=== PATIENT | male | born 1950 | race Caucasian/White ===

== ENCOUNTER 2020-07-25 06:35 | Day surgery (SDC) | payer OTHER ==
[2020-07-23 11:12] VITALS: BMI 28.7
--- NOTE | 2020-07-23 11:46 | RAD REPORT ---
EXAM DESCRIPTION: RAD - Chest Single View - 07/23/2020 11:40 am CLINICAL HISTORY: Preop chest, pending cardiac catheterization, hypertension, prior bypass COMPARISON: Two-view chest February 2012 TECHNIQUE: AP portable chest image was obtained 07/23/2020 11:40 am . FINDINGS: Left hemidiaphragm elevation again noted. CABG surgical changes are new from 2013. Scatter ed fibrotic lung changes are seen with no failure, infiltrate, mass or other acute finding identifiab le. Heart and vasculature are normal. No measurable pleural effusion and no pneumothorax. No acute bony abnormality seen. No acute aortic findings suspected. IMPRESSION: No acute cardiopulmonary process. No significant change from comparison study.
[2020-07-23 11:56] LABS: Absolute Lymphocytes (CBC) 2.1 K/uL (0.7-4.9); Basophils % 0.6 % (0-1.3); Lymphocytes % 20.4 % (15.3-44.8); MPV 7.1 fL (7.6-11.3); RBC Red Blood Cell Count 4.54 M/uL (4.33-5.43)
[2020-07-23 12:10] LABS: BUN Blood Urea Nitrogen 23 mg/dL (7-18); Bicarbonate 31 mmol/L (21-32); Glucose Level 107 mg/dL (74-106); Potassium 3.1 mmol/L (3.5-5.1); Sodium Level 136 mmol/L (136-145)
[2020-07-23 12:15] LABS: Protime INR 0.91
[2020-07-25] MEDS ORDERED: HEPA 1000U/500MLS 0 UNIT/0 ML BAG IV ONE (07:02)
[2020-07-25] MEDS ORDERED: LIDOCAINE 1% 20 ML MDV ONE (07:02)
[2020-07-25] MEDS ORDERED: HEPA 1000U/500MLS 1,000 UNIT/500 ML BAG IV ONE (07:04)
[2020-07-25] MEDS ORDERED: NA CHLORIDE 0.9% 500 ML ONE (07:05)
[2020-07-25] MEDS ORDERED: MIDAZOLAM HCL 2 MG/2 ML INJ ONE ×2 (07:25→07:39)
[2020-07-25] MEDS ORDERED: FENTANYL CITR 100 MCG/2 ML ONE (07:25)
[2020-07-25] MEDS ORDERED: NA CHLORIDE 0.9% 0 ML ONE (07:26)
[2020-07-25] MEDS ORDERED: ATROPINE SULF 1 MG/10 ML SYR IV ONE (07:26)
[2020-07-25 09:34] VITALS: O2SAT 96
[2020-07-25 09:52] VITALS: BP 124/56; TEMP 97.3
--- NOTE | 2020-07-25 10:41 | OP ---
Surgeon: Don Salas MD Freight Receiver: Mr. Vincent Scanlon. The patient will remain in the hospital for 2 hours after his Angio-Seal at bedrest. He will go home after that. Continue same medicine. He will see me in the office in the next 2 weeks. Indication: Mr. Morales is a 69-year-old, patient of Dr. López and myself, with history of CAD, presen bob to the office with unstable angina. Procedure: He was brought to the [facility] supervisor today as an outpatient. In the [facility], he underwent a l eft heart catheterization, selective coronary arteriogram, vein graft injection to the OM, injection of the DC, and left ventriculogram. Procedure In Detail: He was prepped and draped in the routine sterile fashion. Given Versed and fen tanyl for sedation. A 6-Armenian sheath introduced in the right common femoral artery successfully. A ngio-Seal was used to close the case. Angiography there was normal. There was some tortuosity in th e iliac arteries. So, we used and exchanged wire to do the catheterization. A JL4 catheter showed a completely occluded left main. We then exchanged to a JR4 catheter and we cannulated the RCA, which was normal, dominant. We then cannulated the graft to the OM, which was patent to the OM1. We proc eeded to select the DC artery and after that and that was patent to the LAD. Left ventriculogram w as normal with ejection fraction of 65% to 69% with left ventricular end-diastolic pressure of 10. T here were no complications. Blood Loss: 5 mL. Postoperative Diagnosis: Severe coronary artery disease, status post previous bypass, patent stents. Continue medical therapy. Anesthesia: Total conscious sedation was 45 minutes. NB/MODL Voice ID: [id number] Report ID: [id number]
== END 2020-07-25 10:00 | disposition home or self-care (01) ==
LOC: CCL 06:35
DX: I25.110 Atherosclerotic heart disease of native coronary artery with unstable angina pectoris (principal); I25.82 Chronic total occlusion of coronary artery; I65.23 Occlusion and stenosis of bilateral carotid arteries; I10 Essential (primary) hypertension; R00.2 Palpitations; E78.2 Mixed hyperlipidemia; J44.1 Chronic obstructive pulmonary disease with (acute) exacerbation; G62.9 Polyneuropathy, unspecified; Z95.1 Presence of aortocoronary bypass graft; Z95.5 Presence of coronary angioplasty implant and graft; Z87.891 Personal history of nicotine dependence
CPT/HCPCS: 85025; 80048; 36415; 85610; 85730; 71045; C1893; C1760; J2250 ×2; J3010; J7040; J1644; 93458; 93459; J0583

== ENCOUNTER 2021-11-04 14:28 | Inpatient (IN) | payer OTHER ==
--- OUTSIDE RECORDS SUMMARY | 2021-11-04 14:33 | XMS REPORT | Continuity of Care Document ---
:1950 Author Organization [facility] t Address [address] [place] [address] Care Team Providers Name Role Phone MANJIT COSTA Primary Care Physician Unavailable Dell Pascual MD Attending Clinician RADIOLOGY Attending Clinician Unavailable Radiology Attending Clinician Unavailable Shereen Ferguson MD Attending Clinician OMARI DUMONT Attending Clinician Unavailable Omari Dumont Attending Clinician Doctor Unassigned, Adena Attending Clinician Unavailable Aroldo Sanchez DO Attending Clinician АНДРЕЙ DOHERTY Attending Clinician Unavailable Lab, Adc Fam Pob I Attending Clinician Unavailable Patricia Tiwari Attending Clinician MD SHEREEN FERGUSON Attending Clinician Unavailable Stephanie Kapoor Attending Clinician STEPHANIE HENRIQUEZ Attending Clinician Unavailable Mello Hall MD Attending Clinician JAVIER HAYDEN Admitting Clinician Unavailable OMARI DUMONT Admitting Clinician Unavailable SHEREEN FERGUSON Admitting Clinician Unavailable MD SHEREEN FERGUSON Admitting Clinician Unavailable Payers Payer Name Policy Type Policy Number Effective Date Expiration Date Alan JASON MANAGED [id number] 2021 MEDICARE PPO-SAMRA 00:00:00 Problems Condition Condition Condition Status Onset Resolution Last Treating Co mments Source Name Details Category Date Date Treatment Clinician Date S/P total S/P total Disease Active [facility] 10-[facility] arthroplas arthroplas 00:00: [facility] ty, left ty, left 00 l 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 Added automatic ally from request for surgery [id number] Post-op Post-op Disease Active [facility] atrial [facility] 03-16kes fibrillati fibrillati 00:00: [facility] on Center S/P ACB S/P ACB Disease Active [facility] (DC-LAD, (DC-LAD, 03-11 Lisseth kes SVG-OM) SVG-OM) [facility]:00: [facility] Coronary Coronary Disease Active [facility] artery artery 03-10 disease disease 00:00: [facility] Hypertensi Hypertensi Disease Active [facility] on 03-10 [facility] COPD COPD Disease Active [facility] (chronic (chronic 03-10 obstructiv obstructiv 00:00: Me dical e e Center pulmonary pulmonary disease) disease) Pain in Pain in Diagnosis Active Commo n joint of joint of [facility] right right - [facility] shoulder shoulder [facility] Impingemen Impingemen Diagnosis Active Common t syndrome t syndrome Sp [facility] of right of right - [facility] shoulder shoulder [facility] Allergies, Adverse Reactions, Alerts Allergy Allergy Status Severity Reaction(s) Onset Inactive Treating Comm ents Source Name Type Date Date Clinician ADHESIVE Drug Active Low Rash Univers Class 03-10 ity of 00:00: [place] 00 [facility] Adhesive Propensi Active Rash Univer s ty to 03-10 ity of adverse 00:00: [place] reaction 00 Medical s Branch Adhesive Propensi Active Rash Univer s ty to 1-31 ity of adverse 00:00: [place] reaction 00 Medical s Branch Adhesive Drug Active Rash 2016-0 SANCHEZ Molina [facility]olera [facility]31 [facility] Family History Family Member Diagnosis Comments Start Date Stop Date Source Natural father Heart disease [facility] Natural mother Cancer [facility] Social History Social Habit Start Date Stop Date Quantity Comments Source History of tobacco Cigarette Smoker [facility] use [facility] Center Exposure to 2021-08-31 2021-09-10 Not sure University SARS-CoV-2 (event) 00:00:00 14:41:00 [facility] Alcohol intake 2021-08-05 2021-08-05 Current drinker [facility]o dist 00:00:00 00:00:00 of alcohol Hospital (finding) Cigarettes smoked 2020-04-09 2020-04-[address] current (pack per 00:00:00 00:00:00 Hospita l day) - Reported Cigarette 2020-04-09 2020-04-09 [facility] pack-years 00:00:00 00:00:00 Hospital Tobacco use and 2020-04-09 2020-04-09 Smokeless [facility] exposure 00:00:00 00:00:00 tobacco non-user Hospital Alcohol Comment 2019-10-18 2019-10-18 social [facility] 00:00:00 00:00:00 Hospital Sex [birth year] At [birth year] SANCHEZ Oliver kes 00:00:00 00:00:00 [facility] Center Smoking Status Start Date Stop Date Source Former smoker [facility] Never smoked tobacco [facility] Medications Ordered Filled Start Stop Current Ordering Indication Dosage Frequency Signature Comments Components Source Medication Medication Date Date Medication? Clinician (SIG) Name Name triazolam 2020-0 Yes .25mg QD Take 0.25 [facility] (HALCION) 3-[address] 0.25 MG 00:00: mouth Hospita tablet 00 daily. l furosemide 2020-0 Yes 40mg Take 40 mg U nivers 40 mg 2-29 by mouth. ity of tablet 00:00: [address] furosemide 2020-0 Yes 40mg Take 40 mg U nivers 40 mg 2-29 by mouth. ity of tablet 00:00: [place] [facility] furosemide 2020-0 Yes 40mg Take 40 mg U nivers 40 mg 2-29 by mouth. ity of tablet 00:00: [place] [facility] furosemide 2020-0 Yes 40mg Take 40 mg U nivers 40 mg 2-29 by mouth. ity of tablet 00:00: [place] [facility] furosemide 2020-0 Yes 40mg Take 40 mg U nivers 40 mg 2-29 by mouth. ity of tablet 00:00: [place] [facility] furosemide 2020-0 Yes 40mg Take 40 mg U nivers 40 mg 2-29 by mouth. ity of tablet 00:00: [place] [facility] furosemide 2020-0 Yes 40mg Take 40 mg U nivers 40 mg 2-29 by mouth. ity of tablet 00:00: [place] [facility] furosemide 2020-0 Yes 40mg Take 40 mg U nivers 40 mg 2-29 by mouth. ity of tablet 00:00: [place] [facility] furosemide 2020-0 Yes 40mg Take 40 mg U nivers 40 mg 2-29 by mouth. ity of tablet 00:00: [place] [facility] furosemide 2020-0 Yes 40mg Take 40 mg U nivers 40 mg 2-29 by mouth. ity of tablet 00:00: [place] [facility] furosemide 2020-0 Yes 40mg QD Take 40 mg M ethodi (LASIX) 40 2-[address] mg tablet 00:00: daily. Hospit a 00 l escitalopra 2019- Yes Univer s m oxalate 2-14 ity of 10 mg 00:00: [place] tablet 00 [facility] escitalopra 2019- Yes Univer s m oxalate 2-14 ity of 10 mg 00:00: [place] tablet 00 [facility] escitalopra 2019- Yes Univer s m oxalate 2-14 ity of 10 mg 00:00: [place] tablet 00 [facility] escitalopra 2019- Yes Univer s m oxalate 2-14 ity of 10 mg 00:00: [place] tablet 00 [facility] [place] escitalopra 2019- Yes Univer s m oxalate 2-14 ity of 10 mg 00:00: [place] tablet 00 [facility] escitalopra 2019- Yes Univer s m oxalate 2-14 ity of 10 mg 00:00: [place] tablet 00 [facility] escitalopra 2019- Yes Univer s m oxalate 2-14 ity of 10 mg 00:00: [place] tablet 00 [facility] escitalopra 2019- Yes Univer s m oxalate 2-14 ity of 10 mg 00:00: [place] tablet 00 [facility] Branch escitalopra 2018-02 Yes Univer s m oxalate 2-14 ity of 10 mg 00:00: [place] tablet 00 [facility] escitalopra 2018-02 Yes Univer s m oxalate 2-14 ity of 10 mg 00:00: [place] tablet Medical Branch escitalopra 2018-02 Yes Univer s m oxalate 2-14 ity of 10 mg 00:00: [place] tablet Medical Branch escitalopra 2018-02 Yes Univer s m oxalate 2-14 ity of 10 mg 00:00: [place] tablet Medical Branch escitalopra 2018-02 Yes Univer s m oxalate 2-14 ity of 10 mg 00:00: [place] tablet Medical Branch escitalopra 2018-02 Yes Univer s m oxalate 2-14 ity of 10 mg 00:00: [place] tablet Medical [facility] escitalopra 2018-02 Yes 5mg QD Take 5 mg M ethodi m (LEXAPRO) 2-[address] 10 MG 00:00: daily. Hospita tablet 00 triazolam 2018-02 Yes Univers 0.25 mg 0-31 ity of tablet 00:00: [place] [facility] triazolam 2018-02 Yes Univers 0.25 mg 0-31 ity of tablet 00:00: [facility] triazolam 2018-02 Yes Univers 0.25 mg 0-31 ity of tablet 00:00: [place] [facility] triazolam 2018-02 Yes Univers 0.25 mg 0-31 ity of tablet 00:00: [facility] triazolam 2018-02 Yes Univers 0.25 mg 0-31 ity of tablet 00:00: [facility] Branch triazolam 2018-02 Yes Univers 0.25 mg 0-31 ity of tablet 00:00: [facility] triazolam 2018-02 Yes Univers 0.25 mg 0-31 ity of tablet 00:00: [facility] triazolam 2018-02 Yes Univers 0.25 mg 0-31 ity of tablet 00:00: [facility] triazolam 2018-02 Yes Univers 0.25 mg 0-31 ity of tablet 00:00: [facility] triazolam 2018-02 Yes Univers 0.25 mg 0-31 ity of tablet 00:00: [place] [facility] triazolam 2018- Yes Univers 0.25 mg 0-31 ity of tablet 00:00: [address] Branch triazolam 2018- Yes Univers 0.25 mg 0-31 ity of tablet 00:00: [address] Branch triazolam 2018- Yes Univers 0.25 mg 0-31 ity of tablet 00:00: [address] Branch triazolam 2018-02 Yes Univers 0.25 mg 0-31 ity of tablet 00:00: [address] Branch amLODIPine 2018- Yes Univers 5 mg tablet 0-11 ity of 00:00: [address] Branch amLODIPine 2018- Yes Univers 5 mg tablet 0-11 ity of 00:00: [address] Branch amLODIPine 2018- Yes Univers 5 mg tablet 0-11 ity of 00:00: [address] Branch amLODIPine 2018-02 Yes Univers 5 mg tablet 0-11 ity of 00:00: [address] Branch amLODIPine 2019 Yes Univers 5 mg tablet 0-11 ity of 00:00: [address] Branch amLODIPine 2018- Yes Univers 5 mg tablet 0-11 ity of 00:00: [address] amLODIPine 2018-02 Yes Univers 5 mg tablet 0-11 ity of 00:00: [address] Branch amLODIPine 2019- Yes Univers 5 mg tablet 0-11 ity of 00:00: [address] Branch amLODIPine 2019- Yes Univers 5 mg tablet 0-11 ity of 00:00: [address] Branch amLODIPine 2019- Yes Univers 5 mg tablet 0-11 ity of 00:00: [address] Branch amLODIPine 2019- Yes Univers 5 mg tablet 0-11 ity of 00:00: [address] Branch amLODIPine 2018- Yes Univers 5 mg tablet 0-11 ity of 00:00: [address] Branch amLODIPine 2019- Yes Univers 5 mg tablet 0-11 ity of 00:00: [address] Branch amLODIPine 2019- Yes Univers 5 mg tablet 0-11 ity of 00:00: [address] Branch amLODIPine 2019- Yes 5mg QD Take 5 mg Me [facility] (NORVASC) 5 0-[address] mg tablet 00:00: daily. Hospit a 00 l atorvastati Yes Univer s n 40 mg 9-17 ity of tablet 00:00: [place] 00 [facility] atorvastati 2019-0 Yes Univer s n 40 mg 9-17 ity of tablet 00:00: [place] 00 [facility] atorvastati 2019-0 Yes Univer s n 40 mg 9-17 ity of tablet 00:00: [place] 00 [facility] atorvastati 2019-0 Yes Univer s n 40 mg 9-17 ity of tablet 00:00: [place] 00 [facility] atorvastati 2019-0 Yes Univer s n 40 mg 9-17 ity of tablet 00:00: [place] 00 [facility] atorvastati 2019-0 Yes Univer s n 40 mg 9-17 ity of tablet 00:00: [place] 00 [facility] atorvastati 2019-0 Yes Univer s n 40 mg 9-17 ity of tablet 00:00: [place] 00 [facility] atorvastati 2019-0 Yes Univer s n 40 mg 9-17 ity of tablet 00:00: [place] 00 [facility] atorvastati 2019-0 Yes Univer s n 40 mg 9-17 ity of tablet 00:00: [place] 00 [facility] atorvastati 2019-0 Yes Univer s n 40 mg 9-17 ity of tablet 00:00: [place] [address] Medical Branch atorvastati 2019-0 Yes Univer s n 40 mg 9-17 ity of tablet 00:00: [place] 00 [facility] atorvastati 2019-0 Yes Univer s n 40 mg 9-17 ity of tablet 00:00: [place] 00 [facility] atorvastati 2019-0 Yes Univer s n 40 mg 9-17 ity of tablet 00:00: [place] 00 [facility] atorvastati 2019-0 Yes Univer s n 40 mg 9-17 ity of tablet 00:00: [place] [address] Medical Branch tadalafil 2019-0 Yes TAKE 1 Univer s 20 mg 9-04 TABLET BY ity of tablet 00:00: MOUTH [place] EVERY DAY Medical NEEDED Branch tadalafil 2019-0 Yes TAKE 1 Univer s 20 mg 9-04 TABLET BY ity of tablet 00:00: MOUTH [place] [address] EVERY DAY Medical NEEDED Branch tadalafil 2019-0 Yes TAKE 1 Univer s 20 mg 9-04 TABLET BY ity of tablet 00:00: MOUTH [place] EVERY DAY Medical NEEDED Branch tadalafil 2019-0 Yes TAKE 1 Univer s 20 mg 9-04 TABLET BY ity of tablet 00:00: MOUTH 00 EVERY DAY Medical NEEDED Branch tadalafil Yes TAKE 1 Univer s 20 mg 9-04 TABLET BY ity of tablet 00:00: MOUTH [place] 00 EVERY DAY Medical NEEDED Branch tadalafil Yes TAKE 1 Univer s 20 mg 9-04 TABLET BY ity of tablet 00:00: MOUTH 00 EVERY DAY Medical NEEDED Branch tadalafil Yes TAKE 1 Univer s 20 mg 9-04 TABLET BY ity of tablet 00:00: MOUTH 00 EVERY DAY Medical NEEDED Branch tadalafil Yes TAKE 1 Univer s 20 mg 9-04 TABLET BY ity of tablet 00:00: MOUTH 00 EVERY DAY Medical NEEDED Branch tadalafil Yes TAKE 1 Univer s 20 mg 9-04 TABLET BY ity of tablet 00:00: MOUTH 00 EVERY DAY Medical NEEDED Branch tadalafil Yes TAKE 1 Univer s 20 mg 9-04 TABLET BY ity of tablet 00:00: MOUTH 00 EVERY DAY Medical NEEDED Branch tadalafil Yes TAKE 1 Univer s 20 mg 9-04 TABLET BY ity of tablet 00:00: MOUTH 00 EVERY DAY Medical NEEDED Branch tadalafil Yes TAKE 1 Univer s 20 mg 9-04 TABLET BY ity of tablet 00:00: MOUTH 00 EVERY DAY Medical NEEDED Branch tadalafil Yes TAKE 1 Univer s 20 mg 9-04 TABLET BY ity of tablet 00:00: MOUTH 00 EVERY DAY Medical NEEDED Branch tadalafil Yes TAKE 1 Univer s 20 mg 9-04 TABLET BY ity of tablet 00:00: MOUTH 00 EVERY DAY Medical NEEDED Branch predniSONE 2018-0 Yes Univers 10 mg 8-13 ity of tablet 00:00: [place] 00 [facility] metoprolol 2018-0 Yes Univers succinate 8-13 ity of XL 50 mg 24 00:00: [place] hr tablet 00 Medical Branch metoprolol 0 Yes Univers succinate 8-13 ity of XL 50 mg 24 00:00: [place] hr tablet 00 Medical Branch predniSONE 2019-0 Yes Univers 10 mg 8-13 ity of tablet 00:00: [place] 00 [facility] metoprolol 2019-0 Yes Univers succinate 8-13 ity of XL 50 mg 24 00:00: [place] hr tablet 00 Medical Branch predniSONE 2019-0 Yes Univers 10 mg 8-13 ity of tablet 00:00: [place] 00 [facility] predniSONE 2019-0 Yes Univers 10 mg 8-13 ity of tablet 00:00: [place] [facility] metoprolol 2019-0 Yes Univers succinate 8-13 ity of XL 50 mg 24 00:00: [place] hr tablet 00 Medical Branch predniSONE 2019-0 Yes Univers 10 mg 8-13 ity of tablet 00:00: [place] [facility] metoprolol 2019-0 Yes Univers succinate 8-13 ity of XL 50 mg 24 00:00: [place] hr tablet 00 Medical Branch predniSONE 2019-0 Yes Univers 10 mg 8-13 ity of tablet 00:00: [place] [facility] metoprolol 2019-0 Yes Univers succinate 8-13 ity of XL 50 mg 24 00:00: [place] hr tablet 00 Medical Branch predniSONE 2019-0 Yes Univers 10 mg 8-13 ity of tablet 00:00: [place] [facility] metoprolol 2019-0 Yes Univers succinate 8-13 ity of XL 50 mg 24 00:00: [place] hr tablet 00 Medical Branch predniSONE 2019-0 Yes Univers 10 mg 8-13 ity of tablet 00:00: [place] [facility] metoprolol 2019-0 Yes Univers succinate 8-13 ity of XL 50 mg 24 00:00: [place] hr tablet 00 Medical Branch predniSONE 2019-0 Yes Univers 10 mg 8-13 ity of tablet 00:00: [place] [facility] metoprolol 2019-0 Yes Univers succinate 8-13 ity of XL 50 mg 24 00:00: [place] hr tablet 00 Medical Branch predniSONE 2019-0 Yes Univers 10 mg 8-13 ity of tablet 00:00: [place] [facility] metoprolol 2019-0 Yes Univers succinate 8-13 ity of XL 50 mg 24 00:00: [place] hr tablet 00 Medical Branch predniSONE 2019-0 Yes Univers 10 mg 8-13 ity of tablet 00:00: [place] [facility] metoprolol 2019-0 Yes Univers succinate 8-13 ity of XL 50 mg 24 00:00: [place] hr tablet 00 Medical Branch predniSONE 2019-0 Yes Univers 10 mg 8-13 ity of tablet 00:00: [place] [facility] metoprolol 2019-0 Yes Univers succinate 8-13 ity of XL 50 mg 24 00:00: [place] hr tablet 00 Medical Branch predniSONE 2018-0 Yes Univers 10 mg 8-13 ity of tablet 00:00: [place] [facility] metoprolol 2018-0 Yes Univers succinate 8-13 ity of XL 50 mg 24 00:00: [place] hr tablet 00 Medical Branch predniSONE 2018-0 Yes Univers 10 mg 8-13 ity of tablet 00:00: [place] [facility] metoprolol 2018-0 Yes Univers succinate 8-13 ity of XL 50 mg 24 00:00: [place] hr tablet Medical Branch triazolam 2017-0 Yes .25mg Take 0.[address] (HALCION) 2-09 [facility] MG 13:49: mouth Medical tablet 27 every Center night as needed. apixaban 5 0 Yes 5mg Take 5 mg Un sally mg tablet 2-09 by mouth. ity o f 00:00: [place] [facility] umeclidiniu Yes 1{puff} Inhale 1 Univers m 62.5 2-09 Puff. ity of mcg/actuati 00:00: [place] on DsDv [facility] Branch apixaban 5 0 Yes 5mg Take 5 mg Un sally mg tablet 2-09 by mouth. ity o f 00:00: [facility] umeclidiniu Yes 1{puff} Inhale 1 Univers m 62.5 2-09 Puff. ity of mcg/actuati 00:00: [place] on DsDv Medical Branch apixaban 5 [id number] Yes 5mg Take 5 mg Un sally mg tablet 2-09 by mouth. ity o f 00:00: [facility] umeclidiniu Yes 1{puff} Inhale 1 Univers m 62.5 2-09 Puff. ity of mcg/actuati 00:00: [place] on DsDv [facility] apixaban 5 2017-0 Yes 5mg Take 5 mg Un sally mg tablet 2-09 by mouth. ity o f 00:00: [facility] umeclidiniu 0 Yes 1{puff} Inhale 1 Univers m 62.5 2-09 Puff. ity of mcg/actuati 00:00: [place] on DsDv Medical Branch apixaban 5 2017-0 Yes 5mg Take 5 mg Un sally mg tablet 2-09 by mouth. ity o f 00:00: [place] [facility] apixaban 5 2017-0 Yes 5mg Take 5 mg Un sally mg tablet 2-09 by mouth. ity o f 00:00: [place] [facility] umeclidiniu 2017-0 Yes 1{puff} Inhale 1 Univers m 62.5 2-09 Puff. ity of mcg/actuati 00:00: [place] on DsDv Medical Branch umeclidiniu 2017-0 Yes 1{puff} Inhale 1 Univers m 62.5 2-09 Puff. ity of mcg/actuati 00:00: [place] on DsDv Medical Branch apixaban 5 2017-0 Yes 5mg Take 5 mg Un sally mg tablet 2-09 by mouth. ity o f 00:00: [place] [facility] umeclidiniu 2017-0 Yes 1{puff} Inhale 1 Univers m 62.5 2-09 Puff. ity of mcg/actuati 00:00: [place] on DsDv Medical Branch apixaban 5 2017-0 Yes 5mg Take 5 mg Un sally mg tablet 2-09 by mouth. ity o f 00:00: [place] [facility] umeclidiniu 2017-0 Yes 1{puff} Inhale 1 Univers m 62.5 2-09 Puff. ity of mcg/actuati 00:00: [place] on DsDv Medical Branch apixaban 5 2017-0 Yes 5mg Take 5 mg Un sally mg tablet 2-09 by mouth. ity o f 00:00: [place] [facility] umeclidiniu 2017-0 Yes 1{puff} Inhale 1 Univers m 62.5 2-09 Puff. ity of mcg/actuati 00:00: [place] on DsDv Medical Branch apixaban 5 2017-0 Yes 5mg Take 5 mg Un sally mg tablet 2-09 by mouth. ity o f 00:00: [place] [facility] umeclidiniu 2017-0 Yes 1{puff} Inhale 1 Univers m 62.5 2-09 Puff. ity of mcg/actuati 00:00: [place] on DsDv Medical Branch apixaban 5 2017-0 Yes 5mg Take 5 mg Un sally mg tablet 2-09 by mouth. ity o f 00:00: [place] [facility] umeclidiniu 2017-0 Yes 1{puff} Inhale 1 Univers m 62.5 2-09 Puff. ity of mcg/actuati 00:00: [place] on DsDv Medical Branch apixaban 5 [id number] Yes 5mg Take 5 mg Un salyl mg tablet 2-09 by mouth. ity o f 00:00: [place] [facility] umeclidiniu 2017-0 Yes 1{puff} Inhale 1 Univers m 62.5 2-09 Puff. ity of mcg/actuati 00:00: [place] on DsDv Medical Branch apixaban 5 Yes 5mg Take 5 mg Un sally mg tablet 2-09 by mouth. ity o f 00:00: [place] [facility] umeclidiniu 2017-0 Yes 1{puff} Inhale 1 [facility] 62.5 2-09 Puff. ity of mcg/actuati 00:00: [place] on DsDv Medical Branch apixaban 5 Yes 5mg Take 5 mg Un sally mg tablet 209 by mouth. ity o f 00:00: [place] [facility] umeclidiniu Yes 1{puff} Inhale 1 [facility] m 62.5 2-09 Puff. ity of mcg/actuati 00:00: [place] on DsDv Medical Branch apixaban [id number] Yes 5mg Q.5D Take [address] [facility] (ELIQUIS) 5 2-09 tablet (5 Bk es mg Tab 00:00: mg total) Medica l tablet 00 by mouth 2 Center (two) times daily. umeclidiniu Yes 1{puff} QD Inhale [address] [facility] m (INCRUSE 2-09 puff by [facility] ELLIPTA) 00:00: mouth via [facility] 62.5 00 inhaler Center mcg/actuati daily. on DsDv powder for inhalation atorvastati Yes 40mg QD Take 40 mg Methodi n (LIPITOR) 2-[address] 40 MG 00:00: daily. Hospita tablet 00 l metoprolol 2017-0 Yes Method[facility] succinate 2-01 st 50 mg 00:00: Hospita capsule,spr 00 l inkle,ER 24hr nisoldipine [id number] Yes Univer s (SULAR) 7-18 ity of 25.5 mg 24 00:00: [place] hr tablet 00 Medical Branch BENICAR HCT 2015-0 Yes Univer s 40-12.5 mg 7-18 ity of per tablet 00:00: [place] [facility] nisoldipine [id number] Yes Univer s (SULAR) 7-18 ity of 25.5 mg 24 00:00: [place] hr tablet 00 Medical Branch BENICAR HCT 2016-0 Yes Univer s 40-12.5 mg 7-18 ity of per tablet 00:00: [place] 00 [facility] Branch nisoldipine 2016-0 Yes Univer s (SULAR) 7-18 ity of 25.5 mg 24 00:00: [place] hr tablet 00 Medical Branch BENICAR HCT 2015-0 Yes Univer s 40-12.5 mg 7-18 ity of per tablet 00:00: [place] 00 [facility] Branch nisoldipine 2016-0 Yes Univer s (SULAR) 7-18 ity of 25.5 mg 24 00:00: [place] hr tablet 00 Medical Branch BENICAR HCT 2015-0 Yes Univer s 40-12.5 mg 7-18 ity of per tablet 00:00: [place] 00 [facility] nisoldipine 2016-0 Yes Univer s (SULAR) 7-18 ity of 25.5 mg 24 00:00: [place] hr tablet 00 Medical Branch BENICAR HCT 2016-0 Yes Univer s 40-12.5 mg 7-18 ity of per tablet 00:00: [place] 00 [facility] nisoldipine 2016-0 Yes Univer s (SULAR) 7-18 ity of 25.5 mg 24 00:00: [place] hr tablet 00 Medical Branch BENICAR HCT 2016-0 Yes Univer s 40-12.5 mg 7-18 ity of per tablet 00:00: [place] 00 [facility] nisoldipine 2016-0 Yes Univer s (SULAR) 7-18 ity of 25.5 mg 24 00:00: [place] hr tablet 00 Medical Branch BENICAR HCT 2016-0 Yes Univer s 40-12.5 mg 7-18 ity of per tablet 00:00: [place] 00 [facility] nisoldipine 2016-0 Yes Univer s (SULAR) 7-18 ity of 25.5 mg 24 00:00: [place] hr tablet 00 Medical Branch BENICAR HCT 2015-0 Yes Univer s 40-12.5 mg 7-18 ity of per tablet 00:00: [place] 00 [facility] Branch nisoldipine 2016-0 Yes Univer s (SULAR) 7-18 ity of 25.5 mg 24 00:00: [place] hr tablet 00 Medical Branch BENICAR HCT 0 Yes Univer s 40-12.5 mg 7-18 ity of per tablet 00:00: [place] 00 [facility] Branch nisoldipine 0 Yes Univer s (SULAR) 7-18 ity of 25.5 mg 24 00:00: [place] hr tablet 00 Medical Branch BENICAR HCT 0 Yes Univer s 40-12.5 mg 7-18 ity of per tablet 00:00: [place] 00 [facility] Branch nisoldipine [id number] Yes Univer s (SULAR) 7-18 ity of 25.5 mg 24 00:00: [place] hr tablet 00 Medical Branch BENICAR HCT 0 Yes Univer s 40-12.5 mg 7-18 ity of per tablet 00:00: [place] 00 [facility] Branch nisoldipine [id number] Yes Univer s (SULAR) 7-18 ity of 25.5 mg 24 00:00: [place] hr tablet 00 Medical Branch nisoldipine 0 Yes Univer s (SULAR) 7-18 ity of 25.5 mg 24 00:00: [place] hr tablet 00 Medical Branch BENICAR HCT 2016-0 Yes Univer s 40-12.5 mg 7-18 ity of per tablet 00:00: [place] 00 Medical Branch BENICAR HCT 2015-0 Yes Univer s 40-12.5 mg 7-18 ity of per tablet 00:00: [place] 00 Medical Branch nisoldipine 2015-0 Yes Univer s (SULAR) 7-18 ity of 25.5 mg 24 00:00: [place] hr tablet 00 Medical Branch BENICAR HCT 0 Yes Univer s 40-12.5 mg 7-18 ity of per tablet 00:00: [place] 00 Medical Branch ANORO 2015-0 Yes Univers ELLIPTA 7-17 ity of 62.5-25 00:00: [place] mcg/actuati 00 Medical on Branch inhalation disk ANORO 2016-0 Yes Univers ELLIPTA 7-17 ity of 62.5-25 00:00: [place] mcg/actuati 00 Medical on Branch inhalation disk ANORO 2016-0 Yes Univers ELLIPTA 7-17 ity of 62.5-25 00:00: [place] mcg/actuati 00 Medical on Branch inhalation disk ANORO 2016-0 Yes Univers ELLIPTA 7-17 ity of 62.5-25 00:00: [place] mcg/actuati 00 Medical on Branch inhalation disk ANORO 2016-0 Yes Univers ELLIPTA 7-17 ity of 62.5-25 00:00: [place] mcg/actuati 00 Medical on Branch inhalation disk ANORO 2016-0 Yes Univers ELLIPTA 7-17 ity of 62.5-25 00:00: [place] mcg/actuati 00 Medical on Branch inhalation disk ANORO 2016-0 Yes Univers ELLIPTA 7-17 ity of 62.5-25 00:00: [place] mcg/actuati 00 Medical on Branch inhalation disk ANORO 2016-0 Yes Univers ELLIPTA 7-17 ity of 62.5-25 00:00: [place] mcg/actuati 00 Medical on Branch inhalation disk ANORO 2016-0 Yes Univers ELLIPTA 7-17 ity of 62.5-25 00:00: [place] mcg/actuati 00 Medical on Branch inhalation disk ANORO 2016-0 Yes Univers ELLIPTA 7-17 ity of 62.5-25 00:00: [place] mcg/actuati 00 Medical on Branch inhalation disk ANORO 2016-0 Yes Univers ELLIPTA 7-17 ity of 62.5-25 00:00: [place] mcg/actuati 00 Medical on Branch inhalation disk ANORO 2016-0 Yes Univers ELLIPTA 7-17 ity of 62.5-25 00:00: [place] mcg/actuati 00 Medical on Branch inhalation disk ANORO 2016-0 Yes Univers ELLIPTA 7-17 ity of 62.5-25 00:00: [place] mcg/actuati 00 Medical on Branch inhalation disk ANORO 2016-0 Yes Univers ELLIPTA 7-17 ity of 62.5-25 00:00: [place] mcg/actuati 00 [facility] inhalation disk umeclirebecau 2010-0 Yes QD daily. Meth boubacar m-vilantero 1-10 st L (Anoro 00:00: [facility]) 00 l 62.5-25 mcg/actuati on blister with device Triazolam Triazolam Yes Carlo not Com mon Omid defined [facility] Atorvastati Atorvastati Yes Carlo not Common n Calcium n Calcium Omid defined [facility] PredniSONE PredniSONE Yes Carlo not C ommon Omid defined [facility] Atrovent Atrovent Yes Carlo not Commo n HFA HFA Omid defined [facility] Furosemide Furosemide Yes Carlo not C ommon Omid defined [facility] Amlodipine Amlodipine Yes Carlo not C ommon Besylate Besylate Omid defined Sp cecille [facility] Anoro Anoro Yes Carlo not Common Ellipta Ellipta Omid defined [facility] Combivent Combivent Yes Carlo not Com mon Omid defined [facility] Acetaminoph Acetaminoph Yes Carlo not Common en en Omid defined [facility] Tadalafil Tadalafil Yes Carlo not Com mon Omid defined [facility] Metoprolol Metoprolol Yes Carlo not C ommon Succinate Succinate Omid defined [facility] Yoselin Yoselin Yes Carlo not Common Aspirin Aspirin Omid defined Spir it [facility] Vital Signs Vital Name Observation Time Observation Value Comments Source Systolic blood 2019-08-29 14:55:00 160 mm[Hg[facility] 2019-08-29 14:55:00 83 mm[Hg] Unive rsity of [facility] Heart rate 2019-08-29 14:55:00 86 /min [facility] Body height 2019-08-29 14:55:00 167.6 cm [facility] Body weight 2019-08-29 14:55:00 77.111 kg [facility] BMI 2019-08-29 14:55:00 27.44 kg/m2 [facility] Systolic blood 2019-08-29 14:55:00 160 mm[Hg] Univer sity [facility] Diastolic blood 2019-08-29 14:55:00 83 mm[Hg] Unive rsity of pressure [facility] Heart rate 2019-08-29 14:55:00 86 /min [facility] Body height 2019-08-29 14:55:00 167.6 cm [facility] Body weight 2019-08-29 14:55:00 77.111 kg [facility] BMI 2019-08-29 14:55:00 27.44 kg/m2 [facility] Systolic blood 2019-08-24 15:36:00 176 mm[Hg] Univer sity of pressure [facility] Diastolic blood 2019-08-24 15:36:00 81 mm[Hg] Unive rsity of pressure [facility] Heart rate 2019-08-24 15:36:00 81 /min [facility] Respiratory rate 2019-08-24 15:30:00 18 /min Univ ers[facility] Body height 2019-08-24 15:30:00 167.6 cm [facility] Body weight 2019-08-24 15:30:00 77.111 kg [facility] BMI 2019-08-24 15:30:00 27.44 kg/m2 [facility] Systolic blood 2019-03-31 14:40:00 156 mm[Hg] Univer sity of pressure [facility] Diastolic blood 2019-03-31 14:40:00 87 mm[Hg] Unive rsity of [facility] Heart rate 2019-03-31 14:40:00 79 /min [facility]i [facility] Respiratory rate 2019-03-31 14:40:00 20 /min Univ [facility] Body height 2019-03-31 14:40:00 167.6 cm [facility] Body weight 2019-03-31 14:40:00 77.111 kg [facility] BMI 2019-03-31 14:40:00 27.44 kg/m2 [facility] Body height 2021-08-05 18:15:00 167.6 cm [facility] Body weight 2021-08-05 18:15:00 74.844 kg [facility] BMI 2021-08-05 18:15:00 26.63 kg/m2 [facility] Procedures Procedure Date / Time Performing Clinician Source Performed ALPHA-1 ANTITRYPSIN 2021-10-03 17:42:00 [place], [facility] PHENOTYPE Ramana ALPHA-1 ANTITRYPSIN LEVEL 2021-10-03 17:42:00 [facility] Ramana IGG SUBCLASSES 2021-10-03 17:42:00 [facility], [facility] ospital Ramana IMMUNOGLOBULIN G 2021-10-03 17:42:00 [facility] Ramana ALLERGEN, REGION 10 2021-10-03 17:42:00 [place], [facility] RESPIRATORY VEGA IGE Ramana IMMUNCAP SCORE 2021-10-03 17:42:00 [facility], [facility] ospital Ramana MR LUMBAR SPINE WO 2021-09-19 15:51:00 Requisition, Paper [facility] CONTRAST [facility] XR KNEE 3 VW LEFT 2021-08-05 18:27[facility] LENGTH EVALUATION 2021-08-05 18:27:25 [facility] NOTICE OF PRIVACY 2021-08-04 15:36:26 Doctor Unassigned, [facility] PRACTICES [facility] CONSENT/REFUSAL FOR 2021-08-04 15:36:06 Doctor Unassigned, [facility] DIAGNOSIS AND TREATMENT [facility] ASSIGNMENT OF BENEFITS 2021-08-04 15:35:52 Doctor Unassigned, [facility] PHYSICIAN ORDERS 2021-07-23 05:01:00 Doctor Unarichardigned, [facility] XR FOOT <3 VW RIGHT 2019-08-24 15:48:01 Stephanie Henriquez [facility] DSU PRE-OP 2019-03-31 06:01:00 Doctor Unamariama, [facility] Plan of Care Planned Activity Planned Date Details Comments Source Future Scheduled 2021-10-24 HEPATITIS B VACCINES [facility] Test 14:20:57 (1 of 3 - 3-dose series) [code = HEPATITIS B VACCINES (1 of 3 - 3-dose series)] Future Scheduled 2021-10-24 65+ P[facility]UMOCOCCAL [facility] Test 14:20:57 VACCINE (1 - PCV) [code = 65+ PNEUMOCOCCAL VACCINE (1 - PCV)] Future Scheduled 2021-10-[address] [facility] Test 14:20:57 [code = COLONOSCOPY SCREENING] Future Scheduled 2021-10-24 Scre[facility] for [facility] Test 14:20:57 malignant neoplasm of lung (procedure) [code = 022042185] Future Scheduled 2021-10-24 SHINGLES VACCINES (1 [facility] Test 14:20:57 of 2) [code = SHINGLES VACCINES (1 of 2)] Future Scheduled 2021-10-24 COVID-19 VACCINE (4 - [facility] Test 14:20:57 Booster for Moderna series) [code = COVID-19 VACCINE (4 - Booster for Moderna series)] Future Scheduled 2021-10-24 INFLUENZA VACCINE [facility] Test 14:20:57 [code = INFLUENZA VACCINE] Encounters Start End Encounter Admission Attending Care Care Encounter Source Date/Time Date/Time Type Type Clinicians Facility Department ID 2021-10-31 2021-10-31 [id number] [place] 15:38:00 15:38:00 Vidya -[id number] Med ica 3 [place] 2021-10-03 2021-10-03 Lab Colzia, 1.2.840.1 [id number] Methodi 12:30:00 12:35:[address] Ramana 3.430.2.7 Hospit a .3.397474 l .8 2021-10-03 2021-10-03 Outpatient COLOMER, [facility] [id number] [place] 00:00:00 00:00:[address] DELL [address] 2021-10-03 2021-10-03 Travel 1.2.840.1 1.2.437.490 [id number] Methodi 00:00:00 00:00:[address] 3.430.2.7 0.2.7.3.698 Ho spita .3.109341 084.8 l .8 2021-09-19 2021-09-19 Outpatient R RADIOLOGY [facility] [id number] Univers 09:09:31 23:59:00 ity [facility] 2021-09-19 2021-09-19 Hospital Radiology [facility] 1.2.840.114 [id number] Univers 09:09:31 23:59:00 Encounter ANGLERAHUL 350.1.13.10 ity [facility] 4.2.7.2.686 [facility] [id number] [facility] 804 Branch 2021-09-19 2021-09-19 Outpatient R RADIOLOGY [facility] [id number] Univers 00:00:00 00:00:00 [id number] [facility] 2021-08-05 2021-08-05 Office Phyllis, 1.2.840.1 [id number] Methodi 14:00:00 15:57:20 Visit Shereen Carolian 88654.1.1 824 s t 3.430.2.7 Hospit a .3.499562 l .8 2021-08-05 2021-08-05 Outpatient PHYLLIS, [facility] [id number] [place] 00:00:00 00:00:00 SHEREEN 446 Method i 2021-08-05 2021-08-05 Outpatient PHYLLIS, [facility] [id number] [place] 00:00:00 00:00:00 SHEREEN 470 Method i 2021-08-05 2021-08-05 Outpatient PHYLLIS, [facility] [id number] [place] 00:00:00 00:00:00 SHEREEN 824 Method i 2021-08-05 2021-08-05 Travel 1.2.840.1 1.2.070.426 [id number] [facility] 00:00:00 00:00:[address] 3.430.2.7 0.2.7.3.698 Ho spita .3.897947 084.8 l .8 2021-08-04 2021-08-04 Outpatient R TIM, [facility] [id number] [facility] 10:39:04 23:59:00 OMARI [facility] 2021-08-04 2021-08-04 [facility] 1.2.840.114 [id number] Univers 10:39:04 23:59:00 Encounter Omari CAMPOS 350.1.13.10 ity [facility] 4.2.7.2.686 [place] [id number] [facility] 801 Branch 2021-08-04 2021-08-04 [facility] [id number] Univers 00:00:00 00:00:00 OMARI [id number] ity [facility] 2021-07-23 2021-07-23 Orders Doctor BRAD 1.2.840.114 [id number] Univers 00:00:00 00:00:00 Only Unassigned, JARON 350.1.13.10 ity of [place] [facility] 4.2.7.2.686 Zander [id number] [facility] 009 Branch 2020-04-15 2020-04-15 [facility] 1.2.840.114 [id number] Univers 00:00:00 00:00:00 Outreach Aroldo PRIMARY 350.1.13.10 i [facility] 4.2.7.2.686 [facility] [id number] Ia dical [address] [place] 2020-04-09 2020-04-09 Outpatient CHAS, [facility] [id number] [place] 00:00:00 00:00:00 АНДРЕЙ 981 Method i 2020-04-09 2020-04-09 Outpatient CHAS, [facility] [id number] [place] 00:00:00 00:00:00 АНДРЕЙ 096 Method i 2020-02-20 2020-02-20 Outpatient PHYLLIS, [facility] [id number] [place] 00:00:00 00:00:00 SHEREEN 222 Method i 2020-02-20 2020-02-20 Outpatient PHYLLIS, [facility] [id number] [place] 00:00:00 00:00:00 SHEREEN 422 Method i 2020-02-20 2020-02-20 Outpatient PHYLLIS, [facility] [id number] [place] 00:00:00 00:00:00 SHEREEN [address] 2020-01-29 2020-01-29 Laboratory Lab, Adc Fam Pob I [facility] 1.2. 840.114 [id number] [facility] 10:40:21 11:00:21 Only Patricia [facility] 350.1.13.10 ity of [place] 4.2.7.2.686 Zander as Professio [phone] Me dical nal [address] [place] Office [facility] 2020-01-29 2020-01-29 Outpatient R [facility] [id number] Univers 11:00:00 11:00:00 [id number] ity [facility] 2020-01-29 2020-01-29 Outpatient R [facility] [id number] [facility] 11:00:00 11:00:00 ity [facility] 2019-11-15 2019-11-15 Outpatient [facility] [id number] [place] 00:00:00 00:00:00 333 Method i 2019-11-15 2019-11-15 Outpatient [facility] [id number] [place] 00:00:00 00:00:00 543 Method i 2019-10-30 2019-10-31 Outpatient PHYLLIS, [facility] [id number] [place] 00:00:00 00:00:00 SHEREEN [address] 2019-10-25 2019-10-25 Outpatient PHYLLIS, [facility] [id number] [place] 00:00:00 00:00:00 SHEREEN [address] 2019-10-18 2019-10-18 Outpatient PHYLLIS, [facility] [id number] [place] 00:00:00 00:00:00 SHEREEN [address] 2019-08-29 2019-08-29 [facility] 1.2.840.114 [id number] Univers 09:52:24 10:07:24 Visit [facility] 350.1.13.10 it y of Surgical 4.2.7.2.686 Zander as Specialti [id number] Me dical es 198 [facility] 2019-08-29 2019-08-29 Office [facility] 1.2.840.114 [id number] 09:52:24 10:07:24 Visit [facility] 350.1.13.10 Surgical 4.2.7.2.686 Specialti [id number] es 198 [place] 2019-08-29 2019-08-29 Outpatient FLORENCE [facility] [id number] Univers 09:45:00 09:45:00 [facility] [id number] [facility]-08-29 2019-08-29 Outpatient Dominique HENRIQUEZ [facility] [id number] Univers 09:45:00 09:45:00 STEPHANIE [facility] 2019-08-24 2019-08-24 [facility] 1.2.840.114 [id number] Univers 10:48:00 23:59:00 Encounter [facility] 350.1.13.10 ity of Surgical 4.2.7.2.686 Zander as Specialti [id number] Me dical es 809 [facility] 2019-08-24 2019-08-24 Office [facility] 1.2.840.114 [id number] Univers 10:29:34 10:58:01 Visit [facility] 350.1.13.10 it y of Surgical 4.2.7.2.686 Zander as Specialti [id number] Me dical es 198 [facility] 2019-08-24 2019-08-24 Outpatient Dominique HENRIQUEZ [facility] [id number] Univers 10:30:00 10:30:00 STEPHANIE [id number] [facility] 2019-08-24 2019-08-24 Outpatient [facility] [id number] Univers 10:30:00 10:30:00 STEPHANIE [facility] 2019-07-18 2019-07-18 Outpatient PHYLLIS, [facility] [id number] [place] 00:00:00 00:00:00 SHEREEN 315 Method i 2019-06-15 2019-06-15 Outpatient PHYLLIS, [facility] [id number] [place] 00:00:00 00:00:00 SHEREEN 159 Method i 2019-06-15 2019-06-15 Outpatient PHYLLIS, [facility] [id number] [place] 00:00:00 00:00:00 SHEREEN 022 Method i 2019-06-15 2019-06-15 Outpatient PHYLLIS, [facility] [id number] [place] 00:00:00 00:00:00 SHEREEN Hankins Method i 2019-05-29 2019-05-29 Telephone [facility]AGUAR [facility] 1.2.840.114 [id number] [facility] 00:00:00 00:00:00 Mello Gomes 350.1.13.10 it y of Surgical 4.2.7.2.686 Zander as Specialti [id number] Ia dical es 198 [facility] 2019-03-31 2019-03-31 Office JAGUAR Hall 1.2.162.373 [id number] [facility] 08:35:06 09:11:29 Visit Mello Gomes 350.1.13.10 it y of Surgical 4.2.7.2.686 Zander as Specialti [phone] Ia dical es 198 [facility] 2019-03-31 2019-03-31 Orders Doctor BRAD 1.2.840.114 [id number] [facility] 00:00:00 00:00:00 Only Unassigned, JARON 350.1.13.10 ity of [place] [facility] 4.2.7.2.686 Zander as [id number] [address] 2018-09-05 2018-09-05 Outpatient [facility] [id number] Common 14:30:00 14:30:00 t [facility] 2018-08-03 2018-08-03 Outpatient [facility] [id number] Common 08:00:00 08:00:00 t [facility] Bone [facility] Sp[facility] t and [facility] - [facility] Results Test Description Test Time Test Comments Results Result Comments Source SARS-CoV-2 (COVID-19) RNA [Presence] in Respiratory sp ecimen by 2019-10-25 19:09:03 EDUARDO with probe detection Test Item Value Reference Range Interpretation Comme nts SARS-CoV-2 (COVID-19) RNA [Presence] in Respiratory Not detected No t-Detected specimen by EDUARDO with probe detection (test code = 91583-0) XR FOOT <3 VW [id number] 15:54:17No acute fracture or dislocation he does have a degenerative first [facility]
[2021-11-04] MEDS ORDERED: METHYLPREDNISOLONE 125 MG INJ ONE (15:05)
[2021-11-04] MEDS ORDERED: FUROSEMIDE 40 MG/4 ML VIAL ONE (15:06)
[2021-11-04] MEDS ORDERED: LEVALBUTEROL 1.25 MG/3 ML NEB ONE (15:06)
[2021-11-04] MEDS ORDERED: IPRATROPIUM BROM 0.5MG/2.5ML ONE (15:06)
[2021-11-04] MEDS ORDERED: FAMOTIDINE 20 MG/2 ML VIAL IV ONE (15:07)
--- NOTE | 2021-11-04 15:14 | RAD REPORT ---
EXAM DESCRIPTION: Lorie Single View11/04/2021 2:57 pm CLINICAL HISTORY: Cough COMPARISON: 2020 FINDINGS: Mild left basilar opacities may represent areas of atelectasis or infiltrate Right lung appears clear Chronic elevation left hemidiaphragm. Postsurgical changes involve chest. Heart remains enlarged
[2021-11-04 15:21] LABS: Absolute Lymphocytes (CBC) 0.7 K/uL (0.7-4.9); Hematocrit 42.3 % (39.6-49.0); Lymphocytes % 2.9 % (15.3-44.8); MCV 88.8 fL (80-100); RBC Red Blood Cell Count 4.77 M/uL (4.33-5.43)
[2021-11-04 15:37] LABS: Albumin 3.2 g/dL (3.4-5.0); Bilirubin Direct 0.3 mg/dL (0-0.2); Bilirubin Total 0.7 mg/dL (0.2-1.0); Magnesium 2.1 mg/dL (1.8-2.4); Potassium 3.3 mmol/L (3.5-5.1); Protein, Total 6.2 g/dL (6.4-8.2); Troponin High Sensitivity 9.9 pg/mL (<58.9)
[2021-11-04] MEDS ORDERED: DIGOXIN 0.25 MG/ML AMP ONE (15:38)
[2021-11-04] MEDS ORDERED: AZITHROMYCIN 500 MG INJ IVPB ONE (16:05)
[2021-11-04] MEDS ORDERED: NA CHLORIDE 0.9% 250 ML ONE (16:05)
[2021-11-04] MEDS ORDERED: CEFTRIAXONE 1000 MG/VIAL ONE (16:20)
[2021-11-04] MEDS ORDERED: ENOXAPARIN 80 MG/0.8 ML SQ ONE (16:20)
[2021-11-04] MEDS ORDERED: METOPROLOL TAR 50 MG TAB ONE (16:20)
[2021-11-04] MEDS ORDERED: POTASSIUM 25 MEQ EFFERV TAB ONE (16:20)
--- NOTE | 2021-11-04 16:21 | ER ---
Nurse's Notes [facility] Name: Jesus Morales Age: 70 yrs Sex: Male : 1950 Arrival Date: 11/04/2021 Time: 14:30 Bed 4 Private MD: Diagnosis: Unspecified combined systolic (congestive) and diastolic (congestive) heart failure;Chronic atrial fibrillation;COPD/ Chronic obstructive pulmonary disease with (acute) exacerbation;Dyspnea;Hypokalemia;Elevated white blood cell count Presentation: 11/04 14:32 Chief complaint: Patient states: SOB diff breathing since yesterday , leg swelling iw since yesterday , hx of afib. Coronavirus screen: At this time, the client does not indicate any symptoms associated with coronavirus-19. Ebola Screen: Patient negative for fever greater than or equal to 101.5 degrees Fahrenheit, and additional compatible Ebola Virus Disease symptoms Patient denies exposure to infectious person. Patient denies travel to an Ebola-affected area in the 21 days before illness onset. No symptoms or risks identified at this time. Initial Sepsis Screen: Does the patient meet any 2 criteria? No. Patient's initial sepsis screen is negative. Does the patient have a suspected source of infection? No. Patient's initial sepsis screen is negative. Risk Assessment: Do you want to hurt yourself or someone else? Patient reports no desire to harm self or others. Onset of symptoms was November 04, 2021. 14:32 Method Of Arrival: Ambulatory iw 14:32 Acuity: LEAH 2 iw Triage Assessment: 14:45 General: Appears distressed, Behavior is calm, cooperative, appropriate for age. Pain: bp Denies pain. EENT: No deficits noted. Neuro: No deficits noted. Cardiovascular: Rhythm is sinus tachycardia. Respiratory: Reports shortness of breath Onset: The symptoms/episode began/occurred today, the patient has moderate shortness of breath. GI: No signs and/or symptoms were reported involving the gastrointestinal system. : No signs and/or symptoms were reported regarding the genitourinary system. Derm: No deficits noted. Musculoskeletal: No deficits noted. Historical: - Allergies: 15:32 Latex, Natural Rubber; vg1 15:32 Adhesives; vg1 - Home Meds: 14:34 atorvastatin 40 mg oral tab 1 tab once daily [Active]; amlodipine 5 mg tab twice a day iw [Active]; furosemide 20 mg Oral tab 1 tab once daily [Active]; Trelegy Ellipta 200-62.5-25 mcg inhalation dsdv 1 puff once daily [Active]; Atrovent Inhl as needed [Active]; metoprolol succinate 50 mg oral Tb24 [Active]; triazolam 0.25 mg Oral tab 1 tab once daily [Active]; prednisone 10 mg Oral tab once daily [Active]; duloxetine 60 mg oral CDRS 1 cap once daily [Active]; - PMHx: 14:34 Atrial fibrillation; iw - Immunization history:: Adult Immunizations up to date. - Social history:: Smoking status: Patient denies any tobacco usage or history of. Screenin:00 Abuse screen: Denies threats or abuse. Denies injuries from another. Nutritional bp screening: No deficits noted. Tuberculosis screening: No symptoms or risk factors identified. Fall Risk None identified. Assessment: 14:45 General: SEE TRIAGE NOTE. bp 16:00 Cardiovascular: Rhythm is sinus tachycardia. Respiratory: Airway is patent Respiratory bp effort is even, unlabored, Breath sounds are coarse. 17:00 Reassessment: ADMIT INITIATED. bp 18:00 Reassessment: No changes from previously documented assessment. Patient and/or family bp updated on plan of care and expected duration. Pain level reassessed. 19:00 Reassessment: No changes from previously documented assessment. Patient and/or family vc1 updated on plan of care and expected duration. Pain level reassessed. Patient states symptoms have improved. 20:00 Reassessment: No changes from previously documented assessment. Patient and/or family vc1 updated on plan of care and expected duration. Pain level reassessed. Patient is alert, oriented x 3, equal unlabored respirations, skin warm/dry/pink. Patient states feeling better. Patient states symptoms have improved. Vital Signs: 14:32 BP 160 / 106; Pulse 118; Resp 26 S; Temp 97.0; Pulse Ox 95% on R/A; iw 15:25 BP 115 / 82; Pulse 102; Resp 19; Temp 98.3(O); Pulse Ox 95% on R/A; vg1 15:32 Weight 85.28 kg (R); Height 5 ft. 6 in. (167.64 cm); vg1 16:30 BP 140 / 72; Pulse 98; Resp 21; Pulse Ox 99% ; bp 18:00 BP 132 / 73; Pulse 87; Resp 24; Pulse Ox 98% ; bp 19:00 BP 148 / 84; Pulse 89; Resp 22; Pulse Ox 97% on R/A; vc1 20:00 BP 144 / 74; Pulse 91; Resp 20; Pulse Ox 96% on R/A; vc1 15:32 Body Mass Index 30.34 (85.28 kg, 167.64 cm) vg1 ED Course: 14:30 Patient arrived in ED. hb 14:31 Nando Henley MD is Attending Physician. hafsa 14:34 Triage completed. iw 14:35 Joseph Chamberlain, KENNEDY is Primary Nurse. bp 14:45 Inserted saline lock: 20 gauge in right antecubital area, using aseptic technique. bp 14:59 XRAY Chest (1 view) In Process Unspecified. EDMS 15:00 Patient has correct armband on for positive identification. Bed in low position. Call bp light in reach. Side rails up X2. 15:00 Arm band placed on. bp 16:00 IV discontinued. bp 16:17 Torri López MD is Hospitalizing Provider. hafsa 16:30 Inserted saline lock: 22 gauge in right wrist, using aseptic technique. bp 17:02 SARS-COV-2 Antigen Rapid Sent. iw 18:45 No provider procedures requiring assistance completed. bp Administered Medications: 15:12 Drug: Pepcid (famotidine) 20 mg Route: IVP; Site: right antecubital; vg1 18:41 Follow up: Response: No adverse reaction bp 15:14 Drug: SOLU-Medrol (methylPrednisoLONE) 125 mg Route: IVP; Site: right antecubital; vg1 18:40 Follow up: Response: No adverse reaction bp 15:16 Drug: Lasix (furosemide) 40 mg Route: IVP; Site: right antecubital; vg1 18:40 Follow up: Response: No adverse reaction bp 15:22 Drug: Xopenex (levalbuterol) 3.75 mg Route: Inhalation; vg1 15:22 Drug: AtroVENT (ipratropium) Aerosol 0.5 mg Route: Inhalation; vg1 15:43 Drug: Digoxin 0.5 mg Route: IVP; Site: right antecubital; bp 18:40 Follow up: Response: No adverse reaction bp 16:30 Drug: Rocephin (cefTRIAXone) 1 grams Route: IV; Rate: per protocol; Site: right bp antecubital; 18:40 Follow up: IV Status: Completed infusion bp 16:30 Drug: Potassium Effervescent Tablet 50 mEq Route: PO; bp 18:40 Follow up: Response: No adverse reaction bp 16:30 Drug: Lopressor (metoprolol TARTRATE) 50 mg Route: PO; bp 18:40 Follow up: Response: No adverse reaction bp 16:30 Drug: Lovenox (enoxaparin) 1 mg/kg Route: Sub-Q; Site: right lower abdomen; bp 18:39 Follow up: Response: No adverse reaction bp 16:30 Drug: Zithromax (azithromycin) 500 mg Route: IVPB; Infused Over: 1 hrs; Site: right bp antecubital; 18:39 Follow up: IV Status: Completed infusion; IV Intake: 250ml bp 17:15 Drug: NS 0.9% 500 ml Route: IV; Rate: bolus; Site: right antecubital; bp 18:39 Follow up: IV Status: Completed infusion; IV Intake: 500ml bp Medication: 18:46 VIS not applicable for this client. bp Intake: 18:39 IV: 500ml; Total: 500ml. bp 18:39 IV: 250ml; Total: 750ml. bp Outcome: 16:21 Decision to Hospitalize by Provider. hafsa 20:14 Admitted to Tele accompanied by tech, via wheelchair, room 413, Report called to honorio Gates RN 20:14 Condition: good 20:14 Condition: good 20:14 Instructed on the need for admit. 20:35 Patient left the ED. oe Signatures: Dispatcher [employer] Nando Cunha MD MD cha Williams, Irene, RN RN iw Baxter, Heather, RN RN Rick Baxter oe Joseph Chamberlain RN RN bp Garcia, Victoria, RN RN vg1 Neetu Davis RN RN vc1
--- NOTE | 2021-11-04 16:22 | EDPHYS ---
Physician Documentation [facility] Name: Jesus Morales Age: 70 yrs Sex: Male : 1950 Arrival Date: 11/04/2021 Time: 14:30 Bed 4 Private MD: ED Physician Nando Henley HPI: 11/04 15:55 This 70 yrs old Male presents to ER via Ambulatory with complaints of hafsa Breathing Difficulty. 15:55 The patient has shortness of breath at rest, with light activity. Onset: The hafsa symptoms/episode began/occurred 1 day(s) ago. Duration: The symptoms are continuous, and are steadily getting worse. The patient's shortness of breath is aggravated by exertion, supine position, is alleviated by rest, sitting up, application of supplemental oxygen. Associated signs and symptoms: The patient has no apparent associated signs or symptoms. Severity of symptoms: At their worst the symptoms were moderate in the emergency department the symptoms have improved moderately. The patient has experienced similar episodes in the past, multiple times. Historical: - Allergies: 15:32 Latex, Natural Rubber; vg1 15:32 Adhesives; vg1 - Home Meds: 14:34 atorvastatin 40 mg oral tab 1 tab once daily [Active]; amlodipine 5 mg tab twice a day iw [Active]; furosemide 20 mg Oral tab 1 tab once daily [Active]; Trelegy Ellipta 200-62.5-25 mcg inhalation dsdv 1 puff once daily [Active]; Atrovent Inhl as needed [Active]; metoprolol succinate 50 mg oral Tb24 [Active]; triazolam 0.25 mg Oral tab 1 tab once daily [Active]; prednisone 10 mg Oral tab once daily [Active]; duloxetine 60 mg oral CDRS 1 cap once daily [Active]; - PMHx: 14:34 Atrial fibrillation; iw - Immunization history:: Adult Immunizations up to date. - Social history:: Smoking status: Patient denies any tobacco usage or history of. ROS: 15:56 Constitutional: Negative for fever, chills, and weight loss, Eyes: Negative for injury, hafsa pain, redness, and discharge, ENT: Negative for injury, pain, and discharge, Neck: Negative for injury, pain, and swelling, Abdomen/GI: Negative for abdominal pain, nausea, vomiting, diarrhea, and constipation, Back: Negative for injury and pain, : Negative for injury, bleeding, discharge, and swelling, Skin: Negative for injury, rash, and discoloration, Neuro: Negative for headache, weakness, numbness, tingling, and seizure, Psych: Negative for depression, anxiety, suicide ideation, homicidal ideation, and hallucinations, Allergy/Immunology: Negative for hives, rash, and allergies, Endocrine: Negative for neck swelling, polydipsia, polyuria, polyphagia, and marked weight changes, Hematologic/Lymphatic: Negative for swollen nodes, abnormal bleeding, and unusual bruising. 15:56 Cardiovascular: Positive for orthopnea, palpitations. 15:56 MS/extremity: Positive for swelling, of the right leg and left leg. Exam: 15:56 Constitutional: This is a well developed, well nourished patient who is awake, alert, hafsa and in no acute distress. Head/Face: Normocephalic, atraumatic. Eyes: Pupils equal round and reactive to light, extra-ocular motions intact. Lids and lashes normal. Conjunctiva and sclera are non-icteric and not injected. Cornea within normal limits. Periorbital areas with no swelling, redness, or edema. ENT: Nares patent. No nasal discharge, no septal abnormalities noted. Tympanic membranes are normal and external auditory canals are clear. Oropharynx with no redness, swelling, or masses, exudates, or evidence of obstruction, uvula midline. Mucous membranes moist. Neck: Trachea midline, no thyromegaly or masses palpated, and no cervical lymphadenopathy. Supple, full range of motion without nuchal rigidity, or vertebral point tenderness. No Meningismus. Chest/axilla: Normal chest wall appearance and motion. Nontender with no deformity. No lesions are appreciated. Abdomen/GI: Soft, non-tender, with normal bowel sounds. No distension or tympany. No guarding or rebound. No evidence of tenderness throughout. Back: No spinal tenderness. No costovertebral tenderness. Full range of motion. Male : Normal genitalia with no discharge or lesions. Skin: Warm, dry with normal turgor. Normal color with no rashes, no lesions, and no evidence of cellulitis. Neuro: Awake and alert, GCS 15, oriented to person, place, time, and situation. Cranial nerves II-XII grossly intact. Motor strength 5/5 in all extremities. Sensory grossly intact. Cerebellar exam normal. Normal gait. Psych: Awake, alert, with orientation to person, place and time. Behavior, mood, and affect are within normal limits. 15:56 Cardiovascular: Rate: tachycardic, actual rate is 115 bpm, Rhythm: irregularly irregular, Pulses: Pulses are 4+ in bilateral radial, brachial, femoral, popliteal, posterior tibial and and dorsalis pedis arteries.. Heart sounds: normal, Edema: 2+ edema to level of left midcalf and right midcalf, JVD: is not appreciated. 15:56 ECG was reviewed by the Attending Physician. Vital Signs: 14:32 BP 160 / 106; Pulse 118; Resp 26 S; Temp 97.0; Pulse Ox 95% on R/A; iw 15:25 BP 115 / 82; Pulse 102; Resp 19; Temp 98.3(O); Pulse Ox 95% on R/A; vg1 15:32 Weight 85.28 kg (R); Height 5 ft. 6 in. (167.64 cm); vg1 16:30 BP 140 / 72; Pulse 98; Resp 21; Pulse Ox 99% ; bp 18:00 BP 132 / 73; Pulse 87; Resp 24; Pulse Ox 98% ; bp 19:00 BP 148 / 84; Pulse 89; Resp 22; Pulse Ox 97% on R/A; vc1 20:00 BP 144 / 74; Pulse 91; Resp 20; Pulse Ox 96% on R/A; vc1 15:32 Body Mass Index 30.34 (85.28 kg, 167.64 cm) vg1 MDM: 14:31 Patient medically screened. hafsa 15:58 Differential diagnosis: contusion, asthma, Bronchitis CHF exacerbation, Chronic hafsa Obstructive Pulmonary Disease Myocardial Infarction pneumonia, pulmonary edema, reactive airway disease, Unstable Angina. Antibiotic administration: Rocephin and Zithromax given. The patient's Wells Deep Vein Thrombosis Score was calculated as follows: Heart Rate >100 BPM (1.5 Pts) Total Score: 0-2 Pts- Low Risk. The patient's pulmonary embolism risk score was calculated as follows: the patients heart rate is greater than 100 beats per minute (1.5 Pts) Total Score: 0-2 points. This patient was found to be at low risk for a pulmonary embolism by using the Well's assessment criteria. Immunization status: Pneumococcal vaccine: Influenza vaccine: Data reviewed: vital signs, nurses notes, EMS record, lab test result(s), EKG, radiologic studies, CT scan, plain films. Data interpreted: youth nutritional monitor: rate is 115 beats/min, rhythm is atrial fibrillation, Pulse oximetry: on room air is 95 %. Test interpretation: by ED physician or midlevel provider: ECG, plain radiologic studies. Counseling: I had a detailed discussion with the patient and/or guardian regarding: the historical points, exam findings, and any diagnostic results supporting the discharge/admit diagnosis, lab results, radiology results, the need for further work-up and treatment in the hospital. 11/04 14:36 Order name: Basic Metabolic Panel; Complete Time: 15:48 [place] 11/04 14:36 Order name: CBC with Diff [place] 11/04 14:36 Order name: LFT's; Complete Time: 15:48 [place] 11/04 14:36 Order name: Magnesium; Complete Time: 15:48 [place] 11/04 14:36 Order name: NT PRO-BNP; Complete Time: 15:48 [place] 11/04 14:36 Order name: PT-INR [place] 11/04 14:36 Order name: Troponin HS; Complete Time: 15:48 [place] 11/04 14:36 Order name: Lipase; Complete Time: 15:48 [place] 11/04 14:36 Order name: Blood Culture Adult (2) [place] 11/04 14:39 Order name: TSH; Complete Time: 15:48 [place] 11/04 15:28 Order name: Lactate; Complete Time: 16:54 [place] 11/04 16:16 Order name: SARS-COV-2 Antigen Rapid 11/04 17:32 Order name: Urine Dipstick-Ancillary [facility] 11/04 17:51 Order name: SARS-COV-2 Antigen Rapid [facility] 11/04 14:36 Order name: XRAY Chest (1 view); Complete Time: 15:23 [place] 11/04 15:30 Order name: Head C Spine Cap Wo Con; Complete Time: 16:54 [facility] 11/04 16:55 Order name: US Abdomen Limited [place] 11/04 17:54 Order name: US [facility] 11/04 19:21 Order name: Lactate Sepsis 2 HR Follow-up [facility] 11/04 19:44 Order name: Manual Differential [facility] 11/04 14:36 Order name: EKG; Complete Time: 14:37 11/04 14:36 Order name: Cardiac monitoring; Complete Time: 14:40 [place] 11/04 14:36 Order name: EKG - Nurse/Tech; Complete Time: 14:40 [place] 11/04 14:36 Order name: IV Saline Lock; Complete Time: 18:39 11/04 14:36 Order name: Labs collected and sent; Complete Time: 18:39 [place] 11/04 14:36 Order name: O2 Per Protocol; Complete Time: 14:40 [place] 11/04 14:36 Order name: O2 Sat Monitoring; Complete Time: 14:40 [place] 11/04 14:36 Order name: Urine Dipstick-Ancillary (obtain specimen); Complete Time: 18:21 [place] 11/04 15:32 Order name: Labs - recollect needed: recollect light green top; Complete Time: 15:44 bd EC:56 Rate is 115 beats/min. Rhythm is irregularly irregular. QRS [place] is Normal. IN interval hafsa is normal. QRS interval is normal. QT interval is normal. No Q waves. T waves are Normal. No ST changes noted. Clinical impression: Atrial Fibrillation and No evidence of ischemia. Interpreted by me. Reviewed by me. Administered Medications: 15:12 Drug: Pepcid (famotidine) 20 mg Route: IVP; Site: right antecubital; vg1 18:41 Follow up: Response: No adverse reaction bp 15:14 Drug: SOLU-Medrol (methylPrednisoLONE) 125 mg Route: IVP; Site: right antecubital; vg1 18:40 Follow up: Response: No adverse reaction bp 15:16 Drug: Lasix (furosemide) 40 mg Route: IVP; Site: right antecubital; vg1 18:40 Follow up: Response: No adverse reaction bp 15:22 Drug: Xopenex (levalbuterol) 3.75 mg Route: Inhalation; vg1 15:22 Drug: AtroVENT (ipratropium) Aerosol 0.5 mg Route: Inhalation; vg1 15:43 Drug: Digoxin 0.5 mg Route: IVP; Site: right antecubital; bp 18:40 Follow up: Response: No adverse reaction bp 16:30 Drug: Rocephin (cefTRIAXone) 1 grams Route: IV; Rate: per protocol; Site: right bp antecubital; 18:40 Follow up: IV Status: Completed infusion bp 16:30 Drug: Potassium Effervescent Tablet 50 mEq Route: PO; bp 18:40 Follow up: Response: No adverse reaction bp 16:30 Drug: Lopressor (metoprolol TARTRATE) 50 mg Route: PO; bp 18:40 Follow up: Response: No adverse reaction bp 16:30 Drug: Lovenox (enoxaparin) 1 mg/kg Route: Sub-Q; Site: right lower abdomen; bp 18:39 Follow up: Response: No adverse reaction bp 16:30 Drug: Zithromax (azithromycin) 500 mg Route: IVPB; Infused Over: 1 hrs; Site: right bp antecubital; 18:39 Follow up: IV Status: Completed infusion; IV Intake: 250ml bp 17:15 Drug: NS 0.9% 500 ml Route: IV; Rate: bolus; Site: right antecubital; bp 18:39 Follow up: IV Status: Completed infusion; IV Intake: 500ml bp Disposition Summary: 11/04/21 16:21 Hospitalization Ordered Hospitalization Status: Inpatient Admission hafsa Provider: Torri López cha Location: Telemetry/MedSurg (Inpatient) hafsa Condition: Fair hafsa Problem: new hafsa Symptoms: have improved hafsa Bed/Room Type: Standard hafsa Room Assignment: [id number](11/04/21 18:26) dw Diagnosis - Unspecified combined systolic (congestive) and diastolic (congestive) heart failure hafsa - Chronic atrial fibrillation hafsa - COPD/ Chronic obstructive pulmonary disease with (acute) exacerbation hafsa - Dyspnea hafsa - Hypokalemia hafsa - Elevated white blood cell count hafsa Forms: - Medication Reconciliation Form hafsa - SBAR form hafsa Signatures: Dispatcher [employer] Berta Rodgesr Diana, RN RN dw Anderson, Corey, MD MD cha Williams, Irene, RN RN iw Peltier, Brian, RN RN bp Garcia, Victoria, RN RN vg1 Corrections: (The following items were deleted from the chart) 18:26 16:21 hafsa dw
--- NOTE | 2021-11-04 16:30 | RAD REPORT ---
EXAM DESCRIPTION: CT - Head C Spine Cap Wo Con - 11/04/2021 4:10 pm CLINICAL HISTORY: Head and neck injury with chest and abdominal pain status post fall TECHNIQUE: Computed axial tomography of head, neck, chest, abdomen and pelvis obtained. IV and oral contrast not requested. Coronal and sagittal reconstruction performed. All CT scans are performed using dose optimization technique as appropriate and may include automated exposure control or mA/KV adjustment according to patient size. COMPARISON: CT chest 2017 FINDINGS: An intracranial bleed is not seen. The ventricles are normal in caliber. An extra-axial fluid collection is not noted. . Fluid within the sinuses/mastoids is not seen. A cervical fracture is not seen. No dislocation is noted. The evaluation of mediastinum, kassidy, vessels, solid organs and bowel are limited secondary to the lac k of contrast administration. A mediastinal hematoma is not noted. A pleural effusion is not seen. A lung contusion is not present. Old left rib fractures The liver,spleen, pancreas, adrenals,kidneys and bladder do not demonstrate a traumatic injury Mild chronic deformity L4 vertebral body IMPRESSION: No acute intracranial abnormality is seen. A cervical fracture is not visualized. If the patient continues have symptoms to suggest intracrania l/spinal cord pathology MRI be recommended No acute traumatic abnormality involving the chest/abdomen/pelvis.
[2021-11-04] MEDS ORDERED: NA CHLORIDE 0.9% 500 ML ONE (17:25)
[2021-11-04 17:32] LABS: Urine Blood Negative (Negative); Urine Glucose Negative (Negative); Urine Protein Negative (Negative); Urine Specific Gravity 1.015 (1.005-1.030)
[2021-11-04 17:51] LABS: SARS-CoV-2 Antigen Rapid Res Negative (Negative)
--- NOTE | 2021-11-04 17:52 | RAD REPORT ---
EXAM DESCRIPTION: US - Abdomen Exam Limited - 11/04/2021 5:42 pm CLINICAL HISTORY: Abdominal pain. COMPARISON: None. FINDINGS: Cholecystectomy. The biliary tree is normal caliber. IMPRESSION: Unremarkable exam
[2021-11-04 19:43] LABS: Blood Morphology Comment NOT SEEN (NOT SEEN); Platelet Estimate INCR
[2021-11-04 20:44] LABS: Protime INR 0.99
[2021-11-04] MEDS ORDERED: ACETAMINOPHEN 500 MG TAB PO PRN (21:35)
[2021-11-04] MEDS ORDERED: ALBUTEROL 2.5 MG/3 ML NEB SOL NEB PRN (21:35)
[2021-11-04] MEDS: METOPROLOL TAR 50 MG TAB PO SCH (21:35)
[2021-11-04] MEDS ORDERED: NA CHLORIDE 0.9% 1,000 ML IV SCH (21:35)
[2021-11-04] MEDS ORDERED: MORPHINE 4 MG/ML SYR IV PRN (21:35)
[2021-11-04] MEDS ORDERED: ONDANSETRON 4 MG/2 ML VIAL IV PRN (21:35)
[2021-11-04] MEDS ORDERED: IPRATROPIUM BROM 0.5MG/2.5ML NEB PRN (21:35)
[2021-11-04] MEDS: METHYLPREDNISOLONE 125 MG INJ IV SCH (22:24)
[2021-11-04] MEDS: DIGOXIN 0.25 MG/ML AMP IV SCH (22:26)
[2021-11-04 22:38] LABS: Digoxin Level 0.8 ng/mL (0.80-2.00); Potassium 3.6 mmol/L (3.5-5.1)
--- NOTE | 2021-11-04 23:25 | CON ---
Date of Consultation: 11/04/2021 Reason For Consultation: Shortness of breath. History Of Present Illness: A 70-year-old male with past medical history of atrial fibrillation, dys lipidemia, diastolic congestive heart failure, and COPD, presented with shortness of breath, lower ex tremity edema, and he has significant orthopnea. Denies having any chest pain. There is no nausea, vomiting, or diarrhea. Symptoms have begun about 1 day ago, getting progressively worse and shortnes s of breath gets better with sitting up and resting. Denies having any chest pain. Past Medical History: Dyslipidemia, atrial fibrillation, diastolic heart failure, and COPD. Medications: Refer reconciliation sheet for detailed list. Allergies: NO KNOWN DRUG ALLERGIES. Family History: No premature coronary artery disease or cancer. Social History: He does not drink or use any drugs. Review of Systems: All systems reviewed and they were negative except as mentioned in the HPI. Physical Examination: Vital Signs: Reviewed. Head and Neck: Pupils are equal, reactive to light. Intact eye movements. No JVD. No cervical lym phadenopathy. Neck is supple. Thyroid is not enlarged. Lungs: Crackles in both bases. No accessory muscle use or muscle retraction. Heart: Irregular with S3. Abdomen: Soft, nontender. Bowel sounds positive. No organomegaly. No masses or hernia. No rigidi ty or rebound. Extremities: 2 to 3+ pitting edema bilaterally. No clubbing or cyanosis. Intact pulses. Skin: No rash. Neurologic: Alert, awake, oriented x3. No acute focal deficits appreciated. Investigations: Sodium 136, BUN 23, creatinine 0.99. His NT-proBNP is 1261 with troponin of 9.9, he moglobin is 13.6, white blood cell count is 22,600. Urinalysis is negative. Chest x-ray showed enla rged heart and bibasilar infiltrates. It could be CHF versus pneumonia. Assessment And Recommendation: 1.Shortness of breath. Definitely he is fluid overloaded, likely congestive heart failure. Continu e diuretics with Lasix 40 mg IV q.12 hours and replace potassium. Monitor electrolytes, BUN, creatin ine, daily body weight, low-sodium diet, and trend 2 sets of cardiac enzymes. 2.Leukocytosis, unsure etiology. The patient does not have fever; however, pneumonia is a possibili ty. After diuresis, recommend repeat chest x-ray and reassess the presence of pneumonia. 3.Status post fall and Trauma workup was negative. 4.Atrial fibrillation. He appears to be in sinus with premature atrial contractions. Continue home medications and we will follow the patient with you. /CHARLENE Voice ID: [id number] Report ID: [id number]
[2021-11-05] MEDS: FUROSEMIDE 20 MG/ 2ML VIAL IV SCH ×3 (00:25→17:07)
[2021-11-05] MEDS: POTASSIUM 25 MEQ EFFERV TAB PO SCH ×3 (00:26→21:14)
[2021-11-05] MEDS: CEFTRIAXONE 1,000 MG in NA CHLORIDE 0.9% 50 ML IVPB SCH ×2 (03:43→14:14)
[2021-11-05] MEDS: METHYLPREDNISOLONE 125 MG INJ IV SCH (03:44)
[2021-11-05] MEDS: DIGOXIN 0.25 MG/ML AMP IV SCH (04:11)
--- NOTE | 2021-11-05 04:13 | HP ---
Date of Admission: 11/04/2021 Chief Complaint: Leg swelling, shortness of breath. History Of Present Illness: This is a 70-year-old male patient who came into the emergency room with a few days history of increasing bilateral leg swelling and shortness of breath with minimal activit y as well as at nighttime. The patient says that he has to stay upright in order for him to breathe better. He denies any chest pain. After he was evaluated in the emergency room, he was admitted to the hospital with pneumonia and congestive heart failure. When he came to the ER, he had atrial fibr illation with a rapid ventricular rate and he already has received IV digoxin and IV antibiotics. I saw him in the Emergency Room, and when I saw him, his abdomen appeared to be distended and some tend erness noted in his lower abdomen. The patient also reports that for the last few days he has been h aving some lower abdominal pain. He denies any nausea, vomiting, diarrhea or constipation. Allergies: NO KNOWN ALLERGIES. Medications: According to office list, he is on amlodipine 5 mg 2 times a day, aspirin 81 mg daily, atorvastatin 40 mg daily at bedtime, duloxetine 60 mg daily with breakfast, Trelegy inhaler 1 puff da maykel, furosemide 40 mg daily, metoprolol succinate 50 mg 2 times a day, tadalafil, and Halcion 0.25 mg . Review of Systems: Respiratory: As mentioned above. Cardiovascular: As mentioned above. GI: As mentioned above. All other systems reviewed and negative. Past Medical History: Significant for impaired fasting glucose, COPD, hypertension, hyperlipidemia, coronary artery disease, carotid artery stenosis; bilateral, anemia, depression. Past Surgical History: Significant for coronary artery bypass surgery on March 11, 2016, cholecyst ectomy, appendectomy, right knee arthroscopy surgery, left knee arthroplasty. Family History: Father had COPD. Mother had breast cancer. Brother had stroke. Sister had diabete s. Social History: Prior history of smoking; not at present time. The patient has a history of alcohol use and from time to time he drinks heavily, and lately he has been drinking excess amount of alcoho l. Physical Examination: Vital Signs: When he came into emergency room, blood pressure 160/106, pulse 118, respiratory rate 2 6, oxygen saturation 95%. General: Awake, alert, oriented, not in distress. HEENT: Head atraumatic, normocephalic. Conjunctivae nonerythematous. Sclerae white. Mouth, no thr ush or edema noted. Ears/Nose, no mass, lesion, discharge noted. Neck: Supple. No JVD, lymph nodes, bruit, thyromegaly noted. Lungs: Bilateral good equal air entry. Not in any distress. Presence of rales noted in bilateral b toshia lung region. Heart: Normal heart sounds, no murmur or gallop. Abdomen: Appears distended with some tenderness in the lower abdomen. No rebound tenderness. Bowel sounds normoactive. No hepatosplenomegaly. No bruit. Extremities: Bilateral grade 2 pedal edema in lower 2/3 of both legs. Skin: No rash, ulcer, cellulitis. Lymphatics: No lymph node enlargement in neck, supraclavicular, infraclavicular region. Neuro: No focal neurological deficit. Chest: Unremarkable. External Genitalia: Deferred. Rectal: Deferred. Laboratory Data: White count 22.6, hemoglobin 13.6, platelets 441. Sodium 136, potassium 3.3, chlor richie 99, bicarb 30, BUN 23, creatinine 0.99, glucose 123. Liver function tests unremarkable. ProBNP 1261. Troponin 9.9. TSH 1.650. Magnesium 2.1. Lactic acid 2.2. COVID-19 test pending. Urinalysi s pending. Chest x-ray: Elevation of left hemidiaphragm with increased lung markings in the left lung base, eit her atelectasis or pneumonia. CAT scan of the head, C-spine, chest, abdomen, pelvis per Trauma kelli col was negative for any acute findings. Presence of old compression fracture of L4 spine. Impression: 1.Congestive heart failure. 2.Pneumonia. 3.Atrial fibrillation with rapid ventricular rate. 4.Hypokalemia. 5.Hypertension. 6.Hyperlipidemia. 7.Coronary artery disease. 8.Carotid artery stenosis, bilateral. 9.Depression. 10.Impaired fasting glucose. 11.Chronic obstructive pulmonary disease. 12.Alcohol abuse. 13.Abdominal pain. Plan: We will go ahead and admit the patient to hospital for further evaluation and management of hi s problem. The patient is appropriate for inpatient and is expected to spend two midnights in hospit al. We will go ahead and continue empiric antibiotic that was started in the emergency room for edgar vazquez. Consult Cardiology. We will go ahead and continue metoprolol, anticoagulation therapy will b e given per order. We will monitor him for any alcohol withdrawal symptoms and continue statin thera py. We will continue his inhaler for COPD per order. Trelegy inhaler will not be available in the ospital, so we will use a different type of inhaler. We will get an echocardiogram with Doppler and I will see him tomorrow for followup. Plan of treatment discussed with him. BELLE/MODL Voice ID: [id number]
[2021-11-05] MEDS: FAMOTIDINE 20 MG/2 ML VIAL IV SCH ×2 (04:20→17:07)
[2021-11-05] MEDS ORDERED: ENOXAPARIN 80 MG/0.8 ML SQ SCH (05:00)
[2021-11-05] MEDS ORDERED: HOME MED 1 EA UNK (Ipratropium Bromide [Atrovent Hfa] 12.9 GM Hfa.Aer.Ad) IN SCH (05:15)
[2021-11-05 05:41] LABS: Absolute Lymphocytes (CBC) 0.2 K/uL (0.7-4.9); Hematocrit 37.7 % (39.6-49.0); Lymphocytes % 1.2 % (15.3-44.8); MCV 88.5 fL (80-100); MPV 6.5 fL (7.6-11.3); RBC Red Blood Cell Count 4.26 M/uL (4.33-5.43)
[2021-11-05] MEDS ORDERED: IPRATROPIUM BROMIDE AD IH SCH (05:45)
[2021-11-05 05:58] LABS: Magnesium 2.2 mg/dL (1.8-2.4); Potassium 3.2 mmol/L (3.5-5.1)
--- NOTE | 2021-11-05 08:18 | RAD REPORT ---
EXAM DESCRIPTION: RAD - Chest Single View - 11/05/2021 5:34 am CLINICAL HISTORY: Chest Pain Chest pain. COMPARISON: Chest Single View dated 11/04/2021; Chest Single View dated 07/23/2020; CHEST PA AND LAT 2 VIEW dated 02/25/2012; CHEST PA AND LAT 2 VIEW dated 12/04/2005 FINDINGS: Portable technique limits examination quality. Mild pulmonary edema is seen. Elevated left hemidiaphragm with a small left pleural effusion. The hea rt is mildly enlarged in size with changes of a prior CABG. IMPRESSION: Mild CHF versus volume overload pattern.
[2021-11-05] MEDS: AZITHROMYCIN 250 MG TAB PO SCH (08:34)
[2021-11-05] MEDS: METOPROLOL TAR 50 MG TAB PO SCH ×2 (08:35→20:59)
[2021-11-05] MEDS: APIXABAN 5 MG TABLET PO SCH ×2 (08:35→20:58)
[2021-11-05] MEDS: predniSONE 10 MG TAB PO SCH ×2 (08:35→20:58)
[2021-11-05] MEDS: DULOXETINE 30 MG CAP PO SCH (08:35)
[2021-11-05] MEDS: AMLODIPINE 5 MG TAB PO SCH ×2 (08:36→20:58)
[2021-11-05] MEDS ORDERED: POTASSIUM CL SA 10 MEQ TAB PO ONE (09:00)
[2021-11-05] MEDS ORDERED: Fluticasone/Umeclidin/Vilanter [Trelegy Ellipta 200-62.5-25] Blst.W.Dev PO SCH (09:00)
--- NOTE | 2021-11-05 13:08 | EKG ---
Test Date: 2021-11-04 Test Time: 14:25:11 Sack Lifter: BRUNA MEASUREMENT RESULTS: Intervals: Rate: 115 ME: QRSD: 84 QT: 324 QTc: 448 [place]: P: ME: QRS: 50 T: -52 INTERPRETIVE STATEMENTS: Atrial fibrillation with rapid ventricular response with premature ventricular or aberrantly conducted complexes Nonspecific ST and T wave abnormality Abnormal ECG Compared to ECG 09/09/2016 09:53:17 Ventricular premature complex(es) now present ST (T wave) deviation now present Sinus rhythm no longer present T-wave abnormality no longer present Prolonged QT interval no longer present Electronically Signed On 11-05-21 13:05:19 CDT by Stef Meza
[2021-11-05] MEDS ORDERED: ALBUTEROL 2.5 MG/3 ML NEB SOL NEB PRN (14:00)
[2021-11-05] MEDS ORDERED: IPRATROPIUM BROM 0.5MG/2.5ML NEB PRN (14:00)
--- NOTE | 2021-11-05 14:25 | ECHO ---
HEIGHT: 5 ft 6 in WEIGHT: 188 lb 0.163 oz DATE OF STUDY: 11/05/[address]: Nando Henley MD 2-DIMENSIONAL: YES M.MODE: YES DOPPLER: YES COLOR FLOW: YES TDS: NO PORTABLE: YES DEFINITY: NO BUBBLE STUDY: NO DIAGNOSIS: CONGESTIVE HEART FAILURE/ ATRIAL FIBRILLATION CARDIAC HISTORY: CATHERIZATION: YES SURGERY: CABGx2 PROSTHETIC VALVE: NO PACEMAKER: NO MEASUREMENTS (cm) DIASTOLIC (NORMALS) SYSTOLIC (NORMALS) IVSd 1.3 (0.6-1.2) LA Diam 4.2 (1.9-4.0) LVEF 56% LVIDd 3.6 (3.5-5.7) LVIDs 2.6 (2.0-3.5) %FS 29% LVPWd 1.3 (0.6-1.2) Ao Diam 2.9 (2.0-3.7) 2 DIMENSIONAL ASSESSMENT: RIGHT ATRIUM: NORMAL LEFT ATRIUM: ENLARGED RIGHT VENTRICLE: NORMAL LEFT VENTRICLE: NORMAL TRICUSPID VALVE: MILD TRICUSPID REGURGITATION MITRAL VALVE: MILD MITRAL REGURGITATION PULMONIC VALVE: NORMAL AORTIC VALVE: NORMAL PERICARDIAL EFFUSION: NONE AORTIC ROOT: NORMAL LEFT VENTRICULAR WALL MOTION: NORMAL. DOPPLER/COLOR FLOW: MILD TRICUSPID REGURGITATION/ MITRAL REGURGITATION. COMMENTS: NORMAL LEFT VENTRICULAR EJECTION FRACTION 55-60%. NORMAL WALL MOTION. LEFT ATRIAL ENLARGEMENT. MILD MITRAL AND TRICUSPID REGURGITATION. TECHNOLOGIST: JOCELYNE RIVERS
--- NOTE | 2021-11-05 18:16 | PN ---
Date of Progress Note: 11/05/2021 Subjective: Seen at bedside, doing clinically well, does not have any chest pain. Shortness of real th has improved. Review of Systems: No nausea, vomiting, diarrhea. No abdominal pain. Has shortness of breath on exertion with improvem ent. No dysuria, polyuria, or urinary urgency. Other systems reviewed are negative. Physical Examination: Vital Signs: Reviewed. Head and Neck: Pupils are equal, reactive to light. Intact eye movements. No JVD. No cervical lym phadenopathy. Neck: Supple. Thyroid is not enlarged. Lungs: Clear to auscultation with decreased breathing sounds on the bases. No accessory muscle use or muscle retraction. Heart: Regular. No extra sounds. Abdomen: Soft, nontender. Bowel sounds positive. No organomegaly. No masses or hernia. No rigidi ty or rebound. Extremities: No clubbing, cyanosis. Intact pulses. Trace 1+ pitting edema bilaterally. Neurologic: Alert, awake, oriented x3. No acute focal deficits appreciated. Investigations: BUN is 23, creatinine 0.94 and his hemoglobin is 12.2. Assessment And Recommendation: 1.Acute on chronic diastolic heart failure exacerbation. The ejection fraction is normal on echo. I increased the Lasix to 40 mg daily and he can be released on that for an outpatient management of his atrial fibrillation. 2.Atrial fibrillation, rate is controlled. Continue current regimen. SR/MODL Voice ID: [id number] Report ID: [id number]
[2021-11-05] MEDS ORDERED: ATORVASTATIN 40 MG TAB PO SCH (21:00)
[2021-11-05] MEDS ORDERED: TRIAZOLAM 0.25 MG PO SCH (21:00)
[2021-11-06] MEDS: CEFTRIAXONE 1,000 MG in NA CHLORIDE 0.9% 50 ML IVPB SCH (03:33)
[2021-11-06] MEDS: FAMOTIDINE 20 MG/2 ML VIAL IV SCH (04:08)
[2021-11-06 04:56] VITALS: BMI 31.5
[2021-11-06 05:52] LABS: Absolute Lymphocytes (CBC) 0.9 K/uL (0.7-4.9); Hematocrit 37.8 % (39.6-49.0); Lymphocytes % 6.9 % (15.3-44.8); MCV 87.7 fL (80-100); MPV 6.6 fL (7.6-11.3)
[2021-11-06 06:04] LABS: Magnesium 2.5 mg/dL (1.8-2.4); Potassium 3.6 mmol/L (3.5-5.1)
[2021-11-06 08:15] VITALS: BP 153/85; TEMP 97
[2021-11-06] MEDS: POTASSIUM 25 MEQ EFFERV TAB PO SCH (08:41)
[2021-11-06] MEDS: DULOXETINE 30 MG CAP PO SCH (08:42)
[2021-11-06] MEDS: AMLODIPINE 5 MG TAB PO SCH (08:42)
[2021-11-06] MEDS: METOPROLOL TAR 50 MG TAB PO SCH (08:42)
[2021-11-06] MEDS: AZITHROMYCIN 250 MG TAB PO SCH (08:42)
[2021-11-06] MEDS: predniSONE 10 MG TAB PO SCH (08:42)
[2021-11-06] MEDS: APIXABAN 5 MG TABLET PO SCH (08:43)
[2021-11-06 08:49] VITALS: O2SAT 95
[2021-11-06] MEDS ORDERED: POTASSIUM CL SA 10 MEQ TAB PO ONE (09:00)
--- NOTE | 2021-11-06 12:01 | PN ---
Date of Progress Note: 11/05/2021 Subjective: The patient was seen this morning for followup. No new complaints or problems reported by the patient. Overall, he feels better. Denies any shortness of breath last night. No chest pain . Leg swelling is reported to be better compared to yesterday. Denies any abdominal pain, nausea, v omiting. Objective: Vital Signs: Reviewed. HEENT: Unremarkable. Lungs: Bilateral good equal air entry. Clear to auscultation. No wheezing or rales. Not in respir atory distress. Heart: Sounds normal. Abdomen: Soft. Bowel sounds normal. No guarding, rigidity. No tenderness. Abdomen appears to be distended, but actually soft and there is no acute abdominal finding on clinical exam today. Tendern ess that he had in lower abdomen yesterday on exam has completely resolved today. Extremity: Very trace leg edema, significant improvement compared to yesterday. Laboratory Data: White count 16.5, hemoglobin 12.2, platelets 310. Sodium 137, potassium 3.2, chlor richie 100, bicarb 31, BUN 23, creatinine 0.94, glucose 160, magnesium 2.2. Impression: 1.Congestive heart failure. 2.Acute exacerbation of chronic obstructive pulmonary disease. 3.Hypokalemia. 4.Atrial fibrillation, new onset. 5.Pneumonia. Plan: We will go ahead and discontinue Lovenox, start him on Eliquis 5 mg 2 times a day. Echo with Doppler will be done today. Continue metoprolol. We will continue to follow with student activities director. Dis continue IV steroids, start him on prednisone 10 mg 2 times a day. On outpatient basis, Dr. Dumont has given him prednisone that the patient uses making his own decisions and right now we will at [facility] give him 10 mg 2 times a day. Continue current empiric antibiotics. Consult Physical Therapy. S tarting tomorrow, I will be out of town and the patient will be managed by hospitalist service and I have called and discussed details with the hospitalist and provided details. BELLE/MODL Voice ID: [id number] Report ID: [id number]
--- NOTE | 2021-11-06 21:29 | P.DS ---
Admission Date: 11/04/21 Discharge Date: 11/06/21 Disposition: ROUTINE DISCHARGE Discharge Condition: GOOD Reason for Admission: afib with RVR, lower extremity edema Consultations: Cardiology - Dr. Meza Brief History of Present Illness: 70-year-old male patient who came into the emergency room with a few days history of increasing bilateral leg swelling and shortness of breath with minimal activity as well as at nighttime. The patient says that he has to stay upright in order for him to breathe better. He denies any chest pain. After he was evaluated in the emergency room, he was admitted to the hospital with pneumonia and congestive heart failure. When he came to the ER, he had atrial fibrillation with a rapid ventricular rate and he already has received IV digoxin and IV antibiotics. Patient also reports that for the last few days he has been having some lower abdominal pain. He denies any nausea, vomiting, diarrhea or constipation. Hospital Course: Problem List Atrial fibrillation, chronic; with RVR Acute on chronic diastolic CHF Acute on chronic COPD exacerbation with possible pneumonia impairing fasting glucose HTN HLD CAD Depression Patient presented to ED with shortness of breath, lower extremity edema, and found to be in atrial fibrillation with RVR. Chest x-ray noted slight opacity which may represent a mild pneumonia. He had some wheezing on exam and was treated with steroids He was treated with metoprolol, empiric antibiotics, steroids and started on anticoagulation. Cardiology was consulted. Echocardiogram performed and no acute / new findings. Noted mild diastolic dysfunction. Patient's symptoms and edema significantly improved. He remained in rate controlled afib and his leukocytosis significantly improved. He was deemed stable for discharge home. Continue metoprolol 50mg twice daily Continue prednisone 10mg twice daily for 4 more days New prescriptions: Lasix 40mg daily Eliquis 5mg twice daily Augmentin 875mg twice daily- 5 days Recommend over the counter probiotic while taking antibiotics. Follow up: Dr. López in ~[address] Salas in ~2 weeks Vital Signs/Physical Exam: Temp Pulse Resp BP Pulse Ox 97.0 F 77 16 153/85 H 94 11/06/21 08:00 11/06/21 08:42 11/06/21 08:00 11/06/21 08:42 11/06/21 08:00 General: Alert, In no apparent distress, Oriented x3 HEENT: Mucous membr. moist/pink, EOMI, Sclerae nonicteric Neck: Supple, No LAD Respiratory: Clear to auscultation bilaterally, Normal air movement Cardiovascular: Regular rate/rhythm, Edema (trace bilateral pedal edema) Gastrointestinal: Soft and benign, Non-distended, No tenderness Musculoskeletal: No tenderness Integumentary: No rashes, No significant lesion Laboratory Data at Discharge: WBC 12.50 K/uL (4.3-10.9) H 11/06/21 05:30 Hgb 12.4 g/dL (13.6-17.9) L 11/06/21 05:30 Hct 37.8 % (39.6-49.0) L 11/06/21 05:30 Plt Count 291 K/uL (152-406) 11/06/21 05:30 PT 11.8 SECONDS (9.2-12.8) 11/04/21 18:56 INR 0.99 11/04/21 18:56 Sodium 137 mmol/L (136-145) 11/06/21 05:30 Potassium 3.6 mmol/L (3.5-5.1) 11/06/21 05:30 BUN 22 mg/dL (7-18) H 11/06/21 05:30 Creatinine 0.85 mg/dL (0.55-1.3) 11/06/21 05:30 Glucose 127 mg/dL (74-106) H 11/06/21 05:30 Magnesium 2.5 mg/dL (1.8-2.4) H 11/06/21 05:30 Total Bilirubin 0.7 mg/dL (0.2-1.0) 11/04/21 15:00 AST 30 U/L (15-37) 11/04/21 15:00 ALT 54 U/L (12-78) 11/04/21 15:00 Alkaline Phosphatase 63 U/L (45-117) 11/04/21 15:00 Lipase 127 U/L (73-393) 11/04/21 15:00 Home Medications: Amlodipine Besylate 5 mg PO BID 11/04/21 Atorvastatin Calcium [Lipitor] 40 mg PO BEDTIME 11/04/21 Duloxetine HCl 60 mg PO DAILY 11/04/21 Fluticasone/Umeclidin/Vilanter [Trelegy Ellipta 200-62.5-25] 1 tab PO DAILY 11/04/21 Ipratropium Fleming [Atrovent Hfa] 2 puff IN PRN 11/04/21 Metoprolol Succinate 50 mg PO BID 11/04/21 Triazolam 0.25 mg PO BEDTIME 11/04/21 predniSONE [Prednisone*] 10 mg PO BID 11/04/21 Amox/Clavulanate [Augmentin 875-125 Tab] 1 tab PO BID 5 Days #10 tab 11/06/21 Apixaban [Eliquis] 5 mg PO BID 30 Days #60 tab 11/06/21 Furosemide 40 mg PO DAILY 30 Days #30 tab 11/06/21 New Medications: Amox/Clavulanate [Augmentin 875-125 Tab] 1 tab PO BID 5 Days #10 tab Apixaban [Eliquis] 5 mg PO BID 30 Days #60 tab Furosemide 40 mg PO DAILY 30 Days #30 tab Physician Discharge Instructions: Patient presented to ED with shortness of breath, lower extremity edema, and found to be in atrial fibrillation with RVR. Chest x-ray noted slight opacity which may represent a mild pneumonia. He had some wheezing on exam and was treated with steroids He was treated with metoprolol, empiric antibiotics, steroids and started on anticoagulation. Cardiology was consulted. Echocardiogram performed and no acute / new findings. Noted mild diastolic dysfunction. Patient's symptoms and edema significantly improved. He remained in rate controlled afib and his leukocytosis significantly improved. He was deemed stable for discharge home. Continue metoprolol 50mg twice daily Continue prednisone 10mg twice daily for 4 more days New prescriptions: Lasix 40mg daily Eliquis 5mg twice daily Augmentin 875mg twice daily- 5 days Recommend over the counter probiotic while taking antibiotics. Follow up: Dr. López in ~[address] Salas in ~2 weeks Diet: AHA Activity: Ad alyssa Followup: Memo López MD [Primary Care Provider] - Time spent managing pt's care (in minutes): 45
== END 2021-11-06 09:07 | disposition home or self-care (01) | DRG 193 ==
LOC: ER 14:28 → ERHOLD 16:01 → 4TH 19:29
PROVIDERS: ADMIT Internal Medicine; ATTEND Hospitalist
DX: J18.9 Pneumonia, unspecified organism (principal); I50.33 Acute on chronic diastolic (congestive) heart failure; I48.20 Chronic atrial fibrillation, unspecified; J44.0 Chronic obstructive pulmonary disease with (acute) lower respiratory infection; J44.1 Chronic obstructive pulmonary disease with (acute) exacerbation; I11.0 Hypertensive heart disease with heart failure; E87.6 Hypokalemia; F32.A Depression, unspecified; F10.10 Alcohol abuse, uncomplicated; E78.5 Hyperlipidemia, unspecified; I65.23 Occlusion and stenosis of bilateral carotid arteries; I25.10 Atherosclerotic heart disease of native coronary artery without angina pectoris; D72.829 Elevated white blood cell count, unspecified; R10.9 Unspecified abdominal pain; R73.01 Impaired fasting glucose; Z95.1 Presence of aortocoronary bypass graft; Z79.52 Long term (current) use of systemic steroids; Z90.49 Acquired absence of other specified parts of digestive tract; Z91.040 Latex allergy status; Z91.048 Other nonmedicinal substance allergy status; Z79.899 Other long term (current) drug therapy; Z20.822 Contact with and (suspected) exposure to COVID-19
CPT/HCPCS: 36415; 70450; 71045; 71250; 72125; 76705; 80048; 80076; 80162; 81003; 82565; 83605; 83690; 83735; 83880; 84132; 84443; 84484; 85025; 85610; 87040; 87811; 93005; 93306; 94640; 96365; 96366; 96368; 96372; 96375; 97116; 97161; 99285; J0456; J1160; J1940; J2930; J7030; J7040; J7050; J7512; J7614

== ENCOUNTER 2021-11-29 08:51 | Inpatient (IN) | payer OTHER ==
--- OUTSIDE RECORDS SUMMARY | 2021-11-29 08:56 | XMS REPORT | Continuity of Care Document ---
:1950 Author Organization [facility] t Address [address] [place] [address] Care Team Providers Name Role Phone [place] Primary Care Physician Fady Pascual MD Attending Clinician RADIOLOGY Attending Clinician Unavailable Radiology Attending Clinician Unavailable Shereen Ferguson MD Attending Clinician OMARI DUMONT Attending Clinician Unavailable Omari Dumont Attending Clinician Doctor Unassigned, [place] Attending Clinician Unavailable rAoldo Sanchez DO Attending Clinician АНДРЕЙ DOHERTY Attending [...] Effective Date Expiration Date Alan JASON MANAGED [id number] 2021 MEDICARE PPO-SAMRA 00:00:00 Problems Condition Condition [...] Added automatic ally from request for surgery [id number] Post-op Post-op Disease Active [facility] [...] Spirit right right - [facility] shoulder shoulder [facility] Impingemen Impingemen Diagnosis Active 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 Natural mother Cancer [facility] Social History Social Habit Start Date Stop Date Quantity Comments Source History of tobacco Cigarette Smoker [facility] use Medical Center Exposure to 2021-08-31 2021-09-10 Not sure University SARS-CoV-2 (event) 00:00:00 14:41:00 [facility] Alcohol intake 2021-08-05 2021-08-05 Current drinker [facility] 00:00:00 00:00:00 of alcohol Hospital (finding) Tobacco use and 2020-04-09 2020-04-09 [facility] exposure 00:00:00 00:00:00 tobacco non-user Hospital Cigarettes smoked 2020-04-09 2020-04-[address] [facility] current (pack per 00:00:00 00:00:00 Hospita l day) - Reported Cigarette 2020-04-09 2020-04-09 [facility] pack-years 00:00:00 00:00:00 Hospital Alcohol Comment 2019-10-18 2019-10-18 social [facility] 00:[facility]:00 Hospital Sex Ass[birth year] At [birth year] SANCHEZ Oliver kes 00:00:00 00:00:00 [facility] Smoking Status Start Date Stop Date Source Former smoker [facility] Never smoked tobacco [facility] Medications Ordered Filled Start Stop Current Ordering Indication Dosage Frequency Signature Comments Components Source Medication Medication Date Date Medication? Clinician (SIG) Name Name triazolam 2020-0 Yes .25mg QD Take 0.25 [facility] (HALCION) 3-[address] 0.25 MG 00:00: mouth Hospita tablet 00 daily. l triazolam 2020-0 Yes .25mg QD Take 0.25 Me [facility] (HALCION) 3-[address] 0.25 MG 00:00: mouth [facility]ospita tablet 00 daily. l furosemide 2020-0 Yes 40mg QD Take 40 mg M ethodi (LASIX) 40 2-[address] mg tablet 00:00: daily. Hospit a 00 l furosemide 2020-0 Yes 40mg Take 40 mg U nivers 40 mg 2-29 by mouth. ity of tablet 00:00: [place] [facility] furosemide 2020-0 Yes 40mg Take 40 mg U nivers 40 mg 2-29 by mouth. ity of tablet 00:00: [place] [facility] furosemide 2020-0 Yes 40mg Take 40 mg U nivers 40 mg 2-29 by mouth. ity of tablet 00:00: [place] [facility] furosemide 2020-0 Yes 40mg Take 40 mg U nivers 40 mg 2-29 by mouth. ity of tablet 00:00: [place] [facility] furosemide 2020-0 Yes 40mg Take 40 mg U nivers 40 mg 2-29 by mouth. ity of tablet 00:00: [place] [facility] furosemide 2020-0 Yes 40mg Take 40 mg U nivers 40 mg 2-29 by mouth. ity of tablet 00:00: [place] [facility] furosemide 2020-0 Yes 40mg Take 40 mg U nivers 40 mg 2-29 by mouth. ity of tablet 00:00: [place] [facility] furosemide 2020-0 Yes 40mg Take 40 mg U nivers 40 mg 2-29 by mouth. ity of tablet 00:00: [place] [facility] furosemide 2020-0 Yes 40mg Take 40 mg U nivers 40 mg 2-29 by mouth. ity of tablet 00:00: [place] [facility] furosemide 2020-0 Yes 40mg Take 40 mg U nivers 40 mg 2-29 by mouth. ity of tablet 00:00: [place] [facility] furosemide 2020-0 Yes 40mg QD Take 40 mg M ethodi (LASIX) 40 2-[address] mg tablet 00:00: daily. Hospit a l escitalopra 2018-02 Yes 5mg QD Take 5 mg M ethodi m (LEXAPRO) 2-[address] 10 MG 00:00: daily. Hospita tablet 00 l escitalopra 2018-02 Yes Univer s m oxalate 2-14 ity of 10 mg 00:00: [place] tablet 00 [facility] escitalopra 2018-02 Yes Univer s m oxalate 2-14 ity of 10 mg 00:00: [place] tablet [facility] escitalopra 2018-02 Yes Univer s m oxalate 2-14 ity of 10 mg 00:00: [place] tablet 00 [facility] escitalopra 2018-02 Yes Univer s m oxalate 2-14 ity of 10 mg 00:00: [place] tablet 00 [facility] escitalopra 2018- Yes Univer s m oxalate 2-14 ity [...] mg 00:00: [place] tablet [facility] escitalopra 2018- Yes 5mg QD Take 5 mg M ethodi m (LEXAPRO) 2-[address] 10 MG 00:00: daily. Hospita tablet 00 l triazolam 2018-02 Yes Univers 0.25 mg 0-31 ity of tablet 00:00: [facility] triazolam 2018-02 Yes Univers 0.25 mg 0-31 ity of tablet 00:00: [facility] triazolam 2018-02 Yes Univers 0.25 mg 0-31 ity of tablet 00:00: [facility] triazolam 2018-02 Yes Univers 0.25 mg 0-31 ity of tablet 00:00: [facility] triazolam 2018-02 Yes Univers 0.25 mg 0-31 ity of tablet 00:00: Medical Branch triazolam 2018- Yes Univers 0.25 mg 0-31 ity of tablet 00:00: [place] [facility] triazolam 2018-02 Yes Univers 0.25 mg 0-31 ity of tablet 00:00: [address] triazolam 2018-02 Yes Univers 0.25 mg 0-31 ity of tablet 00:00: [address] triazolam 2018- Yes Univers 0.25 mg 0-31 ity of tablet 00:00: [address] triazolam 2018-02 Yes Univers 0.25 mg 0-31 ity of tablet 00:00: [address] triazolam 2018-02 Yes Univers 0.25 mg 0-31 ity of tablet 00:00: [address] triazolam 2018-02 Yes Univers 0.25 mg 0-31 ity of tablet 00:00: [address] triazolam 2018-02 Yes Univers 0.25 mg 0-31 ity of tablet 00:00: [address] triazolam 2018-02 Yes Univers 0.25 mg 0-31 ity of tablet 00:00: [address] amLODIPine 2018-02 Yes 5mg QD Take 5 mg Me thodi (NORVASC) 5 0-[address] mg tablet 00:00: daily. Hospit a 00 l amLODIPine 2018-02 Yes Univers 5 mg tablet 0-11 ity of 00:00: [address] amLODIPine 2018- Yes Univers 5 mg tablet 0-11 ity of 00:00: [address] amLODIPine 2019- Yes Univers 5 mg tablet 0-11 ity of 00:00: [address] amLODIPine 2019- Yes Univers 5 mg tablet 0-11 ity of 00:00: [address] amLODIPine 2018-02 Yes Univers 5 mg tablet 0-11 ity of 00:00: [address] amLODIPine 2019- Yes Univers 5 mg tablet 0-11 ity of 00:00: [address] amLODIPine 2019- Yes Univers 5 mg tablet 0-11 ity of 00:00: [address] amLODIPine 2018-02 Yes Univers 5 mg tablet 0-11 ity of 00:00: [address] amLODIPine 2019- Yes Univers 5 mg tablet 0-11 ity of 00:00: [address] amLODIPine 2018-1 Yes Univers 5 mg tablet 0-11 ity of 00:00: [place] [facility] amLODIPine 2019-1 Yes Univers 5 mg tablet 0-11 ity of 00:00: [place] [facility] amLODIPine 2019-1 Yes Univers 5 mg tablet 0-11 ity of 00:00: [place] [facility] amLODIPine 2018- Yes Univers 5 mg tablet 0-11 ity of 00:00: [place] [facility] amLODIPine 2019- Yes Univers 5 mg tablet 0-11 ity of 00:00: [place] [facility] amLODIPine 2018- Yes 5mg QD Take 5 mg Me thodi (NORVASC) 5 0-[address] mg tablet 00:00: daily. Hospit a 00 l atorvastati 2019-0 Yes Univer s n 40 mg 9-17 ity of tablet 00:00: [place] [facility] atorvastati 2019-0 Yes Univer s n 40 mg 9-17 ity of tablet 00:00: [place] [facility] atorvastati 2019-0 Yes Univer s n 40 mg 9-17 ity of tablet 00:00: [place] [facility] atorvastati 2019-0 Yes Univer s n 40 mg 9-17 ity of tablet 00:00: [address] Branch atorvastati 2019-0 Yes Univer s n 40 mg 9-17 ity of tablet 00:00: [place] [facility] atorvastati 2019-0 Yes Univer s n 40 mg 9-17 ity of tablet 00:00: [address] atorvastati 2019-0 Yes Univer s n 40 mg 9-17 ity of tablet 00:00: [place] [facility] Branch atorvastati 2019-0 Yes Univer s n 40 mg 9-17 ity of tablet 00:00: [place] [facility] Branch atorvastati 2019-0 Yes Univer s n 40 mg 9-17 ity of tablet 00:00: [place] [facility] Branch atorvastati 2019-0 Yes Univer s n 40 mg 9-17 ity of tablet 00:00: [place] [facility] atorvastati 2019-0 Yes Univer s n 40 mg 9-17 ity of tablet 00:00: [address] Branch atorvastati 2019-0 Yes Univer s n 40 mg 9-17 ity of tablet 00:00: [place] 00 [facility] atorvastati 2019-0 Yes Univer s n 40 mg 9-17 ity of tablet 00:00: 00 Medical Branch atorvastati 2019-0 Yes Univer s n 40 mg 9-17 ity of tablet 00:00: 00 Medical Branch tadalafil 2019-0 Yes TAKE 1 Univer s 20 mg 9-04 TABLET BY ity of tablet 00:00: MOUTH EVERY DAY Medical NEEDED Branch tadalafil 2019-0 Yes TAKE 1 Univer s 20 mg 9-04 TABLET BY ity of tablet 00:00: MOUTH EVERY DAY Medical NEEDED Branch tadalafil 2019-0 Yes TAKE 1 Univer s 20 mg 9-04 TABLET BY ity of tablet 00:00: MOUTH EVERY DAY Medical NEEDED Branch tadalafil 2019-0 Yes TAKE 1 Univer s 20 mg 9-04 TABLET BY ity of tablet 00:00: MOUTH EVERY DAY Medical NEEDED Branch tadalafil 2019-0 Yes TAKE 1 Univer s 20 mg 9-04 TABLET BY ity of tablet 00:00: MOUTH EVERY DAY Medical NEEDED Branch tadalafil 2019-0 Yes TAKE 1 Univer s 20 mg 9-04 TABLET BY ity of tablet 00:00: MOUTH EVERY DAY Medical NEEDED Branch tadalafil 2019-0 Yes TAKE 1 Univer s 20 mg 9-04 TABLET BY ity of tablet 00:00: MOUTH 00 EVERY DAY Medical NEEDED Branch tadalafil 2019-0 Yes TAKE 1 Univer s 20 mg 9-04 TABLET BY ity of tablet 00:00: MOUTH EVERY DAY Medical NEEDED Branch tadalafil 2019-0 Yes TAKE 1 Univer s 20 mg 9-04 TABLET BY ity of tablet 00:00: MOUTH 00 EVERY DAY Medical NEEDED Branch tadalafil 2019-0 Yes TAKE 1 Univer s 20 mg 9-04 TABLET BY ity of tablet 00:00: MOUTH 00 EVERY DAY Medical NEEDED Branch tadalafil 2019-0 Yes TAKE 1 Univer s 20 mg 9-04 TABLET BY ity of tablet 00:00: MOUTH 00 EVERY DAY Medical NEEDED Branch tadalafil 2019-0 Yes TAKE 1 Univer s 20 mg 9-04 TABLET BY ity of tablet 00:00: MOUTH 00 EVERY DAY Medical NEEDED Branch tadalafil 2019-0 Yes TAKE 1 Univer s 20 mg 9-04 TABLET BY ity of tablet 00:00: MOUTH EVERY DAY Medical NEEDED Branch tadalafil 2019-0 Yes TAKE 1 Univer s 20 mg 9-04 TABLET BY ity of tablet 00:00: MOUTH EVERY DAY Medical NEEDED Branch predniSONE 2019-0 Yes Univers 10 mg 8-13 ity of tablet 00:00: [place] 00 [facility] metoprolol 2019-0 Yes Univers succinate 8-13 ity of XL 50 mg 24 00:00: [place] hr tablet 00 Medical Branch metoprolol 2019-0 Yes Univers [...] 10 mg 8-13 ity of tablet 00:00: [place] 00 Medical [facility] predniSONE 2019-0 Yes Univers [...] 10 mg 8-13 ity of tablet 00:00: [place] [facility] metoprolol 2019-0 Yes Univers succinate 8-13 ity of XL 50 mg 24 00:00: [place] hr tablet 00 Medical Branch predniSONE 2019-0 Yes Univers 10 mg 8-13 ity of tablet 00:00: [facility] metoprolol 2019-0 Yes Univers succinate 8-13 ity of XL 50 mg 24 00:00: [place] hr tablet 00 Medical Branch predniSONE 2019-0 Yes Univers 10 mg 8-13 ity of tablet 00:00: [place] [facility] metoprolol 2019-0 Yes Univers succinate 8-13 ity of XL 50 mg 24 00:00: [place] hr tablet 00 Medical Branch predniSONE 2019-0 Yes Univers 10 mg 8-13 ity of tablet 00:00: [place] [facility] metoprolol 2019-0 Yes Univers succinate 8-13 ity of XL 50 mg 24 00:00: [place] hr tablet 00 Medical Branch predniSONE 2019-0 Yes Univers 10 mg 8-13 ity of tablet 00:00: [place] [facility] metoprolol 2019-0 Yes Univers succinate 8-13 ity of XL 50 mg 24 00:00: [place] hr tablet 00 [facility] Branch triazolam 2017-0 Yes .25mg Take 0.[address] (HALCION) 2-09 [facility] 0.[facility] MG 13:49: mouth Medical tablet 27 every Center night as needed. triazolam 2017-0 Yes .25mg Take 0.[address] (HALCION) 2-09 mg by [facility] 0.25 MG 13:49: mouth Medical tablet 27 every Center night as needed. apixaban 5 2016-0 Yes 5mg Take 5 mg Un sally mg tablet 2-09 by mouth. ity o f 00:00: [facility] sadeiu 2016-0 Yes 1{puff} Inhale 1 Univers m 62.5 2-09 Puff. ity of mcg/actuati 00:00: [place] on DsDv [facility] apixaban 5 2016-0 Yes 5mg Take 5 mg Un sally mg tablet 2-09 by mouth. ity o f 00:00: Medical Branch umeclievaiu 2017-0 Yes 1{puff} Inhale 1 Univers m 62.5 2-09 Puff. ity of mcg/actuati 00:00: [place] on DsDv [facility] Branch apixaban 5 2017-0 Yes 5mg Take 5 mg Un sally mg tablet 2-09 by mouth. ity o f 00:00: Medical Branch umeclidiniu 2017-0 Yes 1{puff} Inhale 1 Univers m 62.5 2-09 Puff. ity of mcg/actuati 00:00: [place] on DsDv [facility] apixaban 5 2017-0 Yes 5mg Take 5 mg Un sally mg tablet 2-09 by mouth. ity o f 00:00: [place] [facility] umeclidiniu 2017-0 Yes 1{puff} Inhale 1 Univers m 62.5 2-09 Puff. ity of mcg/actuati 00:00: [place] on DsDv Medical [facility] apixaban 5 2017-0 Yes 5mg Take 5 mg Un sally mg tablet 2-09 by mouth. ity o f 00:00: [place] [facility] apixaban 5 2017-0 Yes 5mg Take 5 mg Un sally mg tablet 2-09 by mouth. ity o f 00:00: [place] [facility] monicaeclievaiu 2017-0 Yes 1{puff} Inhale 1 Univers m 62.5 2-09 Puff. ity of mcg/actuati 00:00: [place] on DsDv Medical [facility] umeclidiniu 2017-0 Yes 1{puff} Inhale 1 Univers m 62.5 2-09 Puff. ity of mcg/actuati 00:00: [place] on DsDv [facility] apixaban 5 2017-0 Yes 5mg Take 5 mg Un sally mg tablet 2-09 by mouth. ity o f 00:00: Medical Branch umeclidiniu 2017-0 Yes 1{puff} Inhale 1 Univers m 62.5 2-09 Puff. ity of mcg/actuati 00:00: [place] on DsDv Medical [facility] apixaban 5 2017-0 Yes 5mg Take 5 mg Un sally mg tablet 2-09 by mouth. ity o f 00:00: Medical [facility] Yes 1{puff} Inhale 1 Univers m 62.5 2-09 Puff. ity of mcg/actuati 00:00: [place] on DsDv Medical Branch apixaban 5 2017 Yes 5mg Take 5 mg Un sally mg tablet 2-09 by mouth. ity o f 00:00: [place] [facility] umeclievaiu Yes 1{puff} Inhale 1 Univers m 62.5 2-09 Puff. ity of mcg/actuati 00:00: [place] on DsDv [facility] Branch apixaban 5 Yes 5mg Take 5 mg Un sally mg tablet 2-09 by mouth. ity o f 00:00: [place] [facility] [place] umeclidiniu Yes 1{puff} Inhale 1 Univers m 62.5 2-09 Puff. ity of mcg/actuati 00:00: [place] on DsDv Medical Branch apixaban 5 Yes 5mg Take 5 mg Un sally mg tablet 2-09 by mouth. ity o f 00:00: [place] [facility] [place] monicaeclievaiu Yes 1{puff} Inhale 1 Univers m 62.5 2-09 Puff. ity of mcg/actuati 00:00: [place] on DsDv Medical Branch apixaban 5 Yes 5mg Take 5 mg Un sally mg tablet 2-09 by mouth. ity o f 00:00: [place] [facility] [place] sadeiu Yes 1{puff} Inhale 1 Univers m 62.5 2-09 Puff. ity of mcg/actuati 00:00: [place] on DsDv Medical Branch apixaban 2017-0 Yes 5mg Q.5D Take [address] (ELIQUIS) 5 2-09 tablet (5 Bk es mg Tab 00:00: mg total) Medica l tablet 00 by mouth 2 Center (two) times daily. apixaban 5 Yes 5mg Take 5 mg Un sally mg tablet 2-09 by mouth. ity o f 00:00: [place] [facility] [place] umeclidiniu Yes 1{puff} Inhale 1 Univers m 62.5 2-09 Puff. ity of mcg/actuati 00:00: [place] on DsDv Medical [facility] apixaban 5 2016- Yes 5mg Take 5 mg Un aslly mg tablet 2-09 by mouth. ity o f 00:00: [place] [facility] umeclidiniu 20170 Yes 1{puff} Inhale 1 Univers m 62.5 2-09 Puff. ity of mcg/actuati 00:00: [place] on DsDv Medical Branch apixaban 20170 Yes 5mg Q.5D Take [address] (ELIQUIS) 5 2-09 tablet (5 Bk es mg Tab 00:00: mg total) Medica l tablet 00 by mouth 2 Center (two) times daily. umeclidiniu Yes 1{puff} QD Inhale [address] m (INCRUSE 2-09 puff by [facility] ELLIPTA) 00:00: mouth via Medi meredith 62.5 00 inhaler Center mcg/actuati daily. on DsDv powder for inhalation umeclidiniu 0 Yes 1{puff} QD Inhale [address] m (INCRUSE 2-09 puff by [facility] ELLIPTA) 00:00: mouth via Medi meredith 62.5 00 inhaler Center mcg/actuati daily. on DsDv powder for inhalation atorvastati Yes 40mg QD Take 40 mg Methodi n (LIPITOR) 2-[address] 40 MG 00:00: daily. Hospita tablet 00 l metoprolol Yes Methodi succinate 2-01 st 50 mg 00:00: Hospita capsule,spr 00 l inkle,ER 24hr atorvastati Yes 40mg QD Take 40 mg Methodi n (LIPITOR) 2-[address] 40 MG 00:00: daily. Hospita tablet 00 l metoprolol Yes Methodi succinate 2-01 st 50 mg 00:00: Hospita capsule,spr 00 l inkle,ER 24hr nisoldipine Yes Univer s (SULAR) 7-18 ity of 25.5 mg 24 00:00: [place] hr tablet 00 Medical Branch BENICAR HCT Yes Univer s 40-12.5 mg 7-18 ity of per tablet 00:00: [place] [facility] nisoldipine 2016-0 Yes Univer s [...] [place] hr tablet 00 [facility] nisoldipine 2016-0 Yes Univer [...] tablet 00:00: [place] 00 [facility] ANORO 2016-0 Yes Univers ELLIPTA 7-17 ity of 62.5-25 00:00: [place] mcg/actuati 00 Medical on Branch inhalation disk ANORO 2015-0 Yes Univers ELLIPTA 7-17 ity of 62.5-25 00:00: [place] mcg/actuati 00 Medical on Branch inhalation disk ANORO 2015-0 Yes Univers ELLIPTA 7-17 ity of 62.5-25 00:00: [place] mcg/actuati 00 Medical on Branch inhalation disk ANORO 2015-0 Yes Univers ELLIPTA 7-17 ity [...] mcg/actuati 00 Medical on Branch inhalation disk umeclidiniu 2010-0 Yes QD daily. Meth boubacar m-vilantero 1-10 st L (Anoro 00:00: Hospita Ellipta) 00 l 62.5-25 mcg/actuati on blister with device umeclidiniu 2010-0 Yes QD daily. Meth boubacar m-vilantero 1-10 st L (Anoro 00:00: Hospita Ellipta) 00 l 62.5-25 mcg/actuati on blister with device Triazolam Triazolam Yes Carlo Anne defined [facility] Atorvastati Atorvastati Yes Carlo not Common n Calcium n Calcium Omid defined [facility] PredniSONE PredniSONE Yes Carlo not C ommon Omid defined [facility] Atrovent Atrovent Yes Carlo not Commo n HFA HFA Omid defined [facility] Furosemide Furosemide Yes Carlo not C ommon Omid defined [facility] Amlodipine Amlodipine Yes Carlo not C ommon Besylate Besylate Omid defined [facility] [facility] Anoro Anoro Yes Carlo not Common Ellipta Ellipta Omid defined Spir it [facility] Combivent Combivent Yes Carlo not Com mon Omid defined [facility] Acetaminoph Acetaminoph Yes Carlo not Common en en Omid defined [facility] Tadalafil Tadalafil Yes Carlo not Com mon Omid defined [facility] Metoprolol Metoprolol Yes Carlo not C ommon Succinate Succinate Omid defined [facility] Yoselin Yoselin Yes Carlo not Common Aspirin Aspirin Omid defined Spir it [facility] Vital Signs Vital Name Observation Time Observation Value Comments Source Systolic blood 2019-08-29 14:55:00 160 mm[facility]Hg[facility] 2019-08-29 14:55:00 83 [facility] 2019-08-29 14:55:00 86 /min [facility] Body height 2019-08-29 14:55:00 167.6 cm [facility] Body weight 2019-08-29 14:55:00 77.111 kg [facility] BMI 2019-08-29 14:55:00 27.44 kg/m2 [facility] Systolic blood 2019-08-29 14:55:00 160 mm[Hg] Univer sity [facility] Diastolic blood 2019-08-29 14:55:00 83 mm[Hg] [facility] 2019-08-29 14:55:00 86 /min [facility] Body height 2019-08-29 14:55:00 167.6 cm Universi ty of [facility] Body weight 2019-08-29 14:55:00 77.111 kg Universi ty of [facility] BMI 2019-08-29 14:55:00 27.44 kg/m2 [facility]i ty [facility] Systolic blood 2019-08-24 15:36:00 176 mm[Hg] Univer sity of pressure [facility] Diastolic blood 2019-08-24 15:36:00 81 mm[Hg] Unive rsity of pressure [facility] Heart rate 2019-08-24 15:36:00 81 /min Universi ty of [facility] Respiratory rate 2019-08-24 15:30:00 18 /min Univ ersity of [facility] Body height 2019-08-24 15:30:00 167.6 cm Universi ty of [facility] Body weight 2019-08-24 15:30:00 77.111 kg Universi ty of [facility] BMI 2019-08-24 15:30:00 27.44 kg/m2 Universi ty of [facility] Systolic blood 2019-03-31 14:40:00 156 mm[Hg] Univer sity of pressure [facility] Diastolic blood 2019-03-31 14:40:00 87 mm[Hg] Unive rsity of pressure [facility] Heart rate 2019-03-31 14:40:00 79 /min Universi ty of [facility] Respiratory rate 2019-03-31 14:40:00 20 /min Univ ersity of [facility] Body height 2019-03-31 14:40:00 167.6 cm Universi ty of [facility] Body weight 2019-03-31 14:40:00 77.111 kg [facility]i ty of [facility] BMI 2019-03-31 14:40:00 27.44 kg/m2 [facility]i ty of [facility] Body height 2021-08-05 18:15:00 167.6 cm [facility] Body weight 2021-08-05 18:15:00 74.844 kg [facility] BMI 2021-08-05 18:15:00 26.63 kg/m2 [facility] Procedures Procedure Date / Time Performing Clinician Source Performed ALPHA-1 ANTITRYPSIN 2021-10-03 17:42:[address] [facility] PHENOTYPE Ramana ALPHA-1 ANTITRYPSIN LEVEL 2021-10-03 17:42:00 [facility], [facility] Ramana IGG SUBCLASSES 2021-10-03 17:42:00 [place], [facility] Ramana IMMUNOGLOBULIN G 2021-10-03 17:42:00 [facility], [facility] Ramana ALLERGEN, REGION 10 2021-10-03 17:42:00 [place], [facility] RESPIRATORY VEGA IGE Ramana IMMUNCAP SCORE 2021-10-03 17:42:00 [facility], [facility] Ramana MR LUMBAR SPINE WO 2021-09-19 15:51:00 Requisition, Paper [facility] CONTRAST Medical Branch XR KNEE 3 VW LEFT 2021-08-05 18:27:[facility] LEG LENGTH [facility]AL[facility] 2021-08-05 [facility]:27[facility] OF [facility]IV[facility]Y 2021-08-04 15:36:26 Doctor Unassigned, [facility] PRACTICES [place] [facility] CONSENT/REFUSAL FOR 2021-08-04 15:36:06 Doctor Unassigned, [facility] DIAGNOSIS AND TREATMENT [place] [facility] ASSIGNMENT OF BENEFITS 2021-08-04 15:35:52 Doctor Unassigned, [facility] [place] [facility] PHYSICIAN ORDERS 2021-07-23 05:01:00 Doctor Unassigned, [facility] [place] [facility] XR FOOT <3 VW RIGHT 2019-08-24 15:48:01 Stephanie Henriquez [facility] DSU PRE-OP 2019-03-31 06:01:00 Doctor Unassigned, [facility] [place] [facility] Plan of Care Planned Activity Planned Date Details Comments Source Future Scheduled 2021-10-24 HEPATITIS B VACCINES Met [facility] Test 14:20:57 (1 of 3 - 3-dose series) [code = HEPATITIS B VACCINES (1 of 3 - 3-dose series)] Future Scheduled 2021-10-24 65+ PNEUMOCOCCAL [facility] Test 14:20:57 VACCINE (1 - PCV) [code = 65+ PNEUMOCOCCAL VACCINE (1 - PCV)] Future Scheduled 2021-10-24 COLONOSCOPY SCREENING [facility] Test 14:20:57 [code = COLONOSCOPY SCREENING] Future Scheduled 2021-10-24 Screening for [facility] Test 14:20:57 malignant neoplasm of lung (procedure) [code = 189465361] Future Scheduled 2021-10-24 SHINGLES VACCINES (1 Met [facility] Test 14:20:57 of 2) [code = SHINGLES VACCINES (1 of 2)] Future Scheduled 2021-10-24 COVID-19 VACCINE (4 - Me [facility] Test 14:20:57 Booster for Moderna series) [code = COVID-19 VACCINE (4 - Booster for Moderna series)] Future Scheduled 2021-10-24 INFLUENZA VACCINE [facility] Test 14:20:57 [code = INFLUENZA VACCINE] Future Scheduled 2021-10-24 HEPATITIS B VACCINES Met [facility] Test 14:20:57 (1 of 3 - 3-dose series) [code = HEPATITIS B VACCINES (1 of 3 - 3-dose series)] Future Scheduled 2021-10-24 65+ [facility]AL [facility] 14:20:57 VACCINE (1 - PCV) [code = 65+ PNEUMOCOCCAL VACCINE (1 - PCV)] Future Scheduled 2021-10-24 COLONOSCOPY SCREENING [facility] Test 14:20:57 [code = COLONOSCOPY SCREENING] Future Scheduled 2021-10-24 Screening for [facility] Test 14:20:57 malignant neoplasm of lung (procedure) [code = [id number]] Future Scheduled 2021-10-24 SHINGLES VACCINES (1 Met [facility] Test 14:20:57 of 2) [code = SHINGLES VACCINES (1 of 2)] Future Scheduled 2021-10-24 COVID-19 VACCINE (4 - [facility] Test 14:20:57 Booster for Moderna series) [code = COVID-19 VACCINE (4 - Booster for Moderna series)] Future Scheduled 2021-10-24 INFLUENZA VACCINE [facility] Test 14:20:57 [code = INFLUENZA VACCINE] Encounters Start End Encounter Admission Attending Care Care Encounter Source Date/Time Date/Time Type Type Clinicians Facility Department ID 2021-10-31 2021-10-31 Outpatient Mariola Jessica [facility] [id number] [place] 15:38:00 15:38:[address] 2021-10-03 2021-10-03 Lab Colomer, 1.2.840.1 [id number] Methodi 12:30:00 12:35:[address] Ramana 3.430.2.7 Hospit a .3.080035 l .8 2021-10-03 2021-10-03 Lab Colomer, 1.2.840.1 [id number] Methodi 12:30:00 12:35:[address] Ramana 3.430.2.7 Hospit a .3.213496 l .8 2021-10-03 2021-10-03 Travel 1.2.840.1 1.2.870.069 [id number] Methodi 00:00:00 00:00:[address] 3.430.2.7 0.2.7.3.698 Ho spita .3.175074 084.8 l .8 2021-10-03 2021-10-03 Travel 1.2.840.1 1.2.860.501 [id number] Methodi 00:00:00 00:00:[address] 3.430.2.7 0.2.7.3.698 Ho spita .3.462429 084.8 l .8 2021-09-19 2021-09-19 Outpatient R RADIOLOGY [facility] [id number] Univers 09:09:31 23:59:00 ity of [facility] 2021-09-19 2021-09-19 Hospital Radiology [facility] 1.2.840.114 [id number] Univers 09:09:31 23:59:00 Encounter ANDRES 350.1.13.10 [facility] 4.2.7.2.686 [facility] [id number] [facility] 804 Branch 2021-08-05 2021-08-05 Office Phyllis, 1.2.840.1 [id number] Methodi 14:00:00 15:57:20 Visit Shereen [place] 49542.1.1 824 s t 3.430.2.7 Hospit a .3.995268 l .8 2021-08-05 2021-08-05 Office Phyllis, 1.2.840.1 [id number] Methodi 14:00:00 15:57:20 Visit Shereen [place] 70996.1.1 824 s t 3.430.2.7 Hospit a .3.830121 l .8 2021-08-05 2021-08-05 Outpatient PHYLLIS, [facility] [id number] 3644 [place] 00:00:00 00:00:00 SHEREEN 446 Method i 2021-08-05 2021-08-05 Outpatient PHYLLIS, [facility] [id number] 9390 [place] 00:00:00 00:00:00 SHEREEN 470 Method i 2021-08-05 2021-08-05 Travel 1.2.840.1 1.2.995.136 [id number] Methodi 00:00:00 00:00:[address] 3.430.2.7 0.2.7.3.698 Ho spita .3.506056 084.8 l .8 2021-08-05 2021-08-05 Travel 1.2.840.1 1.2.311.216 [id number] [id number] Methodi 00:00:00 00:00:[address] 3.430.2.7 0.2.7.3.698 Ho spita .3.118990 084.8 l .8 2021-08-04 2021-08-04 [facility] [id number] Univers 10:39:04 23:59:00 OMARI og [facility] 2021-08-04 2021-08-04 [facility] 1.2.840.114 [id number] Univers 10:39:04 23:59:00 Encounter Omari CAMPOS 350.1.13.10 earle barr [place] [id number] [facility] 801 Branch 2021-07-23 2021-07-23 Orders Doctor BRAD 1.2.840.114 [id number] Univers 00:00:00 00:00:00 Only Unassigned, JARON 350.1.13.10 ity of [place] [facility] 4.2.7.2.686 Zander as [id number] [facility] 009 Branch 2020-04-15 2020-04-15 [facility] 1.2.840.[id number] [place] [address] 00:00:00 00:00:00 Outreach Aroldo PRIMARY 350.1.13.10 i ty of [facility] [place] [id number] Me dical [address] [place] 2020-04-09 2020-04-09 Outpatient CHAS, [facility] [id number] 5154 [place] 00:00:00 00:00:00 АНДРЕЙ 981 Method i 2020-04-09 2020-04-09 Outpatient JOTWANI, [facility] [id number] 2633 [place] 00:00:00 00:00:00 АНДРЕЙ 096 Method i 2020-02-20 2020-02-20 Outpatient PHYLLIS, [facility] [id number] 7805 [place] 00:00:00 00:00:00 SHEREEN 222 Method i 2020-02-20 2020-02-20 Outpatient PHYLLIS, [facility] [id number] 9872 [place] 00:00:00 00:00:00 SHEREEN 422 Method i 2020-02-20 2020-02-20 Outpatient PHYLLIS, [facility] [id number] 5697 [place] 00:00:00 00:00:00 SHEREEN 430 Method i 2020-01-29 2020-01-29 Laboratory Lab, Adc Fam Pob I [facility] 1.2. 840.114 [id number] Univers 10:40:21 11:00:21 Only Nikita, Patricia [employer] 350.1.13.10 ity of [place] 4.2.7.2.686 Zander as Professio [id number] Ct dical nal 044 Branch Office Building One 2020-01-29 2020-01-29 Outpatient R [facility] [id number] Univers 11:00:00 11:00:00 ity of [facility] 2019-11-15 2019-11-15 Outpatient [facility] [id number] 410 [place] 00:00:00 00:00:00 333 Method i 2019-11-15 2019-11-15 Outpatient [facility] [id number] 252 [place] 00:00:00 00:00:00 543 Method i 2019-10-30 2019-10-31 Outpatient PHYLLIS, [facility] [id number] 1872 [place] 00:00:00 00:00:00 SHEREEN 272 Method i 2019-10-25 2019-10-25 Outpatient PHYLLIS, [facility] [id number] 2291 [place] 00:00:00 00:00:00 SHEREEN 403 Method i 2019-10-18 2019-10-18 Outpatient PHYLLIS, [facility] [id number] 5305 [place] 00:00:00 00:00:00 SHEREEN 841 Method i 2019-08-29 2019-08-29 [facility] 1.2.840.114 [id number] 15 09:52:24 10:07:24 Visit [facility] 350.1.13.10 Surgical 4.2.7.2.686 Specialti [id number] es [address] [place] [address] 2019-08-29 2019-08-29 [facility] 1.2.840.114 [id number] Univers 09:52:24 10:07:24 Visit [facility] Health 350.1.13.10 it y of Surgical 4.2.7.2.686 Zander as Specialti [id number] Me dical es 198 [facility] 2019-08-29 2019-08-29 [facility] [id number] Univers 09:45:00 09:45:00 STEPHANIE ity of [facility] 2019-08-24 2019-08-24 [facility] 1.2.840.114 [id number] Univers 10:48:00 23:59:00 Encounter Stephanie S Health 350.1.13.10 ity of Surgical 4.2.7.2.686 Zander as Specialti [phone] Me dical es 809 [facility] 2019-08-24 2019-08-24 [place], [facility] 1.2.840.114 [id number] Univers 10:29:34 10:58:01 Visit Stephanie [facility] 350.1.13.10 it y of Surgical 4.2.7.2.686 Zander as Specialti [id number] Ct dical es 198 [facility] 2019-08-24 2019-08-24 [facility] [id number] Univers 10:30:00 10:30:00 STEPHANIE ity [facility] 2019-07-18 2019-07-18 Outpatient PHYLLIS, [facility] [id number] 0194 [place] 00:00:00 00:00:00 SHEREEN 315 Method i 2019-06-15 2019-06-15 Outpatient PHYLLIS, [facility] [id number] 9863 [place] 00:00:00 00:00:00 SHEREEN 159 Method i 2019-06-15 2019-06-15 Outpatient PHYLLIS, [facility] [id number] 3128 [place] 00:00:00 00:00:00 SHEREEN 022 Method i 2019-06-15 2019-06-15 Outpatient PHYLLIS, [facility] [id number] 4321 [place] 00:00:00 00:00:00 SHEREEN 028 Method i 2019-05-29 2019-05-29 Telephone [facility] 1.2.840.114 [id number] Univers 00:00:00 00:00:00 [facility] [employer] 350.1.13.10 it y of Surgical 4.2.7.2.686 Zander as Specialti [phone] Ct dical es 198 [facility] 2019-03-31 2019-03-31 Office [facility] 1.2.774.296 [id number] [facility] 08:35:06 09:11:29 Visit Mello [place] 350.1.13.10 it y of Surgical 4.2.7.2.686 Zander as Specialti [id number] Ct dical es 198 [facility] 2019-03-31 2019-03-31 Orders Doctor SALINAS 1.2.840.114 [id number] Univers 00:00:00 00:00:00 Only Unassigned, JARON 350.1.13.10 ity [facility] [place] [facility] 4.2.7.2.686 Zander as [id number] [facility] 009 Branch 2018-09-05 2018-09-05 Outpatient [facility] [place] [id number] [place] 14:30:00 14:30:00 [facility] 2018-08-03 2018-08-03 [facility] [id number] Common 08:00:00 08:00:00 t [facility] Results Test Description Test Time Test Comments Results Result Comments Source SARS-CoV-2 (COVID-19) RNA [Presence] in Respiratory sp ecimen by 2019-10-25 19:09:03 EDUARDO with probe detection Test Item Value Reference Range Interpretation Comme nts SARS-CoV-2 (COVID-19) RNA [Presence] in Respiratory Not detected No t-Detected specimen by EDUARDO with probe detection (test code = 66221-2) NITHIN TENRIISM WESTXR FOOT <3 VW [id number] 15:54:17No acute fracture or dislocation he does have a degenerative first metatarsal phalangeal joint [facility]
[2021-11-29 09:32] LABS: SARS-CoV-2 Antigen Rapid Res Negative (Negative)
--- NOTE | 2021-11-29 09:48 | RAD REPORT ---
EXAM DESCRIPTION: CT - Head Brain Wo Cont - 11/29/2021 9:34 am CLINICAL HISTORY: Alteration of awareness/confusion COMPARISON: October 2021 TECHNIQUE: Computed axial tomography of the head was obtained. IV contrast was not requested. All CT scans are performed using dose optimization technique as appropriate and may include automated exposure control or mA/KV adjustment according to patient size. FINDINGS: An intracranial bleed is not seen . The ventricles are normal in caliber. No extra-axial fluid collection is noted. No significant hypodensity within the brain noted. Fluid within the sinuses/ mastoids is not seen. IMPRESSION: No acute intracranial abnormality is seen. If patient's symptoms persist MRI of the bra in would be recommended.
--- NOTE | 2021-11-29 09:49 | RAD REPORT ---
EXAM DESCRIPTION: Lorie Single View11/29/2021 9:41 am CLINICAL HISTORY: Chest pain COMPARISON: 2018 FINDINGS: The lungs appear clear of acute infiltrate. The heart is mildly enlarged. Pacemaker leads are in place. Chronic elevation left hemidiaphragm the IMPRESSION: No acute abnormalities displayed
[2021-11-29 10:09] LABS: Absolute Lymphocytes (CBC) 1.4 K/uL (0.7-4.9); Hematocrit 36.7 % (39.6-49.0); Lymphocytes % 5.8 % (15.3-44.8); MCV 83.6 fL (80-100); MPV 6.3 fL (7.6-11.3); RBC Red Blood Cell Count 4.39 M/uL (4.33-5.43)
[2021-11-29 10:10] LABS: Protime INR 1.15
[2021-11-29 10:26] LABS: ALT/SGPT 160 U/L (12-78); Albumin 3.1 g/dL (3.4-5.0); Alkaline Phosphatase 81 U/L (45-117); BUN Blood Urea Nitrogen 14 mg/dL (7-18); Bicarbonate 27 mmol/L (21-32); Bilirubin Direct 0.6 mg/dL (0-0.2); Bilirubin Total 1.9 mg/dL (0.2-1.0); Glomerular Filtration Rate 45 ml/min (=/>90); Glucose Level 98 mg/dL (74-106); Magnesium 2.5 mg/dL (1.8-2.4); NT PRO-BNP 8769 pg/mL (<125); Potassium 3.1 mmol/L (3.5-5.1); Protein, Total 5.9 g/dL (6.4-8.2)
[2021-11-29 10:28] LABS: AST/SGOT 404 U/L (15-37); Sodium Level 104 mmol/L (136-145); Troponin High Sensitivity 545.2 pg/mL (<58.9)
[2021-11-29 10:51] LABS: Urine Blood 3+ (Negative); Urine Glucose Negative (Negative); Urine Protein 3+ (Negative); Urine pH 5.5 (5.0-7.0)
[2021-11-29 11:02] LABS: Blood Morphology Comment NOT SEEN (NOT SEEN); Platelet Estimate ADEQ; Platelets, Giant FEW
[2021-11-29 11:04] LABS: Creatine Phosphokinase > 14000 U/L (39-308)
[2021-11-29] MEDS ORDERED: LEVALBUTEROL 1.25 MG/3 ML NEB ONE (11:05)
[2021-11-29] MEDS ORDERED: Levofloxacin500mg IV 500 MG/100 ML BAG IV ONE ×2 (11:06→14:00)
[2021-11-29] MEDS ORDERED: NA CHLORIDE 3% 500 ML ONE (11:23)
[2021-11-29] MEDS ORDERED: KCL 20 MEQ/100 mL IVPB 200 ML IV ONE (11:26)
[2021-11-29 11:28] LABS: Barbiturates NEGATIVE (NEGATIVE); Benzodiazepines NEGATIVE (NEGATIVE); Cocaine NEGATIVE (NEGATIVE); METHAMPHETAM NEGATIVE (NEGATIVE); Methadone NEGATIVE (NEGATIVE); Opiates NEGATIVE (NEGATIVE); Phencyclidine NEGATIVE (NEGATIVE); THC Cannibis NEGATIVE (NEGATIVE)
--- NOTE | 2021-11-29 11:44 | HP ---
Date of Admission: 11/29/2021 BELLE/MODL Voice ID: [id number] MTDD
--- NOTE | 2021-11-29 11:55 | RAD REPORT ---
EXAM DESCRIPTION: CT - Chest Abd Pelvis Wo Con - 11/29/2021 11:21 am CLINICAL HISTORY: Fall with chest and abdominal pain COMPARISON: 2020 TECHNIQUE: Computed axial tomography of the chest, abdomen and pelvis was obtained. Oral contrast wa s given. IV contrast was not requested. All CT scans are performed using dose optimization technique as appropriate and may include automated exposure control or mA/KV adjustment according to patient size. FINDINGS: The evaluation of mediastinum, kassidy, vessels and solid organs is limited secondary to the lack of IV contrast administration A lung contusion is not present. A pleural effusion is not present. A pericardial effusion is not seen. A mediastinal hematoma is not seen. Old left rib fractures The liver, spleen, pancreas, adrenals, kidneys and bladder do not demonstrate a traumatic injury. There is no evidence of diverticulitis. Atherosclerosis. Mild old compression deformity L4 vertebral body IMPRESSION: No acute traumatic injury involving the chest, abdomen or pelvis is seen
--- NOTE | 2021-11-29 12:50 | HP ---
Date of Admission: 11/29/2021 Chief Complaint: Altered mental status. History Of Present Illness: This is a 71-year-old male patient, who lives with his son, was found on the floor with altered mental status, and EMS was called and the patient was brought into hospital emergency room. After he was evaluated, I was contacted and the patient was admitted to the hospital. The patient had some difficulty with his speech when he first came in, but his speech has improved, but altered mental status still continues. When I saw him in emergency room, he was still altered. He follows simple commands, but not able to answer lot of questions. He was noted to have audible wheezing while he was lying down in the bed. He denies any chest pain. Denies any abdominal pain. No nausea, no vomiting. Allergies: NO KNOWN ALLERGIES. Medications: Eliquis 5 mg 2 times a day, furosemide 40 mg daily, amlodipine 5 mg 2 times a day, atorvastatin 40 mg daily at bedtime, duloxetine 60 mg daily with breakfast, Trelegy inhaler 1 puff daily, metoprolol succinate 50 mg 2 times a day, tadalafil, and also takes Halcion 0.25 mg at bedtime. Review of Systems: JANITOR HELPER: As mentioned above. Respiratory: As mentioned above. All other systems reviewed and negative. Past Medical History: Significant for impaired fasting glucose; COPD; hypertension; atrial fibrillation; hyperlipidemia; coronary artery disease; carotid artery stenosis, bilateral; anemia; depression; and history of heavy alcohol use. Past Surgical History: Significant for coronary artery bypass surgery on March 11, 2016; cholecystectomy; appendectomy; right knee arthroscopic surgery; and left knee replacement surgery. Family History: Father had COPD. Mother had breast cancer. Brother had stroke. Sister had diabetes. Social History: Prior history of smoking, not at present time. Patient has history of heavy alcohol use for fairly long time. Physical Examination: VITAL SIGNS: Height 5 feet 9 inches, weight 193 pounds. Temperature 97, pulse 100, respiratory rate 24, blood pressure 100/69, oxygen saturation 98% on 3 LPM nasal canula oxygen. General: Patient is awake and alert, but not oriented, appears confused. He does follow simple commands like when I asked him by pointing fingers at his particular extremity to move that extremity, he does follow those commands, but not able to answer lot of other questions. For example, what happened or why did he come to the hospital or who brought into the hospital, he was not able to answer any of those questions HEENT: Head atraumatic, normocephalic. Conjunctivae nonerythematous. Sclerae white. Mouth, no thrush or edema noted. Ears/Nose, no mass, lesion, discharge noted. Neck: Supple. No JVD, lymph nodes, bruit, thyromegaly noted. Lungs: Presence of wheezing in both lung shaffer scattered all over and appears to be in mild respiratory distress. Heart: Normal heart sounds, no murmur or gallop. Abdomen: Shows about 4 cm round bruising in the left lower quadrant and this appears to be fresh bruise. Otherwise abdomen is soft. No guarding, rigidity. No tenderness. No hepatosplenomegaly. No bruit. Extremities: No leg edema. No calf tenderness. Skin: Patient has multiple old bruises on both lower extremities. Lymphatics: No lymph node enlargement in neck, supraclavicular, infraclavicular region. Neuro: No focal neurological deficit. Chest: Unremarkable. External Genitalia: Deferred. Rectal: Deferred. Laboratory Data: CAT scan of the head: No acute intracranial changes. Chest x-ray, no acute intrathoracic changes. Alcohol level less than 10. Pro time 12.7, INR 1.15. Sodium 104, potassium 3.1, chloride 59, bicarb 27, glucose 98, BUN 14, creatinine 1.62. AST 404, ALT 160, alkaline phosphatase 81, total bilirubin 1.9, albumin 3.1, lactic acid 4.9, ammonia 23, CPK more than 12913, troponin 545.2. WBC 23.80, hemoglobin 12.8, platelets 342. EKG shows atrial fibrillation. Renal ultrasound unremarkable except 1 cm right renal cyst, CAT scan of chest, abdomen and pelvis without contrast was negative for any acute changes. Impression: 1. Hyponatremia. 2. Acute exacerbation of chronic obstructive pulmonary disease. 3. Acute kidney injury. 4. Chronic diastolic heart failure. 5. Chronic atrial fibrillation. 6. Hypertension. 7. Hyperlipidemia. 8. Coronary artery disease. 9. Alcohol abuse. 10. Carotid artery stenosis, bilateral. 11. Depression. 12. Impaired fasting glucose. 13. Rhabdomyolysis. 14. Elevated troponin. 15. Acute respiratory failure with hypoxia. Plan: Admit patient to hospital for further evaluation and management of this problem. Patient is appropriate for inpatient and is expected to spend 2 midnights in hospital. His hyponatremia could be very well due to his excessive alcohol use. At this point, we will go ahead and consult campaign coordinator for management of hyponatremia and the patient will be admitted to intensive care unit. Further management for hyponatremia will be as per campaign coordinator. For COPD exacerbation, we will start empiric antibiotics, which will be Levaquin 500 mg IV x1 dose today and 250 mg IV daily starting tomorrow. We will also give steroid, oxygen replacement therapy, and nebulizer treatment per order. We will give anticoagulation therapy per order. Hypertension will be managed with antihypertensive medication per order. We will hold his statin therapy at this point. We will monitor the patient's renal function and if necessary, give IV fluid hydration. Consult waiter and sales and service advisor. Overall prognosis is guarded considering patient's significant alcohol abuse problem. BELLE/MODL Voice ID: [id number] MARCO A
--- NOTE | 2021-11-29 13:11 | ER ---
Nurse's Notes [facility] Name: Jesus Morales Age: 71 yrs Sex: Male : 1950 Arrival Date: 11/29/2021 Time: 08:53 Bed 15 Private MD: Diagnosis: Hypo-osmolality and hyponatremia;Hypokalemia;Acute on chronic combined systolic (congestive) and diastolic (congestive) heart failure;UTI/ Urinary tract infection, site not specified;Severe sepsis without septic shock Presentation: 11/29 09:00 Chief complaint: EMS states: pt's son found him on bathroom floor this morning, last iw seen normal was last night around 8 pm, son reported he looked like he was having diff breathing last night , pt unable to form complete sentences , appears to have left sided facial droop, pt able to say his name and answer yes to certain questions. Onset of symptoms was November 28, 2021. 09:00 Acuity: LEAH 2 iw 09:00 Method Of Arrival: EMS: [facility] iw 09:18 Coronavirus screen: At this time, the client does not indicate any symptoms associated iw with coronavirus-19. Ebola Screen: Patient negative for fever greater than or equal to 101.5 degrees Fahrenheit, and additional compatible Ebola Virus Disease symptoms Patient denies exposure to infectious person. Patient denies travel to an Ebola-affected area in the 21 days before illness onset. No symptoms or risks identified at this time. Initial Sepsis Screen: Does the patient meet any 2 criteria? No. Patient's initial sepsis screen is negative. Does the patient have a suspected source of infection? No. Patient's initial sepsis screen is negative. Risk Assessment: Do you want to hurt yourself or someone else? Unable to obtain. Triage Assessment: 09:29 General: Appears distressed, comfortable, Behavior is calm, cooperative, appropriate ko1 for age. Pain: Denies pain. Neuro: Speech with expressive aphasia noted. Cardiovascular: Rhythm is atrial fibrillation. Historical: - Allergies: : Adhesives; ko1 : Latex, Natural Rubber; ko1 - Home Meds: : amlodipine 5 mg tab twice a day [Active]; atorvastatin 40 mg Oral tab 1 tab once daily ko1 [Active]; Atrovent Inhl as needed [Active]; duloxetine 60 mg Oral CDRS 1 cap once daily [Active]; furosemide 20 mg Oral tab 1 tab once daily [Active]; metoprolol succinate 50 mg Oral Tb24 [Active]; prednisone 10 mg Oral tab once daily [Active]; Trelegy Ellipta 200-62.5-25 mcg inhalation dsdv 1 puff once daily [Active]; triazolam 0.25 mg Oral tab 1 tab once daily [Active]; - PMHx: 09:29 Atrial fibrillation; ko1 - PSHx: 09:29 Coronary artery bypass graft; ko1 - Immunization history:: Adult Immunizations unknown. - Social history:: Smoking status: unknown. Screenin:15 Abuse screen: Denies threats or abuse. Denies injuries from another. Nutritional ko1 screening: No deficits noted. Tuberculosis screening: No symptoms or risk factors identified. Fall Risk Secondary diagnosis (15 points) impaired mobility, IV access (20 points). Mental Status- Overestimates/Forgets Limitations (15 pts.). Assessment: 09:15 General: Appears distressed, comfortable, Behavior is calm, cooperative, appropriate ko1 for age. Pain: Denies pain. Neuro: Speech with expressive aphasia noted, Pupils are PERRLA. Cardiovascular: Rhythm is atrial fibrillation. Respiratory: Reports shortness of breath at rest on exertion Respiratory effort is even, Respiratory pattern is regular, tachypnea Breath sounds with crackles bilaterally. Breath sounds are diminished bilaterally. GI: No deficits noted. : No deficits noted. EENT: No deficits noted. Derm: Bruising that is dark purple, on left lower quadrant, right arm and left arm. Musculoskeletal: No deficits noted. Vital Signs: 09:00 BP 100 / 69; Pulse 100; Resp 24; Temp 97; Pulse Ox 98% on 3 lpm NC; Weight 113.4 kg; ko1 Height 5 ft. 9 in. (175.26 cm); Pain 0/10; 09:15 BP 108 / 69; Pulse 100; Resp 24; Pulse Ox 98% on 3 lpm NC; Pain 0/10; ko1 10:15 BP 116 / 82; Pulse 98; Pulse Ox 98% ; ko1 11:00 BP 128 / 87; Pulse 81; Pulse Ox 96% ; ko1 12:00 BP 135 / 91; Pulse 88; Pulse Ox 96% ; ko1 13:00 BP 118 / 76; Pulse 90; Resp 28; Pulse Ox 97% on R/A; ko1 13:30 BP 133 / 99; Pulse 67; Pulse Ox 95% on 3 lpm NC; ko1 14:00 BP 119 / 93; Pulse 83; Resp 28; Pulse Ox 94% on 3 lpm NC; ko1 15:00 BP 138 / 92; Pulse 85; Pulse Ox 94% on 3 lpm NC; ko1 09:00 Body Mass Index 36.92 (113.40 kg, 175.26 cm) ko1 ED Course: 08:53 Patient arrived in ED. iw 08:55 William Alva PA is PHCP. jmm 08:55 Molina Torrez MD is Attending Physician. jmm 09:15 Maintain EMS IV. Dressing intact. Good blood return noted. Site clean \T\ dry. Gauge \T\ ko 1 site: 20 r ac. IV is patent, is intact, with good blood return, Flushed right antecubital saline lock with 5 ml normal saline. 09:15 Oxygen administration via nasal cannula \T\ 3L/min. ko1 09:15 Patient has correct armband on for positive identification. Fall risk band placed. ko1 Placed in gown. Bed in low position. Call light in reach. Side rails up X2. 09:16 Triage completed. iw 09:17 Arminda Bermudez, RN is Primary Nurse. ko1 09:17 SARS RAPID Sent. ko1 09:17 ETOH Level Sent. ko1 09:17 Basic Metabolic Panel Sent. ko1 09:17 CBC with Diff Sent. ko1 09:17 LFT's Sent. ko1 09:17 Magnesium Sent. ko1 09:17 NT PRO-BNP Sent. ko1 09:17 PT-INR Sent. ko1 09:17 Troponin HS Sent. ko1 09:18 Arm band placed on. iw 09:22 Lactate Sent. ko1 09:34 AMMONIA Sent. bb 09:35 CT Head Brain wo Cont In Process Unspecified. EDMS 09:42 XRAY Chest (1 view) In Process Unspecified. EDMS 10:01 Basic Metabolic Panel Sent. ko1 10:01 CBC with Diff Sent. ko1 10:01 LFT's Sent. ko1 10:01 Magnesium Sent. ko1 10:01 NT PRO-BNP Sent. ko1 10:01 PT-INR Sent. ko1 10:01 Troponin HS Sent. ko1 10:02 ETOH Level Sent. ko1 10:43 Creatine Phosphokinase Sent. ko1 11:22 CT Chest Abdomen Pelvis W/O Contrast In Process Unspecified. EDMS 13:09 Torri López MD is Hospitalizing Provider. jmm 13:58 No provider procedures requiring assistance completed. iw 14:30 Inserted saline lock: 20 gauge in left antecubital area, using aseptic technique. ko1 15:16 Patient transferred, IV remains in place. ko1 Administered Medications: 11:05 Drug: Xopenex (levalbuterol) (3) 1.25 mg Route: Inhalation; ko1 11:05 Drug: LevaQUIN (levofloxacin) 500 mg Volume: 100 ml; Route: IVPB; Infused Over: 60 ko1 mins; Site: right antecubital; 11:51 Drug: Potassium Chloride 40 mEq Route: IV; Rate: calculated rate; Site: right ko1 antecubital; Medication: 15:16 VIS not applicable for this client. ko1 Outcome: 13:11 Decision to Hospitalize by Provider. hannah 15:15 Admitted to ICU accompanied by nurse, accompanied by tech, via stretcher, room 7, with ko1 oxygen, on monitor, with chart. 15:15 Condition: improved 15:15 Instructed on the need for admit. 15:30 Patient left the ED. iw Signatures: Dispatcher [employer] EDMS William Alva PA PA jmm Ballard, Brenda, RN Seema Lozoya, RN KENNEDY iw Arminda Bermudez RN RN ko1
--- NOTE | 2021-11-29 13:11 | EDPHYS ---
Physician Documentation [facility] Name: Jesus Morales Age: 71 yrs Sex: Male : 1950 Arrival Date: 11/29/2021 Time: 08:53 Bed 15 Private MD: ED Physician Molina Torrez HPI: 11/29 09:19 This 71 yrs old Male presents to ER via EMS with complaints of Altered Mental Status. [facility] 09:19 The patient presents with dysphasia. Onset: The symptoms/episode began/occurred at an [facility] unknown time. Possible causes: CVA or TIA, alcohol, has a history of chronic alcohol abuse. Associated signs and symptoms:. . 09:19 This is a 71-year-old male with history of atrial fibrillation, CHF the presents [facility] emerged department after his son found him on the ground in the restroom. EMS stated that the patient had a facial droop with difficulty speaking. Patient has no complaints of chest pain abdominal pain shortness of breath. PCP does state that the patient is a heavy drinker.. Historical: - Allergies: 09:29 Adhesives; ko1 09:29 Latex, Natural Rubber; ko1 - Home Meds: 09:29 amlodipine 5 mg tab twice a day [Active]; atorvastatin 40 mg Oral tab 1 tab once daily ko1 [Active]; Atrovent Inhl as needed [Active]; duloxetine 60 mg Oral CDRS 1 cap once daily [Active]; furosemide 20 mg Oral tab 1 tab once daily [Active]; metoprolol succinate 50 mg Oral Tb24 [Active]; prednisone 10 mg Oral tab once daily [Active]; Trelegy Ellipta 200-62.5-25 mcg inhalation dsdv 1 puff once daily [Active]; triazolam 0.25 mg Oral tab 1 tab once daily [Active]; - PMHx: 09: Atrial fibrillation; ko1 - PSHx: : Coronary artery bypass graft; ko1 - Immunization history:: Adult Immunizations unknown. - Social history:: Smoking status: unknown. ROS: 09:19 Unable to obtain ROS due to altered mental status. [facility] Exam: 09:19 Head/Face: atraumatic. Eyes: EOMI, no conjunctival erythema appreciated ENT: Moist [facility] Mucus Membranes Neck: Trachea midline, Supple Chest/axilla: Normal chest wall appearance and motion. 09:19 Skin: General appearance color normal MS/ Extremity: Moves all extremities, no obvious deformities appreciated, no edema noted to the lower extremities 09:19 Constitutional: The patient appears alert, awake. 09:19 Cardiovascular: Rate: normal, Edema: pedal edema, that is mild. 09:19 Respiratory: the patient does not display signs of respiratory distress, Respirations: labored breathing, that is mild, Breath sounds: wheezing: that is mild, is scattered. 09:19 Abdomen/GI: Ecchymosis noted to the left lower quadrant. 09:19 Neuro: Orientation: to person, Not oriented to place, time. 09:19 Psych: Behavior/mood is pleasant, cooperative. Vital Signs: 09:00 BP 100 / 69; Pulse 100; Resp 24; Temp 97; Pulse Ox 98% on 3 lpm NC; Weight 113.4 kg; ko1 Height 5 ft. 9 in. (175.26 cm); Pain 0/10; 09:15 BP 108 / 69; Pulse 100; Resp 24; Pulse Ox 98% on 3 lpm NC; Pain 0/10; ko1 10:15 BP 116 / 82; Pulse 98; Pulse Ox 98% ; ko1 11:00 BP 128 / 87; Pulse 81; Pulse Ox 96% ; ko1 12:00 BP 135 / 91; Pulse 88; Pulse Ox 96% ; ko1 13:00 BP 118 / 76; Pulse 90; Resp 28; Pulse Ox 97% on R/A; ko1 13:30 BP 133 / 99; Pulse 67; Pulse Ox 95% on 3 lpm NC; ko1 14:00 BP 119 / 93; Pulse 83; Resp 28; Pulse Ox 94% on 3 lpm NC; ko1 15:00 BP 138 / 92; Pulse 85; Pulse Ox 94% on 3 lpm NC; ko1 09:00 Body Mass Index 36.92 (113.40 kg, 175.26 cm) ko1 MDM: 08:59 Patient medically screened. [facility] 13:00 ED course: Patient does meet SIRS criteria due to elevated respiratory rate, elevated [facility] white blood cell count, acute change in mental status. Source would be urine. Patient does have a lactate that is greater than 2. I did not give 30 mils per kilogram normal saline due to concerns for worsening CHF. Patient is normotensive. Repeat lactate is trending downward as well.. 13:07 ED course: I discussed the patient with Dr. López whom accepted the patient to his [facility] service. Recommends putting the patient in ICU. I discussed the patient with Dr. Madera, who recommended 60 mils per hour for 3 hours of 2% saline. Also recommended 40 mEq of potassium IV. Levaquin 500 was administered IV.. 11/29 09:00 Order name: Basic Metabolic Panel; Complete Time: 11:05 [facility] 11/29 09:00 Order name: CBC with Diff; Complete Time: 11:04 [facility] 11/29 09:00 Order name: LFT's; Complete Time: 11:05 [facility] 11/29 09:00 Order name: Magnesium; Complete Time: 11:05 [facility] 11/29 09:00 Order name: NT PRO-BNP; Complete Time: 11:05 [facility] 11/29 09:00 Order name: PT-INR; Complete Time: 10:10 [facility] 11/29 09:00 Order name: Troponin HS; Complete Time: 11:05 [facility] 11/29 09:00 Order name: ETOH Level; Complete Time: 10:10 [facility] 11/29 09:00 Order name: SARS RAPID; Complete Time: 09:44 [facility] 11/29 09:01 Order name: Lactate; Complete Time: 10:10 [facility] 11/29 09:07 Order name: UDS; Complete Time: 11:34 [facility] 11/29 09:24 Order name: AMMONIA; Complete Time: 09:58 rn 11/29 10:13 Order name: Glucose, Ancillary Testing; Complete Time: 10:18 EDMS 11/29 09:00 Order name: XRAY Chest (1 view); Complete Time: 09:51 [facility] 11/29 09:00 Order name: CT Head Brain wo Cont; Complete Time: 09:51 [facility] 11/29 10:29 Order name: Creatine Phosphokinase; Complete Time: 11:05 EDMS 11/29 10:45 Order name: CT Chest Abdomen Pelvis W/O Contrast; Complete Time: 11:57 [facility] 11/29 10:51 Order name: Urine Dipstick-Ancillary; Complete Time: 10:53 EDMS 11/29 11:03 Order name: Manual Differential; Complete Time: 11:04 EDMS 11/29 12:41 Order name: Lactate Sepsis 2 HR Follow-up; Complete Time: 12:43 EDMS 11/29 13:22 Order name: Basic Metabolic Panel EDMS 11/29 13:22 Order name: Basic Metabolic Panel EDMS 11/29 13:22 Order name: CBC with Automated Diff EDMS 11/29 13:22 Order name: CBC with Automated Diff EDMS 11/29 13:22 Order name: NT PRO-BNP EDMS 11/29 13:22 Order name: NT PRO-BNP EDAL 11/29 09:00 Order name: EKG; Complete Time: 09:01 [facility] 11/29 09:00 Order name: Cardiac monitoring; Complete Time: :17 [facility] 11/29 09:00 Order name: EKG - Nurse/Tech; Complete Time: : [facility] 11/29 09:00 Order name: IV Saline Lock; Complete Time: : [facility] 11/29 09:00 Order name: Labs collected and sent; Complete Time: : [facility] 11/29 09:00 Order name: O2 Per Protocol; Complete Time: : [facility] 11/29 09:00 Order name: O2 Sat Monitoring; Complete Time: : [facility] 11/29 09:01 Order name: Urine Dipstick-Ancillary (obtain specimen); Complete Time: 10:50 [facility] 11/29 09:24 Order name: Glucose Level; Complete Time: 10:01 rn 11/29 09:26 Order name: Labs - recollect needed: recollect blue, lavender and green tops eb hemolyzed.; Complete Time: 09:58 11/29 11:57 Order name: Misc. Order: Discontinue 3% saline, administer 2% saline at 60 ml/hr; [facility] Complete Time: 14:13 Administered Medications: 11:05 Drug: Xopenex (levalbuterol) (3) 1.25 mg Route: Inhalation; ko1 11:05 Drug: LevaQUIN (levofloxacin) 500 mg Volume: 100 ml; Route: IVPB; Infused Over: 60 ko1 mins; Site: right antecubital; 11:51 Drug: Potassium Chloride 40 mEq Route: IV; Rate: calculated rate; Site: right ko1 antecubital; Disposition: 09:25 PA/NARCOTICS DETECTIVE's history reviewed, patient interviewed, and examined. HPI: 71 year old male with rn AMS, confusion, sob. My personal exam of patient reveals: + mild tachypnea with wheezing, Awake, alert, moves all 4 extremities, no facial droop or weakness. + scleral icterus. + diffuse subcutaneous edema. I agree with assessment and care plan and confirm the diagnosis (es) above. 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 [facility] 12:19 11:16 Misc. Order ordered. [facility] ko1 13:39 13:11 [facility]
[2021-11-29] MEDS ORDERED: ALBUTEROL 2.5 MG/3 ML NEB SOL NEB PRN (13:16)
[2021-11-29] MEDS ORDERED: ACETAMINOPHEN 500 MG TAB PO PRN (13:16)
[2021-11-29] MEDS ORDERED: IPRATROPIUM BROM 0.5MG/2.5ML NEB PRN (13:16)
[2021-11-29] MEDS ORDERED: ONDANSETRON 4 MG/2 ML VIAL IV PRN (13:16)
[2021-11-29] MEDS ORDERED: NA CHLORIDE IV SCH ×2 (13:30)
[2021-11-29] MEDS ORDERED: WATER FOR INJ STERILE IV SCH ×2 (13:30)
[2021-11-29] MEDS: DIGOXIN 0.25 MG/ML AMP IV SCH (16:04)
[2021-11-29 16:18] LABS: Blood Gas Oxyhemoglobin 97.2 % (94-97); Blood O2 Saturation 99.3 % (92-98.5)
--- NOTE | 2021-11-29 16:52 | EKG ---
Test Date: 2021-11-29 Test Time: 08:54:27 [employer]obile Accessories Installer: BRUNA MEASUREMENT RESULTS: Intervals: Rate: 92 AL: QRSD: 80 QT: 350 QTc: 432 [place]: P: AL: QRS: 51 T: 76 INTERPRETIVE STATEMENTS: Atrial fibrillation Septal infarct, age undetermined ST & T wave abnormality, consider inferior ischemia ST & T wave abnormality, consider anterolateral ischemia Abnormal ECG Compared to ECG 11/04/2021 14:25:11 Myocardial infarct finding now present Possible ischemia now present Ventricular premature complex(es) no longer present ST (T wave) deviation still present Electronically Signed On 11-29-21 16:51:48 CDT by Stef Meza
[2021-11-29] MEDS ORDERED: METHYLPREDNISOLONE 125 MG INJ IV SCH (17:00)
--- NOTE | 2021-11-29 17:11 | CON ---
Date of Consultation: 11/29/2021 Reason For Consultation: Elevated troponin and AFib. History Of Present Illness: This is a 71-year-old male, heavy alcoholic, who was brought in now afte r he was found by his son in the bathroom floor. Last seen normal around 8:00 p.m. yesterday. Karen valadez is very poor historian, unable to take any history from him. Apparently has a significant alcohol abuse problem. Evaluation initially showed a significant hyponatremia, sodium level of 104. Tropon in was 545, however, CK was more than 14,000. Patient is not able to tell me anything. I cannot get any history from him, but he appears to be very confused and he is in atrial fibrillation, but his h eart rate is controlled and he is maintaining good blood pressure. The patient is having difficulty breathing, obviously with significant wheezing. Past Medical History: Significant for COPD, hypertension, atrial fibrillation, dyslipidemia, coronar y artery disease, carotid stenosis, heavy alcohol abuse. Medications: Refer reconciliation sheet for detailed list. Allergies: NO KNOWN DRUG ALLERGIES. Family History: Breast cancer in the mother, diabetes in his sister. Social History: Ex-smoker. Heavy alcohol abuse for a long time. Does not use drugs. Review of Systems: All systems reviewed and they were negative except as mentioned in the HPI. Physical Examination: Vital Signs: Temperature is 98.4, pulse is 85, breathing 28, blood pressure is 138/92, saturating 94 % on 3 L. General: He is an elderly male, appears very confused, unable to give history. Appears uncomfortabl e with shortness of breath and mild respiratory distress. Head and Neck: Pupils reactive to light. No cervical lymphadenopathy. Neck: Supple. Thyroid is not enlarged. Lungs: Diffuse wheezing bilaterally, not moving air very well, was using accessory muscles. Heart: Irregularly irregular. No extra sounds. Abdomen: Slightly distended and bowel sounds are diminished. Extremities: No clubbing, cyanosis. No edema. Skin: No rash or nodules. Neuro: Moving all extremities. Very confused. He does not follow commands very well. Lymph Nodes: No cervical adenopathy. Investigations: Sodium 104, chloride 59, potassium is 3.1, creatinine is 1.62, BUN is 14, and his CK level is more than 14,000. Troponin is 545. Assessment And Recommendations: 1.Atrial fibrillation, however, the rate is borderline. I agree with 1 dose of digoxin at 0.125 mg and we will monitor. If need be to control the heart rate further, can use Cardizem as the patient i s known to have normal ejection fraction on echo was done recently. 2.Elevated troponin. This is due to rhabdomyolysis and it is not an acute coronary syndrome. [facility] er, trend 2 more sets of troponin along with a CK level. 3.Rhabdomyolysis. Nephrology has been consulted. Patient needs IV fluids to be given very carefull y. Monitor his breathing status. 4.Severe hyponatremia. This is due to IV alcohol abuse. Patient is severely dehydrated from alcoho lism and he will need this replaced. Flame Gouger is giving him hypertonic fluids. He probably will benefit from normal saline infusion carefully. 5.Respiratory distress with significant wheezing. This is a chronic obstructive pulmonary disease e xacerbation and I do not see any acute heart failure issue at this point. This patient is very criti lizzy ill. Prognosis is very poor on long ground due to heavy alcohol abuse. Thank you for the consult. /MODL Voice ID: [id number] Report ID: [id number]
[2021-11-29 17:50] LABS: UR PROTEIN 169.6 mg/dL (<11.9); Urine Protein/Creatinine Ratio 2.78 ratio (<0.15)
[2021-11-29] MEDS: METHYLPREDNISOLONE 125 MG INJ IV SCH (18:11)
[2021-11-29 19:29] LABS: Albumin 2.8 g/dL (3.4-5.0); Bilirubin Total 1.4 mg/dL (0.2-1.0); Magnesium 2.3 mg/dL (1.8-2.4); Phosphorus 3.3 mg/dL (2.5-4.9); Protein, Total 5.6 g/dL (6.4-8.2); Uric Acid 11.2 mg/dL (3.5-7.2)
[2021-11-29 19:35] LABS: Potassium 2.5 mmol/L (3.5-5.1)
--- NOTE | 2021-11-29 19:44 | CON ---
Date of Consultation: 11/29/2021 Chief Complaint: Severe hyponatremia. CARMELLA. History Of Present Illness: The patient presented to the hospital because of generalized weakness, disorientation, and confusion. He follows simple commands and he is awake and alert, although he appears to be somewhat lethargic and confused. The patient was brought to the hospital because of generalized weakness. According to his family, he has had some seizure activities, but seizure activities were not present in the emergency room. He has multiple medical problems including history of COPD, impaired fasting glucose, hypertension, obesity, atrial fibrillation, hyperlipidemia, coronary artery disease, carotid artery stenosis, anemia, depression, and history of heavy alcohol use. Nephrology consultation was requested for severe hyponatremia. Patient was found to have sodium level of 104 today on arrival to the emergency room. He is a 71-year-old man who lives with his son. He was found on the floor with altered mental status and EMS was called and the patient was brought to the hospital emergency room. After he was evaluated, the patient was admitted to the hospital. The patient had some difficulty with his speech and with expression and answering questions although he is alert and he tries to cooperate and follows commands. He has altered mental status, although he does not have any seizure activity when in the emergency room. He follows simple commands, but is not able to answer questions and sometime is able to answer only with few words. He was noted to have a wheezing and he was started on Solu-Medrol for COPD exacerbation. He did not have any vomiting and there is no apparent syncope as per history. Patient has history of congestive heart failure. I reviewed patient's home medication and there is no HCTZ in his medication list. He has severe hypoosmolality state related to severe hyponatremia. There is hypokalemia present. He has cmuub-ze-oaujfan combined systolic congestive heart failure. He was found to have urinary tract infection and started on Levaquin. Patient does not appear to have any shock at this point. Blood pressure is stable. Patient remains hemodynamically stable. The patient was found by his son in his house on the bathroom floor this morning and he was last seen by his son last night around 8 p.m. . The patient was found to have severe CK level elevation, which correlates with status post fall and possible rhabdomyolysis. Patient has also elevated creatinine level up to 1.8 and BUN is also elevated. Previous baseline creatinine level was ranging from 0.9-1.1. Review of Systems: Cannot be obtained because of patient's condition. He cannot provide review of systems. Past Medical History: Anxiety, heavy alcohol intake, coronary artery disease, hypertension, COPD, atrial fibrillation, dyslipidemia, and carotid stenosis. Allergies: NO KNOWN DRUG ALLERGIES. Medications: Please review reconciliation sheet for detailed list. Family History: Breast cancer in his mother. Diabetes in his sister. Social History: He is ex-smoker. He does not use drugs, but he has heavy alcohol abuse for a long time. Physical Examination: Vital Signs: Temperature 98.4, heart rate 85, respiratory rate 28, blood pressure 138/92, saturation 94 on 3 L. General: Patient is an elderly male, appears very confused, unable to give history. He appears uncomfortable with some shortness of breath and he is in mild respiratory distress. Neck: Supple. Thyroid is not enlarged. Eyes: Pupils are reactive to light. Lungs: Diffuse wheezing bilaterally. Heart: Irregularly irregular. No pericardial friction rub. Abdomen: Soft, nontender. No rebound. No guarding. Extremities: No clubbing. No cyanosis. No edema. Skin: No oozing. No bleeding. Neurological: Moving extremities, although he is very confused and he does not follow commands very well. Laboratory Data: Sodium 104, chloride 59, potassium 3.1, creatinine 1.62, BUN is 14. CK level is 14,000. Troponin 545. Impression And Plan: The patient has severe hyponatremia and hypokalemia, likely he has history of alcohol abuse and this represents chronic and some acute hyponatremia in setting of poor solute intake. Patient remains confused and apparently he had some seizure activities at home according to his son, but history is not clear. The patient will have infusion with hypertonic saline to treat severe hyponatremia and IV fluids will be adjusted according to the lab results. Plan is to follow up closely renal panel including sodium level and glucose level and adjust treatment accordingly. Currently the patient is hemodynamically stable although appears to have congestive heart failure exacerbation. Patient may benefit from Lasix at some point. Currently, chest x-ray is clear. He does not have pulmonary edema and patient will have hypertonic IV fluid infusion to treat severe hyponatremia. Plan is to re- evaluate electrolytes within next 3-4 hours. CARMELLA, Rhabdomyolysis. Patient has severe CK level elevation. Patient will require maintenance IV fluids to treat rhabdomyolysis and to prevent progression of acute kidney injury. Patient has acute kidney injury, which is multifactorial. At this point, patient will continue IV fluids to treat severe hyponatremia and possibly he may need some Lasix for congestive heart failure. MARCELO/CHARLENE Voice ID: [id number] Report ID: [id number] MARCO A
[2021-11-29] MEDS: ALBUTEROL 2.5 MG/3 ML NEB SOL NEB SCH (19:45)
[2021-11-29] MEDS: IPRATROPIUM BROM 0.5MG/2.5ML NEB SCH (19:45)
[2021-11-29] MEDS ORDERED: D5W 1,000 ML IV ONE (20:52)
[2021-11-29] MEDS ORDERED: KCL 20 MEQ/100 mL IVPB 100 ML IV ONE (20:53)
[2021-11-29] MEDS ORDERED: KCL 20 MEQ/100 mL IVPB 20 MEQ/100 ML BAG IV SCH (21:00)
[2021-11-29] MEDS ORDERED: D5W 1,000 ML with POTASSIUM CL 20 MEQ IV SCH ×2 (21:00)
[2021-11-29] MEDS: SPIRONOLACTONE 25 MG TABLET PO SCH (21:01)
--- NOTE | 2021-11-29 21:02 | RAD REPORT ---
EXAM DESCRIPTION: US - Renal Ultrasound-Complete - 11/29/2021 8:44 pm CLINICAL HISTORY: Acute renal failure COMPARISON: October 2021 FINDINGS: The right kidney measures 10 cm with a normal echotexture. 1 centimeter cyst The left kidney measures 10 cm with a normal echotexture. Hydronephrosis is not seen. Bladder is decompressed and not well evaluated IMPRESSION: No hydronephrosis
--- NOTE | 2021-11-29 21:22 | RAD REPORT ---
EXAM DESCRIPTION: RAD - Chest Single View - 11/29/2021 8:59 pm CLINICAL HISTORY: Device placement PICC line placement IMPRESSION: PICC line with its tip in the distal superior vena cava
[2021-11-29 21:23] LABS: Potassium 2.6 mmol/L (3.5-5.1)
[2021-11-29 21:37] LABS: Albumin 2.8 g/dL (3.4-5.0); Phosphorus 3.2 mg/dL (2.5-4.9); Potassium 2.6 mmol/L (3.5-5.1)
[2021-11-30] MEDS: ALBUTEROL 2.5 MG/3 ML NEB SOL NEB SCH ×4 (01:10→19:15)
[2021-11-30] MEDS: IPRATROPIUM BROM 0.5MG/2.5ML NEB SCH ×4 (01:10→19:15)
[2021-11-30 01:28] LABS: Albumin 2.7 g/dL (3.4-5.0); Phosphorus 2.8 mg/dL (2.5-4.9); Potassium 3.1 mmol/L (3.5-5.1)
[2021-11-30] MEDS ORDERED: D5LR 1,000 ML IV SCH (02:00)
[2021-11-30] MEDS ORDERED: D5W 1,000 ML IV ONE (02:02)
[2021-11-30] MEDS: THIAMINE 200 MG/2 ML INJ IVP SCH ×2 (02:04→07:34)
[2021-11-30] MEDS: METHYLPREDNISOLONE 125 MG INJ IV SCH ×3 (02:12→16:12)
[2021-11-30] MEDS: D5W 1,000 ML IV SCH ×2 (02:34→11:00)
[2021-11-30 06:22] LABS: Absolute Lymphocytes (CBC) 0.3 K/uL (0.7-4.9); Hematocrit 37.6 % (39.6-49.0); Lymphocytes % 1.2 % (15.3-44.8); MCV 83.9 fL (80-100); RBC Red Blood Cell Count 4.48 M/uL (4.33-5.43)
[2021-11-30 06:47] LABS: BUN Blood Urea Nitrogen 15 mg/dL (7-18); Bicarbonate 30 mmol/L (21-32); Glomerular Filtration Rate 65 ml/min (=/>90); Glucose Level 206 mg/dL (74-106); NT PRO-BNP 16249 pg/mL (<125); Potassium 2.9 mmol/L (3.5-5.1)
[2021-11-30 06:49] LABS: Sodium Level 115 mmol/L (136-145)
[2021-11-30] MEDS: SPIRONOLACTONE 25 MG TABLET PO SCH (07:32)
[2021-11-30] MEDS: D5W IV SCH ×6 (07:33→18:00)
[2021-11-30] MEDS ORDERED: DESMOPRESSIN 4 MCG/ML AMP IV ONE ×3 (08:00→18:30)
[2021-11-30 09:08] LABS: Creatine Phosphokinase > 14000 U/L (39-308)
[2021-11-30 10:38] LABS: Potassium 3.1 mmol/L (3.5-5.1)
[2021-11-30] MEDS ORDERED: INFLUENZA VACCINE (for 6+ mo) 0.5 ML DOSE IMVAC ONE (11:00)
[2021-11-30] MEDS ORDERED: D5W IV SCH ×2 (11:00→19:00)
[2021-11-30] MEDS ORDERED: Levofloxacin 250mg IV 250 MG/50 ML BAG IV SCH (11:00)
[2021-11-30 11:03] LABS: Troponin High Sensitivity 261.7 pg/mL (<58.9)
[2021-11-30] MEDS: DIGOXIN 0.25 MG/ML AMP IV SCH (11:13)
--- NOTE | 2021-11-30 11:50 | P.CNS ---
Date of Consult: 11/30/21 Reason for Consult: Severe hyponatremia respiratory distress Chief Complaint: Unresponsive History of Present Illness: Patient is 71 years of age with a history of alcohol abuse was found unresponsive on the floor admitted with severe hyponatremia respiratory distress altered mental status Aiyana yin seen by nephrology and cardiology currently stable night now his sodium has been corrected somewhat very alert responsive cooperative denies drinking alcohol cannot recall the events that led to his fall patient also has some rhabdomyolysis Allergies No Known Allergies Allergy (Verified 11/30/21 10:08) Home Medications: Amlodipine Besylate 5 mg PO BID 11/04/21 Atorvastatin Calcium [Lipitor] 40 mg PO BEDTIME 11/04/21 Duloxetine HCl 60 mg PO DAILY 11/04/21 Fluticasone/Umeclidin/Vilanter [Trelegy Ellipta 200-62.5-25] 1 puff IH DAILY 11/04/21 Metoprolol Succinate 50 mg PO BID 11/04/21 Triazolam 0.25 mg PO BEDTIME 11/04/21 predniSONE [Prednisone*] 10 mg PO BID 11/04/21 Apixaban [Eliquis] 5 mg PO BID 30 Days #60 tab 11/06/21 Furosemide 40 mg PO DAILY 30 Days #30 tab 11/06/21 - Past Medical/Surgical History Diabetic: No -: CHF -: Hypertension -: COPD -: Afib -: impaired fasting glucose -: htn -: hyperlipidemia -: cad -: carotid artery stenosis, bilateral -: anemia -: depression -: heavy etoh use -: open heart surgery- 2017 -: L knee replacement- 10/2019 -: kirt -: appe -: right knee replacement - Family History Father Medical History: Lung disease Mother Medical History: Cancer Brother Medical History: Stroke Sister Medical History: Diabetes - Social History Smoking Status: Unknown if ever smoked Alcohol use: Yes CD- Drugs: No Caffeine use: Yes Review of Systems 10-point ROS is otherwise unremarkable General: Weakness Physical Examination Temp Pulse Resp BP Pulse Ox 97.5 F 102 H 26 H 145/79 H 97 11/30/21 08:00 11/30/21 11:00 11/30/21 11:00 11/30/21 11:00 11/30/21 11:00 General: Alert, In no apparent distress, Oriented x3 Respiratory: Clear to auscultation bilaterally Cardiovascular: No edema, Normal pulses, Normal S1 S2, Irregular heart rate/rhythm Gastrointestinal: Normal bowel sounds, Soft and benign Integumentary: No rashes, No significant lesion - Problems (1) Hyponatremia Current Visit: Yes Status: Acute Plan: Patient is 71 years of age admitted with altered mental status severe hyponatremia of sodium of 104, very low urinary sodium of less than 15 elevated osmolality he appears to be euvolemic is very much more alert responsive cooperative vital signs are stable A. fib controlled chest x-ray shows COPD changes in addition to rhabdomyolysis meds reviewed recent stress doses of steroids respiratory newell no complaints oxygenation satisfactory
[2021-11-30 13:44] LABS: Potassium 3.1 mmol/L (3.5-5.1)
[2021-11-30] MEDS: D5W 300 ML IV SCH ×3 (14:07→18:00)
--- NOTE | 2021-11-30 15:42 | PN ---
Date of Progress Note: 11/30/2021 Subjective: The patient was seen this morning for followup. He was lying in bed in ICU. Appears lo t better today than yesterday. No wheezing. Not using any accessory muscles of respiration and more awake and alert compared to yesterday. Objective: Vital Signs: Reviewed. HEENT: Examination unremarkable. Lungs: Clear to auscultation. No wheezing. No rales. Heart: Sounds normal. Abdomen: Soft. Bowel sounds normal. No guarding, rigidity, tenderness, or distention. Extremities: No leg edema. Laboratory Data: Sodium 115, potassium 2.9, chloride 72, bicarb 30, BUN 15, creatinine 1.18, glucose 206. ProBNP 75538. CPK more than 14,000. Troponin is pending. WBC 23.7, hemoglobin 13.2, platele ts 277. Impression: 1.Acute respiratory failure with hypoxia. 2.Acute exacerbation of chronic obstructive pulmonary disease. 3.Hyponatremia. 4.Acute kidney injury, resolved. 5.Volume depletion, improved. 6.Rhabdomyolysis. 7.Alcohol abuse. 8.Atrial fibrillation. 9.Hypokalemia. Plan: 1.We will go ahead and continue to follow with passenger elevator operator who is managing the patient's electrolyt e problems. 2.We will continue steroid, continue oxygen replacement therapy, antibiotics, nebulizer treatment pe r order. The patient received Lovenox 1 dose yesterday and today. Considering improvement in renal function, we will discontinue Lovenox and start him on Eliquis 5 mg 2 times a day. Continue to follo w with passenger elevator operator, agency trainer, and pantographer. Continue current empiric antibiotics. I did c all patient's son at [phone] and details were discussed with him. Updates given and I expressed my concern that at the time of discharge, if the patient goes back to his same place of living with the same lifestyle, which is excessive amount of alcohol use and not sure whether he takes medication s regularly or not, but if he goes back with the same living arrangements, unfortunately his prognosi s remains very poor with ongoing alcohol use and not sure about compliance with the medication. I am not sure how much input family has on him and the patient's son who I was talking to. Also has the same concern and I am not sure whether he has much input or not, but it appears that unless the patie nt changes his lifestyle, his prognosis remains very poor and recurrent hospital admission will be un avoidable. BELLE/MODL Voice ID: [id number] Report ID: [id number]
[2021-11-30] MEDS ORDERED: ENOXAPARIN 100 MG/ML SYR SQ SCH (15:47)
[2021-11-30] MEDS: METOPROLOL TAR 25 MG TAB PO SCH ×2 (16:10→16:11)
[2021-11-30] MEDS: APIXABAN 5 MG TABLET PO SCH (20:45)
[2021-11-30 21:28] LABS: Potassium 3.4 mmol/L (3.5-5.1)
[2021-11-30 21:30] LABS: UR SODIUM < 15 mmol/L (27-287)
[2021-11-30] MEDS ORDERED: D5W 1,000 ML IV SCH (21:38)
--- NOTE | 2021-11-30 23:26 | PN ---
Date of Progress Note: 11/30/2021 Subjective: Seen by bedside. He is fully alert and awake; day and night different, feeling much bet ter. Heart rate is slightly fast around 100 and 110. He does not have any chest pain. Review of Systems: No chest pain or shortness of breath. No nausea, vomiting, or diarrhea. All other systems reviewed and are negative. Physical Examination: Vital Signs: Reviewed. Head And Neck: Pupils are equal and reactive to light. Intact eye movements. No JVD. No cervical lymphadenopathy. Neck: Supple. Thyroid is not enlarged. Lungs: Clear to auscultation bilaterally. No rhonchi, wheezing, or crackles. No accessory muscle u se. Heart: Irregularly irregular. No extra sounds. Abdomen: Soft, nontender. Bowel sounds positive. No organomegaly. No masses or hernia. No rigidi ty or rebound. Extremities: No clubbing or cyanosis. Intact pulses. Skin: No rash or nodules. Neurologic: Alert, awake, oriented x3. No acute focal deficits appreciated. Lymph Nodes: No cervical or axillary adenopathy. Investigations: Labs were reviewed. Assessment And Recommendation: 1.Atrial fibrillation. Rate is fast now and able to take medications by mouth. First start him on metoprolol 25 mg by mouth twice a day and again use Lopressor 5 mg IV q.1 hour as needed for rate con trol to be less than 100. 2.Elevated troponin. This is due to rhabdomyolysis. No further cardiac workup is recommended and t his is not an acute coronary syndrome. 3.Severe hyponatremia due to significant alcohol abuse history. I had a long discussion with him, a dvising him against drinking and he verbalized understanding. 4.Respiratory distress and this has resolved. SR/MODL Voice ID: [id number] Report ID: [id number]
[2021-12-01] MEDS: METHYLPREDNISOLONE 125 MG INJ IV SCH ×3 (00:44→16:08)
--- NOTE | 2021-12-01 01:17 | PN ---
Date of Progress Note: 11/30/2021 Chief Complaint: Severe hyponatremia, pneumonia, and respiratory failure. Subjective: The patient has acute kidney injury and also was found to have severely elevated CPK level, which corresponds with rhabdomyolysis. Patient is on IV fluids. Primarily, he received 2% of sodium chloride IV to stabilize sodium level and to treat severe hyponatremia. On presentation to the hospital his Sodium level was 104. Patient was found to have hypokalemia requiring treatment for severe hypokalemia. Patient was started on thiamine. Apparently he has history of alcohol use. He has multiple medical problems including atrial fibrillation. During this admission, he is treated for acute exacerbation of chronic obstructive pulmonary disease and he required IV steroids and antibiotics. Sodium has improved in response to 2% sodium chloride. Subsequently, the patient was started on hypotonic fluids to stabilize rate of sodium correction and to prevent overly rapid sodium correction. The patient received DDAVP and boluses of D5W. He tolerated IV fluids. He is feeling much better today. He is more alert and appears to be at his baseline mental status. On presentation to the hospital, patient was confused and he followed few commands. He was responding to voice but was not able to give answer to simple questions. The patient was screened for alcohol and it was negative, although he had severe hyponatremia. He has history of congestive heart failure. Chest x-ray did not show pulmonary edema and he was started on IV fluids and tolerated IV fluids. He is feeling better today and denies nausea and vomiting. Denies extremity weakness. Physical Examination: Lungs: Clear to auscultation bilaterally. Heart: S1, S2. Abdomen: Soft. Extremities: No edema. Impression And Plan: 1. Hyponatremia and hyposmolar state secondary to solute depletion secondary to poor p.o. intake and low solute intake, complicated by alcohol intake as well. Patient had work-up for possible hypothyroidism and TSH level is within normal limits. Plan is to continue monitor closely electrolytes and adjust treatment accordingly. The patient will require treatment and observation in ICU. Patient is on BiPAP for chronic obstructive pulmonary disease exacerbation. He will continue empirical antibiotics. 2. Rhabdomyolysis. Continue IV fluids, however patient due to congestive heart failure may require diuretics at some point. Today he is not fluid overloaded. 3. Severe hypokalemia. He received spironolactone for potassium sparing effect and potassium replacement also was ordered. Potassium level overall improved. Continue to advance replacement. Monitor Mg and PO4 level. EB/MODL Voice ID: [id number] Report ID: [id number] MTDD
[2021-12-01] MEDS: IPRATROPIUM BROM 0.5MG/2.5ML NEB SCH ×4 (02:15→19:00)
[2021-12-01] MEDS: ALBUTEROL 2.5 MG/3 ML NEB SOL NEB SCH ×4 (02:15→19:00)
[2021-12-01 03:17] LABS: Potassium 3.3 mmol/L (3.5-5.1)
[2021-12-01] MEDS ORDERED: KCL 20 MEQ/100 mL IVPB 20 MEQ/100 ML BAG IV SCH ×2 (04:00→07:00)
[2021-12-01 05:38] LABS: Albumin 2.5 g/dL (3.4-5.0); Magnesium 2.3 mg/dL (1.8-2.4); Phosphorus 2.1 mg/dL (2.5-4.9); Potassium 3.3 mmol/L (3.5-5.1)
[2021-12-01 05:55] LABS: UR SODIUM < 15 mmol/L (27-287)
[2021-12-01] MEDS: METOPROLOL TAR 25 MG TAB PO SCH ×2 (06:21→17:16)
[2021-12-01] MEDS ORDERED: Levofloxacin500mg IV 500 MG/100 ML BAG IV SCH (08:00)
[2021-12-01] MEDS: HOME MED 1 EA UNK (Fluticasone/Umeclidin/Vilanter [Trelegy Ellipta 200-62.5-25] Blst.W.Dev IH SCH (09:00)
[2021-12-01] MEDS: SPIRONOLACTONE 25 MG TABLET PO SCH (09:08)
[2021-12-01] MEDS: DULOXETINE 30 MG CAP PO SCH (09:08)
[2021-12-01] MEDS: APIXABAN 5 MG TABLET PO SCH ×2 (09:08→20:04)
[2021-12-01] MEDS: THIAMINE 200 MG/2 ML INJ IVP SCH (09:09)
[2021-12-01 11:29] LABS: Absolute Lymphocytes (CBC) 0.2 K/uL (0.7-4.9); Hematocrit 34.1 % (39.6-49.0); MCV 85.3 fL (80-100)
--- NOTE | 2021-12-01 11:38 | PN ---
Date of Progress Note: 12/01/2021 Subjective: The patient was seen this morning for followup. No new complaints or problems reported by the patient. He was lying in bed in ICU. Objective: Vital Signs: Reviewed. HEENT: Unremarkable. Lungs: Clear to auscultation. Heart: Sounds normal. Abdomen : Soft. Bowel sounds normal. No guarding, rigidity, tenderness, or distention. Extremities: No leg edema. Laboratory Data: Sodium 112, potassium 3.3, chloride 73, bicarb 29, BUN 15, creatinine 1.03, glucose 181. Impression: 1.Hyponatremia. 2.Hypokalemia. 3.Atrial fibrillation. 4.Acute exacerbation of chronic obstructive pulmonary disease. 5.Acute respiratory failure with hypoxia. Plan: We will go ahead and continue oxygen replacement therapy. Continue steroid, nebulizer treatme nt. We will continue to follow with hydramatic mechanic and civil engineering intern. The patient has acute rhabdomyo lysis. We will follow up on CPK and his cardiac enzymes yesterday, troponin level was lower compared to initial troponin. We will repeat another troponin level and CBC today also. Hyponatremia and hy pokalemia are being addressed by choir teacher. We will increase dose of Levaquin from 250 mg IV grzegorz y to 500 mg IV daily. Physical Therapy to be consulted. The patient will continue to remain in ICU right now for hyponatremia probl em. BELLE/MODL Voice ID: [id number] Report ID: [id number]
[2021-12-01 12:10] LABS: CKMB Creatine Kinase MB 12.4 ng/mL (1.0-3.6); Potassium 4.2 mmol/L (3.5-5.1); Troponin High Sensitivity 134.3 pg/mL (<58.9)
[2021-12-01] MEDS ORDERED: POTASS/SODIUM PHOSPHATE 1 PKT POWD.PACK PO ONE (13:00)
[2021-12-01] MEDS: PIPER TAZO 3.375 GM in NA CHLORIDE 0.9% 100 ML IV SCH (16:08)
[2021-12-01 17:01] LABS: Potassium 4.4 mmol/L (3.5-5.1)
--- NOTE | 2021-12-01 18:43 | EKG ---
Test Date: 2021-11-29 Test Time: 15:50:33 Nurse Practitioner: ST MEASUREMENT RESULTS: Intervals: Rate: 103 AR: QRSD: 80 QT: 342 QTc: 448 [place]: P: AR: QRS: 59 T: 188 INTERPRETIVE STATEMENTS: Atrial fibrillation with rapid ventricular response with premature ventricular or aberrantly conducted complexes ST & T wave abnormality, consider inferior ischemia or digitalis effect ST & T wave abnormality, consider anterolateral ischemia or digitalis effect Abnormal ECG Compared to ECG 11/29/2021 08:54:27 Ventricular premature complex(es) now present Myocardial infarct finding no longer present ST (T wave) deviation still present Possible ischemia still present Electronically Signed On 12-01-21 18:38:47 CDT by Stef Meza
--- NOTE | 2021-12-01 18:59 | PN ---
Date of Progress Note: 12/01/2021 Subjective: Seen by bedside. The patient is doing much better, is up and about walking in ICU with fairly good exercise tolerance. No chest pain. No shortness of breath. Review of Systems: No chest pain, shortness of breath, orthopnea, cough. No nausea, vomiting, diarrhea. All other syst ems reviewed and they were negative. Physical Examination: Vital Signs: Reviewed. Head and Neck: Pupils are equal, reactive to light. Intact eye movements. No JVD. No cervical lym phadenopathy. Neck is supple. Thyroid is not enlarged. Lungs: Clear to auscultation bilaterally. No rhonchi, wheezing, or crackles. No accessory muscle u se. Heart: Irregularly irregular. No extra sounds. Abdomen: Soft, nontender. Bowel sounds positive. No organomegaly. No masses or hernia. No rigidi ty or rebound. Extremities: No clubbing or cyanosis. Intact pulses. Skin: No rash. Neurologic: Alert, awake, oriented x3. No acute focal deficits appreciated. Investigations: Labs were reviewed. Assessment And Recommendations: 1.Elevated troponin due to demand and rhabdomyolysis. The patient is not having any chest pain. No need to trend the troponin further. 2.Atrial fibrillation. Rate is better. Increase metoprolol to 50 mg twice a day and continue apixa ban. 3.Severe hyponatremia due to chronic alcoholism and it is improving. Recommend gentle hydration wit h normal saline and monitor. SR/MODL Voice ID: [id number] Report ID: [id number]
[2021-12-01] MEDS: POTASS/SODIUM PHOSPHATE 1 PKT POWD.PACK PO SCH (20:04)
[2021-12-01 21:54] LABS: Potassium 4.5 mmol/L (3.5-5.1)
[2021-12-01] MEDS ORDERED: SODIUM CHLORIDE 1 GM TAB PO ONE (21:58)
[2021-12-02] MEDS: PIPER TAZO 3.375 GM in NA CHLORIDE 0.9% 100 ML IV SCH ×3 (00:29→17:45)
[2021-12-02] MEDS: METHYLPREDNISOLONE 125 MG INJ IV SCH ×3 (00:29→17:46)
[2021-12-02] MEDS: ALBUTEROL 2.5 MG/3 ML NEB SOL NEB SCH ×4 (01:00→20:20)
[2021-12-02] MEDS: IPRATROPIUM BROM 0.5MG/2.5ML NEB SCH ×4 (01:00→20:20)
--- NOTE | 2021-12-02 01:14 | PN ---
Date of Progress Note: 12/01/2021 Chief Complaint: Severe hyponatremia hypoosmolar state, pneumonia, respiratory failure, congestive heart failure, CARMELLA, rhabdomyolysis. Subjective: The patient has acute kidney injury, nonoliguric secondary to prerenal azotemia and rhabdomyolysis. He was also found to have a high CPK level, which corresponds with rhabdomyolysis. He was brought to the hospital by EMS after he sustained fall at home. His son saw him the night before and in the morning, the patient was found on the floor. Patient was evaluated in the emergency room and he was found to have severe hyponatremia. Sodium level was 104. The patient was confused and had altered mental status and apparently he had of seizure type of activity at home, but the history is not very clear about the seizure episode. The patient was started on 2% of sodium chloride in the emergency room to stabilize sodium levels. Subsequently, sodium level improved in response to 2% of sodium chloride and in order to slow down rate of the sodium correction, the patient received DDAVP and boluses of D5W. He tolerated IV fluids. He remains nonoliguric and he received potassium and phosphorus replacement. He is feeling better. He is off BiPAP today and is tolerating p.o. intake and has a better appetite. Review of Systems: Denies fever or chills. Physical Examination: Lungs: Clear to auscultation bilaterally. Heart: S1, S2. Abdomen: Soft. Extremities: No edema. Impression And Plan: 1. Hyponatremia, hypoosmolar state secondary to poor p.o. intake and low solute intake complicated by alcohol intake. When patient was evaluated for possible hypothyroidism, TSH level was within normal limits and cortisol level was not low. There is no evidence of adrenal insufficiency. Currently patient is treated with IV steroids for chronic obstructive pulmonary disease exacerbation. He requires potassium replacement and close monitoring of electrolytes to adjust IV fluids and treatment for hyponatremia. Plan is to continue to monitor closely sodium level and adjust treatment. 2. Rhabdomyolysis. Patient was treated with IV fluids and fluid rate was well tolerated. Patient has history of congestive heart failure and in the future, he may require maintenance diuretic. Currently he is on spironolactone for potassium-sparing effect. EB/MODL Voice ID: [id number] Report ID: [id number] [facility]
[2021-12-02 05:39] LABS: Specific Gravity 1.009 (1.005-1.030); Urine Bacteria <20 /HPF (<20); Urine Bilirubin NEGATIVE (Negative); Urine Blood 3+ (OVER) (Negative); Urine Clarity Turbid (Clear); Urine Color Light-Yellow (Yellow); Urine Glucose 2+ (Negative); Urine Mucus Slight /HPF (None Seen); Urine Protein TRACE (Negative); Urine RBC <5 /HPF (None Seen); Urine Urobilinogen Normal (Normal); Urine pH 5.5 (5.0-7.0)
[2021-12-02 05:56] LABS: Magnesium 2.3 mg/dL (1.8-2.4); Phosphorus 2.6 mg/dL (2.5-4.9); Potassium 3.9 mmol/L (3.5-5.1)
[2021-12-02] MEDS: METOPROLOL TAR 25 MG TAB PO SCH ×2 (06:22→17:45)
[2021-12-02] MEDS: SODIUM CHLORIDE 1 GM TAB PO SCH ×2 (08:00→17:45)
[2021-12-02] MEDS: DULOXETINE 30 MG CAP PO SCH (08:34)
[2021-12-02] MEDS: APIXABAN 5 MG TABLET PO SCH ×2 (08:34→20:34)
[2021-12-02] MEDS: SPIRONOLACTONE 25 MG TABLET PO SCH (08:34)
[2021-12-02] MEDS: THIAMINE 200 MG/2 ML INJ IVP SCH (08:35)
[2021-12-02] MEDS: HOME MED 1 EA UNK (Fluticasone/Umeclidin/Vilanter [Trelegy Ellipta 200-62.5-25] Blst.W.Dev IH SCH (09:00)
[2021-12-02 12:09] LABS: Potassium 4.7 mmol/L (3.5-5.1)
--- NOTE | 2021-12-02 18:23 | PN ---
Date of Progress Note: 12/02/2021 Subjective: The patient was admitted with symptomatic hyponatremia, questionable seizure. The patient diagnosed with hyponatremia secondary to SIADH. The patient was started on salt tablet, sodium trending up nicely. The patient was started on 2%, then received DDAVP with D5, currently appropriate rise on the sodium. In the last 24 hours, the patient sigifredo from 112 to 118 to 116, which is appropriate rise. Patient completely asymptomatic. Physical Examination: Vital Signs: When I saw the patient, blood pressure 108/56, pulse of 94, afebrile. Chest: Clear to auscultation. Heart: S1, S2 regular. Abdomen: Soft, nontender. Extremities: No edema. Neuro: Alert, no focality. Laboratory Data: WBC 24.9, H and H 11.6/34.1. Sodium 118, potassium 4.7, bicarb 26, BUN 23, creatinine 1.3. GFR of 55, calcium 7.8, phosphorous 2.6, magnesium 2.3. CK 2800. Urinalysis; wbc's of 20. Urine sodium less than 15. Potassium 23. The patient at home being on the prednisone. Current Medications: The patient on, include: Zosyn, spironolactone 50 daily, metoprolol, Ensure, Zofran, Solu-Medrol, KCl, salt tablet 1 g b.i.d. Assessment And Plan: 1. Hyponatremia, questionable, secondary to poor solute intake with possible beer potomania, appropriate rise currently. I am going to continue current salt tablet. We will follow up the patient closely. 2. Hypertension, controlled, optimal. Continue current treatment. 3. Rhabdomyolysis, on the recovery phase. We will follow up. 4. Acute kidney injury secondary to prerenal, on obstructive uropathy, nonoliguric. We will continue to monitor the patient. Time spent examining the patient [id number], reviewing data, lab and radiology, discussing the case with the patient, discussing the case with steam hammer operator including nursing and ICU, hemodialysis nurse, and hospitalist more than 35 minutes. ANNMARIE/CHARLENE Voice ID: [id number] Report ID: [id number] MARCO A
[2021-12-02 18:24] LABS: Potassium 4.1 mmol/L (3.5-5.1)
[2021-12-02] MEDS: POTASS/SODIUM PHOSPHATE 1 PKT POWD.PACK PO SCH (20:34)
[2021-12-02] MEDS: ENSURE HIGH PROTEIN 237 ML CAN PO SCH (20:35)
[2021-12-02 21:46] LABS: Potassium 4.2 mmol/L (3.5-5.1)
[2021-12-02] MEDS ORDERED: SODIUM CHLORIDE 1 GM TAB PO ONE (21:58)
[2021-12-02] MEDS ORDERED: ZIPRASIDONE MESYLA 20 MG/VIAL IM ONE (22:00)
[2021-12-02] MEDS ORDERED: WATER FOR INJ,STERILE 0 ML ONE (22:00)
[2021-12-03] MEDS: METHYLPREDNISOLONE 125 MG INJ IV SCH (01:05)
[2021-12-03] MEDS: PIPER TAZO 3.375 GM in NA CHLORIDE 0.9% 100 ML IV SCH ×3 (01:06→17:08)
[2021-12-03] MEDS: IPRATROPIUM BROM 0.5MG/2.5ML NEB SCH ×4 (02:20→19:55)
[2021-12-03] MEDS: ALBUTEROL 2.5 MG/3 ML NEB SOL NEB SCH ×4 (02:20→19:55)
[2021-12-03 05:35] LABS: UR SODIUM < 15 mmol/L (27-287)
[2021-12-03 05:37] LABS: Absolute Lymphocytes (CBC) 0.3 K/uL (0.7-4.9); Hematocrit 31.5 % (39.6-49.0); Lymphocytes % 1.6 % (15.3-44.8); MPV 7.2 fL (7.6-11.3); RBC Red Blood Cell Count 3.66 M/uL (4.33-5.43)
[2021-12-03] MEDS: METOPROLOL TAR 25 MG TAB PO SCH ×2 (05:38→17:10)
[2021-12-03 05:47] LABS: Specific Gravity 1.006 (1.005-1.030); Urine Bacteria <20 /HPF (<20); Urine Bilirubin NEGATIVE (Negative); Urine Blood 3+ (Negative); Urine Clarity Clear (Clear); Urine Color Colorless (Yellow); Urine Glucose 2+ (Negative); Urine Mucus Slight /HPF (None Seen); Urine Protein TRACE (Negative); Urine RBC <5 /HPF (None Seen); Urine Urobilinogen Normal (Normal)
[2021-12-03 05:57] LABS: Albumin 2.5 g/dL (3.4-5.0); Phosphorus 2.2 mg/dL (2.5-4.9)
[2021-12-03] MEDS: SPIRONOLACTONE 25 MG TABLET PO SCH (08:50)
[2021-12-03] MEDS: APIXABAN 5 MG TABLET PO SCH ×2 (08:50→20:30)
[2021-12-03] MEDS: DULOXETINE 30 MG CAP PO SCH (08:51)
[2021-12-03] MEDS: THIAMINE 200 MG/2 ML INJ IVP SCH (08:52)
[2021-12-03] MEDS: predniSONE 20 MG TAB PO SCH ×2 (08:52→20:30)
[2021-12-03] MEDS: ENSURE HIGH PROTEIN 237 ML CAN PO SCH ×2 (09:00→20:31)
[2021-12-03] MEDS: HOME MED 1 EA UNK (Fluticasone/Umeclidin/Vilanter [Trelegy Ellipta 200-62.5-25] Blst.W.Dev IH SCH (09:00)
--- NOTE | 2021-12-03 11:06 | PN ---
Date of Progress Note: 12/02/2021 Subjective: The patient was seen this morning for followup. No new complaints or problems reported. He was in ICU, lying in bed, not in any distress. Objective: Vital Signs: Reviewed. HEENT: Unremarkable. Lungs: Clear to auscultation. Heart: Sounds normal. Abdomen: Soft. Bowel sounds normal. No guarding, rigidity, tenderness, distention. Extremities: No leg edema. Laboratory Data: This morning; sodium 116, potassium 3.9, chloride 76, bicarb 30, BUN 20, creatinine 1.15, glucose 150. CPK 2845. This evening, sodium was 120. Impression: 1. Hyponatremia. 2. Alcohol dependence. 3. COPD. 4. Generalized weakness. 5. Debility. 6. Atrial fibrillation. Plan: We will have Physical Therapy continue to work with the patient. Continue to follow with ticket collector or usher for hyponatremia problem. We will go ahead and continue current anticoagulation therapy, Eliquis for atrial fibrillation problem and I did call the patient's son this evening and details were discussed with him. Update was given. My recommendation is for the patient to assisted care facility upon discharge and the patient's son is agreeable and he was encouraged to communicate with Social Service to make arrangements, so at the time of discharge we can transition from hospital to assisted care facility if the patient is agreeable to do so. BELLE/CHARLENE Voice ID: [id number] Report ID: [id number] MARCO A
[2021-12-03] MEDS ORDERED: AMIODARONE HCL 150 MG in D5W 100 ML IV STA (13:45)
[2021-12-03] MEDS ORDERED: AMIODARONE HCL 900 MG in Dextrose 5%-Water 482 ML IV SCH (14:00)
--- NOTE | 2021-12-03 14:40 | PN ---
Subjective: The patient was admitted with hyponatremia, questionable seizure. The patient received hypertonic saline, then received DDAVP to slow the correction. The patient had beer potomania. The patient was placed on salt tablet, sodium started trending appropriately. Physical Examination: Vital Signs: Blood pressure 129/72, pulse of 94. Chest: Clear to auscultation. Heart: S1, S2. Regular. Abdomen: Soft, nontender. Extremity: No edema. Neurologic: Alert. No focality. Laboratory Data: WBC 18.5, H and H 10.8/31.5. Sodium 122, potassium 4, bicarb 33, BUN 27, creatinine 1.2, calcium 8, phosphorus 2.2. The patient's sodium has been corrected from yesterday by 6 point. Urine sodium less than 15, potassium 15, urine osmolality 117. Current Medications: The patient on are Zosyn, Eliquis, spironolactone 50 daily, Ensure, prednisone 20 b.i.d., salt tablet 1 g b.i.d. Assessment And Plan: 1. Hyponatremia secondary to beer potomania, appropriate rise on the sodium, but is still low. I am going to go ahead and increase his salt tablet to t.i.d. and we will continue to monitor the patient. We will place the patient on fluid restriction of 1.5 L and we will follow up. 2. Urinary tract infection. The patient on antibiotic. We will follow up with primary. 3. Rhabdomyolysis, recovered, resolved. 4. Hypertension, controlled, optimal. Continue current treatment. 5. Acute kidney injury, multifactorial, secondary to prerenal, dehydration, rhabdomyolysis, recovered, resolved. GFR above 60 currently. We will continue to monitor. Time spent examining the patient [id number], reviewing data, lab and radiology, discussing the case with the patient, discussing the case with freight team associate including nursing and hospitalist more than 35 minutes. ANNMARIE/CHARLENE Voice ID: [id number] Report ID: [id number] MARCO A
[2021-12-03] MEDS: SODIUM CHLORIDE 1 GM TAB PO SCH ×2 (15:15→20:30)
--- NOTE | 2021-12-03 15:42 | PN ---
Date of Progress Note: 12/03/2021 Subjective: Seen by bedside. The patient continues to be in atrial fibrillation, heart rate is yefri g fast within 100. Does not have any chest pain or shortness of breath. Review of Systems: No chest pain, shortness of breath, orthopnea, or cough. No nausea, vomiting, diarrhea. All other s ystems reviewed and they were negative. Physical Examination: Vital Signs: Reviewed. Head and Neck: Pupils are equal, reactive to light. Intact eye movements. No JVD. No cervical lym phadenopathy. Neck is supple. Thyroid is not enlarged. Lungs: Clear to auscultation bilaterally. No rhonchi, wheezing, or crackles. No accessory muscle u se. Heart: Irregularly irregular. No extra sounds. Abdomen: Soft, nontender. Bowel sounds positive. No organomegaly. No masses or hernia. No rigidi ty or rebound. Extremities: No edema, clubbing, or cyanosis. Intact pulses. Skin: No rash. Neurologic: Alert, awake, oriented x3. No acute focal deficits appreciated. Investigations: Labs were reviewed. Assessment And Recommendations: 1.Atrial fibrillation. His heart rate is running fast this morning. We will go ahead since he is i n ICU. We will load him with IV amiodarone and continue apixaban and metoprolol. 2.Hyponatremia due to severe dehydration due to alcoholism and this is resolving gradually. SR/MODL Voice ID: [id number] Report ID: [id number]
--- NOTE | 2021-12-03 15:42 | PN ---
Date of Progress Note: 12/02/2021 Subjective: Seen by bedside. Doing clinically well. Still in AFib, rate is acceptable. Review of Systems: No chest pain, shortness of breath, orthopnea, cough. No nausea, vomiting, diarrhea. All other syst ems reviewed and they were negative. Physical Examination: Vital Signs: Reviewed. Head and Neck: Pupils are equal, reactive to light. Intact eye movements. No JVD. No cervical lym phadenopathy. Neck is supple. Thyroid is not enlarged. Lungs: Clear to auscultation bilaterally. No rhonchi, wheezing, or crackles. No accessory muscle u se. Heart: Irregularly irregular. No extra sounds. Abdomen: Soft, nontender. Bowel sounds positive. No organomegaly. No masses or hernia. No rigidi ty or rebound. Extremities: No clubbing or cyanosis. Intact pulses. Skin: No rash. Neurologic: Alert, awake, oriented x3. No acute focal deficits appreciated. Investigations: Labs were reviewed. Sodium is improving. Assessment And Recommendations: 1.Atrial fibrillation, rate is controlled. For now, continue current management with metoprolol and apixaban. 2.Elevated troponin due to rhabdomyolysis. No further cardiac workup recommended on this matter. 3.Severe hyponatremia due to alcoholism and this is improving. Continue current management. SR/MODL Voice ID: [id number] Report ID: [id number]
--- NOTE | 2021-12-03 22:40 | PN ---
Date of Progress Note: 12/03/2021 Subjective: Patient was seen this morning for followup. No new complaints or problems reported by patient. Lying in bed, not in distress. Objective: Vital Signs: Reviewed. HEENT: Unremarkable. Lungs: Clear to auscultation. Heart: Sounds normal. Abdomen: Soft. Bowel sounds normal. No guarding, rigidity, tenderness, distention. Extremities: No leg edema. Laboratory Data: White count 18.5, hemoglobin 10.8. Sodium 122, potassium 4, chloride 82, bicarb 33, BUN 27, creatinine 1.22, glucose 164, phosphorus 2.2, calcium 8, albumin 2.5. Impression: 1. Atrial fibrillation. 2. Hyponatremia. 3. Anemia. 4. Alcohol abuse/dependence. 5. Hypertension. 6. Chronic obstructive pulmonary disease, acute exacerbation, improved. Plan: We will go ahead and continue oxygen replacement therapy. We will discontinue IV steroid and start the patient on prednisone 20 mg 2 times a day per order and we will cut back on prednisone in next day or 2 days to 20 mg daily. Continue to follow up with center hole reamer for hyponatremia management. We will continue current antibiotic, which is Zosyn. Continue to follow up with inspecting engineer for atrial fibrillation and the patient is on Eliquis, which we will continue. Physical Therapy to continue to work with the patient. I will see him tomorrow for followup. BELLE/MODL Voice ID: [id number] Report ID: [id number] MTDTana
[2021-12-04] MEDS: PIPER TAZO 3.375 GM in NA CHLORIDE 0.9% 100 ML IV SCH ×3 (00:26→16:58)
[2021-12-04] MEDS: ALBUTEROL 2.5 MG/3 ML NEB SOL NEB SCH ×4 (01:30→19:40)
[2021-12-04] MEDS: IPRATROPIUM BROM 0.5MG/2.5ML NEB SCH ×4 (01:30→19:40)
[2021-12-04] MEDS: METOPROLOL TAR 25 MG TAB PO SCH ×2 (06:03→16:58)
[2021-12-04 06:16] LABS: Specific Gravity 1.007 (1.005-1.030); Urine Bacteria <20 /HPF (<20); Urine Bilirubin NEGATIVE (Negative); Urine Blood 2+ (Negative); Urine Clarity Clear (Clear); Urine Color Colorless (Yellow); Urine Glucose 2+ (Negative); Urine Protein TRACE (Negative); Urine Urobilinogen Normal (Normal)
[2021-12-04 06:17] LABS: UR SODIUM < 15 mmol/L (27-287)
[2021-12-04 06:18] LABS: Albumin 2.6 g/dL (3.4-5.0); Magnesium 2.2 mg/dL (1.8-2.4); Phosphorus 2.1 mg/dL (2.5-4.9); Potassium 3.3 mmol/L (3.5-5.1)
[2021-12-04] MEDS: DULOXETINE 30 MG CAP PO SCH (08:14)
[2021-12-04] MEDS: THIAMINE 200 MG/2 ML INJ IVP SCH (08:14)
[2021-12-04] MEDS: predniSONE 20 MG TAB PO SCH ×2 (08:14→20:26)
[2021-12-04] MEDS: APIXABAN 5 MG TABLET PO SCH ×2 (08:14→20:26)
[2021-12-04] MEDS: SPIRONOLACTONE 25 MG TABLET PO SCH (08:14)
[2021-12-04] MEDS: SODIUM CHLORIDE 1 GM TAB PO SCH ×3 (08:15→20:26)
[2021-12-04] MEDS: ENSURE HIGH PROTEIN 237 ML CAN PO SCH ×2 (08:16→20:27)
[2021-12-04] MEDS: HOME MED 1 EA UNK (Fluticasone/Umeclidin/Vilanter [Trelegy Ellipta 200-62.5-25] Blst.W.Dev IH SCH (09:00)
--- NOTE | 2021-12-04 14:16 | PN ---
Date of Progress Note: 12/04/2021 Subjective: The patient was admitted with hyponatremia and seizure. His hyponatremia was secondary to beer potomania, poor intake. The patient was started on salt tablet. Sodium started trending up and appropriate rise. The patient required to be given DDAVP and D5 to slow the rise the first 24 hours. After that, the patient has been on all the salt tablets and rising appropriately. Physical Examination: Vital Signs: Blood pressure 122/74, pulse of 88. Chest: Clear to auscultation. Heart: S1, S2. Regular. Abdomen: Soft, nontender. Extremity: No edema. Neurologic: Alert. No focality. Laboratory Data: Sodium 127, potassium 3.3, bicarb 31, BUN 33, creatinine 1.1, calcium 8.5, phosphorus 2.1, magnesium 2.2. Current Medications: The patient on include Zosyn, Eliquis 5 b.i.d., amiodarone, spironolactone 50 daily, Ensure, breathing treatment, prednisone 20 b.i.d., sodium tablet 1 g t.i.d., thiamin. Assessment And Plan: 1. Hyponatremia secondary to beer potomania, on the recovery phase, appropriate rise on the sodium in the last 48 hours. I am going to go ahead and continue salt tablet 1 g t.i.d. The patient okay from the Renal standpoint for transfer to the floor. We will continue fluid restriction at 1.5 L. 2. Urinary tract infection. Continue current treatment. 3. Rhabdomyolysis, resolved. 4. Hypertension, controlled, optimal. Continue current treatment. 5. Acute kidney injury, multifactorial, secondary to prerenal, superimposed with dehydration and rhabdomyolysis, recovered, resolved. Currently GFR above 60. 6. Alcoholic with alcoholic intoxication as by primary. Time spent examining the patient [id number], reviewing data, lab and radiology, discussing the case with the patient, discussing the case with steamboat inspector including nursing and hospitalist more than 35 minutes PENNY Voice ID: [id number] Report ID: [id number] MARCO A
[2021-12-04] MEDS ORDERED: POTASSIUM CL SA 10 MEQ TAB PO ONE (19:41)
[2021-12-04] MEDS: AMIODARONE HCL 200 MG TAB PO SCH (20:27)
--- NOTE | 2021-12-04 21:02 | PN ---
Date of Progress Note: 12/04/2021 Subjective: Seen by the bedside. His heart rate is getting better, but still in atrial fibrillation . Review of Systems: No chest pain, shortness of breath, orthopnea, cough. No nausea, vomiting, diarrhea. No abdominal p ain. No dysuria, polyuria, or urinary urgency. All other systems reviewed and they are negative. Physical Examination: Vital Signs: Reviewed. Head and Neck: Pupils are equal, reactive to light. Intact eye movements. No JVD. No cervical lym phadenopathy. Neck: Supple. Thyroid is not enlarged. Lungs: Clear to auscultation bilaterally. No rhonchi, rales, or crackles. No accessory muscle use. Heart: Irregularly irregular. No extra sounds. Abdomen: Soft, nontender. Bowel sounds positive. No organomegaly. No masses or hernia. No rigidi ty or rebound. Extremities: No clubbing, cyanosis. Intact pulses. Skin: No rash. Neurologic: Alert, awake, oriented x3. No acute focal deficits appreciated. Assessment And Recommendations: 1.Atrial fibrillation with rapid ventricular response, now it is getting better. Start him on metop rolol along with the amiodarone drip that was switched to oral today and continue Eliquis. 2.Hyponatremia, correcting slowly. Continue current management. 3.Significant alcoholism history. The patient planning to quit. SR/MODL Voice ID: [id number] Report ID: [id number]
[2021-12-04 21:30] LABS: Albumin, (SPE) 2.8 g/dL (3.8-4.8); Alpha-1-Globulins 0.5 g/dL (0.2-0.3); Alpha-2-Globulins 0.8 g/dL (0.5-0.9); Gamma Globulins 0.4 g/dL (0.8-1.7); INTERPRETATION REPORT
[2021-12-05] MEDS: PIPER TAZO 3.375 GM in NA CHLORIDE 0.9% 100 ML IV SCH ×3 (00:06→15:59)
[2021-12-05] MEDS: ALBUTEROL 2.5 MG/3 ML NEB SOL NEB SCH ×4 (01:15→20:10)
[2021-12-05] MEDS: IPRATROPIUM BROM 0.5MG/2.5ML NEB SCH ×4 (01:15→20:10)
[2021-12-05] MEDS: METOPROLOL TAR 25 MG TAB PO SCH ×2 (05:13→17:33)
[2021-12-05 06:24] LABS: Absolute Lymphocytes (CBC) 0.8 K/uL (0.7-4.9); Hematocrit 33.6 % (39.6-49.0); Lymphocytes % 3.2 % (15.3-44.8); MCV 88.4 fL (80-100); MPV 7.3 fL (7.6-11.3); RBC Red Blood Cell Count 3.79 M/uL (4.33-5.43)
[2021-12-05 06:36] LABS: Albumin 2.4 g/dL (3.4-5.0); Magnesium 1.8 mg/dL (1.8-2.4); Phosphorus 2.8 mg/dL (2.5-4.9)
[2021-12-05 07:03] LABS: Blood Morphology Comment NOT SEEN (NOT SEEN); Platelet Estimate ADEQ
[2021-12-05] MEDS: HOME MED 1 EA UNK (Fluticasone/Umeclidin/Vilanter [Trelegy Ellipta 200-62.5-25] Blst.W.Dev IH SCH (09:00)
[2021-12-05] MEDS: SODIUM CHLORIDE 1 GM TAB PO SCH ×3 (09:12→20:23)
[2021-12-05] MEDS: predniSONE 20 MG TAB PO SCH (09:12)
[2021-12-05] MEDS: SPIRONOLACTONE 25 MG TABLET PO SCH (09:12)
[2021-12-05] MEDS: DULOXETINE 30 MG CAP PO SCH (09:12)
[2021-12-05] MEDS: APIXABAN 5 MG TABLET PO SCH ×2 (09:12→20:23)
[2021-12-05] MEDS: AMIODARONE HCL 200 MG TAB PO SCH ×2 (09:13→20:23)
[2021-12-05] MEDS: THIAMINE 200 MG/2 ML INJ IVP SCH (09:13)
[2021-12-05] MEDS: ENSURE HIGH PROTEIN 237 ML CAN PO SCH ×2 (09:15→20:23)
[2021-12-05 09:24] LABS: KAPPA LC FREE UR 90.16 mg/L (<=32.90)
--- NOTE | 2021-12-05 13:10 | P.PN ---
Subjective Date of Service: 12/05/21 Chief Complaint: Unresponsive Subjective: No new changes Physical Examination - Vital Signs Temperature: 97.7 F Blood Pressure: 150/96 Pulse: 102 Respirations: 20 Pulse Ox (%): 96 - Physical Exam General: Other (Appears as his stated age) HEENT: Atraumatic, Normocephalic Neck: Supple, JVD not distended Respiratory: Other (Symmetric chest expansion) Cardiovascular: No rubs, No murmurs Gastrointestinal: Soft and benign, No guarding Musculoskeletal: No clubbing Integumentary: No warmth Neurological: Normal tone Urinary: Other (No bladder distention) External genitalia: Deferred Rectal: Deferred Assessment And Plan - Plan 1. Hyponatremia secondary to beer potomania. Serum Na improved to 131. Continue salt tablet 1 g po t.i.d. Dc fluid restriction when serum Na consistently > 130 meq/L. 2. Urinary tract infection. Abx. F/u UCx. 3. Rhabdomyolysis, resolved. 4. Hypertension, controlled, optimal. Continue current treatment. 5. Acute kidney injury, multifactorial, secondary to prerenal, superimposed with dehydration and rhabdomyolysis. SCr improved to 1.1. PO fluids as above. 6. Alcoholic with alcoholic intoxication. Per primary team. 7. HypoPO4. Improved. Monitor/replete phos prn. 8. Hypokalemia. Improved. Monitor/replete prn.
--- NOTE | 2021-12-06 00:08 | PN ---
Date of Progress Note: 12/03/2021 Subjective: The patient was admitted with hyponatremia, questionable seizure. The patient received hypertonic saline, then received DDAVP to slow the correction. The patient had beer potomania. The patient was placed on salt tablet, sodium started trending appropriately. Physical Examination: Vital Signs: Blood pressure 129/72, pulse of 94. Chest: Clear to auscultation. Heart: S1, S2. Regular. Abdomen: Soft, nontender. Extremity: No edema. Neurologic: Alert. No focality. Laboratory Data: WBC 18.5, H and H 10.8/31.5. Sodium 122, potassium 4, bicarb 33, BUN 27, creatinine 1.2, calcium 8, phosphorus 2.2. The patient's sodium has been corrected from yesterday by 6 point. Urine sodium less than 15, potassium 15, urine osmolality 117. Current Medications: The patient on are Zosyn, Eliquis, spironolactone 50 daily, Ensure, prednisone 20 b.i.d., salt tablet 1 g b.i.d. Assessment And Plan: 1. Hyponatremia secondary to beer potomania, appropriate rise on the sodium, but is still low. I am going to go ahead and increase his salt tablet to t.i.d. and we will continue to monitor the patient. We will place the patient on fluid restriction of 1.5 L and we will follow up. 2. Urinary tract infection. The patient on antibiotic. We will follow up with primary. 3. Rhabdomyolysis, recovered, resolved. 4. Hypertension, controlled, optimal. Continue current treatment. 5. Acute kidney injury, multifactorial, secondary to prerenal, dehydration, rhabdomyolysis, recovered, resolved. GFR above 60 currently. We will continue to monitor. Time spent examining the patient owoy-eb-[id number], reviewing data, lab and radiology, discussing the case with the patient, discussing the case with steam hoist operator including nursing and hospitalist more than 35 minutes PENNY Voice ID: [id number] Report ID: [id number] MTDTana
[2021-12-06] MEDS: PIPER TAZO 3.375 GM in NA CHLORIDE 0.9% 100 ML IV SCH ×3 (00:37→16:29)
[2021-12-06] MEDS: IPRATROPIUM BROM 0.5MG/2.5ML NEB SCH ×4 (01:30→20:00)
[2021-12-06] MEDS: ALBUTEROL 2.5 MG/3 ML NEB SOL NEB SCH ×4 (01:30→20:00)
--- NOTE | 2021-12-06 02:32 | PN ---
Date of Progress Note: 12/05/2021 Subjective: Seen by bedside. He continues to have atrial fibrillation. He was getting nebulizer tr eatment, his heart rate was slightly fast. Review of Systems: No chest pain. He has some shortness of breath and wheezing with minimal cough. No nausea, vomiting , or diarrhea. No abdominal pain. No dysuria, polyuria, or urinary urgency. All other systems were reviewed and they were negative. Physical Examination: Vital Signs: Reviewed. Head And Neck: Pupils are equal and reactive to light. Intact eye movements. No JVD. No cervical lymphadenopathy. Neck is supple. Thyroid is not enlarged. Lungs: Clear to auscultation bilaterally. No rhonchi, wheezing, or crackles. No accessory muscle u se. Heart: Irregularly irregular. No extra sounds. Abdomen: Soft, nontender. Bowel sounds positive. No organomegaly. No masses or hernia. No rigidi ty or rebound. Extremities: No edema, clubbing, or cyanosis. Intact pulses. Skin: No rash. Neurologic: Alert, awake, and oriented x3. No acute focal deficits appreciated. Investigations: BUN 32, creatinine 1.1, and sodium 131. Assessment And Recommendation: 1.Atrial fibrillation. Continues to be running slightly fast. Continue amiodarone 200 mg twice a d ay and apixaban 5 mg twice a day and attempt to increase metoprolol to 50 mg twice a day for better h eart rate control. 2.Hyponatremia, resolving nicely. The patient knows to avoid alcohol in the future. 3.Severe dehydration and that has resolved. SR/MODL Voice ID: [id number] Report ID: [id number]
[2021-12-06 05:01] LABS: Albumin 2.4 g/dL (3.4-5.0); Magnesium 1.7 mg/dL (1.8-2.4); Phosphorus 3.5 mg/dL (2.5-4.9); Potassium 3.5 mmol/L (3.5-5.1)
[2021-12-06] MEDS: METOPROLOL TAR 25 MG TAB PO SCH ×2 (06:00→17:37)
[2021-12-06 06:45] VITALS: BMI 29.7
[2021-12-06] MEDS: THIAMINE 200 MG/2 ML INJ IVP SCH (08:13)
[2021-12-06] MEDS: DULOXETINE 30 MG CAP PO SCH (08:14)
[2021-12-06] MEDS: AMIODARONE HCL 200 MG TAB PO SCH ×2 (08:14→20:47)
[2021-12-06] MEDS: SODIUM CHLORIDE 1 GM TAB PO SCH ×2 (08:14→20:48)
[2021-12-06] MEDS: predniSONE 20 MG TAB PO SCH (08:15)
[2021-12-06] MEDS: ENSURE HIGH PROTEIN 237 ML CAN PO SCH ×2 (08:15→20:48)
[2021-12-06] MEDS: APIXABAN 5 MG TABLET PO SCH ×2 (08:15→20:48)
[2021-12-06] MEDS: SPIRONOLACTONE 25 MG TABLET PO SCH (08:15)
[2021-12-06] MEDS: HOME MED 1 EA UNK (Fluticasone/Umeclidin/Vilanter [Trelegy Ellipta 200-62.5-25] Blst.W.Dev IH SCH (08:16)
[2021-12-06] MEDS ORDERED: Magnesium Sulfate 2gm IVPB 2 G/50 ML BAG IV ONE (10:27)
[2021-12-06] MEDS ORDERED: POTASSIUM CL SA 10 MEQ TAB PO ONE (10:27)
--- NOTE | 2021-12-06 13:44 | PN ---
Date of Progress Note: 12/06/2021 Subjective: The patient was admitted with hyponatremia severe complicated with seizure. His hyponat remia was secondary to beer potomania. The patient was started on salt tablets. The patient's sodiu m normalized. Physical Examination: Vital Signs: Blood pressure 119/69, pulse of 82, afebrile. Chest: Clear to auscultation. Heart: S1, S2, regular. Abdomen: Soft, nontender. Extremities: Trace edema with venous stasis change. Neurologic: Alert. No focality. Laboratory Data: Sodium 136, potassium 3.5, bicarb 31, BUN 34, creatinine 1, GFR of 74. Calcium 9.2 , phosphorus 3.5, magnesium 1.7, albumin 2.4, corrected calcium is 10.4. Current Medications: The patient on include Zosyn, Eliquis, spironolactone 50 daily, Ensure, Zofran, prednisone 20, sodium tablet 1 g t.i.d. Assessment And Plan: 1.Acute kidney injury multifactorial secondary to rhabdomyolysis/prerenal, recovered. Currently loo ked to me normal volume off IV fluid. We will continue to monitor. 2.Hyponatremia secondary to beer potomania, on the recovery phase. Sodium normalized. I am going t o continue fluid restriction. I will decrease sodium tablet to b.i.d. to avoid over correction. 3.Urinary tract infection. Culture still negative. Continue current antibiotic. We will follow up with the primary. 4.Rhabdomyolysis, resolved. 5.Alcoholic with alcohol intoxication as by primary. Patient back to baseline. The patient cleared from the renal standpoint for discharge planning. We will follow up with the primary. 6.Hypomagnesemia. I will supplement. 7.Hypokalemia. We will supplement. ANNMARIE/MODL Voice ID: [id number] Report ID: [id number]
--- NOTE | 2021-12-06 13:53 | PN ---
Date of Progress Note: 12/04/2021 Subjective: Patient was seen this morning for followup. He was lying in bed in ICU. No new complai nts or problems reported by him. Objective: Vital Signs: Reviewed. HEENT: Unremarkable. Lungs: Clear to auscultation. Heart: Sounds normal. Abdomen: Soft. Bowel sounds normal. No guarding, rigidity, tenderness, distention. Extremities: No leg edema. Laboratory Data: Sodium 127, potassium 3.3, chloride 89, bicarb 31, BUN 33, creatinine 1.15, glucose 169. Impression: 1.Paroxysmal atrial fibrillation. 2.Hyponatremia. 3.Hypokalemia. 4.Chronic obstructive pulmonary disease, acute exacerbation, improving. 5.Hypertension. Plan: We will go ahead and continue current medication. Continue current oxygen replacement. Arely is for anticoagulation therapy. Physical Therapy to continue to work with patient. We will also con tinue current amiodarone. Continue to follow with teacher music. Hyponatremia has shown significant improvement and we will replace potassium per order. I will see him tomorrow for followup. BELLE/MODL Voice ID: [id number] Report ID: [id number]
--- NOTE | 2021-12-06 16:00 | PN ---
Date of Progress Note: 12/05/2021 Subjective: The patient was seen this morning for followup. He was transferred out of ICU to [facility] medical floor yesterday, and this morning, he was on the medical floor, lying in bed, not in distre ss. Denies any complaints. Overall feels a lot better. Objective: Vital Signs: Reviewed. HEENT: Examination unremarkable. Lungs: Clear to auscultation. Heart: Sounds normal. Abdomen: Soft. Bowel sounds normal. No guarding, rigidity, tenderness, or distention. Extremities: No leg edema. Laboratory Data: White count 23.8, hemoglobin 11.1, platelets 262, 13% bands. Sodium 131, potassium 4, chloride 93, bicarb 31, BUN 32, creatinine 1.12, glucose 159, magnesium 1.8. Impression: 1.Acute exacerbation of chronic obstructive pulmonary disease. 2.Paroxysmal atrial fibrillation. 3.Hypertension. 4.Hyponatremia. 5.Anemia, unspecified. 6.Acute respiratory failure with hypoxia. Plan: We will go ahead and continue physical therapy to help ambulate the patient. We will continue current prednisone 20 mg daily. Continue empiric antibiotics, which is Zosyn. Hyponatremia problem has improved. We will continue to follow up on his renal function. Repeat blood work tomorrow and continue to follow with manager commercial real estate. I did talk to patient regarding discharge planning and he is l eaning towards going to [facility] and our plan is to possibly discharge him to go there on Wednesday. BELLE/MODL Voice ID: [id number] Report ID: [id number]
--- NOTE | 2021-12-06 16:19 | PN ---
Date of Progress Note: 12/06/2021 Subjective: Seen at bedside. Still having shortness of breath and wheezing. Review of Systems: Positive for shortness of breath and wheezing. No cough. No chest pain, nausea, vomiting, diarrhea. No dysuria, polyuria, or urgency. All other systems reviewed and negative. Physical Examination: Vital Signs: Reviewed. Head and Neck: Pupils are equal and reactive to light. Intact eye movements. No JVD. No cervical lymphadenopathy. Neck: Supple. Thyroid is not enlarged. Lungs: Diffuse wheezing bilaterally. No accessory muscle use or muscle retraction. Heart: Irregularly irregular. No extra sounds. Abdomen: Soft, nontender. Bowel sounds positive. No organomegaly. No masses or hernia. No rigidi ty or rebound. Extremities: No clubbing, cyanosis. Intact pulses. Skin: No rash. Neurologic: Alert, awake, oriented x3. No acute focal deficits appreciated. Investigations: Labs were reviewed. Assessment And Recommendation: 1.Atrial fibrillation. The patient continues to be in atrial fibrillation despite amiodarone and Lo pressor, and I feel that Lopressor is causing significant wheezing. I recommend a RAMBO-guided cardiov ersion and then to take him off the metoprolol completely. I believe he probably will sustain in sin us rhythm since he was loaded with amiodarone, also continue anticoagulation with apixaban. 2.Hyponatremia, resolved. 3.Acute renal failure that has resolved as well. SR/MODL Voice ID: [id number] Report ID: [id number]
--- NOTE | 2021-12-06 22:52 | PN ---
Date of Progress Note: 12/06/2021 Subjective: Patient was seen this morning for followup. He denied any complaints this morning. Lyi ng in bed, not in distress. Objective: Vital Signs: Reviewed. HEENT: Unremarkable. Lungs: Bilateral good equal air entry. Some scattered wheezing noted in lower lung shaffer. Not usi ng any accessory muscles of respiration. Heart: Sounds normal. Abdomen: Soft. Bowel sounds normal. No guarding, rigidity, tenderness, or distention. Extremities: No leg edema. Laboratory Data: Sodium 136, potassium 3.5, chloride 99, bicarb 31, BUN 34, creatinine 1.06, glucose 116, magnesium 1.7. Impression: 1.Acute exacerbation of chronic obstructive pulmonary disease. 2.Hyponatremia. 3.Anemia. 4.Hypertension. Plan: We will go ahead and continue current medications, which are amiodarone and Eliquis for his at rial fibrillation problem. Continue current antibiotic, which is Zosyn. The patient is ambulating w ell in the room without much difficulty and he has decided to go to [facility]. Plan is to discharge him to go to that facility on Wednesday. I will see him tomorrow morning for followup. BELLE/MODL Voice ID: [id number] Report ID: [id number]
[2021-12-07] MEDS: PIPER TAZO 3.375 GM in NA CHLORIDE 0.9% 100 ML IV SCH ×3 (00:21→16:19)
[2021-12-07] MEDS: IPRATROPIUM BROM 0.5MG/2.5ML NEB SCH ×4 (01:45→19:55)
[2021-12-07] MEDS: ALBUTEROL 2.5 MG/3 ML NEB SOL NEB SCH ×4 (01:45→19:55)
[2021-12-07] MEDS: METOPROLOL TAR 25 MG TAB PO SCH ×2 (06:15→17:12)
[2021-12-07 06:39] LABS: Absolute Lymphocytes (CBC) 1.9 K/uL (0.7-4.9); Hematocrit 30.7 % (39.6-49.0); Lymphocytes % 12.2 % (15.3-44.8); MCV 88.5 fL (80-100); MPV 6.6 fL (7.6-11.3); RBC Red Blood Cell Count 3.46 M/uL (4.33-5.43)
[2021-12-07] MEDS: APIXABAN 5 MG TABLET PO SCH ×2 (08:15→19:56)
[2021-12-07] MEDS: SODIUM CHLORIDE 1 GM TAB PO SCH ×2 (08:15→19:56)
[2021-12-07] MEDS: predniSONE 20 MG TAB PO SCH (08:15)
[2021-12-07] MEDS: SPIRONOLACTONE 25 MG TABLET PO SCH (08:15)
[2021-12-07] MEDS: DULOXETINE 30 MG CAP PO SCH (08:15)
[2021-12-07] MEDS: ENSURE HIGH PROTEIN 237 ML CAN PO SCH ×2 (08:16→19:57)
[2021-12-07] MEDS: AMIODARONE HCL 200 MG TAB PO SCH ×2 (08:16→19:56)
[2021-12-07] MEDS: THIAMINE 200 MG/2 ML INJ IVP SCH (08:16)
[2021-12-07] MEDS: HOME MED 1 EA UNK (Fluticasone/Umeclidin/Vilanter [Trelegy Ellipta 200-62.5-25] Blst.W.Dev IH SCH (08:16)
[2021-12-07 10:23] LABS: Blood Morphology Comment NOT SEEN (NOT SEEN); Platelet Estimate ADEQ
[2021-12-07 10:24] LABS: Potassium 3.6 mmol/L (3.5-5.1)
--- NOTE | 2021-12-07 11:49 | PN ---
Date of Progress Note: 12/07/2021 Subjective: The patient was seen this morning for followup. No new complaints or problems reported by the patient. He was lying in bed, not in distress. Overall feels better. Had a bowel movement y esterday, has good appetite. Objective: Vital Signs: Reviewed. HEENT: Unremarkable. Lungs: Clear to auscultation. Heart: Sounds normal. Abdomen: Soft. Bowel sounds normal. No guarding, rigidity, tenderness, distention. Extremity: No leg edema. Laboratory Data: White count 15.4, hemoglobin 10.3, platelets 284. Chemistry results pending. Impression: 1.Acute exacerbation of chronic obstructive pulmonary disease. 2.Acute respiratory failure with hypoxia. 3.Anemia, unspecified. 4.Paroxysmal atrial fibrillation. 5.Hyponatremia. Plan: We will go ahead and continue current antibiotic, continue current oral steroid therapy. The patient has decided to go to [facility] [place] and tomorrow, our plan is to dischar ge him to go to this particular facility. I will see him tomorrow morning for followup. EBLLE/MODL Voice ID: [id number] Report ID: [id number]
[2021-12-07] MEDS ORDERED: POTASSIUM CL SA 10 MEQ TAB PO ONE (13:00)
--- NOTE | 2021-12-07 13:44 | PN ---
Date of Progress Note: 12/07/2021 Subjective: The patient was admitted acute kidney injury secondary rhabdo, poor perfusion, ATN and hyponatremia secondary to beer potomania. The patient was started on hypertonic and then required DDAVP to slow the correction. The patient then maintained on salt tablet, has been corrected very well. Yesterday, we decreased the salt tablet to b.i.d. Blood pressure slightly today elevated. Physical Examination: Vital Signs: Blood pressure 167/84, pulse of 84, afebrile. Chest: Clear to auscultation. Heart: S1, S2. Regular. Abdomen: Soft, nontender. Extremities: No edema. Neurologic: Alert. Pleasantly confused. Laboratory Data: WBC 15.4 trending down, H and H 10.3/30.7. Sodium 138, potassium 3.6, bicarb 29, BUN 30, creatinine 1.2, GFR of 61, calcium 8.7. Current Medications: The patient on include Eliquis 5 b.i.d., metoprolol, amiodarone, spironolactone 50 daily, Zofran, prednisone, magnesium oxide, salt tablet 1 g b.i.d. Assessment And Plan: 1. Acute kidney injury, multifactorial secondary to rhabdomyolysis, prerenal, on the recovery. Off IV fluid. We will continue to monitor. 2. Hyponatremia secondary to beer potomania, on the recovery. Sodium normalized. Continue salt tablet as 1 g b.i.d. 3. Hypokalemia. We will supplement. 4. Alcohol intoxication as by primary. 5. Rhabdomyolysis has been resolved. 6. Hypomagnesemia, status post supplement, resolved. 7. Hypertension, has been controlled, today only elevated. We will follow up. Time spent examining the patient [id number], reviewing data, lab and radiology, discussing the case with the patient, discussing the case with warehouse team member including nursing and hospitalist more than 35 minutes PENNY Voice ID: [id number] Report ID: [id number] MARCO A
[2021-12-07] MEDS ORDERED: LORAZEPAM 0.5 MG TABLET PO ONE (23:00)
[2021-12-08] MEDS: PIPER TAZO 3.375 GM in NA CHLORIDE 0.9% 100 ML IV SCH ×3 (00:19→17:13)
[2021-12-08] MEDS: ALBUTEROL 2.5 MG/3 ML NEB SOL NEB SCH ×4 (01:40→19:40)
[2021-12-08] MEDS: IPRATROPIUM BROM 0.5MG/2.5ML NEB SCH ×4 (01:40→19:40)
[2021-12-08] MEDS: METOPROLOL TAR 25 MG TAB PO SCH ×2 (06:01→17:12)
[2021-12-08] MEDS: SPIRONOLACTONE 25 MG TABLET PO SCH (08:42)
[2021-12-08] MEDS: THIAMINE 200 MG/2 ML INJ IVP SCH (08:42)
[2021-12-08] MEDS: APIXABAN 5 MG TABLET PO SCH ×2 (08:42→20:43)
[2021-12-08] MEDS: predniSONE 20 MG TAB PO SCH (08:43)
[2021-12-08] MEDS: AMIODARONE HCL 200 MG TAB PO SCH ×2 (08:43→20:43)
[2021-12-08] MEDS: DULOXETINE 30 MG CAP PO SCH (08:43)
[2021-12-08] MEDS: SODIUM CHLORIDE 1 GM TAB PO SCH (08:43)
[2021-12-08] MEDS: ENSURE HIGH PROTEIN 237 ML CAN PO SCH ×2 (08:44→20:44)
[2021-12-08] MEDS: HOME MED 1 EA UNK (Fluticasone/Umeclidin/Vilanter [Trelegy Ellipta 200-62.5-25] Blst.W.Dev IH SCH (08:44)
[2021-12-08] MEDS ORDERED: LORazepam 2 MG/ML VIAL IV PRN (11:23)
--- NOTE | 2021-12-08 22:26 | PN ---
Date of Progress Note: 12/08/2021 Subjective: Acute kidney injury due to renal hypoperfusion complicated by rhabdomyolysis resulted in ATN. Patient has nonoliguric urine output. Sodium level has gradually improved. Patient is on sodium chloride tablets. Review of Systems: Denies fever, chills. Physical Examination: Lungs: Clear to auscultation bilaterally. Heart: S1, S2. Abdomen: Soft. Extremities: No edema. Laboratory Data: WBC 15.4, potassium 3.6, bicarbonate 29, BUN 30, creatinine 1.2. Impression And Plan: 1. Acute kidney injury, multifactorial, secondary to rhabdomyolysis and volume depletion. Patient is currently off IV fluids. 2. Hyponatremia secondary to low solute intake. Patient is on sodium chloride tablets. Continue to monitor and wean off sodium chloride tablet. P.o. intake is improving. 3. Hypokalemia. Supplementation as needed. 4. Rhabdomyolysis, resolved. Patient had rhabdomyolysis secondary to fall. 5. Acute kidney injury is gradually improving. Avoid nephrotoxic medication. 6. WBC is elevated, although improving. Patient was started on multiple medications. 7. Chronic obstructive pulmonary disease exacerbation. Patient was also taking steroids. Further recommendation by primary team. EB/MODL Voice ID: [id number] Report ID: [id number] MARCO A
[2021-12-09] MEDS: PIPER TAZO 3.375 GM in NA CHLORIDE 0.9% 100 ML IV SCH ×3 (01:04→17:10)
[2021-12-09] MEDS: IPRATROPIUM BROM 0.5MG/2.5ML NEB SCH ×4 (01:35→18:55)
[2021-12-09] MEDS: ALBUTEROL 2.5 MG/3 ML NEB SOL NEB SCH ×4 (01:35→18:55)
--- NOTE | 2021-12-09 02:02 | PN ---
Date of Progress Note: 12/08/2021 Subjective: Patient was seen this morning for followup. No new complaints or problems reported by julita church. Lying in bed, not in any distress. Objective: Vital Signs: Reviewed. HEENT: Unremarkable. Lungs: Clear to auscultation. Heart: Sounds normal. Abdomen: Soft. Bowel sounds normal. No guarding, rigidity, tenderness, or distention. Extremities: No leg edema. Impression: 1.Hyponatremia. 2.Acute exacerbation of chronic obstructive pulmonary disease. 3.Acute respiratory failure with hypoxia. 4.Hypertension. 5.Alcohol withdrawal. Plan: Today our plan was to discharge him to go home, but after I saw him, he started to have some t remors and the patient was found on the floor on his knees. When nurse informed me about all this ch al in his condition, we cancelled our discharge plan and started him on Ativan. He is already on I V thiamine and we will continue that. We will continue other current medical management and we will keep him in the hospital right now for alcohol withdrawal problem. Eventually patient's plan is to g o to [facility]. BELLE/MODL Voice ID: [id number] Report ID: [id number]
[2021-12-09] MEDS: METOPROLOL TAR 25 MG TAB PO SCH (05:48)
[2021-12-09 07:25] LABS: Absolute Lymphocytes (CBC) 1.8 K/uL (0.7-4.9); Hematocrit 29.9 % (39.6-49.0); Lymphocytes % 13.5 % (15.3-44.8); MCV 88.6 fL (80-100); MPV 6.4 fL (7.6-11.3); RBC Red Blood Cell Count 3.37 M/uL (4.33-5.43)
[2021-12-09 07:43] LABS: Albumin 2.4 g/dL (3.4-5.0); Bilirubin Total 0.7 mg/dL (0.2-1.0); Potassium 3.5 mmol/L (3.5-5.1); Protein, Total 5.1 g/dL (6.4-8.2)
[2021-12-09 08:41] LABS: Blood Morphology Comment NOT SEEN (NOT SEEN); Platelet Estimate ADEQ
[2021-12-09 08:42] LABS: Toxic Granulation PRESENT
[2021-12-09] MEDS: HOME MED 1 EA UNK (Fluticasone/Umeclidin/Vilanter [Trelegy Ellipta 200-62.5-25] Blst.W.Dev IH SCH (09:00)
[2021-12-09] MEDS: THIAMINE 200 MG/2 ML INJ IVP SCH (09:22)
[2021-12-09] MEDS: predniSONE 10 MG TAB PO SCH (09:23)
[2021-12-09] MEDS: APIXABAN 5 MG TABLET PO SCH ×2 (09:23→20:06)
[2021-12-09] MEDS: AMIODARONE HCL 200 MG TAB PO SCH ×2 (09:23→20:06)
[2021-12-09] MEDS: DULOXETINE 30 MG CAP PO SCH (09:23)
[2021-12-09] MEDS: ENSURE HIGH PROTEIN 237 ML CAN PO SCH ×2 (09:24→20:06)
[2021-12-09] MEDS ORDERED: POTASSIUM CL SA 10 MEQ TAB PO ONE (11:46)
[2021-12-09] MEDS ORDERED: METOPROLOL TAR 50 MG TAB PO SCH (12:00)
--- NOTE | 2021-12-09 12:51 | PN ---
Date of Progress Note: 12/09/2021 Subjective: The patient was admitted with alcoholic intoxication, beer potomania, hyponatremia. The patient had seizure, recovered. The patient yesterday has fall again. Physical Examination: Vital Signs: Blood pressure 175/98, pulse of 86, afebrile. Chest: Clear to auscultation. Heart: S1, S2. Regular. Abdomen: Soft, nontender. Extremity: No edema. Neuro: Pleasantly confused. No focality. Laboratory Data: WBC 13.2, H and H 10.2/29.9. Sodium 135, potassium 3.5, bicarb 28, BUN 27, creatin ine 1.1, GFR of 71, calcium 8.9. Current Medications: The patient on include; 1.Amiodarone. 2.Eliquis. 3.Ensure. 4.Breathing treatment. 5.Prednisone 10 daily. 6.Salt tablet 1 g b.i.d. 7.Thiamin. Assessment And Plan: 1.Acute kidney injury secondary to rhabdomyolysis, prerenal, dehydration, recovered, resolved. 2.Hyponatremia secondary to beer potomania. Resume salt tablet. 3.Hypokalemia. We will supplement. 4.Hypertension, not controlled. I am going to go ahead and start the patient on Norvasc 10 mg daily and we will follow up. We will go ahead and increase metoprolol to 50 mg. we will follow up respon se. 5.Alcohol withdrawal/intoxication. Continue thiamin. Follow up with primary. 6.Deconditioning. Continue PT/OT. MA/MODL Voice ID: [id number] Report ID: [id number]
[2021-12-09] MEDS: SODIUM CHLORIDE 1 GM TAB PO SCH ×2 (13:03→17:10)
[2021-12-09] MEDS: METOPROLOL TAR 50 MG TAB PO SCH (17:10)
--- NOTE | 2021-12-09 19:53 | PN ---
Date of Progress Note: 12/09/2021 Subjective: The patient was seen this morning for followup. He was sleeping, not in any distress. Objective: Vital Signs: Reviewed. HEENT: Unremarkable. Lungs: Clear to auscultation. Heart: Sounds normal. Abdomen: Soft. Bowel sounds normal. No guarding, rigidity, tenderness, distention. Extremities: No leg edema. Impression: 1.Hyponatremia. 2.Acute exacerbation of chronic obstructive pulmonary disease. 3.Acute respiratory failure with hypoxia. 4.Hypertension. Plan: We will go ahead and continue current medications. Continue prednisone but at a lower dose 10 mg daily. Continue empiric antibiotics and nebulizer treatment. I will see him tomorrow for follow up. BELLE/MODL Voice ID: [id number] Report ID: [id number]
[2021-12-10] MEDS: PIPER TAZO 3.375 GM in NA CHLORIDE 0.9% 100 ML IV SCH ×3 (01:52→17:35)
[2021-12-10] MEDS: IPRATROPIUM BROM 0.5MG/2.5ML NEB SCH ×4 (02:00→19:25)
[2021-12-10] MEDS: ALBUTEROL 2.5 MG/3 ML NEB SOL NEB SCH ×4 (02:00→19:25)
[2021-12-10] MEDS: METOPROLOL TAR 50 MG TAB PO SCH ×2 (06:34→17:51)
[2021-12-10] MEDS ORDERED: lisinopriL 10 MG TAB PO SCH (09:00)
[2021-12-10] MEDS ORDERED: AMLODIPINE 10 MG TAB PO SCH (09:00)
[2021-12-10] MEDS: ENSURE HIGH PROTEIN 237 ML CAN PO SCH ×2 (09:00→20:13)
[2021-12-10] MEDS: HOME MED 1 EA UNK (Fluticasone/Umeclidin/Vilanter [Trelegy Ellipta 200-62.5-25] Blst.W.Dev IH SCH (09:00)
[2021-12-10] MEDS: predniSONE 10 MG TAB PO SCH (09:35)
[2021-12-10] MEDS: APIXABAN 5 MG TABLET PO SCH ×2 (09:35→20:13)
[2021-12-10] MEDS: DULOXETINE 30 MG CAP PO SCH (09:35)
[2021-12-10] MEDS: FUROSEMIDE 20 MG/ 2ML VIAL IV SCH ×2 (09:35→17:36)
[2021-12-10] MEDS: AMIODARONE HCL 200 MG TAB PO SCH ×2 (09:35→20:13)
[2021-12-10] MEDS: THIAMINE 200 MG/2 ML INJ IVP SCH (09:36)
[2021-12-10] MEDS: SODIUM CHLORIDE 1 GM TAB PO SCH ×2 (09:39→17:36)
--- NOTE | 2021-12-10 16:05 | PN ---
Date of Progress Note: 12/10/2021 Subjective: Patient was admitted with acute kidney injury secondary to rhabdo and beer potomania wit h hyponatremia and the seizure. Patient recovered very well. Physical Examination: Vital Signs: When I saw the patient, blood pressure 165/77, pulse of 86, afebrile. Chest: Clear to auscultation. Heart: S1, S2. Regular. Abdomen: Soft, nontender, obese. Extremities: Plus edema. Neuro: Alert. No focality. Laboratory Data: WBC 13.2, H and H 10.2/29.9. Sodium 135, potassium 3.5, bicarb 28, BUN 27, creatin ine 1.1, GFR of 76, calcium 8.9. Current Medications: The patient on include: 1.Albuterol. 2.Zosyn. 3.Eliquis. 4.Amiodarone. 5.Amlodipine 10 mg daily. 6.Tylenol. 7.Lasix 20 b.i.d. 8.Prednisone. 9.Salt tablets. 10.KCl. Assessment And Plan: 1.Acute kidney injury secondary to rhabdomyolysis, poor perfusion, ATN, recovered, resolved. I will continue to monitor. Given the elevation in the blood pressure and hypokalemia, I am going to go ah ead and start the patient on lisinopril. 2.Hypertension, not controlled, with the presence of the edema. Discontinue calcium channel lee ann . Start the patient on lisinopril. 3.Hypokalemia, status post supplement. We will follow up the lab. 4.Hyponatremia secondary to beer potomania, recovered. Continue salt tablet. 5.Edema, possible secondary to calcium channel lee ann. Patient was started on Lasix. We will foll ow up. 6.Alcohol intoxication, as by primary. ANNMARIE/IFEOMAL Voice ID: [id number] Report ID: [id number]
[2021-12-10 19:54] VITALS: O2SAT 98
--- NOTE | 2021-12-10 20:08 | PN ---
Date of Progress Note: 12/10/2021 Subjective: The patient was seen this morning for followup. No new complaints or problems reported this morning, and he was asking me when he could go home from the hospital. Upon discharge, he will be going to [facility]. Objective: Vital Signs: Reviewed. HEENT: Unremarkable. Lungs: Clear to auscultation. Heart: Sounds normal. Abdomen: Soft. Bowel sounds normal. No guarding, rigidity, tenderness, distention. Extremities: Edema of all the 4 extremities noted today. Laboratory Data: There was no new labs today. Impression: 1. Leg edema. 2. Acute exacerbation of chronic obstructive pulmonary disease. 3. Hyponatremia. Plan: We will go ahead and start the patient on Lasix 20 mg IV 2 times a day per order. Monitor electrolytes, renal function. I will see him tomorrow for followup, and once we get his swelling problem better, then our plan is to discharge him to go home. BELLE/MODL Voice ID: [id number] Report ID: [id number]
[2021-12-11] MEDS: PIPER TAZO 3.375 GM in NA CHLORIDE 0.9% 100 ML IV SCH ×2
[2021-12-11] MEDS: IPRATROPIUM BROM 0.5MG/2.5ML NEB SCH (02:00)
[2021-12-11] MEDS: ALBUTEROL 2.5 MG/3 ML NEB SOL NEB SCH (02:00)
[2021-12-11 04:54] LABS: Absolute Lymphocytes (CBC) 1.8 K/uL (0.7-4.9); Hematocrit 28.9 % (39.6-49.0); Lymphocytes % 14.6 % (15.3-44.8); MCV 88.5 fL (80-100); MPV 6.8 fL (7.6-11.3); RBC Red Blood Cell Count 3.27 M/uL (4.33-5.43)
[2021-12-11 04:58] LABS: Albumin 2.3 g/dL (3.4-5.0); Magnesium 1.8 mg/dL (1.8-2.4); Phosphorus 4.7 mg/dL (2.5-4.9); Potassium 3.3 mmol/L (3.5-5.1)
[2021-12-11] MEDS: METOPROLOL TAR 50 MG TAB PO SCH (05:29)
[2021-12-11 07:23] VITALS: BP 121/66; TEMP 97.6
--- NOTE | 2021-12-11 22:36 | DS ---
Date of Discharge: 12/11/2021 Disposition: Discharged to go to [facility]. Physical Examination: HEENT: Unremarkable. Lungs: Clear to auscultation. Heart: Sounds normal. Abdomen: Soft. Bowel sounds normal. No guarding, rigidity, tenderness, or distention. Extremities: No leg edema. Discharge Medications/instructions: 1.Stop amlodipine, stop Cialis, stop Halcion. 2.Continue to take the following medications as below and these medications he was taking prior to t his hospital admission: a.Eliquis 5 mg 2 times a day. b.Atorvastatin 40 mg daily at bedtime. c.Duloxetine 60 mg 1 capsule daily with breakfast. d.Trelegy inhaler 1 puff by mouth daily. Rinse mouth with water after each use. e.Metoprolol succinate 50 mg 1 tablet by mouth 2 times a day. f.Furosemide 40 mg take 1 tablet by mouth daily. 3.Start following new medications and prescription was sent to [facility] from office : a.Amiodarone 200 mg take 1 tablet by mouth 2 times a day. b.Lisinopril 10 mg take 1 tablet by mouth daily. c.Prednisone 10 mg take 1 tablet by mouth daily with food. d.Augmentin 875 mg take 1 tablet by mouth 2 times a day with food for 1 week. e.Follow up at my office next week. f.Do not drink any alcohol. Laboratory Data: Last CBC today, white count 12.4, hemoglobin 9.8, platelets 302. Last chemistry to day; sodium 137, potassium 3.3, chloride 102, bicarb 30, BUN 26, creatinine 1.10, glucose 97, albumin 2.6. Final Diagnoses: 1.Hyponatremia. 2.Acute exacerbation of chronic obstructive pulmonary disease. 3.Acute respiratory failure with hypoxia. 4.Acute kidney injury. 5.Chronic diastolic heart failure. 6.Chronic atrial fibrillation. 7.Hypertension. 8.Hyperlipidemia. 9.Hypokalemia. 10.Anemia, unspecified. 11.Coronary artery disease. 12.Alcohol abuse. 13.Carotid artery stenosis, bilateral. 14.Depression. 15.Impaired fasting glucose. 16.Rhabdomyolysis. 17.Elevated troponin. Hospital Course: This is a 71-year-old male patient admitted to the hospital with altered mental sta tus. Please see dictated H and P for more information. After patient was evaluated in the emergency room, he was admitted to the hospital. His CAT scan of the head was negative for any acute intracra nial changes. Chest x-ray did not show any acute intrathoracic changes. His sodium level was 104. He was admitted to intensive care unit and Nephrology consultation was obtained. Saute Chef manage d his hyponatremia problem and finally, his serum sodium level over period of this hospitalization no rmalized and remained normal. The patient had other medical problems including acute exacerbation of COPD which was treated with IV steroid, nebulizer treatment, and empiric antibiotics. After several days' stay in ICU, once his medical condition was stable, he was transferred out of ICU to regular o. Physical Therapy was consulted and the patient started ambulating well with physical therapist. He did show some signs of alcohol withdrawal during this hospitalization with some tremors and that actually was addressed with some IV Ativan. Overall now, his condition is much better. This mornin g when I saw him, he was feeling much better. No evidence of any alcohol withdrawal noted and the colleen mack is ambulating well without any assistance. He is not requiring any oxygen either. I recommend ed for patient to go to [facility] [place] [facility], and he agreed, and today he was discharged to go to this facility and the patient was advised not to drink any alcohol. BELLE/MODL Voice ID: [id number] Report ID: [id number]
== END 2021-12-11 08:01 | disposition home or self-care (01) | DRG 643 ==
LOC: ER 08:51 → ERHOLD 13:14 → 3RD-ICU 14:41 → 2ND 12-05 05:12
PROVIDERS: ADMIT Internal Medicine; ATTEND Internal Medicine
PROC: 5A09457 Assistance with Respiratory Ventilation, 24-96 Consecutive Hours, Continuous Positive Airway Pressure (ICD-10-PCS; principal; 2021-11-29)
PROC: 02HV33Z Insertion of Infusion Device into Superior Vena Cava, Percutaneous Approach (ICD-10-PCS; 2021-11-29)
DX: E22.2 Syndrome of inappropriate secretion of antidiuretic hormone (principal); G93.41 Metabolic encephalopathy; J96.01 Acute respiratory failure with hypoxia; N17.0 Acute kidney failure with tubular necrosis; E44.0 Moderate protein-calorie malnutrition; M62.82 Rhabdomyolysis; J44.1 Chronic obstructive pulmonary disease with (acute) exacerbation; I24.8 Other forms of acute ischemic heart disease; F10.239 Alcohol dependence with withdrawal, unspecified; I50.32 Chronic diastolic (congestive) heart failure; I11.0 Hypertensive heart disease with heart failure; E78.5 Hyperlipidemia, unspecified; E86.0 Dehydration; E83.39 Other disorders of phosphorus metabolism; E87.6 Hypokalemia; E83.42 Hypomagnesemia; I48.0 Paroxysmal atrial fibrillation; F32.A Depression, unspecified; D64.9 Anemia, unspecified; I65.23 Occlusion and stenosis of bilateral carotid arteries; I25.10 Atherosclerotic heart disease of native coronary artery without angina pectoris; F10.229 Alcohol dependence with intoxication, unspecified; R73.01 Impaired fasting glucose; R77.8 Other specified abnormalities of plasma proteins; Z95.1 Presence of aortocoronary bypass graft; Z68.29 Body mass index [BMI] 29.0-29.9, adult; Z79.01 Long term (current) use of anticoagulants; Z90.49 Acquired absence of other specified parts of digestive tract; Z79.52 Long term (current) use of systemic steroids; Z96.653 Presence of artificial knee joint, bilateral; Z91.040 Latex allergy status; Z87.891 Personal history of nicotine dependence; Z91.048 Other nonmedicinal substance allergy status; Z79.899 Other long term (current) drug therapy; Z20.822 Contact with and (suspected) exposure to COVID-19; W18.30XA Fall on same level, unspecified, initial encounter; Y93.9 Activity, unspecified; Y92.9 Unspecified place or not applicable; Y92.091 Bathroom in other non-institutional residence as the place of occurrence of the external cause
CPT/HCPCS: 36415; 36569; 70450; 71045; 71250; 74176; 76770; 80048; 80053; 80069; 80076; 80307; 80320; 81001; 81003; 82140; 82533; 82550; 82553; 82570; 82805; 82947; 83520; 83605; 83735; 83874; 83880; 83930; 83935; 84100; 84132; 84156; 84165; 84300; 84443; 84484; 84550; 85025; 85610; 86334; 87040; 87086; 87088; 87811; 93005; 94640; 94660; 96374; 96375; 97116; 97161; 97165; 97530; 99285; J0282; J1160; J1650; J1940; J2543; J2597; J2930; J3411; J3475; J3480; J3486; J7060; J7121; J7131; J7512; J7613; J7614; J7644

== ENCOUNTER 2021-12-22 13:12 | Inpatient (IN) | payer OTHER ==
[2021-12-22] MEDS ORDERED: NA CHLORIDE 0.9% 1,000 ML ONE (13:27)
[2021-12-22 13:43] LABS: Hematocrit 16.4 % (39.6-49.0); Lymphocytes % 10.5 % (15.3-44.8); MCV 92.1 fL (80-100); MPV 7.5 fL (7.6-11.3); RBC Red Blood Cell Count 1.78 M/uL (4.33-5.43)
[2021-12-22 14:00] LABS: SARS-CoV-2 Antigen Rapid Res Negative (Negative)
[2021-12-22 14:03] LABS: Albumin 2.1 g/dL (3.4-5.0); Bilirubin Total 0.4 mg/dL (0.2-1.0); Potassium 3.1 mmol/L (3.5-5.1); Protein, Total 4.3 g/dL (6.4-8.2)
[2021-12-22] MEDS ORDERED: PANTOPRAZOLE 40 MG INJ ONE (14:05)
[2021-12-22] MEDS ORDERED: NA CHLORIDE 0.9% 500 ML ONE (14:27)
--- NOTE | 2021-12-22 14:42 | RAD REPORT ---
EXAM DESCRIPTION: CTAbdomen Pelvis W Contrast - 12/22/2021 2:36 pm CLINICAL HISTORY: Abdominal pain. abd pain, diarrhea, possible GI bleed COMPARISON: No comparisons TECHNIQUE: Biphasic CT imaging of the abdomen and pelvis was performed with 100 ml non-ionic IV cont rast. All CT scans are performed using dose optimization technique as appropriate and may include automated exposure control or mA/KV adjustment according to patient size. FINDINGS: The lung bases are clear.Cholecystectomy clips. The liver, spleen, pancreas, adrenal glands and kidneys are within normal limits. Numerous small rosalina gn renal cysts. Punctate left renal calculus. Aortoiliac atherosclerosis is present. No bowel obstruction, free air, free fluid or abscess. Nonvisualized appendix. No evidence of signi ficant lymphadenopathy. Moderate lumbar degenerative changes. IMPRESSION: No acute intra-abdominal or pelvic finding.
[2021-12-22] MEDS ORDERED: PANTOPRAZOLE INJ 80 MG in NA CHLORIDE 0.9% 250 ML IV SCH (15:00)
[2021-12-22] MEDS ORDERED: HYDROCORTISONE SUC 100 MG INJ ONE (15:11)
[2021-12-22] MEDS ORDERED: NA CHLORIDE 0.9% 50 ML IV ONE (15:11)
[2021-12-22] MEDS ORDERED: CEFTRIAXONE 1000 MG/VIAL ONE (15:11)
--- NOTE | 2021-12-22 15:18 | EDPHYS ---
Physician Documentation [facility] Name: Jesus Morales Age: 71 yrs Sex: Male : 1950 Arrival Date: 12/22/2021 Time: 13:13 Bed 3 Private MD: ED Physician Molina Torrez HPI: 12/22 13:43 This 71 yrs old Male presents to ER via EMS with complaints of Weakness, diarrhea. rn 13:43 The patient presents to the emergency department with weakness of the. rn 13:44 The patient presents with abdominal pain diarrhea, dark stool. Onset: The rn symptoms/episode began/occurred 2 week(s) ago. The symptoms do not radiate. Associated signs and symptoms: Pertinent positives: diarrhea, Pertinent negatives: fever, shortness of breath. The symptoms are described as crampy. Modifying factors: The symptoms are alleviated by nothing, the symptoms are aggravated by nothing. Severity of pain: At its worst the pain was moderate in the emergency department the pain is unchanged. The patient has not experienced similar symptoms in the past. The patient has not recently seen a physician. Pt reports 2 weeks of diarrhea, no fever or chills, on abx, over last 2 days stool became dark. Not taking any diarrhea medication. EMS reports low blood pressure. No syncope. No chest pain/sob. Given 1L of fluids by EMS.. Historical: - Allergies: 13:22 Latex, Natural Rubber; tw2 13:22 Adhesives; tw2 - Home Meds: 13:22 triazolam 0.25 mg Oral tab 1 tab once daily [Active]; prednisone 10 mg Oral tab once tw2 daily [Active]; amlodipine 5 mg tab twice a day [Active]; duloxetine 60 mg Oral CDRS 1 cap once daily [Active]; metoprolol succinate 50 mg Oral Tb24 [Active]; furosemide 20 mg Oral tab 1 tab once daily [Active]; Trelegy Ellipta 200-62.5-25 mcg inhalation dsdv 1 puff once daily [Active]; Atrovent Inhl as needed [Active]; atorvastatin 40 mg Oral tab 1 tab once daily [Active]; - PMHx: 13:22 Atrial fibrillation; tw2 - PSHx: 13:22 Coronary artery bypass graft; tw2 - Immunization history:: Adult Immunizations Adult Immunizations. - Social history:: Smoking status: . - Family history:: not pertinent. - Hospitalizations: : No recent hospitalization is reported. ROS: 13:44 Constitutional: Negative for fever, chills, and weight loss, Eyes: Negative for injury, rn pain, redness, and discharge, Neck: Negative for injury, pain, and swelling, Cardiovascular: Negative for chest pain, palpitations, and edema, Respiratory: Negative for shortness of breath, cough, wheezing, and pleuritic chest pain, Abdomen/GI: Negative for nausea, vomiting, and constipation, Back: Negative for injury and pain, MS/Extremity: Negative for injury and deformity, Skin: Negative for injury, rash, and discoloration, Neuro: Negative for headache, numbness, tingling, and seizure. Exam: 13:44 Constitutional: This is a well developed, well nourished patient who is awake, alert, rn and in no acute distress. Head/Face: Normocephalic, atraumatic. Eyes: Pale conjunctivae ENT: dry MM Cardiovascular: Regular rate and rhythm. No pulse deficits. Respiratory: No increased work of breathing, no retractions or nasal flaring. Abdomen/GI: soft, no focal tenderness, no rebound Skin: Warm, dry MS/ Extremity: Pulses equal, no cyanosis. Neuro: Awake and alert, GCS 15, oriented to person, place, time, and situation. 16:13 ECG was reviewed by the Attending Physician. rn Vital Signs: 13:14 BP 86 / 19; Pulse 81; Resp 20; Temp 98.4(TE); Weight 80.74 kg (R); tw2 13:26 BP 103 / 46; Pulse 89; Resp 18; Pulse Ox 95% on R/A; ph 15:46 BP 100 / 55; Pulse 81; Resp 20; Temp 96.3; Pulse Ox 100% on R/A; ph 16:15 BP 107 / 40; Pulse 81; Resp 18; Temp 96.5; Pulse Ox 99% on R/A; ph 19:00 BP 119 / 71; Pulse 86; Resp 20; Pulse Ox 100% on R/A; pf1 20:00 BP 119 / 71; Pulse 86; Resp 20; Temp 98.5; Pulse Ox 100% on R/A; pf1 21:45 BP 116 / 94; Pulse 101; Resp 22; Temp 98.2(O); Pulse Ox 100% on 2 lpm NC; pf1 13:14 provider aware tw2 MDM: 13:18 Patient medically screened. rn 15:15 Differential diagnosis: diverticulitis, gastritis, GI Bleed, non-specific abd pain, rn pancreatitis, Peptic Ulcer Disease, Perf. Duodenal Ulcer, Perf. Gastric Ulcer. Data reviewed: vital signs, nurses notes, lab test result(s), radiologic studies, CT scan, and as a result, I will admit patient. Counseling: I had a detailed discussion with the patient and/or guardian regarding: the historical points, exam findings, and any diagnostic results supporting the discharge/admit diagnosis, lab results, radiology results, the need for further work-up and treatment in the hospital. Response to treatment: the patient's symptoms have mildly improved after treatment, and as a result, I will admit patient. Admission orders: after a detailed discussion of the patient's condition and case, the admit orders are written by me. ED course: Called Dr. Hernandez, in a procedure, gave consult/information to his HOSPITAL TRAY SERVICE WORKER at the clinic, will pass on information and have him call me. . 16:22 ED course: Elevated lactate and hypotension secondary to GI bleeding, not infection [employer] sepsis.. 16:53 ED course: Spoke with Dr. Hernandez, will see patient and schedule for endoscopy. . rn 12/22 13:19 Order name: CBC with Diff; Complete Time: 14:05 rn 12/22 13:19 Order name: CMP; Complete Time: 14:05 rn 12/22 13:19 Order name: Lipase; Complete Time: 14:05 rn 12/22 13:19 Order name: Blood Culture Adult (2) rn 12/22 13:19 Order name: Lactate; Complete Time: 14:36 rn 12/22 13:19 Order name: Protime (+inr); Complete Time: 15:50 rn 12/22 13:19 Order name: Ptt, Activated; Complete Time: 15:50 rn 12/22 13:20 Order name: Stool Culture rn 12/22 13:23 Order name: Type And Screen tw2 12/22 13:24 Order name: SARS RAPID; Complete Time: 14:05 ph 12/22 13:40 Order name: Glucose, Ancillary Testing; Complete Time: 14:05 EDMS 12/22 13:53 Order name: Bb Add On bd 12/22 14:13 Order name: Packed RBC Leukored EDMS 12/22 14:22 Order name: ABO/RH no charge; Complete Time: 14:36 EDMS 12/22 13:19 Order name: CT Abd/Pelvis - IV Contrast Only; Complete Time: 15:01 rn 12/22 13:19 Order name: IV Saline Lock; Complete Time: 13:26 rn 12/22 13:19 Order name: Labs collected and sent; Complete Time: 13:59 rn 12/22 13:19 Order name: Accucheck; Complete Time: 13:34 rn 12/22 13:19 Order name: Cardiac monitoring; Complete Time: 13:26 rn 12/22 13:19 Order name: EKG - Nurse/Tech; Complete Time: 13:23 rn 12/22 13:19 Order name: IV Saline Lock - Large Bore; Complete Time: 13:59 rn 12/22 13:19 Order name: O2 Per Protocol; Complete Time: 13:26 rn 12/22 13:19 Order name: O2 Sat Monitoring; Complete Time: 13:26 rn 12/22 13:19 Order name: Vital Signs; Complete Time: 13:26 rn EC:13 Rate is 87 beats/min. Rhythm is irregularly irregular. QRS [place] is Normal. QRS interval rn is prolonged at 146 msec. QT interval is normal. No Q waves. T waves are Normal. No ST changes noted. Clinical impression: Atrial Fibrillation. Interpreted by me. Reviewed by me. Administered Medications: 13:35 Drug: NS 0.9% 1000 ml Route: IV; Rate: 1000 ml; Site: left antecubital; ph 15:44 Follow up: Response: No adverse reaction; IV Status: Completed infusion; IV Intake: ph 1000ml 14:15 Drug: ProTONIX (pantoprazole) 40 mg Route: IVP; Site: right antecubital; ph 15:43 Follow up: Response: No adverse reaction ph 15:10 Drug: HydroCORTISONE 100 mg Route: IVP; Site: right antecubital; ph 15:44 Follow up: Response: No adverse reaction ph 15:10 Drug: Rocephin (cefTRIAXone) 1 grams Route: IV; Rate: calculated rate; Site: left ph antecubital; 15:43 Follow up: Response: No adverse reaction; IV Status: Completed infusion ph 15:20 Drug: ProTONIX (pantoprazole) 8 mg/hr Route: IV; Rate: 25 ml/hr; Site: right ph antecubital; 15:43 Follow up: Response: No adverse reaction; IV Status: Infusion continued upon admission ph Disposition Summary: 12/22/21 15:17 Hospitalization Ordered Hospitalization Status: Inpatient Admission rn Provider: Torri López rn Location: Telemetry/[facility] (Inpatient) rn Condition: Stable rn Problem: new rn Symptoms: have improved rn Bed/Room Type: Standard rn Room Assignment: 219(12/22/21 20:45) cg Diagnosis - GI Bleed/ Gastrointestinal hemorrhage, unspecified rn - Anemia, unspecified rn - Hypotension, unspecified rn Forms: - Medication Reconciliation Form rn - SBAR form compliance attorney time excluding procedures: 15:15 Critical care time: Bedside Care: 30 minutes, Consultation: 5 minutes. Total time: 35 rn minutes Signatures: Dispatcher [employer] Molina Flores MD MD rn Hall, Patricia RN RN Chitra Bright RN RN Nida Hyatt RN RN tw2 Corrections: (The following items were deleted from the chart) 20:45 15:17 rn cg
--- NOTE | 2021-12-22 15:18 | ER ---
Nurse's Notes [facility] [place] Name: Jesus Morales Age: 71 yrs Sex: Male : 1950 Arrival Date: 12/22/2021 Time: 13:13 Bed 3 Private MD: Diagnosis: GI Bleed/ Gastrointestinal hemorrhage, unspecified;Anemia, unspecified;Hypotension, unspecified Presentation: 12/22 13:18 Chief complaint: EMS states: pt having black tarry stools for past 2 weeks. called us tw2 stating he thought his afib was acting up. initial BP was 60/30. pt was stating he was weak. denies sob. denies chest pain. after 1 L NS bp 86/40. Coronavirus screen: At this time, the client does not indicate any symptoms associated with coronavirus-19. Ebola Screen: Patient denies travel to an Ebola-affected area in the 21 days before illness onset. Initial Sepsis Screen: Does the patient meet any 2 criteria? Mean Arterial Pressure (MAP) < 65. No. Patient's initial sepsis screen is negative. Does the patient have a suspected source of infection? No. Patient's initial sepsis screen is negative. Risk Assessment: Do you want to hurt yourself or someone else? Patient reports no desire to harm self or others. Note provider at bedside. Onset of symptoms was December 22, 2021. 13:18 Method Of Arrival: EMS: [facility] tw2 13:18 Acuity: [facility] 2 tw2 Historical: - Allergies: 13:22 Latex, Natural Rubber; tw2 13:22 Adhesives; tw2 - Home Meds: 13:22 triazolam 0.25 mg Oral tab 1 tab once daily [Active]; prednisone 10 mg Oral tab once tw2 daily [Active]; amlodipine 5 mg tab twice a day [Active]; duloxetine 60 mg Oral CDRS 1 cap once daily [Active]; metoprolol succinate 50 mg Oral Tb24 [Active]; furosemide 20 mg Oral tab 1 tab once daily [Active]; Trelegy Ellipta 200-62.5-25 mcg inhalation dsdv 1 puff once daily [Active]; Atrovent Inhl as needed [Active]; atorvastatin 40 mg Oral tab 1 tab once daily [Active]; - PMHx: 13:22 Atrial fibrillation; tw2 - PSHx: 13:22 Coronary artery bypass graft; tw2 - Immunization history:: Adult Immunizations Adult Immunizations. - Social history:: Smoking status: . - Family history:: not pertinent. - Hospitalizations: : No recent hospitalization is reported. Screenin:30 Abuse screen: Denies threats or abuse. Denies injuries from another. Nutritional ph screening: No deficits noted. Tuberculosis screening: No symptoms or risk factors identified. Fall Risk None identified. Assessment: 13:27 General: Appears in no apparent distress. Behavior is calm, cooperative, appropriate ph for age. Pain: Denies pain. Neuro: Level of Consciousness is awake, alert, obeys commands, Oriented to person, place, time, situation. Cardiovascular: Capillary refill is sluggish in bilateral fingers Rhythm is irregular. Respiratory: Airway is patent Respiratory effort is even, unlabored. GI: Abdomen is non-distended, Reports bloody stool, nausea, vomiting, x 1 week Patient currently denies abdominal pain. Derm: Skin is pale, Skin temperature is cool. Musculoskeletal: Circulation, motion, and sensation intact. Range of motion: intact in all extremities. 14:30 Reassessment: Patient appears in no apparent distress at this time. Patient and/or ph family updated on plan of care and expected duration. Pain level reassessed. Patient is alert, oriented x 3, equal unlabored respirations, skin warm/dry/pink. 15:44 Reassessment: Patient appears in no apparent distress at this time. Patient and/or ph family updated on plan of care and expected duration. Pain level reassessed. Patient is alert, oriented x 3, equal unlabored respirations, skin warm/dry/pink. Pt resting comfortably, 1st unit of PRBCs infusing. 20:00 General: Blood transfusion completed. Patient denies any signs or symptoms of reaction. pf1 See paper charting for blood transfusion vitals and monitoring. . 21:30 GI: Stools are reported to be Patient stated had a bowel movement. Upon changing pf1 patient, stool color was dark red, black stool with a small stool output. . 21:45 GI: Stools are reported to be Patient stated had another bowel movement. Cleaned pf1 patient. Patient stool color was dark red, black stool. . 22:28 GI: Stools are reported to be Patient had another bowel movement with dark red/black pf1 stool.. Vital Signs: 13:14 BP 86 / 19; Pulse 81; Resp 20; Temp 98.4(TE); Weight 80.74 kg (R); tw2 13:26 BP 103 / 46; Pulse 89; Resp 18; Pulse Ox 95% on R/A; ph 15:46 BP 100 / 55; Pulse 81; Resp 20; Temp 96.3; Pulse Ox 100% on R/A; ph 16:15 BP 107 / 40; Pulse 81; Resp 18; Temp 96.5; Pulse Ox 99% on R/A; ph 19:00 BP 119 / 71; Pulse 86; Resp 20; Pulse Ox 100% on R/A; pf1 20:00 BP 119 / 71; Pulse 86; Resp 20; Temp 98.5; Pulse Ox 100% on R/A; pf1 21:45 BP 116 / 94; Pulse 101; Resp 22; Temp 98.2(O); Pulse Ox 100% on 2 lpm NC; pf1 13:14 provider aware tw2 Vitals: 15:46 Cardiac Rhythm Assessment Atrial fibrillation. ph ED Course: 13:13 Patient arrived in ED. tw2 13:14 Arm band placed on. tw2 13:18 Molina Torrez MD is Attending Physician. rn 13:22 Triage completed. tw2 13:22 Nida Hyatt, KENNEDY is Primary Nurse. tw2 13:29 Initial lab(s) drawn, by ED staff, sent to lab. EKG done, by ED staff, reviewed by toño Torrez MD COVID swab sent to lab. Maintain EMS IV. Dressing intact. Good blood return noted. Site clean \T\ dry. Gauge \T\ site: 20 LAC. IV is patent, with fluids infusing freely, with good blood return. 13:30 Patient has correct armband on for positive identification. Placed in gown. Bed in low ph position. Call light in reach. Side rails up X2. Client placed on continuous cardiac and pulse oximetry monitoring. NIBP monitoring applied. Door closed. Noise minimized. Warm blanket given. 13:52 Inserted saline lock: 22 gauge in right antecubital area, using aseptic technique. ss Blood collected. 14:37 CT Abd/Pelvis - IV Contrast Only In Process Unspecified. EDMS 15:15 Ptt, Activated Sent. tw2 15:16 Torri López MD is Hospitalizing Provider. rn 19:00 No provider procedures requiring assistance completed. pf1 21:30 Cleaned of incontinence. pf1 22:20 Report given to Patient report given to KENNEDY Velasquez. pf1 22:36 Patient admitted, IV remains in place. pf1 Administered Medications: 13:35 Drug: NS 0.9% 1000 ml Route: IV; Rate: 1000 ml; Site: left antecubital; ph 15:44 Follow up: Response: No adverse reaction; IV Status: Completed infusion; IV Intake: ph 1000ml 14:15 Drug: ProTONIX (pantoprazole) 40 mg Route: IVP; Site: right antecubital; ph 15:43 Follow up: Response: No adverse reaction ph 15:10 Drug: HydroCORTISONE 100 mg Route: IVP; Site: right antecubital; ph 15:44 Follow up: Response: No adverse reaction ph 15:10 Drug: Rocephin (cefTRIAXone) 1 grams Route: IV; Rate: calculated rate; Site: left ph antecubital; 15:43 Follow up: Response: No adverse reaction; IV Status: Completed infusion ph 15:20 Drug: ProTONIX (pantoprazole) 8 mg/hr Route: IV; Rate: 25 ml/hr; Site: right ph antecubital; 15:43 Follow up: Response: No adverse reaction; IV Status: Infusion continued upon admission ph Medication: 13:30 VIS not applicable for this client. ph Intake: 15:44 IV: 1000ml; Total: 1000ml. ph Outcome: 15:17 Decision to Hospitalize by Provider. rn 22:20 Admitted to Med/surg accompanied by tech, via stretcher, Report called to KENNEDY Velasquez pf1 22:35 Condition: stable pf1 22:40 Patient left the ED. pf1 Signatures: Dispatcher [employer] EDMS Molina Torrez MD MD rn Smirch, Shelby, RN RN Krysat Mabry RN RN ph Nida Hyatt RN RN 2 Juanita medina RN RN pf1
[2021-12-22 15:38] LABS: Protime INR 2.39
[2021-12-22] MEDS ORDERED: ONDANSETRON 4 MG/2 ML VIAL IV PRN (19:34)
[2021-12-22] MEDS: PANTOPRAZOLE INJ 80 MG in NA CHLORIDE 0.9% 250 ML IV SCH (19:34)
[2021-12-22] MEDS: D5.45NS W/KCL 20MEQ 1,000 ML IV SCH (23:24)
[2021-12-22] MEDS ORDERED: D5.45NS W/KCL 20MEQ 1,000 ML IV ONE (23:24)
[2021-12-23] MEDS ORDERED: NA CHLORIDE 0.9% 250 ML ONE (01:00)
[2021-12-23] MEDS: PANTOPRAZOLE INJ 80 MG in NA CHLORIDE 0.9% 250 ML IV SCH ×4 (02:25→22:30)
[2021-12-23 02:39] VITALS: BMI 28.0
[2021-12-23] MEDS: D5.45NS W/KCL 20MEQ 1,000 ML IV SCH ×2 (05:34→16:30)
[2021-12-23] MEDS: CEFTRIAXONE 1,000 MG in NA CHLORIDE 0.9% 50 ML IVPB SCH ×3 (07:00→21:25)
--- NOTE | 2021-12-23 07:00 | HP ---
Date of Admission: 12/22/2021 Chief Complaint: Black stool and feeling weak. History Of Present Illness: This is a 71-year-old male patient, came into emergency room with 2 to 3 days history of black colored stool, some diarrhea, and feeling weak today. When EMS arrived at his house and brought him to the hospital, his lowest blood pressure was systolic blood pressure of 70 m mHg. He was given IV fluid, was brought into the ER, and initial blood pressure in the emergency ara m was 86/19. The patient was evaluated in the ER, admitted to the hospital with an acute upper GI bl eed and acute blood loss anemia problem. After his arrival to ER, he has received IV fluid, blood tr ansfusion, IV Protonix, and by the time I saw him this evening, he was feeling much better. GI consu ltation has been requested from Dr. Hernandez and I have discussed details with him as well. Allergies: NO KNOWN ALLERGIES. Medications: Amiodarone 200 mg 2 times a day, Eliquis 5 mg 2 times a day, atorvastatin 40 mg daily a t bedtime, duloxetine 60 mg daily with breakfast, Trelegy 1 puff daily, furosemide 40 mg daily, Atrov ent inhaler as needed, lisinopril 10 mg daily, metoprolol succinate 50 mg 2 times a day, prednisone 1 0 mg daily. Review of Systems: GI: As mentioned above. Constitutional: As mentioned above. All other systems reviewed and negative. Past Medical History: Significant for impaired fasting glucose; COPD; hypertension; hyperlipidemia; atrial fibrillation; carotid artery stenosis, bilateral; coronary artery disease; anemia; depression. Past Surgical History: Coronary artery bypass surgery on March 11, 2016, cholecystectomy, appendec price, left knee replacement surgery. Family History: Father had COPD. Mother had breast cancer. Brother had stroke. Sister had diabete s. Social History: Prior history of smoking and the patient has a longstanding history of heavy alcohol use. Physical Examination: Vital Signs: Initial blood pressure when he arrived to emergency room was 86/19, pulse 81, respirato ry rate 20, temperature 98.4, weight 80.74 kg. General: Awake, alert, oriented, not in distress. HEENT: Head atraumatic, normocephalic. Conjunctivae nonerythematous. Sclerae white. Mouth, no thr ush or edema noted. Ears/Nose, no mass, lesion, discharge noted. Neck: Supple. No JVD, lymph nodes, bruit, thyromegaly noted. Lungs: Bilateral good equal air entry. Clear to auscultation. No rhonchi. No rales. Heart: Normal heart sounds, no murmur or gallop. Abdomen: Soft, bowel sounds normal. No guarding, rigidity, tenderness, mass, hepatosplenomegaly, dis tention, or bruit noted. Extremities: No leg edema. No calf tenderness. Skin: No rash, ulcer, cellulitis. Lymphatics: No lymph node enlargement in neck, supraclavicular, infraclavicular region. Neuro: No focal neurological deficit. Chest: Unremarkable. External Genitalia: Deferred. Rectal: Deferred. Laboratory Data: White count 9.8, hemoglobin 5.5, platelets 362. Sodium 140, potassium 3.1, chlorid e 104, bicarb 28, BUN 60, creatinine 1.45, glucose 134. Lactic acid 2.4. Liver function tests unrem arkable. Lipase 102. CAT scan of abdomen and pelvis was negative for any acute changes. Impression: 1.Acute blood loss anemia. 2.Upper gastrointestinal bleeding. 3.Chronic atrial fibrillation. 4.Coronary artery disease. 5.Hypertension. 6.Hyperlipidemia. 7.Chronic obstructive pulmonary disease. 8.Impaired fasting glucose. 9.Carotid artery stenosis, bilateral. 10.Depression. Plan: We will admit the patient to the hospital for further evaluation and management of this proble m. The patient is appropriate for inpatient and is expected to spend 2 midnights in hospital. Blood transfusion will be given per order. We will follow up on hemoglobin after blood transfusion is com pleted. The patient has received IV Protonix. We will continue that. We will monitor hemoglobin cl osely, and if necessary, further blood transfusion will be given depending on the hemoglobin result. SCD will be ordered for DVT prophylaxis. The patient was informed that he will not be able to take any anticoagulation therapy because of his GI bleeding problem, and on an elective outpatient basis, he should follow up with meat puller to have a discussion regarding Watchman procedure for atrial fi brillation problem. Details were discussed with silk trimmer. The patient will have EGD tomor row. For hypertension, we will monitor blood pressure, and if and when necessary, we will initiate a ntihypertensive therapy, but at this point, he does not need any such therapy. For hyperlipidemia, joya march will hold his statin therapy. When ER physician contacted me, he was requested to give 1 dose of I V steroid because the patient is on chronic maintenance oral steroid therapy at home. We will contin ue IV steroid tomorrow. We will continue nebulizer treatment per order. Details and plan of treatme nt discussed with him. I will see him tomorrow morning for followup. BELLE/MODL Voice ID: [id number]
[2021-12-23] MEDS: METOPROLOL TAR 25 MG TAB PO SCH ×2 (08:12→21:24)
[2021-12-23] MEDS: AMIODARONE HCL 200 MG TAB PO SCH ×2 (08:12→21:25)
[2021-12-23] MEDS: METHYLPREDNISOLONE 40 MG INJ IV SCH ×2 (08:13→21:24)
--- NOTE | 2021-12-23 08:23 | EKG ---
Test Date: 2021-12-22 Test Time: 13:17:22 Lens Inserter: MEASUREMENT RESULTS: Intervals: Rate: 87 [place]: QRSD: 146 QT: 310 QTc: 373 [place]: P: 59 [place]: QRS: 83 T: 256 INTERPRETIVE STATEMENTS: Undetermined rhythm Right bundle branch block Abnormal ECG Compared to ECG 11/29/2021 15:50:33 Right bundle-branch block now present Atrial fibrillation no longer present Ventricular premature complex(es) no longer present ST (T wave) deviation no longer present Possible ischemia no longer present Electronically Signed On 12-23-21 08:19:59 TOUR SALES REPRESENTATIVE by Don Salas
[2021-12-23 10:59] LABS: Absolute Lymphocytes (CBC) 0.5 K/uL (0.7-4.9); Hematocrit 24.1 % (39.6-49.0); Lymphocytes % 3.4 % (15.3-44.8); MCV 87.6 fL (80-100); MPV 7.7 fL (7.6-11.3); RBC Red Blood Cell Count 2.76 M/uL (4.33-5.43)
[2021-12-23 11:09] LABS: Potassium 3.4 mmol/L (3.5-5.1)
[2021-12-23] MEDS ORDERED: NA CHLORIDE 0.9% 1,000 ML ONE (11:30)
[2021-12-23] MEDS ORDERED: propofoL 200 MG/20 ML VIAL IV ONE ×2 (11:56→12:12)
[2021-12-23] MEDS ORDERED: LIDOCAINE 1% MPF 5 ML VIAL ONE (11:56)
[2021-12-23] MEDS ORDERED: Phenylephrine HCl 10 MG/ML 1 ML VIAL ONE (12:12)
[2021-12-23] MEDS ORDERED: NS 0.9% VIAL 10 ML ONE (12:12)
[2021-12-23] MEDS ORDERED: EPINEPHRINE 1 MG/ML VIAL SQ ONE (12:16)
[2021-12-23] MEDS ORDERED: EPINEPHRINE/PF 1 MG/ML AMP ONE (12:44)
[2021-12-23 12:59] LABS: Anisocytosis 1+; Blood Morphology Comment NOTED (NOT SEEN); Platelet Estimate ADEQ; White Blood Cell Scan OK (OK)
[2021-12-23 13:00] LABS: Polychromasia 2+
--- NOTE | 2021-12-23 19:36 | OP ---
Surgeon: Josué Hernandez MD Procedure: Esophagogastroduodenoscopy. Indication For Procedure: Upper GI bleed. Plan For Anesthesia: Monitored anesthesia care. Complexity: Average. Technique: After obtaining informed consent from the patient, explaining risks and complications whi ch include, but are not limited to bleeding, infection, perforation, and anesthesia complication. Th e patient was placed in left lateral position. Sedation was given. From then on, the scope was adva nced into the mouth and carefully guided up till the second portion of the duodenum. After completio n of examination, all therapeutic maneuvers, scope and equipment were withdrawn and the procedure ter minated in a safe manner. Findings: Esophagus: No gross lesion seen in the upper and mid esophagus. In the distal esophagus, a small hiatal hernia was seen. Stomach: Multiple cratered, but clean base ulcers were seen in the antrum. None of them were bleedi ng at this time. Duodenum: In the duodenal bulb, the mucosa was quite nodular. Ideally, we would like to take biopsi es, but because of the current situation, the biopsies were deferred till the followup. There was a large clot seen, which got dislodged by just gentle movement of the scope as I was trying to negotiat e into the second part. Below the clot, there was active bleeding that was visualized. This appeare d to be at the base of a nodule in the bulb, which showed ulceration. 3 cc of epi was first injected . Subsequently, gold probe was used for cauterization, which stopped the bleeding. Then, we proceed ed to place 2 hemostatic clips to decrease chance of recurrence. Complications: None. Tolerance To Anesthesia: Excellent. Postoperative Diagnoses: Multiple gastric ulcers, duodenal bulb ulcer with bleeding with duodenal no dule. Plan: Continue current management. Hold anticoagulation for now. Continue IV PPI. N.p.o. for toda y. Can start clear liquid diet from tomorrow. We will need repeat endoscopy in around 4 weeks' time for biopsies of the duodenal bulb and stomach. If once discharged, the patient needs to be on b.i.d . PPI. US/MODL Voice ID: [id number] Report ID: [id number]
[2021-12-23] MEDS ORDERED: ACETAMINOPHEN 500 MG TAB PO PRN (21:21)
[2021-12-23] MEDS: ATORVASTATIN 40 MG TAB PO SCH (21:25)
--- NOTE | 2021-12-24 00:39 | PN ---
Date of Progress Note: 12/23/2021 Subjective: Patient was seen this morning for followup. No new complaints or problems reported by julita church. Objective: General: Lying in bed, not in distress. Vital Signs: Reviewed. HEENT: Unremarkable. Lungs: Clear to auscultation. Heart: Sounds normal. Abdomen: Soft. Bowel sounds normal. No guarding, rigidity, tenderness, or distention. Extremities: No leg edema. Laboratory Data: Reviewed. Impression: 1.Acute upper gastrointestinal bleeding. 2.Acute blood loss anemia. 3.Chronic obstructive pulmonary disease. 4.Chronic steroid therapy. 5.Atrial fibrillation. Plan: The patient had an EGD done today by Dr. Hernandez and he did call and inform me regarding the EGD findings. Patient has gastric ulcers and duodenal ulcers and likely source of upper GI bleeding and acute blood loss anemia is duodenal ulcers. Dr. Hernandez has recommended the patient to start cl ear liquid diet today and advance diet tomorrow as tolerated. We will repeat blood work tomorrow and from GI point of view, Dr. Hernandez has released him to go home as early as tomorrow and I will see if he is medically stable for discharge tomorrow or not. Dr. Hernandez is planning to do repeat EGD i n 2 weeks on outpatient basis and he will have his office contact patient with this appointment. Use of anticoagulation therapy is contraindicated at this point, but Dr. Hernandez has given me his okay to start using aspirin as of next week with 81 mg aspirin daily. I will see him tomorrow morning for followup. BELLE/MODL Voice ID: [id number] Report ID: [id number]
[2021-12-24] MEDS: PANTOPRAZOLE INJ 80 MG in NA CHLORIDE 0.9% 250 ML IV SCH ×3 (01:02→18:30)
[2021-12-24] MEDS: D5.45NS W/KCL 20MEQ 1,000 ML IV SCH ×2 (01:34→03:20)
[2021-12-24 07:21] LABS: Potassium 3.8 mmol/L (3.5-5.1)
[2021-12-24] MEDS ORDERED: CEFTRIAXONE 1000 MG/VIAL ONE (07:58)
[2021-12-24] MEDS: CEFTRIAXONE 1,000 MG in NA CHLORIDE 0.9% 50 ML IVPB SCH ×2 (08:29→21:24)
[2021-12-24] MEDS: METOPROLOL TAR 25 MG TAB PO SCH ×2 (08:30→21:23)
[2021-12-24] MEDS: AMIODARONE HCL 200 MG TAB PO SCH ×2 (08:30→21:23)
[2021-12-24] MEDS: DULOXETINE 30 MG CAP PO SCH (08:30)
[2021-12-24] MEDS: predniSONE 10 MG TAB PO SCH (08:36)
[2021-12-24 11:39] LABS: Magnesium 2.2 mg/dL (1.8-2.4)
[2021-12-24 15:59] LABS: Hematocrit 18.5 % (39.6-49.0); Lymphocytes % 6.9 % (15.3-44.8); MCV 88.8 fL (80-100); MPV 7.6 fL (7.6-11.3); RBC Red Blood Cell Count 2.09 M/uL (4.33-5.43)
[2021-12-24] MEDS ORDERED: FUROSEMIDE 20 MG/ 2ML VIAL IV ONE (17:00)
[2021-12-24] MEDS: ATORVASTATIN 40 MG TAB PO SCH (21:23)
[2021-12-24] MEDS ORDERED: NA CHLORIDE 0.9% 250 ML ONE (22:50)
[2021-12-25] MEDS: PANTOPRAZOLE INJ 80 MG in NA CHLORIDE 0.9% 250 ML IV SCH ×5 (00:10→21:06)
--- NOTE | 2021-12-25 01:15 | PN ---
Date of Progress Note: 12/24/2021 Subjective: Patient was seen this morning for followup. No new complaints or problems reported by h im. Lying in bed, not in any distress. Denies any abdominal pain, nausea, or vomiting. Objective: Vital Signs: Reviewed. HEENT: Unremarkable. Lungs: Clear to auscultation. Heart: Sounds normal. Abdomen: Soft. Bowel sounds normal. No guarding, rigidity, tenderness, or distention. Extremities: No leg edema. Laboratory Data: The patient's hemoglobin came back today low again, it is 6.2. Impression: 1.Acute upper gastrointestinal bleeding. 2.Acute blood loss anemia. 3.Chronic obstructive pulmonary disease. Plan: We will go ahead and transfuse 3 units of PRBC. Get hemoglobin and hematocrit done [address] the last unit blood transfusion is completed and give 20 mg Lasix IV x1 dose after 2 units PRBC t ransfused. I did communicate with Dr. Hernandez this evening and he has suggested to me to keep the p atient on clear liquid diet and he will make decision tomorrow whether to repeat another EGD or not, depending on patient's condition. I will see patient tomorrow for followup. We will continue curren t IV Protonix. BELLE/MODL Voice ID: [id number] Report ID: [id number]
[2021-12-25] MEDS ORDERED: NA CHLORIDE 0.9% 250 ML ONE ×2 (04:45→11:03)
[2021-12-25 05:55] LABS: Potassium 3.6 mmol/L (3.5-5.1)
[2021-12-25] MEDS: predniSONE 10 MG TAB PO SCH (09:24)
[2021-12-25] MEDS: CEFTRIAXONE 1,000 MG in NA CHLORIDE 0.9% 50 ML IVPB SCH ×2 (09:24→21:07)
[2021-12-25] MEDS: METOPROLOL TAR 25 MG TAB PO SCH (09:25)
[2021-12-25] MEDS: DULOXETINE 30 MG CAP PO SCH (09:25)
[2021-12-25] MEDS: AMIODARONE HCL 200 MG TAB PO SCH ×2 (09:25→21:06)
[2021-12-25] MEDS ORDERED: Ringers Lactate 1,000 ML IV ONE (15:04)
[2021-12-25] MEDS ORDERED: LIDOCAINE 1% MPF 2 ML AMPULE ONE (15:23)
[2021-12-25] MEDS ORDERED: propofoL 200 MG/20 ML VIAL IV ONE (15:23)
[2021-12-25 16:28] VITALS: O2SAT 100
[2021-12-25 17:34] LABS: Hematocrit 29.6 % (39.6-49.0)
[2021-12-25] MEDS: ATORVASTATIN 40 MG TAB PO SCH (21:06)
--- NOTE | 2021-12-25 22:11 | PN ---
Date of Progress Note: 12/25/2021 Subjective: The patient was seen this morning for followup. He was lying in bed, not in any distress. Denies any bright red blood per rectum. No nausea. No vomiting. No abdominal pain. Objective: Vital Signs: Reviewed. HEENT: Unremarkable. Lungs: Clear to auscultation. Heart: Sounds normal. Abdomen: Soft. Bowel sounds normal. No guarding, rigidity, tenderness, or distention. Extremities: No leg edema. Laboratory Data: Sodium 139, potassium 3.6, chloride 106, bicarb 25, BUN 25, creatinine 1.06, glucose 94, magnesium 2. Hemoglobin after 3 units of packed red cell blood transfusion, was 9.6. Repeat EGD done today does not show any active bleeding. Impression: 1. Acute blood loss anemia. 2. Upper gastrointestinal bleeding. Plan: The patient had low blood pressure with systolic blood pressure anywhere between 90 to 110. I did not receive more than half of the second unit of PRBC as the night nurse was running that blood at a lot slow rate and time had run out on it, so only half of the blood was given, and then patient received 30 unit of blood. So total in reality, instead of 3 units PRBC transfusion, he received 2.5 unit PRBC transfusion. Post transfusion hemoglobin is better. Repeat EGD did not show any active bleeding and this repeat EGD was done because of drop in his hemoglobin yesterday and drop in blood pressure today. Dr. Hernandez did call and informed me about the results. He has allowed the patient to continue to stay on clear liquid diet. We will repeat blood work tomorrow. We will not discharge him to go home tomorrow, but there is possibility that he may go home over the weekend if his condition is stable. BELLE/MODL Voice ID: [id number] Report ID: [id number] MARCO A
--- NOTE | 2021-12-26 01:42 | OP ---
Surgeon: Josué Hernandez MD Procedure Performed: Esophagogastroduodenoscopy. Indication For Procedure: Suspicion of recurrent upper GI bleed. Plan For Anesthesia: Monitored anesthesia care. Complexity: Average. Technique: After obtaining informed consent from the patient and explaining risks and complications, which include but are not limited to bleeding, infection, perforation, and anesthesia complication, patient was placed in the left lateral position and sedation was given. The scope was advanced to th e mouth and carefully guided up to the end of the second portion of the duodenum. There was no evide nce of active bleeding seen. In fact, some bile was seen. After the completion of examination and a ll therapeutic maneuvers, scope was withdrawn and procedure terminated in a safe manner. Findings: Esophagus: No gross lesion seen in the entire esophagus except for a small hiatal hernia and irregular Z-line. Stomach: Mild patchy erythema seen in the body and antrum. Few superficial ulcers were visualized i n the antrum. Also seen were some red spots that did not look typical of AVMs, but due to this evette rn of recurrent bleeding, all of these areas were ablated with APC. Duodenum: In the duodenal bulb, the area of previous treatment with bleeding vessel and 2 clips was seen. No active bleeding or a clot or visible vessel were seen in this area. An area close to it di d have prominent vasculature and this was ablated with APC and a clip was also placed. In the second part of the duodenum, few small red spots were seen. These again were ablated with APC prophylactic ally. Complications: None. Tolerance To Anesthesia: Excellent. Postoperative Diagnosis: No evidence of active bleeding, status post treatment of presumed angiodysp lasias. Plan: Continue current management. Can start on clear liquid diet. We will monitor H and H. we do not have repeat hemoglobin as yet and GI will follow. If there is another recurrent episode of uppe r GI bleed, he may need surgical intervention versus transfer to a higher level of care. Estimated Blood Loss: Minimal. US/MODL Voice ID: [id number] Report ID: [id number]
[2021-12-26] MEDS: PANTOPRAZOLE INJ 80 MG in NA CHLORIDE 0.9% 250 ML IV SCH ×4 (03:00→23:00)
[2021-12-26] MEDS: CEFTRIAXONE 1,000 MG in NA CHLORIDE 0.9% 50 ML IVPB SCH ×2 (08:58→21:07)
[2021-12-26] MEDS: predniSONE 10 MG TAB PO SCH (08:59)
[2021-12-26] MEDS: DULOXETINE 30 MG CAP PO SCH (08:59)
[2021-12-26] MEDS: AMIODARONE HCL 200 MG TAB PO SCH ×2 (08:59→21:09)
[2021-12-26 09:40] LABS: Absolute Lymphocytes (CBC) 2.2 K/uL (0.7-4.9); Hematocrit 29.5 % (39.6-49.0); Lymphocytes % 22.1 % (15.3-44.8); MCV 89.7 fL (80-100); MPV 7.3 fL (7.6-11.3); RBC Red Blood Cell Count 3.29 M/uL (4.33-5.43)
[2021-12-26 10:59] LABS: Blood Morphology Comment NOT SEEN (NOT SEEN); Platelet Estimate ADEQ; White Blood Cell Scan OK (OK)
--- NOTE | 2021-12-26 16:39 | PN ---
Date of Progress Note: 12/26/2021 Subjective: The patient was seen this morning for followup. He was lying in bed, not in any distres s. Denies any abdominal pain, nausea, vomiting. He has not had any bowel movement overnight. Objective: Vital Signs: Reviewed. HEENT: Unremarkable. Lungs: Clear to auscultation. Heart: Sounds normal. Abdomen: Soft. Bowel sounds normal. No guarding, rigidity, tenderness, distention. Extremities: No leg edema. Laboratory Data: This morning's CBC is pending. Impression: 1.Acute blood loss anemia. 2.Acute upper gastrointestinal bleeding. 3.Chronic obstructive pulmonary disease. 4.Coronary artery disease. 5.Paroxysmal atrial fibrillation. Plan: We will go ahead and continue current medication. The patient is on IV Protonix drip. We dru l continue that. We will monitor his hemoglobin. We will follow up on today's blood work results. Depending on that, we will decide whether we will need to do another hemoglobin check later today or wait until tomorrow morning. The patient was encouraged to ambulate. We will leave him on clear liq uid diet right now for today and if hemoglobin remain stable, then we may advance his diet tomorrow. Possible discharge to go home over this weekend whether that will happen tomorrow or day after tomor row it all depends on his stability of his hemoglobin. Details were discussed with the patient. I will see him tomorrow for followup. BELLE/MODL Voice ID: [id number] Report ID: [id number]
[2021-12-26] MEDS: ATORVASTATIN 40 MG TAB PO SCH (21:10)
[2021-12-27 06:26] LABS: Absolute Lymphocytes (CBC) 1.5 K/uL (0.7-4.9); Hematocrit 25.8 % (39.6-49.0); Lymphocytes % 19.7 % (15.3-44.8); MCV 88.7 fL (80-100); MPV 7.2 fL (7.6-11.3); RBC Red Blood Cell Count 2.91 M/uL (4.33-5.43)
[2021-12-27 06:39] LABS: Albumin 2.2 g/dL (3.4-5.0); Bilirubin Total 0.7 mg/dL (0.2-1.0); Potassium 3.3 mmol/L (3.5-5.1); Protein, Total 4.1 g/dL (6.4-8.2)
[2021-12-27] MEDS ORDERED: CEFTRIAXONE 1000 MG/VIAL ONE (07:39)
[2021-12-27] MEDS ORDERED: NA CHLORIDE 0.9% 50 ML ONE (07:43)
[2021-12-27 08:15] LABS: Anisocytosis 1+; Blood Morphology Comment NOTED (NOT SEEN); Hypochromasia 1+; Macrocytosis 1+; Ovalocytes SLIGHT; Platelet Estimate ADEQ; Poikilocytosis 1+; Teardrop Cell 1+
[2021-12-27] MEDS: predniSONE 10 MG TAB PO SCH (08:28)
[2021-12-27] MEDS: AMIODARONE HCL 200 MG TAB PO SCH ×2 (08:28→21:10)
[2021-12-27] MEDS: DULOXETINE 30 MG CAP PO SCH (08:28)
[2021-12-27] MEDS: CEFTRIAXONE 1,000 MG in NA CHLORIDE 0.9% 50 ML IVPB SCH ×2 (08:29→21:09)
[2021-12-27] MEDS ORDERED: POTASSIUM CL SA 10 MEQ TAB PO ONE (09:00)
[2021-12-27] MEDS: METOPROLOL TAR 25 MG TAB PO SCH ×2 (09:33→21:10)
[2021-12-27] MEDS: PANTOPRAZOLE INJ 80 MG in NA CHLORIDE 0.9% 250 ML IV SCH (09:34)
--- NOTE | 2021-12-27 13:39 | PN ---
Date of Progress Note: 12/27/2021 Subjective: The patient was seen this morning for followup. No new complaints or problems reported by the patient. He was feeling much better and looking a lot better today than last few days. He johnson d a bowel movement this morning. It was dark, coffee colored, loose stool. There was no bright red blood in it. Denies any abdominal pain, nausea, vomiting. Objective: Vital Signs: Reviewed. HEENT: Unremarkable. Lungs: Clear to auscultation. Heart: Sounds normal. Abdomen: Soft. Bowel sounds normal. No guarding, rigidity, tenderness, distention. Extremities: No leg edema. Laboratory Data: White count 7.6, hemoglobin 8.6, platelets 277. Sodium 140, potassium 3.3, chlorid e 109, bicarb 25, BUN 8, creatinine 0.87, glucose 92. Liver function tests unremarkable. Impression: 1.Acute upper gastrointestinal bleeding. 2.Acute blood loss anemia. 3.Chronic obstructive pulmonary disease. 4.Atrial fibrillation, chronic. 5.Hypertension. Plan: The patient is on amiodarone 200 mg b.i.d., we will continue that. We will restart his metopr olol, at home he takes 50 mg 2 times a day, we will start it at 25 mg 2 times a day. Blood pressure this morning was 151/81 with pulse rate 108. We will repeat hemoglobin, potassium, and magnesium lev el this afternoon. Continue him on clear liquid diet right now. Depending on hemoglobin results, we will decide if we can advance diet today or not and depending on that result also, our decision will be made if we can possibly discharge him to go home tomorrow or not. Details were discussed with the patient. BELLE/MODL Voice ID: [id number] Report ID: [id number]
[2021-12-27 15:06] LABS: Hematocrit 28.9 % (39.6-49.0)
[2021-12-27 15:17] LABS: Magnesium 1.9 mg/dL (1.8-2.4); Potassium 4.9 mmol/L (3.5-5.1)
[2021-12-27] MEDS: ATORVASTATIN 40 MG TAB PO SCH (21:10)
[2021-12-28] MEDS: PANTOPRAZOLE INJ 80 MG in NA CHLORIDE 0.9% 250 ML IV SCH ×2 (04:33→05:00)
[2021-12-28 06:01] LABS: Hematocrit 27.1 % (39.6-49.0); Lymphocytes % 23.6 % (15.3-44.8); MCV 89.4 fL (80-100); MPV 7.2 fL (7.6-11.3); RBC Red Blood Cell Count 3.04 M/uL (4.33-5.43)
[2021-12-28 06:22] LABS: Magnesium 1.9 mg/dL (1.8-2.4); Potassium 3.5 mmol/L (3.5-5.1)
[2021-12-28] MEDS: AMIODARONE HCL 200 MG TAB PO SCH (09:07)
[2021-12-28] MEDS: DULOXETINE 30 MG CAP PO SCH (09:07)
[2021-12-28] MEDS: CEFTRIAXONE 1,000 MG in NA CHLORIDE 0.9% 50 ML IVPB SCH (09:07)
[2021-12-28] MEDS: METOPROLOL TAR 25 MG TAB PO SCH (09:07)
[2021-12-28] MEDS: predniSONE 10 MG TAB PO SCH (09:07)
[2021-12-28 10:12] LABS: Anisocytosis 1+; Blood Morphology Comment NOTED (NOT SEEN); Hypochromasia 1+; Macrocytosis 1+; Platelet Estimate ADEQ; Teardrop Cell FEW
[2021-12-28] MEDS ORDERED: PANTOPRAZOLE 40MG TABLET PO ONE (10:30)
[2021-12-28 12:28] VITALS: BP 135/80; TEMP 97.8
--- NOTE | 2021-12-29 08:30 | DS ---
Date of Discharge: 12/28/2021 Disposition: Patient will be discharged to go home. Physical Examination: HEENT: Unremarkable. Lungs: Clear to auscultation. Heart: Sounds normal. Abdomen: Soft. Bowel sounds normal. No guarding, rigidity, tenderness, distention. Extremities: No leg edema. Laboratory Data: Upon admission, white count 9.8, hemoglobin 5.5, platelets 362. Sodium 140, potass ium 3.1, chloride 104, bicarb 28, BUN 60, creatinine 1.45, glucose 134. Liver function tests unremar kable. Lipase 102. Today, sodium 141, potassium 3.5, chloride 110, bicarb 24, BUN 7, creatinine 0.8 1, glucose 83. Magnesium 1.9. Today, white count 8.6, hemoglobin 8.9, platelets 317. Yesterday mor zach, hemoglobin was 8.6. Yesterday afternoon, it was 9.5. Discharge Medication And Instructions: 1.Stop Eliquis and stop lisinopril. 2.Follow up at my office next week. 3.Follow up with Dr. Hernandez in 2 weeks. 4.Start omeprazole 40 mg take 1 capsule by mouth daily in morning with water, take it 30 minutes bef ore breakfast. 5.Start Ferrocite 1 tablet by mouth 2 times a day. 6.Continue prior home medication, which is amiodarone 200 mg 2 times a day, atorvastatin 40 mg daily at bedtime, duloxetine 60 mg daily with breakfast Trelegy inhaler 1 puff by mouth daily, furosemide 40 mg by mouth daily, Atrovent inhaler 2 puffs by mouth 4 times a day as needed, metoprolol succinate 50 mg by mouth 2 times a day, prednisone 10 mg take 1 tablet by mouth daily with food. 7.As of 01/05/2022, start aspirin 81 mg daily with food. Hospital Course: A 71-year-old very pleasant male patient admitted to the hospital with black stool and feeling weak. The patient was evaluated in the emergency room he was admitted to the hospital wi th acute blood loss anemia from upper GI bleeding. Please see dictated H and P for more information. GI consultation was requested from Dr. Hernandez. Patient required altogether 7 units of PRBC blood transfusion during this hospital stay. He had EGD done 2 different times and he did have some gastr ic erosions and duodenal ulcer and the source of bleeding was determined to be duodenal ulcer that Dr Tao Hernandez did cauterize and after appropriate intervention about 48 hours later, he required an EGD because his hemoglobin had dropped down again. This time, he did not have any active bleeding. No n ew findings noted at this time. Dr. Hernandez has released him to go home from GI point of view. [facility], he is stable now. He has clear liquid diet, tolerating well, ambulating well in the room wit hout any difficulties. He does not need any oxygen replacement therapy, maintaining 98% to 100% oxyg en saturation. He was taking Eliquis prior to this admission, but with this severe GI bleeding, risk of anticoagulation therapy is more than the benefit, so he was advised not to take Eliquis. On an e lective outpatient basis, we will have him follow up with the monotype mechanic for discussion about Watch man procedure. Final Diagnoses: 1.Acute blood loss anemia. 2.Upper gastrointestinal bleeding. 3.Chronic atrial fibrillation. 4.Coronary artery disease. 5.Hypertension. 6.Hyperlipidemia. 7.Chronic obstructive pulmonary disease. 8.Impaired fasting glucose. 9.Carotid artery stenosis, bilateral. 10.Depression. BELLE/MODL Voice ID: [id number] Report ID: [id number]
== END 2021-12-28 17:10 | disposition home health service (06) | DRG 378 ==
LOC: ER 13:12 → ERHOLD 15:52 → 2ND 20:49
PROVIDERS: ADMIT Internal Medicine; ATTEND Internal Medicine
PROC: 0DJ08ZZ Inspection of Upper Intestinal Tract, Via Natural or Artificial Opening Endoscopic (ICD-10-PCS; principal; 2021-12-23 12:00)
PROC: 30233N1 Transfusion of Nonautologous Red Blood Cells into Peripheral Vein, Percutaneous Approach (ICD-10-PCS; 2021-12-24)
DX: K26.4 Chronic or unspecified duodenal ulcer with hemorrhage (principal); D62 Acute posthemorrhagic anemia; I95.9 Hypotension, unspecified; J44.9 Chronic obstructive pulmonary disease, unspecified; I10 Essential (primary) hypertension; E78.5 Hyperlipidemia, unspecified; I25.10 Atherosclerotic heart disease of native coronary artery without angina pectoris; I65.23 Occlusion and stenosis of bilateral carotid arteries; F32.A Depression, unspecified; K25.9 Gastric ulcer, unspecified as acute or chronic, without hemorrhage or perforation; I48.0 Paroxysmal atrial fibrillation; K44.9 Diaphragmatic hernia without obstruction or gangrene; R73.01 Impaired fasting glucose; Z95.1 Presence of aortocoronary bypass graft; Z90.49 Acquired absence of other specified parts of digestive tract; Z79.52 Long term (current) use of systemic steroids; Z79.899 Other long term (current) drug therapy; Z91.040 Latex allergy status; Z96.652 Presence of left artificial knee joint; Z91.048 Other nonmedicinal substance allergy status; Z20.822 Contact with and (suspected) exposure to COVID-19
CPT/HCPCS: 36415; 74177; 80048; 80053; 82947; 83605; 83690; 83735; 84132; 85014; 85018; 85025; 85610; 85730; 86850; 86900; 86901; 87040; 87811; 93005; 97116; 97161; 97165; 97530; 99285; A4216; C9113; J0171; J1720; J2001; J2370; J2405; J2704; J2920; J7030; J7050; J7120; J7512; P9016; Q9967

== ENCOUNTER 2022-01-26 11:56 | Inpatient (IN) | payer OTHER ==
--- OUTSIDE RECORDS SUMMARY | 2022-01-26 12:01 | XMS REPORT | Continuity of Care Document ---
:1950 Author Organization [facility] t Address [address] [place] [address] Care Team Providers Name Role Phone [place] Primary Care Physician Fady Pascual MD Attending Clinician RADIOLOGY Attending Clinician Unavailable Radiology Attending Clinician Unavailable Shereen Ferguson MD Attending Clinician OMARI DUMONT Attending Clinician Unavailable Omari Dumont Attending Clinician Doctor Unassigned, [place] Attending Clinician Unavailable Aroldo Sanchez DO Attending Clinician АНДРЕЙ DOHERTY Attending Clinician Unavailable Lab, Adc Fam Pob I Attending Clinician Unavailable Patricia Tiwari Attending Clinician MD SHEREEN FERGUSON Attending Clinician Unavailable Stephanie Kapoor Attending Clinician STEPHANIE HENRIQUEZ Attending Clinician Unavailable Mello Hall MD Attending Clinician JAVIER HAYDEN Admitting Clinician Unavailable OMARI DUMONT Admitting Clinician Unavailable SHEREEN FERGUSON Admitting Clinician Unavailable PHYLLIS, MD SHEREEN JACLYN Admitting Clinician Unavailable Payers Payer Name Policy Type Policy Number Effective Date Expiration Date Alan JASON MANAGED [id number] 2021 MEDICARE PPO-SAMRA 00:00:00 Problems Condition Condition [...] Added automatic ally from request for surgery [id number] Post-op Post-op Disease Active [facility] 03-16kes fibrillati fibrillati 00:00: Me dical on Center S/P ACB S/P ACB Disease Active [facility] (DC-LAD, (DC-LAD, 03-11 Lisseth kes SVG-OM) SVG-OM) 00:00: Medical Center Coronary Coronary Disease Active [facility] artery artery 03-10 disease disease 00:00: Medical Center Hypertensi Hypertensi Disease Active [facility] on on 03-10 00:00: Medical [place] COPD COPD Disease Active [facility] (chronic (chronic 03-10 obstructiv obstructiv 00:00: Me dical e e Center pulmonary pulmonary disease) disease) Pain in Pain in Diagnosis Active Commo n joint of joint of Spirit right right - [facility] shoulder shoulder [facility] Impingemen Impingemen Diagnosis Active Common t syndrome t syndrome Sp cec[place] of right of right - [facility] shoulder shoulder [facility] Allergies, Adverse Reactions, Alerts Allergy Allergy Status [...] ity of adverse 00:00: [place] reaction 00 [facility] Branch Adhesive Drug Active Rash [facility] Medical [address] [place] [address] Adhesive Drug Active Rash [facility] Medical 00 [place] Family History Family Member Diagnosis Comments Start Date Stop Date Source Natural father Heart disease [facility] Natural mother Cancer [facility] Social History Social Habit Start Date Stop Date Quantity Comments Source History of tobacco Cigarette Smoker [facility] Exposure to 2021-08-31 2021-09-10 Not sure [facility] SARS-CoV-2 (event) 00:00:00 14:41:00 [facility] Alcohol intake 2021-08-05 2021-08-05 Current drinker [facility] dist 00:00:00 00:00:00 of alcohol [facility] (finding) Tobacco use and 2020-04-09 2020-04-09 Smokeless Scientologist exposure 00:00:00 00:00:00 tobacco non-user Hospital Cigarettes smoked 2020-04-09 2020-04-09 [facility] per 00:00:00 00:00:00 Hospita l day) - Reported Cigarette 2020-04-09 2020-04-09 Scientologist pack-years 00:00:00 00:00:00 Hospital Alcohol Comment 2019-10-18 2019-10-18 social Scientologist 00:00:00 00:00:00 [facility] Sex Assigned At [address] [facility] Lisseth kes 00:00:00 00:00:00 Medical Center Smoking Status Start Date Stop Date Source Former smoker [facility] Never smoked tobacco [facility] Medications Ordered Filled Start Stop Current Ordering [...] a 00 l furosemide 2020-0 Yes 40mg QD Take 40 mg M ethodi (LASIX) 40 2-[address] mg tablet 00:00: daily. Hospit a 00 l furosemide 2020-0 Yes 40mg Take 40 mg U nivers 40 mg 2-29 by mouth. ity of tablet 00:00: [address] furosemide 2020-0 Yes 40mg Take 40 mg U nivers 40 mg 2-29 by mouth. ity of tablet 00:00: [place] [facility] furosemide 2020-0 Yes 40mg Take 40 mg U nivers 40 mg 2-29 by mouth. ity of tablet 00:00: [address] furosemide 2020-0 Yes 40mg Take 40 mg U nivers 40 mg 2-29 by mouth. ity of tablet 00:00: [place] [facility] furosemide 2020-0 Yes 40mg Take 40 mg U nivers 40 mg 2-29 by mouth. ity of tablet 00:00: [address] furosemide 2020-0 Yes 40mg Take 40 mg U nivers 40 mg 2-29 by mouth. ity of tablet 00:00: [address] furosemide 2020-0 Yes 40mg Take 40 mg U nivers 40 mg 2-29 by mouth. ity of tablet 00:00: [address] furosemide 2020-0 Yes 40mg Take 40 mg U nivers 40 mg 2-29 by mouth. ity of tablet 00:00: [address] furosemide 2020-0 Yes 40mg Take 40 mg U nivers 40 mg 2-29 by mouth. ity of tablet 00:00: [address] furosemide 2020-0 Yes 40mg Take 40 mg U nivers 40 mg 2-29 by mouth. ity of tablet 00:00: [address] furosemide 2020-0 Yes 40mg QD Take 40 mg M ethodi (LASIX) 40 2-[address] mg tablet 00:00: daily. Hospit a 00 l escitalopra 2018-1 Yes 5mg QD Take 5 mg M ethodi m (LEXAPRO) 2-[address] 10 MG 00:00: daily. Hospita tablet 00 l escitalopra 2018-02 Yes 5mg QD Take 5 mg M ethodi m (LEXAPRO) 2-[address] 10 MG 00:00: daily. Hospita tablet l escitalopra 2018-02 Yes Univer s m oxalate 2-14 ity of 10 mg 00:00: [place] tablet Medical Branch escitalopra 2018-02 Yes Univer s m oxalate 2-14 ity of 10 mg 00:00: [place] tablet Medical Branch escitalopra 2018-02 Yes Univer s m oxalate 2-14 ity of 10 mg 00:00: [place] tablet Medical Branch escitalopra 2018- Yes Univer s m oxalate 2-14 ity of 10 mg 00:00: [place] tablet Medical Branch escitalopra 2018- Yes Univer s m oxalate 2-14 ity of 10 mg 00:00: [place] tablet Medical Branch escitalopra 2018- Yes Univer s m oxalate 2-14 ity of 10 mg 00:00: [place] tablet Medical Branch escitalopra 2018- Yes Univer s m oxalate 2-14 ity of 10 mg 00:00: [place] tablet 00 Medical Branch escitalopra 2018- Yes Univer s m oxalate 2-14 ity of 10 mg 00:00: [place] tablet Medical Branch escitalopra 2018- Yes Univer s m oxalate 2-14 ity of 10 mg 00:00: [place] tablet 00 Medical Branch escitalopra 2018- Yes Univer s m oxalate 2-14 ity of 10 mg 00:00: [place] tablet Medical Branch escitalopra 2018- Yes Univer s [...] 0.25 mg 0-31 ity of tablet 00:00: [place] [facility] triazolam 2018-02 Yes Univers 0.25 mg 0-31 ity of tablet 00:00: [address] triazolam 2018-02 Yes Univers 0.25 mg 0-31 ity of tablet 00:00: [place] [facility] triazolam 2018-02 Yes Univers 0.25 mg 0-31 ity of tablet 00:00: [address] triazolam 2018-02 Yes Univers 0.25 mg 0-31 ity of tablet 00:00: [address] triazolam 2018-02 Yes Univers 0.25 mg 0-31 ity of tablet 00:00: [address] triazolam 2018-02 Yes Univers 0.25 mg 0-31 ity of tablet 00:00: [address] triazolam 2018-02 Yes Univers 0.25 mg 0-31 ity of tablet 00:00: [address] triazolam 2018-02 Yes Univers 0.25 mg 0-31 ity of tablet 00:00: [address] triazolam 2018-02 Yes Univers 0.25 mg 0-31 ity of tablet 00:00: [address] triazolam 2018-02 Yes Univers 0.25 mg 0-31 ity of tablet 00:00: [address] triazolam 2018-02 Yes Univers 0.25 mg 0-31 ity of tablet 00:00: [address] triazolam 2018-02 Yes Univers 0.25 mg 0-31 ity of tablet 00:00: [address] triazolam 2018-02 Yes Univers 0.25 mg 0-31 ity of tablet 00:00: [address] amLODIPine 2018-02 Yes 5mg QD Take 5 mg Me thodi (NORVASC) 5 0-[address] mg tablet 00:00: daily. Hospit a 00 l amLODIPine 2018-02 Yes 5mg QD Take 5 mg Me thodi (NORVASC) 5 0-[address] mg tablet 00:00: daily. Hospit a 00 l amLODIPine 2018-02 Yes Univers 5 mg tablet 0-11 ity of 00:00: [address] amLODIPine 2018-02 Yes Univers 5 mg tablet 0-11 ity of 00:00: [place] [facility] amLODIPine 2019- Yes Univers 5 mg tablet 0-11 ity of 00:00: [place] [facility] amLODIPine 2019- Yes Univers 5 mg tablet 0-11 ity of 00:00: [place] [facility] amLODIPine 2019- Yes Univers 5 mg tablet 0-11 ity of 00:00: [place] [facility] amLODIPine 2019- Yes Univers 5 mg tablet 0-11 ity of 00:00: [place] [facility] amLODIPine 2019- Yes Univers 5 mg tablet 0-11 ity of 00:00: [place] [facility] amLODIPine 2019- Yes Univers 5 mg tablet 0-11 ity of 00:00: [place] [facility] amLODIPine 2019- Yes Univers 5 mg tablet 0-11 ity of 00:00: [place] [facility] amLODIPine 2019- Yes Univers 5 mg tablet 0-11 ity of 00:00: [place] [facility] amLODIPine 2019- Yes Univers 5 mg tablet 0-11 ity of 00:00: [place] [facility] amLODIPine 2019- Yes Univers 5 mg tablet 0-11 ity of 00:00: [place] [facility] amLODIPine 2018- Yes Univers 5 mg tablet 0-11 ity of 00:00: [place] [facility] amLODIPine 2019- Yes Univers 5 mg tablet 0-11 ity of 00:00: [place] [facility] amLODIPine 2019- Yes 5mg QD Take 5 mg Me thodi (NORVASC) 5 0-[address] mg tablet 00:00: daily. Hospit a 00 l atorvastati 2019 Yes Univer s n 40 mg 9-17 ity of tablet 00:00: [place] [facility] atorvastati 2019-0 Yes Univer s n 40 mg 9-17 ity of tablet 00:00: [address] atorvastati 2019-0 Yes Univer s n 40 mg 9-17 ity of tablet 00:00: [place] [facility] atorvastati 2019-0 Yes Univer s n 40 mg 9-17 ity of tablet 00:00: [address] atorvastati 2019-0 Yes Univer s n 40 mg 9-17 ity of tablet 00:00: [place] [facility] atorvastati 0 Yes Univer s n 40 mg 9-17 ity of tablet 00:00: [place] 00 Medical Branch atorvastati 2019-0 Yes Univer s n 40 mg 9-17 ity of tablet 00:00: [place] 00 Medical Branch atorvastati 2019-0 Yes Univer s n 40 mg 9-17 ity of tablet 00:00: [place] 00 Medical Branch atorvastati 2019-0 Yes Univer s n 40 mg 9-17 ity of tablet 00:00: [place] [facility] atorvastati 2019-0 Yes Univer s n 40 mg 9-17 ity of tablet 00:00: [place] [facility] atorvastati 2019-0 Yes Univer s n 40 mg 9-17 ity of tablet 00:00: [place] [facility] atorvastati 2019-0 Yes Univer s n 40 mg 9-17 ity of tablet 00:00: [place] [facility] atorvastati 2019-0 Yes Univer s n 40 mg 9-17 ity of tablet 00:00: [place] [facility] atorvastati 2019-0 Yes Univer s n 40 mg 9-17 ity of tablet 00:00: [place] [facility] tadalafil 2019-0 Yes TAKE 1 Univer s 20 mg 9-04 TABLET BY ity of tablet 00:00: [facility] 00 EVERY DAY Medical NEEDED Branch tadalafil 2019-0 Yes TAKE 1 Univer s 20 mg 9-04 TABLET BY ity of tablet 00:00: [facility] 00 EVERY DAY Medical NEEDED Branch tadalafil 2019-0 Yes TAKE 1 Univer s 20 mg 9-04 TABLET BY ity of tablet 00:00: [facility] 00 EVERY DAY Medical NEEDED Branch tadalafil 2019-0 Yes TAKE 1 Univer s 20 mg 9-04 TABLET BY ity of tablet 00:00: [facility] 00 EVERY DAY Medical NEEDED Branch tadalafil 2019-0 Yes TAKE 1 Univer s 20 mg 9-04 TABLET BY ity of tablet 00:00: [facility] 00 EVERY DAY Medical NEEDED Branch tadalafil 2019-0 Yes TAKE 1 Univer s 20 mg 9-04 TABLET BY ity of tablet 00:00: [facility] 00 EVERY DAY Medical NEEDED Branch tadalafil 2019-0 Yes TAKE 1 Univer s 20 mg 9-04 TABLET BY ity of tablet 00:00: MOUTH [place] 00 EVERY DAY Medical NEEDED Branch tadalafil 2019-0 Yes TAKE 1 Univer s 20 mg 9-04 TABLET BY ity of tablet 00:00: MOUTH [place] 00 EVERY DAY Medical NEEDED Branch tadalafil Yes TAKE 1 Univer s 20 mg 9-04 TABLET BY ity of tablet 00:00: MOUTH [place] 00 EVERY DAY Medical NEEDED Branch tadalafil Yes TAKE 1 Univer s 20 mg 9-04 TABLET BY ity of tablet 00:00: MOUTH [place] 00 EVERY DAY Medical NEEDED Branch tadalafil Yes TAKE 1 Univer s 20 mg 9-04 TABLET BY ity of tablet 00:00: MOUTH [place] 00 EVERY DAY Medical NEEDED Branch tadalafil Yes TAKE 1 Univer s 20 mg 9-04 TABLET BY ity of tablet 00:00: MOUTH [place] 00 EVERY DAY Medical NEEDED Branch tadalafil Yes TAKE 1 Univer s 20 mg 9-04 TABLET BY ity of tablet 00:00: MOUTH [place] EVERY DAY Medical NEEDED Branch tadalafil Yes TAKE 1 Univer s 20 mg 9-04 TABLET BY ity of tablet 00:00: MOUTH [place] 00 EVERY DAY Medical NEEDED Branch predniSONE 0 Yes Univers 10 mg 8-13 ity of tablet 00:00: [place] 00 Medical Branch metoprolol 20190 Yes Univers succinate 8-13 ity of XL 50 mg 24 00:00: [place] hr tablet 00 Medical Branch metoprolol 0 Yes Univers succinate 8-13 ity of XL 50 mg 24 00:00: [place] hr tablet 00 Medical Branch predniSONE 2019-0 Yes Univers 10 mg 8-13 ity of tablet 00:00: [place] 00 Medical Branch metoprolol 20190 Yes Univers succinate 8-13 ity of XL [...] 00:00: [place] hr tablet 00 Medical Branch triazolam 2017-0 Yes .25mg Take [...] every Center night as needed. apixaban 5 2017-0 Yes 5mg Take 5 mg Un sally mg tablet 2-09 by mouth. ity o f 00:00: [place] [facility] umeclidiniu 2017-0 Yes 1{puff} Inhale 1 Univers m 62.5 2-09 Puff. ity of mcg/actuati 00:00: [place] on DsDv Medical Branch apixaban 5 2016-0 Yes 5mg Take 5 mg Un sally mg tablet 2-09 by mouth. ity o f 00:00: [facility] umeclidiniu 2016-0 Yes 1{puff} Inhale 1 Univers m 62.5 2-09 Puff. ity of mcg/actuati 00:00: [place] on DsDv Medical Branch apixaban 5 2016-0 Yes 5mg Take 5 mg Un sally mg tablet 2-09 by mouth. ity o f 00:00: [place] [facility] umeclidiniu 2016-0 Yes 1{puff} Inhale 1 Univers m 62.5 2-09 Puff. ity of mcg/actuati 00:00: [place] on DsDv Medical Branch apixaban 5 2017-0 Yes 5mg Take 5 mg Un sally mg tablet 2-09 by mouth. ity o f 00:00: [place] [facility] [place] umeclidiniu 2017-0 Yes 1{puff} Inhale 1 Univers m 62.5 2-09 Puff. ity of mcg/actuati 00:00: [place] on DsDv Medical Branch apixaban 5 2017-0 Yes 5mg Take 5 mg Un sally mg tablet 2-09 by mouth. ity o f 00:00: Medical Branch apixaban 5 2017-0 Yes 5mg [...] ity of mcg/actuati 00:00: [place] on DsDv 00 Medical Branch apixaban 5 2017-0 Yes 5mg Take 5 mg Un sally mg tablet 2-09 by mouth. ity o f 00:00: [place] [facility] umeclidiniu 2017-0 Yes 1{puff} Inhale 1 Univers m 62.5 2-09 Puff. ity of mcg/actuati 00:00: [place] on DsDv Medical Branch apixaban 5 2017-0 Yes 5mg Take 5 mg Un sally mg tablet 2-09 by mouth. ity o f 00:00: [place] [facility] umeclidiniu 2017-0 Yes 1{puff} Inhale 1 Univers m 62.5 2-09 Puff. ity of mcg/actuati 00:00: [place] on DsDv Medical Branch apixaban 5 2017-0 Yes 5mg Take 5 mg Un sally mg tablet 2-09 by mouth. ity o f 00:00: [place] [facility] umeclidiniu 2017-0 Yes 1{puff} Inhale 1 Univers m 62.5 2-09 Puff. ity of mcg/actuati 00:00: [place] on DsDv 00 Medical Branch apixaban 2017-0 Yes 5mg Q.5D Take [address] [facility] (ELIQUIS) 5 2-09 tablet (5 Bk es mg Tab 00:00: mg total) Medica l tablet 00 by mouth 2 Center (two) times daily. umeclidiniu 2017-0 Yes 1{puff} QD Inhale [address] [facility] m (INCRUSE 2-09 puff by [facility] ELLIPTA) 00:00: mouth via Medi meredith 62.5 00 inhaler Center mcg/actuati daily. on DsDv powder for inhalation apixaban 2017-0 Yes 5mg Q.5D Take [address] (ELIQUIS) 5 2-09 tablet (5 Bk es mg Tab 00:00: mg total) Medica l tablet 00 by mouth 2 Center (two) times daily. umeclidiniu 2017-0 Yes 1{puff} QD Inhale [address] [facility] m (INCRUSE 2-09 puff by [facility] ELLIPTA) 00:00: mouth via Medi meredith 62.5 00 inhaler Center mcg/actuati daily. on DsDv powder for inhalation apixaban Yes 5mg Q.5D Take [address] [facility] [...] per tablet 00:00: [place] [facility] nisoldipine 0 Yes Univer s (SULAR) 7-18 ity of 25.5 mg 24 00:00: [place] hr tablet 00 Medical Branch BENICAR HCT Yes Univer s 40-12.5 mg 7-18 ity of per tablet 00:00: [place] [facility] nisoldipine 2016-0 Yes Univer s [...] hr tablet 00 Medical Branch BENICAR HCT 20160 Yes Univer s 40-12.5 mg 7-18 ity [...] [place] hr tablet 00 Medical Branch nisoldipine 20160 Yes Univer s (SULAR) 7-18 ity of 25.5 mg 24 00:00: [place] hr tablet 00 Medical Branch BENICAR HCT 0 Yes Univer s 40-12.5 mg 7-18 ity of per tablet 00:00: [place] 00 [facility] Branch BENICAR HCT 2016-0 Yes Univer s 40-12.5 mg 7-18 ity of per tablet 00:00: [place] 00 [facility] Branch nisoldipine 0 Yes Univer s (SULAR) 7-18 ity of 25.5 mg 24 00:00: [place] hr tablet 00 Medical Branch BENICAR HCT 2015-0 Yes Univer s 40-12.5 mg 7-18 ity of per tablet 00:00: [place] 00 Medical Branch ANORO 20160 Yes Univers ELLIPTA 7-17 ity of 62.5-25 [...] Yes Carlo not Com mon Omid defined [facility] Atorvastati Atorvastati Yes Carlo not Common n Calcium n Calcium Anne defined [facility] PredniSONE PredniSONE Yes Carlo not C ommon Omid defined [facility] Atrovent Atrovent Yes Carlo not Commo n HFA HFA Omid defined [facility] Furosemide Furosemide Yes Carlo not C ommon Omid defined [facility] Amlodipine Amlodipine Yes Carlo not C ommon Besylate Besylate Omid defined Sp cecille [facility] Anoro Anoro Yes Carlo not Common Ellipta Ellipta Omid defined Spir it [facility] Combivent Combivent Yes Carlo not Com mon Omid defined [facility] Acetaminoph Acetaminoph Yes Carlo not Common en en Omid defined [facility] Tadalafil Tadalafil Yes Carlo not Com mon Omid defined [facility] Metoprolol Metoprolol Yes Carlo not C ommon Succinate Succinate Omid defined [facility] Yoselin Yoselin Yes Carlo not Common Aspirin Aspirin Omid defined Spir it [facility] Vital Signs Vital Name Observation Time Observation Value Comments Source Systolic blood 2019-08-29 14:55:00 160 mm[facility]Hg[facility] 2019-08-29 14:55:00 83 mm[facility]Hg] [facility] 2019-08-29 14:55:00 86 /min [facility] Body height 2019-08-29 14:55:00 167.6 cm [facility] Body weight 2019-08-29 14:55:00 77.111 kg [facility] BMI 2019-08-29 14:55:00 27.44 kg/m2 [facility] Systolic blood 2019-08-29 14:55:00 160 mm[Hg] Univer sity [facility] Diastolic blood 2019-08-29 14:55:00 83 mm[Hg] [facility] rate 2019-08-29 14:55:00 86 /min [facility] Body height 2019-08-29 14:55:00 167.6 cm [facility] Body weight 2019-08-29 14:55:00 77.111 kg [facility]i ty [facility] BMI 2019-08-29 14:55:00 27.44 kg/m2 [facility]i ty [facility] Systolic blood 2019-08-24 15:36:00 176 mm[Hg] Univer sity of pressure [facility] Diastolic blood 2019-08-24 15:36:00 81 mm[Hg] Unive rsity of pressure [facility] Heart rate 2019-08-24 15:36:00 81 /min Universi ty [facility] Respiratory rate 2019-08-24 15:30:00 18 /min Univ ersity [facility] Body height 2019-08-24 15:30:00 167.6 cm [facility]i ty [facility] Body weight 2019-08-24 15:30:00 77.111 kg [facility]i ty [facility] BMI 2019-08-24 15:30:00 27.44 kg/m2 Universi ty [facility] Systolic blood 2019-03-31 14:40:00 156 mm[Hg] Univer sity of pressure [facility] Diastolic blood 2019-03-31 14:40:00 87 mm[Hg] Unive rsity of pressure [facility] Heart rate 2019-03-31 14:40:00 79 /min [facility]i ty [facility] Respiratory rate 2019-03-31 14:40:00 20 /min Univ ersity [facility] Body height 2019-03-31 14:40:00 167.6 cm Universi ty [facility] Body weight 2019-03-31 14:40:00 77.111 kg [facility]i [facility] BMI 2019-03-31 14:40:00 27.44 kg/m2 [facility] Body height 2021-08-05 18:15:[address] [facility] Body weight 2021-08-05 18:15:[address] [facility] BMI 2021-08-05 18:15:00 26.63 kg/m2 [facility] Procedures Procedure Date / Time Performing Clinician Source Performed ALPHA-1 ANTITRYPSIN 2021-10-03 17:42:00 Fady Pascual [facility] ALPHA-1 ANTITRYPSIN LEVEL 2021-10-03 17:42:00 [place], [facility] Ramana IGG SUBCLASSES 2021-10-03 17:42:00 [place], [facility] Ramana IMMUNOGLOBULIN G 2021-10-03 17:42:00 [facility] Ramana ALLERGEN, REGION 10 2021-10-03 17:42:00 [place], [facility] RESPIRATORY VEGA IGE Ramana IMMUNCAP SCORE 2021-10-03 17:42:00 [place], [facility] Ramana MR LUMBAR SPINE WO 2021-09-19 15:51:00 [place], [facility] CONTRAST Medical Branch XR KNEE 3 VW LEFT 2021-08-05 [facility] 2021-08-05 [facility] OF [facility]ACY 2021-08-04 15:36:26 Doctor Unassigned, [facility] PRACTICES [place] [facility] CONSENT/REFUSAL FOR 2021-08-04 15:36:06 Doctor Unassigned, [facility] DIAGNOSIS AND TREATMENT [place] [facility] ASSIGNMENT OF BENEFITS 2021-08-04 15:35:52 Doctor Unassigned, [facility] [place] [facility] PHYSICIAN ORDERS 2021-07-23 05:01:00 Doctor Unassigned, [facility] [place] [facility] XR FOOT <3 VW RIGHT 2019-08-24 15:48:01 Stephanie Henriquez [facility] Medical Branch DSU PRE-OP 2019-03-31 06:01:00 Doctor Unassigned, [facility] [place] [facility] Plan of Care Planned Activity Planned Date Details Comments Source Future Scheduled 2022-01-26 65+ PNEUMOCOCCAL [facility] Test 11:59:03 VACCINE (1 - PCV) [code = 65+ PNEUMOCOCCAL VACCINE (1 - PCV)] Future Scheduled 2022-01-26 COLONOSCOPY SCREENING [facility] Test 11:59:03 [code = COLONOSCOPY SCREENING] Future Scheduled 2022-01-26 Screening for [facility] Test 11:59:03 malignant neoplasm of lung (procedure) [code = 417062909] Future Scheduled 2022-01-26 SHINGLES VACCINES (1 Met [facility] Test 11:59:03 of 2) [code = SHINGLES VACCINES (1 of 2)] Future Scheduled 2022-01-26 COVID-19 VACCINE (4 - [facility] Test 11:59:03 Booster for Moderna series) [code = COVID-19 VACCINE (4 - Booster for Moderna series)] Future Scheduled 2022-01-26 INFLUENZA VACCINE Method [facility] Test 11:59:03 [code = INFLUENZA VACCINE] Future Scheduled 2021-10-24 HEPATITIS B VACCINES Met [facility] Test 14:20:57 (1 of 3 - 3-dose series) [code = HEPATITIS B VACCINES (1 of 3 - 3-dose series)] Future Scheduled 2021-10-24 65+ PNEUMOCOCCAL [facility] Test 14:20:57 VACCINE (1 - PCV) [code = 65+ PNEUMOCOCCAL VACCINE (1 - PCV)] Future Scheduled 2021-10-24 COLONOSCOPY SCREENING [facility] Test 14:20:57 [code = COLONOSCOPY SCREENING] Future Scheduled 2021-10-24 Screening for [facility] Test 14:20:57 malignant neoplasm of lung (procedure) [code = [id number]] Future Scheduled 2021-10-24 SHINGLES VACCINES (1 Met [facility] Test 14:20:57 of 2) [code = SHINGLES VACCINES (1 of 2)] Future Scheduled 2021-10-24 COVID-19 VACCINE (4 - [facility] Test 14:20:57 Booster for Moderna series) [code = COVID-19 VACCINE (4 - Booster for Moderna series)] Future Scheduled 2021-10-24 INFLUENZA VACCINE Method [facility] Test 14:20:57 [code = INFLUENZA VACCINE] Future Scheduled 2021-10-24 HEPATITIS B VACCINES Met [facility] Test 14:20:57 (1 of 3 - 3-dose series) [code = HEPATITIS B VACCINES (1 of 3 - 3-dose series)] Future Scheduled 2021-10-24 65+ PNEUMOCOCCAL [facility] Test 14:20:57 VACCINE (1 - PCV) [code = 65+ PNEUMOCOCCAL VACCINE (1 - PCV)] Future Scheduled 2021-10-24 COLONOSCOPY SCREENING [facility] Test 14:20:57 [code = COLONOSCOPY SCREENING] Future Scheduled 2021-10-24 Screening for [facility] Test 14:20:57 malignant neoplasm of lung (procedure) [code = 634861117] Future Scheduled 2021-10-24 SHINGLES VACCINES (1 Met [facility] Test 14:20:57 of 2) [code = SHINGLES VACCINES (1 of 2)] Future Scheduled 2021-10-24 COVID-19 VACCINE ([facility] - [facility] 14:20:57 Booster for Moderna series) [code = COVID-19 VACCINE (4 - Booster for Moderna series)] Future Scheduled 2021-10-24 [facility]ACCINE [facility] 14:20:57 [code = INFLUENZA VACCINE] Encounters Start End Encounter Admission Attending Care Care Encounter Source Date/Time Date/Time Type Type Clinicians Facility Department ID 2021-10-31 2021-10-31 Outpatient Mariola Jessica [facility] [id number] [place] 15:38:00 15:38:00 Vidya -[id number] [facility] [address] 2021-10-03 2021-10-03 Lab Colomer, 1.2.840.1 [id number] Methodi 12:30:00 12:35:[address] Ramana 3.430.2.7 Hospit a .3.365459 l .8 2021-10-03 2021-10-03 Lab Colomer, 1.2.840.1 [id number] Methodi 12:30:00 12:35:[address] Ramana 3.430.2.7 Hospit a .3.740124 l .8 2021-10-03 2021-10-03 Travel 1.2.840.1 1.2.779.273 [id number] Methodi 00:00:00 00:00:[address] 3.430.2.7 0.2.7.3.698 Ho spita .3.003874 084.8 l .8 2021-10-03 2021-10-03 Travel 1.2.840.1 1.2.949.834 [id number] Methodi 00:00:00 00:00:[address] 3.430.2.7 0.2.7.3.698 Ho spita .3.175076 084.8 l .8 2021-09-19 2021-09-19 Outpatient R RADIOLOGY [facility] [id number] Univers 09:09:31 23:59:00 ity of [facility] 2021-09-19 2021-09-19 Hospital Radiology [facility] 1.2.840.114 [id number] Univers 09:09:31 23:59:00 Encounter [place] 350.1.13.10 ity of [place] 4.2.7.2.686 [facility] [id number] [address] 2021-08-05 2021-08-05 Office Phyllis, 1.2.840.1 [id number] Methodi 14:00:00 15:57:20 Visit [place] 58527.1.1 824 s t 3.430.2.7 Hospit a .3.002694 l .8 2021-08-05 2021-08-05 Office Phyllis, 1.2.840.1 [id number] Methodi 14:00:00 15:57:20 Visit Shereen [place] 97825.1.1 824 s t 3.430.2.7 Hospit a .3.821756 l .8 2021-08-05 2021-08-05 Outpatient PHYLLIS, [facility] [id number] [place] 00:00:00 00:00:00 SHEREEN [address] 2021-08-05 2021-08-05 Outpatient PHYLLIS, [facility] [id number] [place] 00:00:00 00:00:00 SHEREEN [address] 2021-08-05 2021-08-05 Travel 1.2.840.1 1.2.816.204 [id number] Methodi 00:00:00 00:00:[address] 3.430.2.7 0.2.7.3.698 Ho spita .3.690689 084.8 l .8 2021-08-05 2021-08-05 Travel 1.2.840.1 1.2.311.294 [id number] Methodi 00:00:00 00:00:[address] 3.430.2.7 0.2.7.3.698 Ho spita .3.462859 084.8 l .8 2021-08-04 2021-08-04 [facility] [id number] Univers 10:39:04 23:59:00 OMARI ity of [facility] 2021-08-04 2021-08-04 [facility] 1.2.840.114 [id number] Univers 10:39:04 23:59:00 Encounter Omari CAMPOS 350.1.13.10 [id number] [facility] [address] 2021-07-23 2021-07-23 Orders Doctor BRAD 1.2.840.114 [id number] Univers 00:00:00 00:00:00 Only Unassigned, JARON 350.1.13.10 ity of [place] [facility] 4.2.7.2.[id number] [facility] [address] 2020-04-15 2020-04-15 Patient [facility] 1.2.840.114 [id number] Univers 00:00:00 00:00:00 Outreach Aroldo FARMER 350.1.13.10 i ty of [facility] [place] [id number] Ak dical [address] 2020-04-09 2020-04-09 Outpatient CHAS [facility] [id number] [place] 00:00:00 00:00:00 АНДРЕЙ [address] 2020-04-09 2020-04-09 Outpatient CHAS [facility] [id number] [place] 00:00:00 00:00:00 АНДРЕЙ [address] 2020-02-20 2020-02-20 Outpatient PHYLLIS [facility] [id number] [place] 00:00:00 00:00:00 SHEREEN 222 Method i 2020-02-20 2020-02-20 Outpatient PHYLLIS, [facility] [id number] [place] 00:00:00 00:00:00 SHEREEN 422 Method i 2020-02-20 2020-02-20 Outpatient PHYLLIS, [facility] [id number] [place] 00:00:00 00:00:00 SHEREEN 430 Method i 2020-01-29 2020-01-29 Laboratory Lab, Adc Fam Pob I [facility] 1.2. 840.114 [id number] [facility] 10:40:21 11:00:21 Only Nikita [facility] 350.1.13.10 ity [facility] 4.2.7.2.686 Zander as Professio [id number] [address] Office [facility] 2020-01-29 2020-01-29 Outpatient R [facility] [id number] [facility] 11:00:00 11:00:00 ity [facility] 2019-11-15 2019-11-15 Outpatient [facility] [id number] [place] 00:00:00 00:00:00 333 Method i 2019-11-15 2019-11-15 Outpatient [facility] [id number] [place] 00:00:00 00:00:00 543 Method i 2019-10-30 2019-10-31 Outpatient PHYLLIS, [facility] 021 [id number] [place] 00:00:00 00:00:00 SHEREEN 272 Method i 2019-10-25 2019-10-25 Outpatient PHYLLIS, [facility] [id number] [place] 00:00:00 00:00:00 SHEREEN 403 Method i 2019-10-18 2019-10-18 Outpatient PHYLLIS, [facility] [id number] [place] 00:00:00 00:00:00 SHEREEN 841 Method i 2019-08-29 2019-08-29 [facility] 1.2.840.114 [id number] 09:52:24 10:07:24 Visit [facility] 350.1.13.10 Surgical 4.2.7.2.686 Specialti [id number] es [address] [place] 2019-08-29 2019-08-29 Office [facility] 1.2.840.114 [id number] Univers 09:52:24 10:07:24 Visit [facility] 350.1.13.10 it y of Surgical 4.2.7.2.686 [place] as Specialti [phone] Ak dical es 198 [facility] 2019-08-29 2019-08-29 Outpatient [facility] [id number] Univers 09:45:00 09:45:00 [facility] 2019-08-24 2019-08-24 [facility] 1.2.840.114 [id number] Univers 10:48:00 23:59:00 Encounter [facility] 350.1.13.10 ity of Surgical 4.2.7.2.686 [place] as Specialti [id number] Me dical es 809 [facility] 2019-08-24 2019-08-24 Office [facility] 1.2.840.114 [id number] Univers 10:29:34 10:58:01 Visit [facility] 350.1.13.10 it y of Surgical 4.2.7.2.686 Zander as Specialti [id number] Ak dical es 198 [facility] 2019-08-24 2019-08-24 Outpatient Domin[facility] [id number] Univers 10:30:00 10:30:00 [place] [facility] 2019-07-18 2019-07-18 Outpatient PHYLLIS, [facility] [id number] [place] 00:00:00 00:00:00 SHEREEN 315 Method i 2019-06-15 2019-06-15 Outpatient PHYLLIS, [facility] [id number] [place] 00:00:00 00:00:00 SHEREEN 159 Method i 2019-06-15 2019-06-15 Outpatient PHYLLIS, [facility] [id number] [place] 00:00:00 00:00:00 SHEREEN 022 Method i 2019-06-15 2019-06-15 Outpatient PHYLLIS, [facility] [id number] [place] 00:00:00 00:00:00 SHEREEN 028 Method i 2019-05-29 2019-05-29 [facility] 1.2.840.114 [id number] Univers 00:00:00 00:00:00 Mello Hough [facility] 350.1.13.10 it y of Surgical 4.2.7.2.686 Zander as Specialti [id number] Ak dical es 198 [facility] 2019-03-31 2019-03-31 Office Isabel SAMSONPRIYANKA 1.2.063.654 [id number] Univers 08:35:06 09:11:29 Visit Mello Gomes 350.1.13.10 it y of Surgical 4.2.7.2.686 Zander as Specialti [id number] Ak dical es 198 [facility] 2019-03-31 2019-03-31 Orders Doctor BRAD 1.2.840.114 [id number] Univers 00:00:00 00:00:00 Only Unassigned, JARON 350.1.13.10 ity of [place] [facility] 4.2.7.2.686 Zander as [id number] [address] 2018-09-05 2018-09-05 Outpatient [facility] [id number] Common 14:30:00 14:30:00 [facility] 2018-08-03 2018-08-03 Outpatient [facility] [id number] Common 08:00:00 08:00:00 t [facility] Bone [facility] Sp[facility] t [facility] - [facility] Results Test Description Test Time Test Comments Results Result Comments Source SARS-CoV-2 (COVID-19) RNA [Presence] in Respiratory sp ecimen by 2019-10-25 19:09:03 EDUARDO with probe detection Test Item Value Reference Range Interpretation Comme nts SARS-CoV-2 (COVID-19) RNA [Presence] in Respiratory Not detected No t-Detected specimen by EDUARDO with probe detection (test code = 20648-2) NITHIN MORMON WESTXR FOOT <3 VW [id number] 15:54:17No acute fracture or dislocation 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
[2022-01-26 12:21] LABS: Absolute Lymphocytes (CBC) 1.2 K/uL (0.7-4.9); Hematocrit 31.9 % (39.6-49.0); MCV 88.8 fL (80-100); MPV 6.4 fL (7.6-11.3)
[2022-01-26 12:27] LABS: Protime INR 1.04
[2022-01-26 12:46] LABS: Albumin 2.7 g/dL (3.4-5.0); Bilirubin Direct 0.3 mg/dL (0-0.2); Bilirubin Total 0.9 mg/dL (0.2-1.0); Magnesium 1.7 mg/dL (1.6-2.4); Potassium 3.3 mmol/L (3.5-5.1); Protein, Total 5.6 g/dL (6.4-8.2); Troponin High Sensitivity 21.4 pg/mL (<58.9)
[2022-01-26 13:05] LABS: Thyroid Stimulating Hormone 3.96 uIU/mL (0.358-3.740)
--- NOTE | 2022-01-26 13:08 | RAD REPORT ---
EXAM DESCRIPTION: Lorie Single View01/26/2022 12:47 pm CLINICAL HISTORY: Palpitations COMPARISON: November 2021 FINDINGS: Chronic elevation left hemidiaphragm The lungs appear clear of acute infiltrate. The heart is mildly enlarged. Postsurgical changes involve the chest. Old rib fractures IMPRESSION: No acute abnormalities displayed
[2022-01-26] MEDS ORDERED: FUROSEMIDE 20 MG/ 2ML VIAL ONE (15:08)
[2022-01-26] MEDS ORDERED: POTASSIUM 25 MEQ EFFERV TAB ONE (15:09)
--- NOTE | 2022-01-26 16:49 | ER ---
Nurse's Notes [facility] Name: Jesus Morales Age: 71 yrs Sex: Male : 1950 Arrival Date: 01/26/2022 Time: 11:59 Bed 5 Private MD: Diagnosis: Unspecified combined systolic (congestive) and diastolic (congestive) heart failure Presentation: 01/26 11:53 Chief complaint: EMS states: For about a day in a half pt has had high BP and vg1 palpitations with some SOB, denies CP. 11:53 Coronavirus screen: Vaccine status: Patient reports receiving the 2nd dose of the covid vg1 vaccine. Client denies travel out of the [place] in the last 14 days. Ebola Screen: Patient negative for fever greater than or equal to 101.5 degrees Fahrenheit, and additional compatible Ebola Virus Disease symptoms. Initial Sepsis Screen: Does the patient meet any 2 criteria? RR > 20 per min. HR > 90 bpm. Yes Does the patient have a suspected source of infection? No. Patient's initial sepsis screen is negative. If YES to both, name of provider notified: Sarah HUNTER. Risk Assessment: Do you want to hurt yourself or someone else? Patient reports no desire to harm self or others. Onset of symptoms was January 24, 2022. 11:53 Method Of Arrival: EMS: [facility] vg1 11:53 Acuity: LEAH 3 vg1 Triage Assessment: 12:07 General: Appears in no apparent distress. uncomfortable, Behavior is calm, cooperative. vg1 Pain: Denies pain. EENT: No signs and/or symptoms were reported regarding the EENT system. Neuro: Level of Consciousness is awake, alert, obeys commands, Oriented to person, place, time, situation. Cardiovascular: Patient's skin is warm and dry. Respiratory: Airway is patent Respiratory effort is even, unlabored, Breath sounds with wheezes bilaterally. GI: Abdomen is round non-distended, Abd is soft and non tender X 4 quads. : No signs and/or symptoms were reported regarding the genitourinary system. Derm: Skin is pink, warm \T\ dry. Musculoskeletal: Circulation, motion, and sensation intact. Historical: - Allergies: 12:07 Adhesives; vg1 12:07 Latex, Natural Rubber; vg1 - Home Meds: 12:07 amlodipine 5 mg tab twice a day [Active]; metoprolol succinate 50 mg Oral Tb24 [Active];vg1 - PMHx: 12:07 Atrial fibrillation; Congestive heart failure; Chronic obstructive lung disease; vg1 - Immunization history:: Client reports receiving the 2nd dose of the Covid vaccine. - Social history:: Smoking status: Patient denies any tobacco usage or history of. Screenin:09 [facility] ED Fall Risk Assessment (Adult) History of falling in the last 3 months, vg1 including since admission No falls in past 3 months (0 pts) Confusion or Disorientation No (0 pts) Intoxicated or Sedated No (0 pts) Impaired Gait No (0 pts) Mobility Assist Device Used No (0 pt) Altered Elimination No (0 pt) Score/Fall Risk Level 0 - 2 = Low Risk Oriented to surroundings, Maintained a safe environment, Educated pt \T\ family on fall prevention, incl call for assistance when getting out of bed, Assessed \T\ reinforced patient's understanding of fall precautions. Abuse screen: Denies threats or abuse. Nutritional screening: No deficits noted. Tuberculosis screening: No symptoms or risk factors identified. 12:24 Fall Risk No fall in past 12 months (0 pts). ko1 19:38 Humpty Dumpty Scale Fall Assessment Tool (age< 18yrs) Age 13 years and above (1 pt) aa9 Gender Male (2 pts) Diagnosis Alteration in oxygenation (respiratory diagnosis, dehydration, anemia, anorexia, syncope/dizziness, etc) (3 pts) Cognitive Impairments Oriented to own ability (1 pt) Environmental Factors Patient uses assistive devices, or /toddler in crib, or furniture/lighting (3 pts) Response to Surgery/Sedation/Anesthesia More than 48 hours/ None (1 pt) Medication Usage One of the meds listed above (2 pts) Fall Risk Score/ Level High Fall Risk: >/= 12 points Oriented to surroundings, Maintained a safe environment: age specific bed with railing, Bed in low position \T\ wheels locked, Assessed need for side rail use, Locks on all chairs, commodes, stretchers \T\ wheelchairs, Rm and paths clutter \T\ obstacle free, Proper lighting. Assessment: 12:09 Reassessment: SEE TRIAGE. vg1 13:00 Reassessment: Patient appears in no apparent distress at this time. No changes from vg1 previously documented assessment. Patient and/or family updated on plan of care and expected duration. Pain level reassessed. Patient is alert, oriented x 3, equal unlabored respirations, skin warm/dry/pink. 14:07 Reassessment: Patient appears in no apparent distress at this time. Patient and/or vg1 family updated on plan of care and expected duration. Pain level reassessed. Patient is alert, oriented x 3, equal unlabored respirations, skin warm/dry/pink. Patient denies pain at this time. 16:11 Reassessment: Patient appears in no apparent distress at this time. Patient and/or vg1 family updated on plan of care and expected duration. Pain level reassessed. Patient is alert, oriented x 3, equal unlabored respirations, skin warm/dry/pink. Patient denies pain at this time. 17:10 Reassessment: Patient appears in no apparent distress at this time. Patient and/or vg1 family updated on plan of care and expected duration. Pain level reassessed. Patient is alert, oriented x 3, equal unlabored respirations, skin warm/dry/pink. Provider stated to disregard d/c; pt stood up and became SOB. 18:15 Reassessment: Patient appears in no apparent distress at this time. Patient and/or vg1 family updated on plan of care and expected duration. Pain level reassessed. Patient is alert, oriented x 3, equal unlabored respirations, skin warm/dry/pink. resting with eyes closed. 19:38 General: Appears in no apparent distress. comfortable, Behavior is calm, cooperative, aa9 appropriate for age. Neuro: Level of Consciousness is awake, alert, obeys commands. Respiratory: Airway is patent Respiratory effort is even, unlabored. Vital Signs: 11:53 BP 179 / 96; Pulse 101; Resp 20; Temp 97.9; Pulse Ox 98% on R/A; Weight 77.11 kg; vg1 Height 5 ft. 6 in. (167.64 cm); Pain 0/10; 13:00 BP 115 / 88; Pulse 100; Resp 17; Pulse Ox 98% on R/A; vg1 14:07 BP 164 / 70; Pulse 98; Resp 20; Pulse Ox 98% on R/A; vg1 15:05 BP 153 / 76; Pulse 101; Pulse Ox 99% on R/A; ko1 16:00 BP 159 / 87; Pulse 100; Resp 22; Pulse Ox 98% on R/A; vg1 17:00 BP 138 / 73; Pulse 98; Resp 22; Pulse Ox 98% on R/A; vg1 18:00 BP 122 / 48; Pulse 99; Resp 19; Pulse Ox 96% on R/A; vg1 11:53 Body Mass Index 27.44 (77.11 kg, 167.64 cm) vg1 Vitals: 12:24 Cardiac Rhythm Assessment Irregular Sinus tach Other 1st degree AV block with freq PACs ko1 and occasional PVCs. ED Course: 11:59 Patient arrived in ED. snw 11:59 Luis Fernando Mcelroy DO is Attending Physician. snw 12:00 Sarah Munoz FNP-C is PHCP. snw 12:00 Maintain EMS IV. Dressing intact. Good blood return noted. Site clean \T\ dry. Gauge \T\ ko 1 site: 20g left AC. 12:03 Dorothea Bright, RN is Primary Nurse. vg1 12:07 Triage completed. vg1 12:07 Arm band placed on. vg1 12:09 Patient has correct armband on for positive identification. Placed in gown. Bed in low vg1 position. Call light in reach. Side rails up X2. Client placed on continuous cardiac and pulse oximetry monitoring. NIBP monitoring applied. 12:09 No provider procedures requiring assistance completed. vg1 12:15 TSH Sent. ko1 12:15 TS Sent. ko1 12:15 Basic Metabolic Panel Sent. ko1 12:16 CBC with Diff Sent. ko1 12:16 LFT's Sent. ko1 12:16 Magnesium Sent. ko1 12:16 NT PRO-BNP Sent. ko1 12:16 PT-INR Sent. ko1 12:16 Troponin HS Sent. ko1 12:49 XRAY Chest (1 view) In Process Unspecified. EDMS 17:19 Luis Fernando Mcelroy DO is Hospitalizing Provider. snw 17:20 Venkatesh Bunch is Hospitalizing Provider. snw 17:50 SARS RAPID Sent. ko1 19:38 Patient admitted, IV remains in place. aa9 19:59 Primary Nurse role handed off by Dorothea Bright, RN wm Administered Medications: 14:55 CANCELLED (Other Intervention Used): LaSIX (furosemide) 40 mg PO once snw 15:09 Drug: Klor-Con (potassium) Effervescent Tablet 50 mEq Route: PO; ko1 15:13 Drug: Lasix (furosemide) 20 mg Route: IVP; Site: left antecubital; ko1 Medication: 12:09 VIS not applicable for this client. vg1 Output: 16:11 Urine: 500ml (Voided); Total: 500ml. vg1 Outcome: 16:48 Discharge ordered by MD. snw 17:21 Decision to Hospitalize by Provider. snw 19:37 Admitted to Med/surg accompanied by tech, room 219, with chart, Report called to aa9 receiving nurse 19:37 Condition: stable 19:37 Instructed on the need for admit. 20:11 Patient left the ED. aa9 Signatures: Dispatcher [employer] EDMS Sarah Munoz, DYE BOX OPERATOR-C DYE BOX OPERATOR-Csnw Dorothea Bright RN RN 1 Zohra Guzman Pita Nicole RN RN aa9 Arminda Bermudez, KENNEDY RN ko1
--- NOTE | 2022-01-26 16:49 | EDPHYS ---
Physician Documentation [facility] Name: Jesus Morales Age: 71 yrs Sex: Male : 1950 Arrival Date: 01/26/2022 Time: 11:59 Bed 5 Private MD: ED Physician Luis Fernando Mcelroy HPI: 01/26 12:07 This 71 yrs old Male presents to ER via EMS with complaints of palpitations. snw 12:07 The patient presents with a history of irregular heart beat. Context: The symptoms snw occur at rest. Onset: The symptoms/episode began/occurred acutely. Duration: The patient or guardian reports multiple episodes. Modifying factors: The symptoms are aggravated by nothing. Associated signs and symptoms: Pertinent positives: increased bp. Severity of symptoms: At their worst the symptoms were mild moderate. The patient has experienced similar episodes in the past. pt saw Dr. Hernandez last week, states he has another appt for the to have scope. Historical: - Allergies: 12:07 Adhesives; vg1 12:07 Latex, Natural Rubber; vg1 - Home Meds: 12:07 amlodipine 5 mg tab twice a day [Active]; metoprolol succinate 50 mg Oral Tb24 [Active];vg1 - PMHx: 12:07 Atrial fibrillation; Congestive heart failure; Chronic obstructive lung disease; vg1 - Immunization history:: Client reports receiving the 2nd dose of the Covid vaccine. - Social history:: Smoking status: Patient denies any tobacco usage or history of. ROS: 12:07 Eyes: Negative for injury, pain, redness, and discharge, ENT: Negative for injury, snw pain, and discharge, Neck: Negative for injury, pain, and swelling, Respiratory: Negative for shortness of breath, cough, wheezing, and pleuritic chest pain, Abdomen/GI: Negative for abdominal pain, nausea, vomiting, diarrhea, and constipation, Back: Negative for injury and pain, : Negative for injury, bleeding, discharge, and swelling, MS/Extremity: Negative for injury and deformity, Skin: Negative for injury, rash, and discoloration, Neuro: Negative for headache, weakness, numbness, tingling, and seizure, Psych: Negative for depression, anxiety, suicide ideation, homicidal ideation, and hallucinations. 12:07 Constitutional: Positive for malaise. 12:07 Cardiovascular: Positive for palpitations. Exam: 12:06 Constitutional: This is a well developed, well nourished patient who is awake, alert, snw and in no acute distress. Head/Face: Normocephalic, atraumatic. Eyes: Pupils equal round and reactive to light, extra-ocular motions intact. Lids and lashes normal. Conjunctiva and sclera are non-icteric and not injected. Cornea within normal limits. Periorbital areas with no swelling, redness, or edema. ENT: Nares patent. No nasal discharge, no septal abnormalities noted. Tympanic membranes are normal and external auditory canals are clear. Oropharynx with no redness, swelling, or masses, exudates, or evidence of obstruction, uvula midline. Mucous membranes moist. Neck: Trachea midline, no thyromegaly or masses palpated, and no cervical lymphadenopathy. Supple, full range of motion without nuchal rigidity, or vertebral point tenderness. No Meningismus. Chest/axilla: Normal chest wall appearance and motion. Nontender with no deformity. No lesions are appreciated. 12:06 Abdomen/GI: Soft, non-tender, with normal bowel sounds. No distension or tympany. No guarding or rebound. No evidence of tenderness throughout. Back: No spinal tenderness. No costovertebral tenderness. Full range of motion. 12:06 MS/ Extremity: Pulses equal, no cyanosis. Neurovascular intact. Full, normal range of motion. Neuro: Awake and alert, GCS 15, oriented to person, place, time, and situation. Cranial nerves II-XII grossly intact. Motor strength 5/5 in all extremities. Sensory grossly intact. Cerebellar exam normal. Normal gait. Psych: Awake, alert, with orientation to person, place and time. Behavior, mood, and affect are within normal limits. 12:06 Cardiovascular: Rate: tachycardic, Rhythm: irregularly irregular, Heart sounds: normal, JVD: is not appreciated. 12:06 Respiratory: the patient does not display signs of respiratory distress, Respirations: normal, Breath sounds: wheezing: expiratory is heard in the right posterior upper lobe, right posterior middle lobe and right posterior lower lobe. 12:06 Skin: Appearance: Color: pale. Vital Signs: 11:53 BP 179 / 96; Pulse 101; Resp 20; Temp 97.9; Pulse Ox 98% on R/A; Weight 77.11 kg; vg1 Height 5 ft. 6 in. (167.64 cm); Pain 0/10; 13:00 BP 115 / 88; Pulse 100; Resp 17; Pulse Ox 98% on R/A; vg1 14:07 BP 164 / 70; Pulse 98; Resp 20; Pulse Ox 98% on R/A; vg1 15:05 BP 153 / 76; Pulse 101; Pulse Ox 99% on R/A; ko1 16:00 BP 159 / 87; Pulse 100; Resp 22; Pulse Ox 98% on R/A; vg1 17:00 BP 138 / 73; Pulse 98; Resp 22; Pulse Ox 98% on R/A; vg1 18:00 BP 122 / 48; Pulse 99; Resp 19; Pulse Ox 96% on R/A; vg1 11:53 Body Mass Index 27.44 (77.11 kg, 167.64 cm) vg1 MDM: 12:00 Patient medically screened. snw 14:56 Data reviewed: vital signs, nurses notes. Data interpreted: Pulse oximetry: on room air snw is 98 %. Interpretation: normal. Counseling: I had a detailed discussion with the patient and/or guardian regarding: the presence of at least one elevated blood pressure reading (>120/80) during this emergency department visit, lab results, radiology results, the need for outpatient follow up. Response to treatment: the patient's symptoms have mildly improved after treatment, will add Lasix and Klor-Con. 17:22 ED course: pt significantly SOB on exertion. Will admit. snw 01/26 12:01 Order name: Basic Metabolic Panel; Complete Time: 13:18 snw 01/26 12:01 Order name: CBC with Diff; Complete Time: 12:31 snw 01/26 12:01 Order name: LFT's; Complete Time: 13:18 snw 01/26 12:01 Order name: Magnesium; Complete Time: 13:18 snw 01/26 12:01 Order name: NT PRO-BNP; Complete Time: 13:18 snw 01/26 12:01 Order name: PT-INR; Complete Time: 12:31 snw 01/26 12:01 Order name: Troponin HS; Complete Time: 13:18 snw 01/26 12:01 Order name: TS; Complete Time: 13:00 snw 01/26 12:01 Order name: TSH; Complete Time: 13:18 snw 01/26 13:07 Order name: T4 Free; Complete Time: 13:18 EDMS 01/26 17:46 Order name: SARS RAPID; Complete Time: 18:15 em1 01/26 17:46 Order name: Magnesium EDMS 01/26 17:46 Order name: Phosphorus EDMS 01/26 17:46 Order name: Urinalysis EDMS 01/26 12:01 Order name: XRAY Chest (1 view); Complete Time: 13:09 snw 01/26 12:01 Order name: EKG; Complete Time: 12:02 snw 01/26 12:01 Order name: Cardiac monitoring; Complete Time: 12:03 snw 01/26 12:01 Order name: EKG - Nurse/Tech; Complete Time: 12:03 snw 01/26 12:01 Order name: IV Saline Lock; Complete Time: 12:15 snw 01/26 12:01 Order name: Labs collected and sent; Complete Time: 12:15 snw 01/26 17:46 Order name: Heart Healthy EDAK 01/26 17:46 Order name: Basic Metabolic Panel EDAK 01/26 17:46 Order name: Basic Metabolic Panel EDAK 01/26 17:46 Order name: CBC with Automated Diff EDMS 01/26 17:46 Order name: CBC with Automated Diff EDMS 01/26 17:46 Order name: NT PRO-BNP EDAK 01/26 17:46 Order name: NT PRO-BNP EDAK 01/26 12:01 Order name: O2 Per Protocol; Complete Time: 12:03 snw 01/26 12:01 Order name: O2 Sat Monitoring; Complete Time: 12:03 snw 01/26 14:40 Order name: Recheck B/P; Complete Time: 15:05 snw 01/26 15:46 Order name: Recheck VS: and urine output; Complete Time: 16:11 snw EC:23 Rate is 101 beats/min. Rhythm is irregular. QRS [place] is Normal. QRS interval is snw prolonged. Clinical impression: Abnormal EKG without significant change. Administered Medications: 14:55 CANCELLED (Other Intervention Used): LaSIX (furosemide) 40 mg PO once snw 15:09 Drug: Klor-Con (potassium) Effervescent Tablet 50 mEq Route: PO; ko1 15:13 Drug: Lasix (furosemide) 20 mg Route: IVP; Site: left antecubital; ko1 Disposition: 13:44 Co-signature as Attending Physician, Luis Fernando Mcelroy DO I was immediately available on-site ms3 in the Emergency Department for consultation in the care of the patient. Disposition Summary: 01/26/22 17:21 Hospitalization Ordered Hospitalization Status: Inpatient Admission snw Provider: Venkatesh Bunch Location: Telemetry/MedSurg (Inpatient)(01/26/22 17:21) snw Condition: Stable(01/26/22 17:21) snw Problem: an acute exacerbation snw Symptoms: are unchanged snw Bed/Room Type: Standard snw Room Assignment: 219(01/26/22 18:55) mw Diagnosis - Unspecified combined systolic (congestive) and diastolic (congestive) heart failure snw Forms: - Medication Reconciliation Form snw - SBAR form snw Signatures: Dispatcher [employer] EDMS Carrie Zuñiga RN RN Sarah Hsu, LICENSE CLERK-C LICENSE CLERK-Csnw Dorothea Bright, RN RN vg1 Luis Fernando Mcelroy DO DO ms3 Arminda Bermudez, RN RN ko1 Corrections: (The following items were deleted from the chart) 14:55 14:55 LaSIX (furosemide) 40 mg PO once ordered. snw snw 17:11 16:48 Home snw snw 17:11 16:48 Stable snw snw 17:11 16:48 Fluid overload, unspecified snw snw 17:11 16:48 Hypokalemia snw snw 18:55 17:21 snw mw
[2022-01-26] MEDS ORDERED: HYDROCODONE/APAP 5/325 MG TAB PO PRN (17:42)
[2022-01-26] MEDS ORDERED: ACETAMINOPHEN 325 MG TABLET PO PRN (17:42)
[2022-01-26] MEDS ORDERED: ONDANSETRON 4 MG/2 ML VIAL IV PRN (17:43)
--- NOTE | 2022-01-26 17:44 | P.HP ---
Certification for Inpatient Patient admitted to: Inpatient With expected LOS: >2 Midnights Patient will require the following post-hospital care: None Practitioner: I am a practitioner with admitting privileges, knowledge of patient current condition, hospital course, and medical plan of care. Services: Services provided to patient in accordance with Admission requirements found in Title 42 Section 412.3 of the Code of Federal Regulations Patient History Date of Service: 01/26/22 Reason for admission: SOB, Palpitations History of Present Illness: Patient is a 71-year-old male with a past medical history significant for CHF, hypertension, COPD, A. fib, HLD, anemia, depression, CAD who presents with complaint of shortness of breath onset yesterday. Patient reported associated signs and symptoms of palpitations, elevated heart rate and bilateral lower extremity edema. Patient denies any other signs or symptoms. Symptoms are aggravated or relieved by nothing. Patient decided to present to the hospital due to worsening symptoms. Allergies adhesive tape Allergy (Verified 12/22/21 23:55) Hives/Rash Home Medications: Atorvastatin Calcium 40 mg PO BEDTIME 12/24/21 Furosemide [Lasix*] 40 mg PO DAILY 12/24/21 Metoprolol Succinate 1 tab PO BID 12/24/21 Amiodarone HCl [Cordarone Tab] 200 mg PO BID 01/27/22 Duloxetine [Cymbalta *] 60 mg PO DAILY 01/27/22 Fluticasone/Umeclidin/Vilanter [Trelegy Ellipta 200-62.5-25] 1 puff PO DAILY 01/27/22 Lisinopril [Zestril] 10 mg PO DAILY 01/27/22 Potassium Chloride [Klor-Con 10] 10 meq PO DAILY 01/27/22 - Past Medical/Surgical History Diabetic: No -: CHF -: Hypertension -: COPD -: Afib -: impaired fasting glucose -: htn -: hyperlipidemia -: cad -: carotid artery stenosis, bilateral -: anemia -: depression -: heavy etoh use -: open heart surgery- 2017 -: L knee replacement- 10/2019 -: kirt -: appe -: right knee replacement - Family History Father -: Lung disease Mother -: Cancer Brother -: Stroke Sister -: Diabetes - Social History Smoking Status: Former smoker Alcohol use: Yes CD- Drugs: No Caffeine use: Yes Place of Residence: Home Review of Systems General: Unremarkable Eyes: Unremarkable ENT: Unremarkable Respiratory: Shortness of Breath Cardiovascular: Palpitations, Other (Tachycardia ) Gastrointestinal: Unremarkable Genitourinary: Unremarkable Musculoskeletal: Pedal edema Integumentary: Unremarkable Neurological: Unremarkable Lymphatics: Unremarkable Physical Examination - Physical Exam General: Alert, In no apparent distress, Oriented x3 HEENT: Atraumatic, PERRLA, Mucous membr. moist/pink, EOMI, Sclerae nonicteric Neck: Supple, 2+ carotid pulse no bruit, No LAD, Without JVD or thyroid abnormality Respiratory: Clear to auscultation bilaterally, Diminished Cardiovascular: Normal S1 S2, No murmurs, Abnormal pulses, Irregular heart rate/rhythm Capillary refill: <2 Seconds Gastrointestinal: Normal bowel sounds, Soft and benign, No tenderness Musculoskeletal: No clubbing, No contractures, No erythema, No tenderness, Swelling Integumentary: No rashes, No breakdown, No significant lesion, No tenderness/swelling, Tenderness/swelling Neurological: Normal speech, Normal tone, Normal affect Lymphatics: No axilla or inguinal lymphadenopathy - Studies Laboratory Data (last 24 hrs) 01/26/22 12:10: PT 11.4, INR 1.04 01/26/22 12:10: WBC 8.10, Hgb 10.5 L, Hct 31.9 L, Plt Count 258 01/26/22 12:10: Sodium 136, Potassium 3.3 L, BUN 13, Creatinine 0.95, Glucose 110 H, Magnesium 1.7, Total Bilirubin 0.9, AST 15, ALT 26, Alkaline Phosphatase 96 Assessment and Plan - Plan --Acute on chronic diastolic CHF exacerbation. Continue diuresis with Lasix. Daily weight and strict I/O. Document Advisor consulted. Will await further recommendations. -- Acute on chronic COPD exacerbation. Continue neb treatment with albuterol\Atrovent and O2 therapy. --Hyperlipidemia. Continue statin. --Atrial fibrillation. Continue amiodarone and metoprolol. Telemetry to monitor for any significant arrhythmia. --Hypertension. Poorly controlled. Continue home medications and labetalol prn. -- History of CAD. Continue aspirin, Plavix and statin. -- Hypokalemia. Replete as needed. --CKD 2. Stable. We will continue to monitor renal functions. --Depression. Continue home medication --Anemia of chronic disease. H&H stable. We will continue to monitor hemoglobin and transfuse if less than 7.0. --DVT prophylaxis with heparin subQ. Discharge Plan: Home Plan to discharge in: Greater than 2 days - Advance Directives Does patient have a Living Will: No Does patient have a Durable POA for Healthcare: Yes - Code Status/Comfort Care Code Status Assessed: Yes Physician Review: Patient Assessed, Agree with Above Assessment and Plan Critical Care: No
[2022-01-26 18:13] LABS: SARS-CoV-2 Antigen Rapid Res Negative (Negative)
[2022-01-26 19:07] LABS: Magnesium 1.6 mg/dL (1.6-2.4); Phosphorus 3.1 mg/dL (2.5-4.9)
[2022-01-26] MEDS: HEPARIN 5000 UNIT/ML 1 ML VIAL SQ SCH (20:45)
--- NOTE | 2022-01-26 22:03 | P.PN ---
Date of Service: 01/27/22 Subjective: afib o/n, feeling better but still with some palpitations, WHYTE no new/worsening symptoms no nausea/vomiting, no dizziness ROS: A complete review of systems was performed and is negative except as mentioned above Physical Exam: Gen: NAD, AOx3 HEENT: normal conjunctiva, sclera anicteric CV: irregularly irregular rhythm, +trace b/l pedal edema Pulm: non-labored respirations, diminished at bases bilaterally, mild wheeze Abd: soft, non-tender, non-distended Neuro: normal speech, normal affect, moves all extremities vitals reviewed Problem List Dyspnea Atrial fibrillation, chronic recent GI bleed Acute on chronic diastolic CHF Acute on chronic COPD exacerbation HTN HLD CAD Depression CXR: clear dyspneic on exertion afib on telemetry, >100 bpm feels slightly improved, less palpitations denies missing medications, no recent illness, afebrile continue home amio, increase metoprolol from 50mg BID to 100mg BID cardiology consulted IV lasix, transition to PO, patient does not appear significantly overloaded at this time continue statin continue nebs/inhalers for COPD, wheeze on exam, possible copd component continue aspirin, statin recent GI bleed, taken off eliquis monitor for signs of bleeding TTE (11/05): normal LVEF: 56%, normal wall motion. LA enlargement. mild MR, mild TR VTE: lovenox Dispo: home, ~1-2 days Time Spent Managing Pts Care (In Minutes): 35
[2022-01-27 04:00] LABS: Absolute Lymphocytes (CBC) 1.5 K/uL (0.7-4.9); Hematocrit 30.6 % (39.6-49.0); Lymphocytes % 25.7 % (15.3-44.8); MCV 88.2 fL (80-100); MPV 6.6 fL (7.6-11.3); RBC Red Blood Cell Count 3.47 M/uL (4.33-5.43)
[2022-01-27 04:14] LABS: Potassium 2.9 mmol/L (3.5-5.1)
[2022-01-27] MEDS: KCL 20 MEQ/100 mL IVPB 20 MEQ/100 ML BAG IV SCH ×3 (04:47→09:40)
[2022-01-27] MEDS ORDERED: LABETALOL 20 MG/4ML SYRINGE IV PRN (05:37)
[2022-01-27 05:54] LABS: Magnesium 1.6 mg/dL (1.6-2.4); Phosphorus 3.5 mg/dL (2.5-4.9)
[2022-01-27] MEDS: ALBUTEROL 2.5 MG/3 ML NEB SOL NEB SCH ×3 (08:26→20:00)
[2022-01-27] MEDS: IPRATROPIUM BROM 0.5MG/2.5ML NEB SCH ×3 (08:26→20:00)
[2022-01-27] MEDS ORDERED: METOPROLOL XL 50 MG TAB PO SCH (09:00)
[2022-01-27] MEDS: HOME MED 1 EA UNK (Fluticasone/Umeclidin/Vilanter [Trelegy Ellipta 200-62.5-25] Blst.W.Dev PO SCH (09:00)
[2022-01-27] MEDS ORDERED: MAGNESIUM SULFATE 1 gm IVPB 1 GM/100 ML BAG IV ONE (09:00)
[2022-01-27] MEDS ORDERED: FUROSEMIDE 40 MG/4 ML VIAL IV SCH (09:00)
[2022-01-27] MEDS: DULOXETINE 20 MG CAP PO SCH (09:38)
[2022-01-27] MEDS: HEPARIN 5000 UNIT/ML 1 ML VIAL SQ SCH ×2 (09:38→21:16)
[2022-01-27] MEDS: POTASSIUM CL SA 10 MEQ TAB PO SCH (09:38)
[2022-01-27] MEDS: ASPIRIN 81 MG CHEWABLE TABLET PO SCH (09:39)
[2022-01-27] MEDS: AMIODARONE HCL 200 MG TAB PO SCH ×2 (09:39→21:16)
--- NOTE | 2022-01-27 15:17 | EKG ---
Test Date: 2022-01-26 Test Time: 12:01:12 Tire Recapper: HARDIK MEASUREMENT RESULTS: Intervals: Rate: 101 [place]: 202 QRSD: 140 QT: 412 QTc: 534 [place]: P: 68 [place]: 202 QRS: 69 T: 64 INTERPRETIVE STATEMENTS: Sinus tachycardia with occasional premature ventricular complexes Nonspecific intraventricular block Abnormal ECG Compared to ECG 12/22/2021 13:17:22 Ventricular premature complex(es) now present Right bundle-branch block no longer present Electronically Signed On 01-27-22 15:15:25 GRAY TENDER by Stef Meza
--- NOTE | 2022-01-27 16:46 | CON ---
Date of Consultation: 01/27/2022 Reason For Consultation: Shortness of breath. History Of Present Illness: A 71-year-old male, history of congestive heart failure, COPD, hypertens ion, paroxysmal atrial fibrillation, coronary artery disease, chronic alcoholism, multiple hospitaliz ations due to alcohol intoxication, severe hyponatremia, presented this time with some palpitations, worsening shortness of breath. Denies having any chest pain. No nausea, vomiting, or diarrhea. Past Medical History: As outlined above in the HPI. Medications: Refer to reconciliation sheet for detailed list. Allergies: NO KNOWN DRUG ALLERGIES. Family History: No premature coronary artery disease or cancer. Social History: He is an ex-smoker. Drinks alcohol on daily basis, large amount. Does not use any drugs. Review of Systems: All systems reviewed and they were negative except what mentioned in HPI. Physical Examination: Vital Signs: Reviewed. Temperature is 97.8, pulse is 98, breathing at 16, blood pressure 121/56, sa turating 94% on room air. General: Pleasant elderly male, in no apparent distress. Head and Neck: Pupils are equal, reactive to light. Intact eye movements. No cervical lymphadenopa thy. No JVD. Lungs: Decreased breathing sounds with faint crackles in the bases. No accessory muscle use or musc le retraction. Heart: Irregularly irregular. No extra sounds. Abdomen: Soft, nontender. Bowel sounds positive. No organomegaly. No masses or hernia. No rigidi ty or rebound. Extremities: Edema bilaterally, trace. No clubbing, cyanosis. Intact pulses. Skin: No rash. Neurologic: Alert, awake. No acute focal deficits appreciated. Lymph Nodes: No cervical or axillary lymphadenopathy. Investigations: His sodium is 137, potassium is 2.9, and his magnesium is 1.6, BUN is 10, creatinine 0.88. NT-proBNP is 4119. Chest x-ray, no acute abnormalities. Assessment And Recommendations: 1.Chronic congestive heart failure with a component of mild exacerbation at the current time. This patient was in the hospital recently and on echo, he has normal ejection fraction and does not have a ny chest pain at the present time. Cardiac enzymes are negative. Recommend careful diuresis and mon itoring BUN, creatinine, electrolytes. 2.Atrial fibrillation. Rate is borderline. Continue amiodarone and metoprolol. We will increase m etoprolol as needed for better rate control. The patient was counseled against alcoholism. SR/MODL Voice ID: [id number] Report ID: [id number]
[2022-01-27] MEDS: METOPROLOL XL 50 MG TAB PO SCH (17:29)
[2022-01-27] MEDS ORDERED: ATORVASTATIN 40 MG TAB PO SCH (21:00)
[2022-01-27 21:59] VITALS: BMI 27.6
--- NOTE | 2022-01-27 22:47 | RAD REPORT ---
EXAM DESCRIPTION: CT - Chest For Pe Angio - 01/27/2022 10:34 pm CLINICAL HISTORY: Chest pain. R/O PE, elevated DD COMPARISON: Chest Abd Pelvis Wo Con dated 11/29/2021 TECHNIQUE: CT angiogram of the pulmonary arteries was performed with MIP. All CT scans are performed using dose optimization technique as appropriate and may include automated exposure control or mA/KV adjustment according to patient size. FINDINGS: No evidence of pulmonary thromboembolism. No acute aortic finding demonstrated. Mild linear atelectasis is seen in both lung bases. The lungs are mildly emphysematous No significant pericardial or pleural fluid. No concerning bony finding. IMPRESSION: No evidence of pulmonary thromboembolism. No acute lung findings.
[2022-01-28] MEDS: ALBUTEROL 2.5 MG/3 ML NEB SOL NEB SCH ×2 (02:10→08:00)
[2022-01-28] MEDS: IPRATROPIUM BROM 0.5MG/2.5ML NEB SCH ×2 (02:10→08:00)
[2022-01-28 03:52] VITALS: O2SAT 95
[2022-01-28 04:40] LABS: Hematocrit 29.8 % (39.6-49.0); MCV 88.5 fL (80-100); MPV 6.4 fL (7.6-11.3); RBC Red Blood Cell Count 3.37 M/uL (4.33-5.43)
[2022-01-28 04:58] LABS: Potassium 3.2 mmol/L (3.5-5.1)
[2022-01-28] MEDS ORDERED: POTASSIUM 25 MEQ EFFERV TAB PO ONE (07:30)
[2022-01-28] MEDS: DULOXETINE 20 MG CAP PO SCH (08:30)
[2022-01-28] MEDS: POTASSIUM CL SA 10 MEQ TAB PO SCH (08:32)
[2022-01-28] MEDS: METOPROLOL XL 50 MG TAB PO SCH (08:32)
[2022-01-28] MEDS: HEPARIN 5000 UNIT/ML 1 ML VIAL SQ SCH (08:33)
[2022-01-28] MEDS: ASPIRIN 81 MG CHEWABLE TABLET PO SCH (08:33)
[2022-01-28] MEDS: AMIODARONE HCL 200 MG TAB PO SCH (08:33)
[2022-01-28] MEDS: HOME MED 1 EA UNK (Fluticasone/Umeclidin/Vilanter [Trelegy Ellipta 200-62.5-25] Blst.W.Dev PO SCH (08:35)
[2022-01-28] MEDS ORDERED: FUROSEMIDE 20 MG TABLET PO SCH (09:00)
[2022-01-28 09:03] VITALS: BP 163/70; TEMP 97.6
--- NOTE | 2022-01-28 21:22 | P.DS ---
Admission Date: 01/26/22 Discharge Date: 01/28/22 Disposition: ROUTINE DISCHARGE Discharge Condition: GOOD Reason for Admission: SOB, Palpitations Consultations: Cardiology - Dr. Meza Brief History of Present Illness: 71yo M, PMH: CHF, hypertension, COPD, A. fib, HLD, anemia, depression, CAD who presents with complaint of shortness of breath onset yesterday. Patient reported associated signs and symptoms of palpitations, elevated heart rate and bilateral lower extremity edema. Patient denies any other signs or symptoms. Symptoms are aggravated or relieved by nothing. Patient decided to present to the hospital due to worsening symptoms. Hospital Course: Problem List Dyspnea secondary to afib, acute CHF Atrial fibrillation, chronic recent GI bleed Acute on chronic diastolic CHF Acute on chronic COPD exacerbation HTN HLD CAD Depression Patient presented with palpitations and shortness of breath. He was found to be in afib with rapid ventricular response. Cardiology was consulted. He was treated with IV diuretics and metoprolol was increased. He had improvement of his symptoms and was deemed stable for discharge home. He was noted to have hypokalemia as well. Which was prolonged secondary to higher lasix dose. Recommend taking 2 of his potassium pills for next 3 days, then resuming 1 pill daily as previously prescribed. Medications: metoprolol XL increased from 50mg twice daily to 100mg twice daily Follow up: PCP within 1 week Cardiology in ~3-4 weeks Vital Signs/Physical Exam: Temp Pulse Resp BP Pulse Ox 97.6 F 73 18 163/70 H 95 01/28/22 08:00 01/28/22 08:00 01/28/22 08:00 01/28/22 08:00 01/28/22 08:00 Physical Exam: Gen: NAD, AOx3 HEENT: normal conjunctiva, sclera anicteric CV: irregularly irregular rhythm, +trace b/l pedal edema Pulm: non-labored respirations on room air, diminished at bases bilaterally Abd: soft, non-tender, non-distended Neuro: normal speech, normal affect, moves all extremities Laboratory Data at Discharge: WBC 6.10 K/uL (4.3-10.9) 01/28/22 04:20 Hgb 9.9 g/dL (13.6-17.9) L 01/28/22 04:20 Hct 29.8 % (39.6-49.0) L 01/28/22 04:20 Plt Count 250 K/uL (152-406) 01/28/22 04:20 PT 11.4 SECONDS (9.5-12.5) 01/26/22 12:10 INR 1.04 01/26/22 12:10 Sodium 136 mmol/L (136-145) 01/28/22 04:20 Potassium Cancelled 01/28/22 13:00 BUN 9 mg/dL (7-18) 01/28/22 04:20 Creatinine 0.96 mg/dL (0.70-1.30) 01/28/22 04:20 Glucose 104 mg/dL (74-106) 01/28/22 04:20 Phosphorus 3.5 mg/dL (2.5-4.9) 01/27/22 02:52 Magnesium 2.0 mg/dL (1.6-2.4) 01/28/22 04:20 Total Bilirubin 0.9 mg/dL (0.2-1.0) 01/26/22 12:10 AST 15 U/L (15-37) 01/26/22 12:10 ALT 26 U/L (16-61) 01/26/22 12:10 Alkaline Phosphatase 96 U/L (45-117) 01/26/22 12:10 Home Medications: Atorvastatin Calcium 40 mg PO BEDTIME 12/24/21 Furosemide [Lasix*] 40 mg PO DAILY 12/24/21 Amiodarone HCl [Cordarone*] 200 mg PO BID 01/27/22 Duloxetine [Cymbalta *] 60 mg PO DAILY 01/27/22 Fluticasone/Umeclidin/Vilanter [Trelegy Ellipta 200-62.5-25] 1 puff PO DAILY 01/27/22 Lisinopril [Zestril] 10 mg PO DAILY 01/27/22 Potassium Chloride [Klor-Con 10] 10 meq PO DAILY 01/27/22 Metoprolol Succinate [Toprol Xl] 100 mg PO BID 30 Days #60 tab 01/28/22 New Medications: Metoprolol Succinate [Toprol Xl] 100 mg PO BID 30 Days #60 tab Physician Discharge Instructions: Patient presented with palpitations and shortness of breath. He was found to be in afib with rapid ventricular response. Cardiology was consulted. He was treated with IV diuretics and metoprolol was increased. He had improvement of his symptoms and was deemed stable for discharge home. He was noted to have hypokalemia as well. Which was prolonged secondary to higher lasix dose. Recommend taking 2 of his potassium pills for next 3 days, then resuming 1 pill daily as previously prescribed. Medications: metoprolol XL increased from 50mg twice daily to 100mg twice daily Follow up: PCP within 1 week Cardiology in ~3-4 weeks Followup: NONE,NONE [Primary Care Provider] - Time spent managing pt's care (in minutes): 45
== END 2022-01-28 10:00 | disposition home health service (06) | DRG 291 ==
LOC: ER 11:56 → ERHOLD 17:40 → 2ND 19:37
PROVIDERS: ADMIT Internal Medicine; ATTEND Hospitalist
DX: I13.0 Hypertensive heart and chronic kidney disease with heart failure and stage 1 through stage 4 chronic kidney disease, or unspecified chronic kidney disease (principal); I50.33 Acute on chronic diastolic (congestive) heart failure; J44.1 Chronic obstructive pulmonary disease with (acute) exacerbation; I48.20 Chronic atrial fibrillation, unspecified; D63.8 Anemia in other chronic diseases classified elsewhere; Z79.01 Long term (current) use of anticoagulants; I11.0 Hypertensive heart disease with heart failure; N18.2 Chronic kidney disease, stage 2 (mild); E78.5 Hyperlipidemia, unspecified; E87.6 Hypokalemia; I25.10 Atherosclerotic heart disease of native coronary artery without angina pectoris; F32.A Depression, unspecified; F10.90 Alcohol use, unspecified, uncomplicated
CPT/HCPCS: 36415; 71045; 71275; 80048; 80076; 83735; 83880; 84100; 84132; 84439; 84443; 84484; 85025; 85027; 85379; 85610; 86850; 86900; 86901; 87811; 93005; 96374; 99285; J1644; J1940; J3475; J3480; J7613; J7644; Q9967

== ENCOUNTER 2022-02-12 11:05 | Inpatient (IN) | payer OTHER ==
--- OUTSIDE RECORDS SUMMARY | 2022-02-12 11:10 | XMS REPORT | Continuity of Care Document ---
:1950 Author Organization [facility] t Address [address] [place] [address] Care Team Providers Name Role Phone Sharpless Primary Care Physician Fady Pascual MD Attending Clinician RADIOLOGY Attending Clinician Unavailable Radiology Attending Clinician Unavailable Shereen Ferguson MD Attending Clinician OMARI DUMONT Attending Clinician Unavailable Omari Dumont Attending Clinician Doctor Unassigned, [place] Attending Clinician Unavailable Aroldo Sanchez DO Attending [...] Effective Date Expiration Date Alan JASON MANAGED [id number] 2021 MEDICARE PPO-SAMRA 00:00:00 Problems Condition Condition [...] Added automatic ally from request for surgery [id number] Post-op Post-op Disease Active [facility] 03-16kes fibrillati fibrillati 00:00: Me dical on Center S/P ACB S/P ACB Disease Active [facility] (DC-LAD, (DC-LAD, 03-11 Lisseth kes SVG-OM) SVG-OM) 00:00: Medical Center Coronary Coronary Disease Active [facility] artery artery 03-10 disease disease 00:00: Medical Center Hypertensi Hypertensi Disease Active [facility] on on 03-10 00:00: Medical [place] COPD COPD Disease Active [facility] (chronic (chronic 03-10 obstructiv obstructiv 00:00: Me dical e e Center pulmonary pulmonary disease) disease) Pain in Pain in Diagnosis Active Commo n joint of joint of Spirit right right - [facility] shoulder shoulder [facility] Impingemen Impingemen Diagnosis Active Common t syndrome t syndrome Sp [place] of right of right - [facility] shoulder shoulder [facility] Allergies, Adverse Reactions, Alerts Allergy Allergy Status [...] ity of adverse 00:00: [place] reaction 00 [facility] Adhesive Drug Active Rash [facility] Medical [address] [place] [address] Adhesive Drug Active Rash [facility] Medical 00 [place] Family History Family Member Diagnosis Comments Start Date Stop Date Source Natural father Heart disease [facility] Natural mother Cancer [facility] Social History Social Habit Start Date Stop Date Quantity Comments Source History of tobacco Cigarette Smoker [facility] use [facility] Center Exposure to 2021-08-31 2021-09-10 Not sure [facility] SARS-CoV-2 (event) 00:00:00 14:41:00 [facility] Alcohol intake 2021-08-05 2021-08-05 Current drinker [facility] 00:00:00 00:00:00 of alcohol [facility] (finding) Tobacco use and 2020-04-09 2020-04-09 Smokeless [facility] exposure 00:00:00 00:00:00 tobacco non-user Hospital Cigarettes smoked 2020-04-09 2020-04-09 [facility] current (pack per 00:00:00 00:00:00 Hospita l day) - Reported Cigarette 2020-04-09 2020-04-09 [facility] pack-years 00:00:00 00:00:00 Hospital Alcohol Comment 2019-10-18 2019-10-18 social [facility] 00:00:00 00:00:00 [facility] Sex [birth year] At [birth year] [facility] Lisseth kes 00:00:00 00:00:00 Medical Center Smoking Status Start Date Stop Date Source Former smoker [facility] Never smoked tobacco [facility] Medications Ordered Filled Start Stop Current [...] 2-29 by mouth. ity of tablet 00:00: [address] furosemide 2020-0 Yes 40mg Take 40 mg U nivers 40 mg 2-29 by mouth. ity of tablet 00:00: [place] [facility] furosemide 2020-0 Yes 40mg Take 40 mg U nivers 40 mg 2-29 by mouth. ity of tablet 00:00: [place] [facility] furosemide 2020-0 Yes 40mg Take 40 mg U nivers 40 mg 2-29 by mouth. ity of tablet 00:00: [place] [facility] furosemide 2020-0 Yes 40mg Take 40 mg U nivers 40 mg 2-29 by mouth. ity of tablet 00:00: [place] [facility] furosemide 2020-0 Yes 40mg Take 40 mg U nivers 40 mg 2-29 by mouth. ity of tablet 00:00: [address] furosemide 2020-0 Yes 40mg Take 40 mg U nivers 40 mg 2-29 by mouth. ity of tablet 00:00: [address] furosemide 2020-0 Yes 40mg Take 40 mg U nivers 40 mg 2-29 by mouth. ity of tablet 00:00: [place] [facility] furosemide 2020-0 Yes 40mg Take 40 mg U nivers 40 mg 2-29 by mouth. ity of tablet 00:00: [place] [facility] furosemide 2020-0 Yes 40mg Take 40 mg U nivers 40 mg 2-29 by mouth. ity of tablet 00:00: [place] [facility] furosemide 2019-0 Yes 40mg QD Take 40 mg M ethodi (LASIX) 40 2-[address] mg tablet 00:00: daily. Hospit a escitalopra 2018-02 Yes 5mg QD Take 5 mg M ethodi m (LEXAPRO) 2-[address] 10 MG 00:00: daily. Hospita tablet escitalopra 2018-02 Yes 5mg QD Take 5 mg M ethodi m (LEXAPRO) 2-[address] 10 MG 00:00: daily. Hospita tablet escitalopra 2018-02 Yes 5mg QD Take 5 mg M ethodi m (LEXAPRO) 2-[address] 10 MG 00:00: daily. Hospita tablet escitalopra 2018-02 Yes 5mg QD Take 5 mg M ethodi m (LEXAPRO) 2-[address] 10 MG 00:00: daily. Hospita tablet escitalopra 2018-02 Yes Univer s m oxalate 2-14 ity of 10 mg 00:00: [place] tablet [facility] escitalopra 2018-02 Yes Univer s m oxalate 2-14 ity of 10 mg 00:00: [place] tablet [facility] escitalopra 2018-02 Yes Univer s m oxalate 2-14 ity of 10 mg 00:00: [place] tablet [facility] escitalopra 2018-02 Yes Univer s m oxalate 2-14 ity of 10 mg 00:00: [place] tablet [facility] escitalopra 2018-02 Yes Univer s m oxalate 2-14 ity of 10 mg 00:00: [place] tablet [facility] escitalopra 2018-02 Yes Univer s m oxalate 2-14 ity of 10 mg 00:00: [place] tablet [facility] escitalopra 2018-02 Yes Univer s m oxalate [...] mg 0-31 ity of tablet 00:00: [facility] triazolam 2018-02 Yes Univers 0.25 mg 0-31 ity of tablet 00:00: [place] [facility] triazolam 2018-02 Yes Univers 0.25 mg 0-31 ity of tablet 00:00: [facility] triazolam 2018-02 Yes Univers 0.25 mg 0-31 ity of tablet 00:00: [facility] triazolam 2018-02 Yes Univers 0.25 mg 0-31 ity of tablet 00:00: [facility] triazolam 2018-02 Yes Univers 0.25 mg 0-31 ity of tablet 00:00: [facility] triazolam 2018-02 Yes Univers 0.25 mg 0-31 ity of tablet 00:00: [place] [facility] triazolam 2018-02 Yes Univers 0.25 mg 0-31 ity of tablet 00:00: [place] [facility] triazolam 2018- Yes Univers 0.25 mg 0-31 ity of tablet 00:00: [place] [facility] triazolam 2018-02 Yes Univers 0.25 mg 0-31 ity of tablet 00:00: [place] [facility] triazolam 2018-02 Yes Univers 0.25 mg 0-31 ity of tablet 00:00: [place] [facility] triazolam 2018-02 Yes Univers 0.25 mg 0-31 ity of tablet 00:00: [place] [facility] triazolam 2018-02 Yes Univers 0.25 mg 0-31 ity of tablet 00:00: [place] [facility] triazolam 2018-02 Yes Univers 0.25 mg 0-31 ity of tablet 00:00: [place] [facility] amLODIPine 2018-02 Yes 5mg QD Take 5 mg Me thodi (NORVASC) 5 0-[address] mg tablet 00:00: daily. Hospit a amLODIPine 2018-02 Yes 5mg QD Take 5 mg Me thodi (NORVASC) 5 0-[address] mg tablet 00:00: daily. Hospit a amLODIPine 2018-02 Yes 5mg QD Take 5 mg Me thodi (NORVASC) 5 0-[address] mg tablet 00:00: daily. Hospit a amLODIPine 2018-02 Yes 5mg QD Take 5 mg Me thodi (NORVASC) 5 0-[address] mg tablet 00:00: daily. Hospit a amLODIPine 2018-02 Yes Univers 5 mg tablet 0-11 ity of 00:00: [place] [facility] amLODIPine 2018-02 Yes Univers 5 mg tablet 0-11 ity of 00:00: [place] [facility] amLODIPine 2018-02 Yes Univers 5 mg tablet 0-11 ity of 00:00: [place] [facility] amLODIPine 2018-02 Yes Univers 5 mg tablet 0-11 ity of 00:00: [place] [facility] amLODIPine 2018-02 Yes Univers 5 mg tablet 0-11 ity of 00:00: [place] [facility] amLODIPine 2019 Yes Univers 5 mg tablet 0-11 ity of 00:00: [place] [facility] amLODIPine 2018-02 Yes Univers 5 mg tablet 0-11 ity of 00:00: [place] [facility] amLODIPine 2018-02 Yes Univers 5 mg tablet 0-11 ity of 00:00: [place] [facility] amLODIPine 2018-02 Yes Univers 5 mg tablet 0-11 ity of 00:00: [place] [facility] amLODIPine 2019-1 Yes Univers 5 mg tablet 0-11 ity of 00:00: [address] amLODIPine 2019-1 Yes Univers 5 mg tablet 0-11 ity of 00:00: [address] amLODIPine 2018- Yes Univers 5 mg tablet 0-11 ity of 00:00: [address] amLODIPine 2018- Yes Univers 5 mg tablet 0-11 ity of 00:00: [place] [facility] amLODIPine 2018- Yes Univers 5 mg tablet 0-11 ity of 00:00: [place] [facility] amLODIPine 2018- Yes 5mg QD Take 5 mg Me thodi (NORVASC) 5 0-[address] mg tablet 00:00: daily. Hospit a 00 l atorvastati 2019-0 Yes Univer s n 40 mg 9-17 ity of tablet 00:00: [address] atorvastati 2019-0 Yes Univer s n 40 mg 9-17 ity of tablet 00:00: [place] [facility] atorvastati 2019-0 Yes Univer s n 40 mg 9-17 ity of tablet 00:00: [address] atorvastati 2019-0 Yes Univer s n 40 mg 9-17 ity of tablet 00:00: [address] atorvastati 2019-0 Yes Univer s n 40 mg 9-17 ity of tablet 00:00: [address] atorvastati 2019-0 Yes Univer s n 40 mg 9-17 ity of tablet 00:00: [place] [facility] atorvastati 2019-0 Yes Univer s n 40 mg 9-17 ity of tablet 00:00: [address] atorvastati 2019-0 Yes Univer s n 40 mg 9-17 ity of tablet 00:00: [address] atorvastati 2019-0 Yes Univer s n 40 mg 9-17 ity of tablet 00:00: [address] atorvastati 2019-0 Yes Univer s n 40 mg 9-17 ity of tablet 00:00: [address] atorvastati 2019-0 Yes Univer s n 40 mg 9-17 ity of tablet 00:00: [address] atorvastati 2019-0 Yes Univer s n [...] 9-04 TABLET BY ity of tablet 00:00: EVERY DAY Medical NEEDED Branch tadalafil 2019-0 [...] 9-04 TABLET BY ity of tablet 00:00: EVERY DAY Medical NEEDED Branch tadalafil 2019-0 [...] MOUTH [place] EVERY DAY Medical NEEDED Branch predniSONE 2019-0 [...] 10 mg 8-13 ity of tablet 00:00: [place] [facility] metoprolol 2019-0 Yes Univers succinate 8-13 ity of XL 50 mg 24 00:00: [place] hr tablet 00 Medical Branch predniSONE 2019-0 Yes Univers 10 mg 8-13 ity of tablet 00:00: [place] 00 Medical Branch predniSONE 2019-0 Yes Univers 10 mg 8-13 ity of tablet 00:00: [place] 00 Medical Branch metoprolol 2019-0 Yes Univers succinate 8-13 ity of XL 50 mg 24 00:00: [place] hr tablet 00 Medical Branch predniSONE 2019-0 Yes Univers 10 mg 8-13 ity of tablet 00:00: [place] [facility] metoprolol 2019-0 Yes Univers succinate 8-13 ity of XL 50 mg 24 00:00: [place] hr tablet 00 Medical Branch predniSONE 2019-0 Yes Univers 10 mg 8-13 ity of tablet 00:00: [place] 00 Medical Branch metoprolol 2019-0 Yes Univers succinate 8-13 ity of XL 50 mg 24 00:00: [place] hr tablet 00 Medical Branch predniSONE 2019-0 Yes Univers 10 mg 8-13 ity of tablet 00:00: [place] 00 Medical Branch metoprolol 2019-0 Yes Univers [...] 8-13 ity of tablet 00:00: [place] 00 [facility] metoprolol 2019-0 Yes Univers succinate 8-13 ity of XL 50 mg 24 00:00: [place] hr tablet 00 Medical Branch predniSONE 2019-0 Yes Univers 10 mg 8-13 ity of tablet 00:00: [place] [facility] metoprolol 2019-0 Yes Univers succinate 8-13 ity of XL 50 mg 24 00:00: [place] hr tablet 00 Medical Branch predniSONE 2019-0 Yes Univers 10 mg 8-13 ity of tablet 00:00: [place] 00 [facility] metoprolol 2019-0 Yes Univers succinate 8-13 ity of XL 50 mg 24 00:00: [place] hr tablet 00 Medical [place] predniSONE 2019-0 Yes Univers 10 mg 8-13 ity of tablet 00:00: [place] 00 [facility] metoprolol 2019-0 Yes Univers succinate 8-13 ity of XL 50 mg 24 00:00: [place] hr tablet 00 Medical Branch predniSONE 2019-0 Yes Univers 10 mg 8-13 ity of tablet 00:00: [place] 00 [facility] metoprolol 2019-0 Yes Univers succinate 8-13 ity of XL 50 mg 24 00:00: [place] hr tablet 00 Medical Branch predniSONE 2019-0 Yes Univers 10 mg 8-13 ity of tablet 00:00: [place] [facility] metoprolol 2019-0 Yes Univers succinate 8-13 ity of XL 50 mg 24 00:00: [place] hr tablet 00 [facility] triazolam 2017-0 Yes .25mg Take 0.25 CH [...] tablet 27 every Center night as needed. umeclidiniu 2017-0 Yes 1{puff} QD Inhale 1 [...] daily. on DsDv powder for inhalation apixaban 0 Yes 5mg Q.5D Take [address] [facility] (ELIQUIS) 5 2-09 tablet (5 Bk es mg Tab 00:00: mg total) Medica l tablet 00 by mouth 2 Center (two) times daily. umeclidiniu 2017-0 Yes 1{puff} QD Inhale [address] [facility] m (INCRUSE 2-09 puff by [facility] ELLIPTA) 00:00: mouth via Medi meredith 62.5 00 inhaler Center mcg/actuati daily. on DsDv powder for inhalation apixaban 2016-0 Yes 5mg Q.5D Take [address] [facility] (ELIQUIS) 5 2-09 tablet (5 Bk es mg Tab 00:00: mg total) Medica l tablet 00 by mouth 2 Center (two) times daily. umeclidiniu 2017-0 Yes 1{puff} QD Inhale [address] [facility] m (INCRUSE 2-09 puff by [facility] ELLIPTA) 00:00: mouth via Medi meredith 62.5 00 inhaler Center mcg/actuati daily. on DsDv powder for inhalation apixaban 5 2016-0 Yes 5mg Take 5 mg Un sally mg tablet 2-09 by mouth. ity o f 00:00: [address] umeclidiniu 2017-0 Yes 1{puff} Inhale 1 Univers [...] ity of mcg/actuati 00:00: [place] on DsDv 00 Medical Branch apixaban 5 2016- Yes 5mg Take 5 mg Un sally mg tablet 2-09 by mouth. ity o f 00:00: [place] 00 Medical Branch umeclidiniu 2017-0 Yes 1{puff} Inhale 1 Univers m 62.5 2-09 Puff. ity of mcg/actuati 00:00: [place] on DsDv Medical Branch apixaban 2017-0 Yes 5mg Q.5D Take [address] (ELIQUIS) 5 2-09 tablet (5 Bk es mg Tab 00:00: mg total) Medica l tablet 00 by mouth 2 Center (two) times daily. umeclidiniu Yes 1{puff} QD Inhale [address] [facility] m (INCRUSE 2-09 puff by [facility] ELLIPTA) 00:00: mouth via [facility] meredith 62.5 00 inhaler Center mcg/actuati daily. on DsDv powder for inhalation apixaban Yes 5mg Q.5D Take [address] (ELIQUIS) 5 2-09 tablet (5 Bk es mg Tab 00:00: mg total) Medica l tablet 00 by mouth 2 Center (two) times daily. atorvastati Yes 40mg QD Take 40 mg [...] Yes Carlo not Com mon Omid defined [facility] Atorvastati Atorvastati Yes Carlo not Common n Calcium n Calcium Omid defined [facility] PredniSONE PredniSONE Yes Carlo not C ommon Omid defined [facility] Atrovent Atrovent Yes Carlo not Commo n HFA HFA Omid defined [facility] Furosemide Furosemide Yes Carlo not C ommon Omid defined [facility] Amlodipine Amlodipine Yes Carlo not C ommon Besylate Besylate Omid defined Sp [facility]ecille [facility] Anoro Anoro Yes Carlo not Common Ellipta Ellipta Omid defined Spir it [facility] Combivent Combivent Yes Carlo not Com mon Anne defined [facility] Acetaminoph Acetaminoph Yes Carlo not Common en en Omid defined [facility] Tadalafil Tadalafil Yes Carlo not Com mon Anne defined [facility] Metoprolol Metoprolol Yes Carlo not C ommon Succinate Succinate Omid defined [facility] Yoselin Yoselin Yes Carlo not Common Aspirin Aspirin Omid defined Spir it [facility] Vital Signs Vital Name Observation Time Observation Value Comments Source Systolic blood 2019-08-29 14:55:00 160 mm[Hg] Univer sity of [facility] Diastolic blood 2019-08-29 14:55:00 83 mm[Hg] Unive rsity of pressure [facility] Heart rate 2019-08-29 14:55:00 86 /min Universi ty of [facility] Body height 2019-08-29 14:55:00 167.6 cm Universi ty [facility] Body weight 2019-08-29 14:55:00 77.111 kg Universi ty [facility] BMI 2019-08-29 14:55:00 27.44 kg/m2 Universi ty [facility] Systolic blood 2019-08-29 14:55:00 160 mm[Hg] Univer sity of pressure [facility] Diastolic blood 2019-08-29 14:55:00 83 mm[Hg] Unive rsity of pressure [facility] Heart rate 2019-08-29 14:55:00 86 /min Universi ty [facility] Body height 2019-08-29 14:55:00 167.6 cm Universi ty of [facility] Body weight 2019-08-29 14:55:00 77.111 kg Universi ty [facility] BMI 2019-08-29 14:55:00 27.44 kg/m2 Universi ty [facility] Systolic blood 2019-08-24 15:36:00 176 mm[Hg] Univer sity of pressure [facility] Diastolic blood 2019-08-24 15:36:00 81 mm[Hg] Unive rsity of [facility] Heart rate 2019-08-24 15:36:00 81 /min Universi ty of [facility] Respiratory rate 2019-08-24 15:30:00 18 /min Univ ersity [facility] Body height 2019-08-24 15:30:00 167.6 cm Universi ty of [facility] Body weight 2019-08-24 15:30:00 77.111 kg Universi ty of [facility] BMI 2019-08-24 15:30:00 27.44 kg/m2 Universi ty of [facility] Systolic blood 2019-03-31 14:40:00 156 mm[Hg] Univer sity of pressure [facility] Diastolic blood 2019-03-31 14:40:00 87 mm[Hg] Unive rsity of [facility] Heart rate 2019-03-31 14:40:00 79 /min Universi ty [facility] Respiratory rate 2019-03-31 14:40:00 20 /min [facility] 2019-03-31 14:40:00 167.6 cm Universi ty [facility] Body weight 2019-03-31 14:40:00 77.111 kg Universi ty [facility] BMI 2019-03-31 14:40:00 27.44 kg/m2 Universi ty [facility] Body height 2021-08-05 18:15:00 167.6 cm [facility] Body weight 2021-08-05 18:15:00 74.844 kg [facility] BMI 2021-08-05 18:15:00 26.63 kg/m2 [facility] Procedures Procedure Date / Time Performing Clinician Source Performed ALPHA-1 ANTITRYPSIN 2021-10-03 17:42:00 [place] [facility] PHENOTYPE Ramana ALPHA-1 ANTITRYPSIN LEVEL 2021-10-03 17:42:[facility] Ramana IGG SUBCLASSES 2021-10-03 17:42:00 [place] [facility] H [facility]spital Ramana IMMUNOGLOBULIN G 2021-10-03 17:42:00 [place] [facility] Ramana ALLERGEN, REGION 10 2021-10-03 17:42:00 [facility] RESPIRATORY VEGA IGE Ramana IMMUNCAP SCORE 2021-10-03 17:42:00 Fady Pascual [facility] Ramana MR LUMBAR SPINE WO 2021-09-19 15:51:00 Requisition, Paper [facility] CONTRAST Medical Branch XR KNEE 3 VW LEFT 2021-08-05 18:27:49 Phyllis [facility] XR LEG LENGTH EVALUATION 2021-08-05 18:27:25 Phyllis [facility] NOTICE OF PRIVACY 2021-08-04 15:36:26 Doctor Unassigned, [facility] PRACTICES [place] [facility] CONSENT/REFUSAL FOR 2021-08-04 15:36:06 Doctor Unassigned, [facility] DIAGNOSIS AND TREATMENT [place] [facility] ASSIGNMENT OF BENEFITS 2021-08-04 15:35:52 Doctor Unassigned, [facility] [place] [facility] PHYSICIAN ORDERS 2021-07-23 05:01:00 Doctor Unassigned, [facility] [place] [facility] XR FOOT <3 VW RIGHT 2019-08-24 15:48:01 Stephanie Henriquez [facility] DSU PRE-OP 2019-03-31 06:01:00 Doctor Unassigned, [facility] [place] [facility] Plan of Care Planned Activity Planned Date Details Comments Source Future Scheduled 2022-01-26 Screening for [facility] Test 11:59:03 malignant neoplasm of lung (procedure) [code = [id number]] Future Scheduled 2022-01-26 SHINGLES VACCINES (1 Met [facility] [place] [facility] Test 11:59:03 of 2) [code = SHINGLES VACCINES (1 of 2)] Future Scheduled 2022-01-26 COVID-19 VACCINE (4 - [facility] Test 11:59:03 Booster for Moderna series) [code = COVID-19 VACCINE (4 - Booster for Moderna series)] Future Scheduled 2022-01-26 INFLUENZA VACCINE Method [facility] Test 11:59:03 [code = INFLUENZA VACCINE] Future Scheduled 2022-01-26 65+ PNEUMOCOCCAL [facility] Test 11:59:03 VACCINE (1 - PCV) [code = 65+ PNEUMOCOCCAL VACCINE (1 - PCV)] Future Scheduled 2022-01-26 COLONOSCOPY SCREENING [facility] Test 11:59:03 [code = COLONOSCOPY SCREENING] Future Scheduled 2022-01-26 Screening for [facility] Test 11:59:03 malignant neoplasm of lung (procedure) [code = [id number]] Future Scheduled 2022-01-26 SHINGLES VACCINES (1 Met [facility] [place] [facility] Test 11:59:03 of 2) [code = SHINGLES VACCINES (1 of 2)] Future Scheduled 2022-01-26 COVID-19 VACCINE (4 - Me [facility] Test 11:59:03 Booster for Moderna series) [code = COVID-19 VACCINE (4 - Booster for Moderna series)] Future Scheduled 2022-01-26 INFLUENZA VACCINE Method [facility] Test 11:59:03 [code = INFLUENZA VACCINE] Future Scheduled 2022-01-26 65+ [facility]AL [facility] 11:59:03 VACCINE (1 - PCV) [code = 65+ PNEUMOCOCCAL VACCINE (1 - PCV)] Future Scheduled 2022-01-26 COLONOSCOPY SCREENING [facility] [place] [facility] Test 11:59:03 [code = COLONOSCOPY SCREENING] Future Scheduled 2022-01-26 65+ [facility]OCOCCAL [facility] 11:59:03 VACCINE (1 - PCV) [code = 65+ PNEUMOCOCCAL VACCINE (1 - PCV)] Future Scheduled 2022-01-26 COLONOSCOPY SCREENING [facility] [place] [facility] Test 11:59:03 [code = COLONOSCOPY SCREENING] Future Scheduled 2022-01-26 Screening for [facility] Test 11:59:03 malignant neoplasm of lung (procedure) [code = [id number]] Future Scheduled 2022-01-26 SHINGLES VACCINES (1 Met [facility] Test 11:59:03 of 2) [code = SHINGLES VACCINES (1 of 2)] Future Scheduled 2022-01-26 COVID-19 VACCINE (4 - [facility] Test 11:59:03 Booster for Moderna series) [code = COVID-19 VACCINE (4 - Booster for Moderna series)] Future Scheduled 2022-01-26 INFLUENZA VACCINE [facility] Test 11:59:03 [code = INFLUENZA VACCINE] Future Scheduled 2021-10-24 HEPATITIS B VACCINES Met [facility] [place] [facility] Test 14:20:57 (1 of 3 - 3-dose series) [code = HEPATITIS B VACCINES (1 of 3 - 3-dose series)] Future Scheduled 2021-10-24 65+ [facility]OCOCCAL [facility] Test 14:20:57 VACCINE (1 - PCV) [code = 65+ PNEUMOCOCCAL VACCINE (1 - PCV)] Future Scheduled 2021-10-24 COLONOSCOPY SCREENING [facility] Test 14:20:57 [code = COLONOSCOPY SCREENING] Future Scheduled 2021-10-24 Screening for [facility] Test 14:20:57 malignant neoplasm of lung (procedure) [code = 849781274] Future Scheduled 2021-10-24 SHINGLES VACCINES (1 Met [facility] Test 14:20:57 of 2) [code = SHINGLES VACCINES (1 of 2)] Future Scheduled 2021-10-24 COVID-19 VACCINE (4 - [facility] Test 14:20:57 Booster for Moderna series) [code = COVID-19 VACCINE (4 - Booster for Moderna series)] Future Scheduled 2021-10-24 INFLUENZA VACCINE Method [facility] Test 14:20:57 [code = INFLUENZA VACCINE] Future Scheduled 2021-10-24 HEPATITIS B VACCINES Met [facility] Test 14:20:57 (1 of 3 - 3-dose series) [code = HEPATITIS B VACCINES (1 of 3 - 3-dose series)] Future Scheduled 2021-10-24 65+ PNEUMOCOCCAL [facility] Test 14:20:57 VACCINE (1 - PCV) [code = 65+ PNEUMOCOCCAL VACCINE (1 - PCV)] Future Scheduled 2021-10-24 COLONOSCOPY SCREENING [facility] Test 14:20:57 [code = COLONOSCOPY SCREENING] Future Scheduled 2021-10-24 Screening for [facility] Test 14:20:57 malignant neoplasm of lung (procedure) [code = 331202708] Future Scheduled 2021-10-24 SHINGLES VACCINES (1 Met [facility] Test 14:20:57 of 2) [code = SHINGLES VACCINES (1 of 2)] Future Scheduled 2021-10-24 COVID-19 VACCINE (4 - [facility] Test 14:20:57 Booster for Moderna series) [code = COVID-19 VACCINE (4 - Booster for Moderna series)] Future Scheduled 2021-10-24 INFLUENZA VACCINE Method [facility] Test 14:20:57 [code = INFLUENZA VACCINE] Encounters Start End Encounter Admission Attending Care Care Encounter Source Date/Time Date/Time Type Type Clinicians Facility Department ID 2021-10-31 2021-10-31 Outpatient Mariola [facility] [id number] [place] 15:38:00 15:38:00 Vidya [id number] [facility] ica 3 [place] 2021-10-03 2021-10-03 Lab Colomer, 1.2.840.1 [id number] Methodi 12:30:00 12:35:[address] Ramana 3.430.2.7 Hospit a .3.327997 l .8 2021-10-03 2021-10-03 Lab Colomer, 1.2.840.1 [id number] Methodi 12:30:00 12:35:[address] Ramana 3.430.2.7 Hospit a .3.811036 l .8 2021-10-03 2021-10-03 Travel 1.2.840.1 1.2.620.822 [id number] Methodi 00:00:00 00:00:[address] 3.430.2.7 0.2.7.3.698 Ho spita .3.544421 084.8 l .8 2021-10-03 2021-10-03 Travel 1.2.840.1 1.2.952.170 [id number] Methodi 00:00:00 00:00:[address] 3.430.2.7 0.2.7.3.698 Ho spita .3.497232 084.8 l .8 2021-09-19 2021-09-19 Outpatient R RADIOLOGY [facility] [id number] Univers 09:09:31 23:59:00 ity of [facility] 2021-09-19 2021-09-19 Hospital Radiology [facility] 1.2.840.114 [id number] Univers 09:09:31 23:59:00 Encounter ANDRES 350.1.13.10 [place] of [place] 4.2.7.2.686 [facility] [phone] [address] 2021-08-05 2021-08-05 Office Phyllis, 1.2.840.1 [id number] Methodi 14:00:00 15:57:20 Visit Shereen [place] 35371.1.1 824 s t 3.430.2.7 Hospit a .3.874034 l .8 2021-08-05 2021-08-05 Office Phyllis, 1.2.840.1 [id number] Methodi 14:00:00 15:57:20 Visit Shereen [place] 47825.1.1 824 s t 3.430.2.7 Hospit a .3.835197 l .8 2021-08-05 2021-08-05 Outpatient PHYLLIS, [facility] [id number] [place] 00:00:00 00:00:00 SHEREEN [address] 2021-08-05 2021-08-05 Outpatient PHYLLIS, [facility] [id number] [place] 00:00:00 00:00:00 SHEREEN [address] 2021-08-05 2021-08-05 Travel 1.2.840.1 1.2.207.020 [id number] Methodi 00:00:00 00:00:[address] 3.430.2.7 0.2.7.3.698 Ho spita .3.564365 084.8 l .8 2021-08-05 2021-08-05 Travel 1.2.840.1 1.2.430.726 [id number] Methodi 00:00:00 00:00:[address] 3.430.2.7 0.2.7.3.698 Ho spita .3.237249 084.8 l .8 2021-08-04 2021-08-04 [facility]patient [facility] [id number] Univers 10:39:04 23:59:00 OMARI og [facility] 2021-08-04 2021-08-04 [facility] 1.2.840.114 [id number] Univers 10:39:04 23:59:00 Encounter Omari CAMPOS 350.1.13.10 [place] [id number] [facility] [address] 2021-07-23 2021-07-23 Orders Doctor BRAD 1.2.840.114 [id number] Univers 00:00:00 00:00:00 Only Unassigned, JARON 350.1.13.10 ity of [place] [facility] 4.2.7.2.686 Zander as [phone] [facility] [address] 2020-04-15 2020-04-15 [facility] 1.2.840.114 [id number] Univers 00:00:00 00:00:00 Outreach Aroldo FARMER 350.1.13.10 i ty of [facility] [place]2.7.2.686 [place] [id number] Mn dical [address] 2020-04-09 2020-04-09 Outpatient CHAS, [facility] [id number] [place] 00:00:00 00:00:00 АНДРЕЙ 981 Method i 2020-04-09 2020-04-09 Outpatient CHAS, [facility] [id number] [place] 00:00:00 00:00:00 АНДРЕЙ 096 Method i 2020-02-20 2020-02-20 Outpatient PHYLLIS, [facility] [id number] [place] 00:00:00 00:00:00 SHEREEN 222 Method i 2020-02-20 2020-02-20 Outpatient PHYLLIS, [facility] [id number] [place] 00:00:00 00:00:00 SHERENE 422 Method i 2020-02-20 2020-02-20 Outpatient PHYLLIS, [facility] [id number] [place] 00:00:00 00:00:00 SHEREEN 430 Method i 2020-01-29 2020-01-29 Laboratory Lab, Adc Fam Pob I [facility] 1.2. 840.114 [id number] Univers 10:40:21 11:00:21 Only Patricia Shelton [facility] 350.1.13.10 ity of [place] 4.2.7.2.686 Zander as Professio [phone] Me dical nal 044 Branch Office [facility] 2020-01-29 2020-01-29 Outpatient R [facility] [id number] Univers 11:00:00 11:00:00 ity of [facility] 2019-11-15 2019-11-15 Outpatient [facility] [id number] [place] 00:00:00 00:00:00 333 Method i 2019-11-15 2019-11-15 Outpatient [facility] [id number] [place] 00:00:00 00:00:00 543 Method i 2019-10-30 2019-10-31 Outpatient PHYLLIS, [place] [id number] [place] 00:00:00 00:00:00 SHEREEN 272 Method i 2019-10-25 2019-10-25 Outpatient PHYLLIS, [facility] [id number] [place] 00:00:00 00:00:00 SHEREEN 403 Method i 2019-10-18 2019-10-18 Outpatient PHYLLIS, [facility] [id number] [place] 00:00:00 00:00:00 SHEREEN 841 Method i 2019-08-29 2019-08-29 [facility] 1.2.840.114 [id number] 09:52:24 10:07:24 Visit [facility] 350.1.13.10 Surgical 4.2.7.2.686 Specialti [id number] es [address] [place] [address] 2019-08-29 2019-08-29 [facility] 1.2.840.114 [id number] Univers 09:52:24 10:07:24 Visit [facility] 350.1.13.10 it y of Surgical 4.2.7.2.686 [place]ander as Specialti [phone] Me dical es 198 [facility] 2019-08-29 2019-08-29 Outpatient [facility] [id number] Univers 09:45:00 09:45:00 STEPHANIE ity of [facility] 2019-08-24 2019-08-24 [facility] 1.2.840.114 [id number] Univers 10:48:00 23:59:00 Encounter [facility] 350.1.13.10 ity of Surgical 4.2.7.2.686 [place]ander as Specialti [phone] Me dical es 809 [facility] 2019-08-24 2019-08-24 Office [place] [facility] 1.2.840.114 [id number] Univers 10:29:34 10:58:01 Visit Stephanie Phillips [facility] 350.1.13.10 it y of Surgical 4.2.7.2.686 Zander as Specialti [id number] Mn dical es 198 [facility] 2019-08-24 2019-08-24 Outpatient R [facility] [id number] Univers 10:30:00 10:30:00 STEPHANIE [facility] 2019-07-18 2019-07-18 Outpatient PHYLLIS, [facility] [id number] [place] 00:00:00 00:00:00 SHEREEN 315 Method i 2019-06-15 2019-06-15 Outpatient PHYLLIS, [facility] [id number] [place] 00:00:00 00:00:00 SHEREEN 159 Method i 2019-06-15 2019-06-15 Outpatient PHYLLIS, [facility] [id number] [place] 00:00:00 00:00:00 SHEREEN 022 Method i 2019-06-15 2019-06-15 Outpatient PHYLLIS, [facility] [id number] [place] 00:00:00 00:00:00 SHEREEN 028 Method i 2019-05-29 2019-05-29 [facility]phone [facility] 1.2.840.114 [id number] Univers 00:00:00 00:00:00 [employer] [place] 350.1.13.10 it y of Surgical 4.2.7.2.686 Zander as Specialti [phone] Mn dical es 198 [facility] 2019-03-31 2019-03-31 [facility] 1.2.660.066 [id number] Univers 08:35:06 09:11:29 Visit Mello Hough [facility] 350.1.13.10 it y of Surgical 4.2.7.2.686 [place] as Specialti [phone] Me dical es 198 [facility] 2019-03-31 2019-03-31 Orders Doctor SALINAS 1.2.840.114 [id number] Univers 00:00:00 00:00:00 Only Unassigned, JARON 350.1.13.10 ity of [place] [facility] 4.2.7.2.686 Zander as [phone] [place] [address] [address] 2018-09-05 2018-09-05 Outpatient [facility] [id number] Common 14:30:00 14:30:00 t [facility] 2018-08-03 2018-08-03 Outpatient [facility] [id number] Common 08:00:00 08:00:00 t Bone Bone [facility] Sp[facility] t and [facility] Results Test Description Test Time Test Comments Results Result Comments Source SARS-CoV-2 (COVID-19) RNA [Presence] in Respiratory sp ecimen by 2019-10-25 19:09:03 EDUARDO with probe detection Test Item Value Reference Range Interpretation Comme nts SARS-CoV-2 (COVID-19) RNA [Presence] in Respiratory Not detected No t-Detected specimen by EDUARDO with probe detection (test code = 82216-0) NITHIN ORTHODOXY WESTXR FOOT <3 VW [id number] 15:54:17No acute fracture or dislocation he does have a degenerative first metatarsal phalangeal joint [facility]
[2022-02-12 11:21] LABS: Absolute Lymphocytes (CBC) 1.6 K/uL (0.7-4.9); Hematocrit 37.8 % (39.6-49.0); Lymphocytes % 19.9 % (15.3-44.8); MCV 89.4 fL (80-100); MPV 6.5 fL (7.6-11.3); RBC Red Blood Cell Count 4.22 M/uL (4.33-5.43)
[2022-02-12] MEDS ORDERED: METHYLPREDNISOLONE 125 MG INJ ONE (11:36)
[2022-02-12 11:38] LABS: Potassium 4.1 mmol/L (3.5-5.1); Troponin High Sensitivity 11.5 pg/mL (<58.9)
[2022-02-12] MEDS ORDERED: MORPHINE 2 MG/ML SYR ONE (11:52)
[2022-02-12] MEDS ORDERED: ALBUTEROL 2.5 MG/3 ML NEB SOL ONE ×3 (11:52→20:07)
[2022-02-12 12:05] LABS: Blood Morphology Comment NOT SEEN (NOT SEEN); Platelet Estimate ADEQ
--- NOTE | 2022-02-12 12:10 | RAD REPORT ---
EXAM DESCRIPTION: RAD - Chest Single View - 02/12/2022 12:04 pm CLINICAL HISTORY: CHEST PAIN COMPARISON: Chest Single View dated 01/26/2022; Chest Single View dated 11/29/2021; Chest Single Vie w dated 11/29/2021; Chest Single View dated 11/05/2021 FINDINGS: Lines: None. Lungs: No evidence of edema or pneumonia. Pleural: No significant pleural effusions or pneumothorax. Cardiac: Sternotomy. Mild cardiomegaly. Mediastinum: Within normal limits. Bones: No acute fractures. Other: None IMPRESSION: No acute cardiopulmonary disease.
--- NOTE | 2022-02-12 13:23 | ER ---
Nurse's Notes [facility] Name: Jesus Morales Age: 71 yrs Sex: Male : 1950 Arrival Date: 02/12/2022 Time: 11:07 Bed 7 Private MD: Diagnosis: Shortness of breath;Chest pain, unspecified;COPD/ Chronic obstructive pulmonary disease with (acute) exacerbation;Heart failure, unspecified Presentation: 02/12 11:10 Chief complaint: Patient states: Chest pain began this morning - radiates to left arm. ld1 Coronavirus screen: At this time, the client does not indicate any symptoms associated with coronavirus-19. Ebola Screen: No symptoms or risks identified at this time. Initial Sepsis Screen: Does the patient meet any 2 criteria? No. Patient's initial sepsis screen is negative. Does the patient have a suspected source of infection? No. Patient's initial sepsis screen is negative. Risk Assessment: Do you want to hurt yourself or someone else? Patient reports no desire to harm self or others. Onset of symptoms was February 12, 2022. 11:10 Method Of Arrival: EMS: [facility] ld1 11:10 Acuity: LEAH 3 ld1 Triage Assessment: 11:08 General: Appears in no apparent distress. comfortable, Behavior is calm, cooperative, ld1 appropriate for age. Pain: Complains of pain in chest Pain radiates to left arm Pain currently is 5 out of 10 on a pain scale. Quality of pain is described as throbbing. EENT: No signs and/or symptoms were reported regarding the EENT system. Neuro: Level of Consciousness is awake, alert, obeys commands, Oriented to person, place, time, situation, Appropriate for age. Cardiovascular: Capillary refill < 3 seconds Patient's skin is warm and dry. Rhythm is sinus rhythm. Respiratory: Airway is patent Respiratory effort is even, unlabored. GI: Abdomen is flat, non-distended. : No signs and/or symptoms were reported regarding the genitourinary system. Derm: No signs and/or symptoms reported regarding the dermatologic system. Musculoskeletal: No signs and/or symptoms reported regarding the musculoskeletal system. Historical: - Allergies: 11:08 Adhesives; ld1 11:08 Latex, Natural Rubber; ld1 - Home Meds: 11:08 metoprolol succinate 50 mg Oral Tb24 [Active]; furosemide 20 mg Oral tab 1 tab once ld1 daily [Active]; prednisone 10 mg Oral tab once daily [Active]; Atrovent Inhl as needed [Active]; atorvastatin 40 mg Oral tab 1 tab once daily [Active]; amlodipine 5 mg tab twice a day [Active]; - PMHx: 11:08 Atrial fibrillation; Chronic obstructive lung disease; Congestive heart failure; ld1 - PSHx: 11:08 Coronary artery bypass graft; ld1 - Immunization history:: Adult Immunizations up to date, Client reports receiving the 2nd dose of the Covid vaccine. - Social history:: Smoking status: Patient denies any tobacco usage or history of. Patient/guardian denies using alcohol. Screenin:11 [facility] ED Fall Risk Assessment (Adult) History of falling in the last 3 months, ld1 including since admission No falls in past 3 months (0 pts). Abuse screen: Denies threats or abuse. Denies injuries from another. Nutritional screening: No deficits noted. Tuberculosis screening: No symptoms or risk factors identified. Assessment: 11:11 Reassessment: See triage assessment. ld1 12:00 Reassessment: Patient appears in no apparent distress at this time. Patient and/or ph family updated on plan of care and expected duration. Pain level reassessed. Patient is alert, oriented x 3, equal unlabored respirations, skin warm/dry/pink. Reassessment: Patient appears in no apparent distress at this time. Patient and/or family updated on plan of care and expected duration. Pain level reassessed. Patient is alert, oriented x 3, equal unlabored respirations, skin warm/dry/pink. 13:00 Reassessment: Patient appears in no apparent distress at this time. Patient and/or ph family updated on plan of care and expected duration. Pain level reassessed. Patient is alert, oriented x 3, equal unlabored respirations, skin warm/dry/pink. 15:00 Reassessment: Patient appears in no apparent distress at this time. Patient and/or ph family updated on plan of care and expected duration. Pain level reassessed. Patient is alert, oriented x 3, equal unlabored respirations, skin warm/dry/pink. 17:08 Reassessment: Patient appears in no apparent distress at this time. Patient and/or ph family updated on plan of care and expected duration. Pain level reassessed. Patient is alert, oriented x 3, equal unlabored respirations, skin warm/dry/pink. Reassessment: Patient denies pain at this time. 19:37 Pain: Pain began gradually. kd3 19:38 General: Appears in no apparent distress. Behavior is calm, cooperative. Pain: kd3 Complains of pain in chest. Neuro: Level of Consciousness is awake, alert, obeys commands, Oriented to person, place, time, situation. Cardiovascular: Patient's skin is warm and dry. Respiratory: Airway is patent Trachea midline Respiratory effort is even, unlabored, Respiratory pattern is regular, symmetrical. Vital Signs: 11:08 BP 120 / 57; Pulse 76; Resp 20; Temp 98.5(O); Pulse Ox 100% on R/A; Weight 77.56 kg; ld1 Height 5 ft. 8 in. (172.72 cm); Pain 5/10; 12:56 BP 135 / 63; Pulse 70; Resp 20; Pulse Ox 97% on 2 lpm NC; Pain 3/10; ld1 14:00 BP 149 / 72; Pulse 75; Resp 18; Pulse Ox 96% on R/A; ph 15:00 BP 161 / 82; Pulse 84; Resp 18; Pulse Ox 97% on R/A; ph 16:00 BP 136 / 48; Pulse 74; Resp 18; Pulse Ox 97% on R/A; ph 17:00 BP 126 / 57; Pulse 79; Resp 18; Pulse Ox 99% on R/A; ph 19:37 BP 122 / 57; Pulse 81; Resp 19; Pulse Ox 99% on R/A; kd3 11:08 Body Mass Index 26.00 (77.56 kg, 172.72 cm) ld1 ED Course: 11:07 Patient arrived in ED. ld1 11:08 Arm band placed on right wrist. ld1 11:09 Luis Fernando Mcelroy DO is Attending Physician. ms3 11:10 Triage completed. ld1 11:10 EKG completed in triage. Results shown to MD. ld1 11:10 Inserted saline lock: 22 gauge in right antecubital area, using aseptic technique. ap3 Blood collected. 11:11 Patient has correct armband on for positive identification. Placed in gown. Bed in low ld1 position. Call light in reach. Side rails up X2. clinical research monitor on. Pulse ox on. NIBP on. Door closed. Noise minimized. Warm blanket given. 11:11 No provider procedures requiring assistance completed. Patient maintains SpO2 ld1 saturation greater than 95% on room air. 11:12 Opal Garner, RN is Primary Nurse. ld1 12:01 NT PRO-BNP Sent. ld1 12:06 XRAY Chest (1 view) In Process Unspecified. EDMS 13:21 Memo López MD is Hospitalizing Provider. ms3 19:37 Patient admitted, IV remains in place. kd3 Administered Medications: 11:53 Not Given (Duplicate Order): Albuterol 2.5 mg Inhalation every 20 minutes x3 ld1 12:01 Drug: SOLU-Medrol (methylPrednisoLONE) 125 mg Route: IVP; Site: right antecubital; ld1 12:30 Follow up: Response: No adverse reaction ld1 12:01 Drug: AtroVENT (ipratropium) Aerosol 0.5 mg Route: Inhalation; ld1 12:30 Follow up: Response: No adverse reaction ld1 12:01 Drug: morphine 2 mg Route: IVP; Infused Over: 4 mins; Site: right antecubital; ld1 12:30 Follow up: Response: No adverse reaction ld1 17:02 Drug: Lasix (furosemide) 40 mg Route: IVP; Site: right antecubital; ph 17:58 Follow up: Response: No adverse reaction ld1 Medication: 11:11 VIS not applicable for this client. ld1 Outcome: 13:22 Decision to Hospitalize by Provider. ms3 19:37 Admitted to Med/surg kd3 19:37 Condition: stable 19:37 Discharge instructions given to patient, Instructed on the need for admit, Demonstrated understanding of instructions, follow-up care. 19:51 Patient left the ED. kd3 Signatures: Dispatcher [employer] EDMA Krysta Mabry RN RN ph Prokisch, Amanda RN RN [id number] Luis Fernando Mcelroy DO DO ms3 Opal Garner, RN RN ld1 Carito Medina RN RN kd3
--- NOTE | 2022-02-12 13:23 | EDPHYS ---
Physician Documentation [facility] Name: Jesus Morales Age: 71 yrs Sex: Male : 1950 Arrival Date: 02/12/2022 Time: 11:07 Bed 7 Private MD: ED Physician Luis Fernando Mcelroy HPI: 02/12 11:52 This 71 yrs old Male presents to ER via EMS with complaints of Chest Pain. ms3 11:59 71-year-old male with past medical history of coronary artery disease status post CABG, ms3 COPD, hypertension presents via [facility] after awaking with chest pain and shortness of breath at 9 AM. Patient states his package collector is Dr. Salas. Patient's carton counter feeder is Dr. Dumont. Patient states his discomfort improved after albuterol and Atrovent they were administered via EMS. Patient denies alleviating or inciting factors. Patient denies receiving aspirin or nitroglycerin.. Historical: - Allergies: 11:08 Adhesives; ld1 11:08 Latex, Natural Rubber; ld1 - Home Meds: 11:08 metoprolol succinate 50 mg Oral Tb24 [Active]; furosemide 20 mg Oral tab 1 tab once ld1 daily [Active]; prednisone 10 mg Oral tab once daily [Active]; Atrovent Inhl as needed [Active]; atorvastatin 40 mg Oral tab 1 tab once daily [Active]; amlodipine 5 mg tab twice a day [Active]; - PMHx: 11:08 Atrial fibrillation; Chronic obstructive lung disease; Congestive heart failure; ld1 - PSHx: 11:08 Coronary artery bypass graft; ld1 - Immunization history:: Adult Immunizations up to date, Client reports receiving the 2nd dose of the Covid vaccine. - Social history:: Smoking status: Patient denies any tobacco usage or history of. Patient/guardian denies using alcohol. ROS: 11:59 Constitutional: Negative for fever, and chills. Neck: Negative for injury, pain, and ms3 swelling. 11:59 Skin: Negative for injury, rash, and discoloration. 11:59 Cardiovascular: Positive for chest pain. 11:59 Respiratory: Positive for shortness of breath. Exam: 11:59 Constitutional: This is a well developed, well nourished patient who is awake, alert, ms3 and in no acute distress. Head/Face: Normocephalic, atraumatic. Neck: Trachea midline, no cervical lymphadenopathy. Supple, full range of motion without nuchal rigidity, or vertebral point tenderness. No Meningismus. Chest/axilla: Normal chest wall appearance and motion. Nontender with no deformity. Cardiovascular: Regular rate and rhythm with a normal S1 and S2. No gallops, murmurs, or rubs. Normal PMI, no JVD. No pulse deficits. 11:59 Respiratory: mild respiratory distress is noted, Breath sounds: wheezing: expiratory that is moderate, is heard diffusely. 12:01 ECG was reviewed by the Attending Physician. ms3 Vital Signs: 11:08 BP 120 / 57; Pulse 76; Resp 20; Temp 98.5(O); Pulse Ox 100% on R/A; Weight 77.56 kg; ld1 Height 5 ft. 8 in. (172.72 cm); Pain 5/10; 12:56 BP 135 / 63; Pulse 70; Resp 20; Pulse Ox 97% on 2 lpm NC; Pain 3/10; ld1 14:00 BP 149 / 72; Pulse 75; Resp 18; Pulse Ox 96% on R/A; ph 15:00 BP 161 / 82; Pulse 84; Resp 18; Pulse Ox 97% on R/A; ph 16:00 BP 136 / 48; Pulse 74; Resp 18; Pulse Ox 97% on R/A; ph 17:00 BP 126 / 57; Pulse 79; Resp 18; Pulse Ox 99% on R/A; ph 19:37 BP 122 / 57; Pulse 81; Resp 19; Pulse Ox 99% on R/A; kd3 11:08 Body Mass Index 26.00 (77.56 kg, 172.72 cm) ld1 MDM: 11:27 Patient medically screened. ms3 11:59 Differential diagnosis: abnormal EKG, acute myocardial infarction, pneumonia, COPD ms3 exacerbation. 13:30 ED course: Discussed case with Dr López and he would like patient to get Lasix 40 mg IV ms3 x1. Solumedrol 60 mg IV q6 hours, Alubterol and atrovent q 4 hours.. 18:48 Data reviewed: vital signs, nurses notes, lab test result(s), EKG, radiologic studies, ms3 and as a result, I will admit patient. Data interpreted: playground monitor: rate is 89 beats/min, rhythm is normal sinus rhythm, with no ectopy, Interpretation: normal rate, normal rhythm. Counseling: I had a detailed discussion with the patient and/or guardian regarding: the historical points, exam findings, and any diagnostic results supporting the discharge/admit diagnosis, lab results, radiology results, the need for further work-up and treatment in the hospital. 02/12 11:07 Order name: Basic Metabolic Panel; Complete Time: 11:46 ld1 02/12 11:07 Order name: CBC with Diff; Complete Time: 12:30 ld1 02/12 11:07 Order name: Troponin HS; Complete Time: 11:46 ld1 02/12 11:47 Order name: NT PRO-BNP; Complete Time: 12:30 ms3 02/12 12:05 Order name: Manual Differential; Complete Time: 12:30 EDMS 02/12 13:28 Order name: Basic Metabolic Panel EDMS 02/12 11:07 Order name: XRAY Chest (1 view); Complete Time: 12:30 ld1 02/12 13:28 Order name: Basic Metabolic Panel EDMS 02/12 13:28 Order name: CBC with Automated Diff EDMS 02/12 13:28 Order name: CBC with Automated Diff EDMS 02/12 13:30 Order name: SARS-COV-2 Antigen Rapid bd 02/12 14:49 Order name: SARS-COV-2 Antigen Rapid EDMS 02/12 11:07 Order name: EKG; Complete Time: 11:08 02/12 11:07 Order name: Cardiac monitoring; Complete Time: 11:02/12 11:07 Order name: EKG - Nurse/Tech; Complete Time: 11:12 ld02/12 11:07 Order name: IV Saline Lock; Complete Time: 11:02/12 11:07 Order name: Labs collected and sent; Complete Time: 11:12 ld02/12 11:07 Order name: O2 Per Protocol; Complete Time: 11:02/12 11:07 Order name: O2 Sat Monitoring; Complete Time: 11:02/12 13:28 Order name: Regular EDMS 02/12 13:28 Order name: EKG Electrocardiogram EDMS 02/12 13:28 Order name: EKG Electrocardiogram EDMS 02/12 13:28 Order name: EKG Electrocardiogram EDMS 02/12 13:28 Order name: EKG Electrocardiogram EDMS EC:01 Rate is 72 beats/min. Rhythm is regular. QRS [place] is Normal. [place] interval is normal. ms3 Clinical impression: NSR w/ Non-specific ST/T Changes and RBBB. Interpreted by me. Reviewed by me. Administered Medications: 11:53 Not Given (Duplicate Order): Albuterol 2.5 mg Inhalation every 20 minutes x3 ld1 12:01 Drug: SOLU-Medrol (methylPrednisoLONE) 125 mg Route: IVP; Site: right antecubital; ld1 12:30 Follow up: Response: No adverse reaction ld1 12:01 Drug: AtroVENT (ipratropium) Aerosol 0.5 mg Route: Inhalation; ld1 12:30 Follow up: Response: No adverse reaction ld1 12:01 Drug: morphine 2 mg Route: IVP; Infused Over: 4 mins; Site: right antecubital; ld1 12:30 Follow up: Response: No adverse reaction ld1 17:02 Drug: Lasix (furosemide) 40 mg Route: IVP; Site: right antecubital; ph 17:58 Follow up: Response: No adverse reaction ld1 Disposition Summary: 02/12/22 13:22 Hospitalization Ordered Hospitalization Status: Inpatient Admission ms3 Provider: Memo López ms3 Location: Telemetry/MedSurg (Inpatient) ms3 Condition: Stable ms3 Problem: new ms3 Symptoms: are unchanged ms3 Bed/Room Type: Standard ms3 Room Assignment: 409(02/12/22 18:50) bd Diagnosis - Shortness of breath ms3 - Chest pain, unspecified ms3 - COPD/ Chronic obstructive pulmonary disease with (acute) exacerbation ms3 - Heart failure, unspecified ms3 Forms: - Medication Reconciliation Form ms3 - SBAR form ms3 Signatures: Dispatcher [employer] EDMS Berta De La O Patricia RN RN ph Luis Fernando Mcelroy DO DO ms3 Opal Garner RN RN ld1 Corrections: (The following items were deleted from the chart) 18:50 13:22 ms3 bd
[2022-02-12] MEDS ORDERED: ONDANSETRON 4 MG/2 ML VIAL IV PRN (13:25)
[2022-02-12] MEDS ORDERED: METHYLPRED NA SUC 60 MG in NA CHLORIDE 0.9% 100 ML IV SCH (14:00)
[2022-02-12 14:48] LABS: SARS-CoV-2 Antigen Rapid Res Negative (Negative)
[2022-02-12] MEDS: IPRATROPIUM BROM 0.5MG/2.5ML NEB SCH ×2 (15:55→20:50)
[2022-02-12] MEDS: ALBUTEROL 2.5 MG/3 ML NEB SOL NEB SCH ×2 (15:55→20:50)
[2022-02-12] MEDS ORDERED: IPRATROPIUM BROM 0.5MG/2.5ML ONE ×2 (15:57→20:07)
[2022-02-12] MEDS ORDERED: FUROSEMIDE 40 MG/4 ML VIAL ONE (16:51)
[2022-02-12 20:10] VITALS: BMI 27.4
[2022-02-12] MEDS: METHYLPREDNISOLONE 125 MG INJ IV SCH (20:46)
[2022-02-12] MEDS ORDERED: GLUCAGON 1 MG/VIAL IM PRN (22:14)
[2022-02-12] MEDS ORDERED: D50W 25 GM/50 ML SYRINGE IV PRN (22:14)
[2022-02-12] MEDS ORDERED: D10W 125 ML IV PRN (22:26)
[2022-02-13] MEDS: METHYLPREDNISOLONE 125 MG INJ IV SCH ×4 (00:02→17:03)
[2022-02-13] MEDS: IPRATROPIUM BROM 0.5MG/2.5ML NEB SCH ×7 (00:55→23:30)
[2022-02-13] MEDS: ALBUTEROL 2.5 MG/3 ML NEB SOL NEB SCH ×7 (00:55→23:30)
--- NOTE | 2022-02-13 01:57 | HP ---
Date of Admission: 02/12/2022 Chief Complaint: Chest pain and shortness of breath. History Of Present Illness: This is a 71-year-old very pleasant male patient with multiple comorbidi ties who was doing fine in his normal usual state of health until this morning around 3 o'clock in morning when he woke up from sleep because of shortness of breath and then subsequently he had low- grade fever up to 100 degree Fahrenheit and he was having some chest pain on the left side of the [address], which was different in character. Sometimes it was heaviness, pressure type of feeling and somet imes it was a sharp pain. The pain lasted for few minutes and it was intermittent pain few times. Haley march came into emergency room. After he came into ER, he was evaluated and admitted to hospital. When I saw him in the emergency room, he was overall feeling better than before. Allergies: NO KNOWN ALLERGIES. Medications: Amiodarone 200 mg 2 times a day, aspirin 81 mg daily, atorvastatin 40 mg daily, duloxet ine 60 mg daily with breakfast, Ferrocite 324 mg 2 times a day, Trelegy inhaler 1 puff daily, furosem richie 40 mg 2 times a day, Atrovent inhaler as needed, metoprolol succinate 50 mg 2 times a day, omepra zole 40 mg daily, potassium chloride 20 mEq daily, and prednisone 10 mg daily with food. Review of Systems: Respiratory: As mentioned above. Cardiovascular: As mentioned above. All other systems reviewed and negative. Past Medical History: Significant for impaired fasting glucose; COPD; hypertension; hyperlipidemia; coronary artery disease; carotid artery stenosis, bilateral; anemia due to GI blood loss; and depress ion. Past Surgical History: Coronary artery bypass surgery on March 11, 2016; cholecystectomy; appendec price; right knee arthroscopy surgery; left knee arthroplasty on October 30, 2019. Family History: Father had COPD. Mother had breast cancer. Brother had stroke. Sister had diabete s. Social History: Prior history of smoking, not at present time. Heavy use of alcohol in the past, bu t lately he has quit using alcohol. Physical Examination: Vital Signs: Temperature , pulse , respiratory rate , blood pressure _ , oxygen saturation , weight , and height 66 inches. General: Awake, alert, oriented, not in distress. HEENT: Head atraumatic, normocephalic. Conjunctivae nonerythematous. Sclerae white. Mouth, no thr ush or edema noted. Ears/Nose, no mass, lesion, discharge noted. Neck: Supple. No JVD, lymph nodes, bruit, thyromegaly noted. Lungs: Presence of some scattered wheezing in both lung shaffer. Not using accessory muscles of resp iration. Heart: Normal heart sounds, no murmur or gallop. Abdomen: Soft, bowel sounds normal. No guarding, rigidity, tenderness, mass, hepatosplenomegaly, dis tention, or bruit noted. Extremities: No leg edema. No calf tenderness. Skin: No rash, ulcer, cellulitis. Lymphatics: No lymph node enlargement in neck, supraclavicular, infraclavicular region. Neuro: No focal neurological deficit. Chest: Unremarkable. External Genitalia: Deferred. Rectal: Deferred. Laboratory Data: White count 8.1, hemoglobin 12.8, and platelets 512. Sodium 138, potassium 4.1, ch loride 107, bicarb 26, BUN 8, creatinine 0.93, and glucose 117. Troponin 11.5. ProBNP 686. Chest x -ray: No acute cardiopulmonary changes. Impression: 1.Acute exacerbation of chronic obstructive pulmonary disease. 2.Chest pain. 3.Coronary artery disease. 4.Hypertension. 5.Hyperlipidemia. 6.Coronary artery disease. 7.Carotid artery stenosis, bilateral. 8.Impaired fasting glucose. 9.Depression. Plan: We will go ahead and admit the patient to hospital for further evaluation and management of th is problem. The patient is appropriate for inpatient and is [facility]. For COPD exacerbation, we will start empiric antibiotic, give IV steroid, and nebulizer treatment . For chest pain, we will get serial cardiac enzymes and consult Cardiology. For coronary artery di sease, we will continue his beta lee ann therapy and for his depression problem, we will continue his duloxetine as he takes at home. DVT prophylaxis will be given per order. Details and plan of treat ment discussed with the patient and I will see him tomorrow morning for followup. BELLE/CHARLENE Voice ID: [id number]
[2022-02-13 03:55] LABS: Absolute Lymphocytes (CBC) 0.7 K/uL (0.7-4.9); Hematocrit 36.2 % (39.6-49.0); Lymphocytes % 10.3 % (15.3-44.8); MCV 89.5 fL (80-100); MPV 6.8 fL (7.6-11.3); RBC Red Blood Cell Count 4.04 M/uL (4.33-5.43)
[2022-02-13 04:06] LABS: Potassium 3.6 mmol/L (3.5-5.1)
[2022-02-13] MEDS: PANTOPRAZOLE 40MG TABLET PO SCH (06:13)
[2022-02-13] MEDS: INSULIN -REGULAR HUMAN 50 UNIT/0.5 ML ML SQ SCH ×4 (07:30→21:00)
[2022-02-13] MEDS ORDERED: POTASSIUM CL SA 10 MEQ TAB PO SCH ×2 (08:00→09:00)
[2022-02-13] MEDS: ENOXAPARIN 40 MG/0.4 ML SQ SCH (08:34)
[2022-02-13] MEDS: AMIODARONE HCL 200 MG TAB PO SCH ×2 (08:35→21:52)
[2022-02-13] MEDS: ASPIRIN EC 81 MG TAB PO SCH (08:35)
[2022-02-13] MEDS: FUROSEMIDE 40 MG TABLET PO SCH ×2 (08:35→17:03)
[2022-02-13] MEDS: METOPROLOL TAR 50 MG TAB PO SCH ×2 (08:35→21:51)
[2022-02-13] MEDS: CEFTRIAXONE 1,000 MG in NA CHLORIDE 0.9% 50 ML IVPB SCH ×2 (08:35→21:00)
[2022-02-13] MEDS: DULOXETINE 30 MG CAP PO SCH (08:35)
[2022-02-13] MEDS: POTASSIUM CL SA 10 MEQ TAB PO SCH ×2 (08:36→21:51)
[2022-02-13] MEDS ORDERED: AMIODARONE HCL 200 MG TAB PO SCH (09:00)
[2022-02-13] MEDS ORDERED: FUROSEMIDE 40 MG TABLET PO SCH (09:00)
[2022-02-13] MEDS ORDERED: DULOXETINE 30 MG CAP PO SCH (09:00)
[2022-02-13] MEDS ORDERED: ASPIRIN EC 81 MG TAB PO SCH (09:00)
--- NOTE | 2022-02-13 09:02 | RAD REPORT ---
EXAM DESCRIPTION: CT - Thorax Wo Con - 02/13/2022 8:25 am CLINICAL HISTORY: COPD COMPARISON: Chest For Pe Angio dated 01/27/2022; Chest Abd Pelvis Wo Con dated 11/29/2021; Lung Canc er Screening CT W/O dated 07/26/2020; Thorax Wo Con dated 01/12/2018; Chest Single View dated 02/12/2022 FINDINGS: Chest Wall: No suspicious thyroid nodules or pathologic lymphadenopathy. Lungs: No acute abnormality. Small pulmonary nodules noted which are either calcified or subpleural m easuring under 4 millimeters and likely benign. There also unchanged since at least 11/29/2021. Pleura: No significant effusions or pneumothorax. Mediastinum/kassidy: No pathologic lymphadenopathy. Pulmonary arteries/Aorta: Limited evaluation without contrast. No aortic aneurysm. Heart: No significant pericardial effusion. Normal heart size. Multi-vessel coronary artery disease. Upper abdomen: Exophytic left renal lesions which are likely cysts. Bones: No acute abnormality. Sternotomy. Multilevel degenerative changes are present in the spine. All CT scans are performed using dose optimization technique as appropriate and may include automated exposure control or mA/KV adjustment according to patient size. IMPRESSION: No acute findings identified within the chest. Specifically, no evidence of pneumonia.
[2022-02-13] MEDS: ACETAMINOPHEN 500 MG TAB PO PRN ×2 (11:53→17:02)
--- NOTE | 2022-02-13 13:05 | PN ---
Date of Progress Note: 02/13/2022 Subjective: Patient was seen this morning for followup. Overall, he was feeling better this morning . Shortness of breath is better. Denies any chest pain overnight. Objective: Vital Signs: Reviewed. HEENT: Unremarkable. Lungs: Bilateral good equal air entry with presence of rales noted in lower lung shaffer and wheezing in lower lung shaffer. Overall, lung findings are better today than yesterday. Not using any access ory muscles of respiration. Heart: Heart sounds normal. Abdomen: Soft. Bowel sounds normal. No guarding, rigidity, tenderness, distention. Extremities: No leg edema. Laboratory Data: White count 6.4, hemoglobin 12.1, platelets 457. Sodium 135, potassium 3.6, chlori de 103, bicarb 23, BUN 13, creatinine 1.10, glucose 190. Impression: 1.Acute exacerbation of chronic obstructive pulmonary disease. 2.Congestive heart failure. 3.Coronary artery disease. 4.Hypertension. Plan: We will go ahead and continue current diuretic therapy, which is furosemide. Continue potassi um replacement per order. We will go ahead and continue oxygen nebulizer treatments, IV steroids and antibiotic, ceftriaxone, per order. We will get a CT scan of the chest without contrast today. Det ails and plan of treatment discussed with the patient. I will see him tomorrow for followup. Contin ue DVT prophylaxis with Lovenox. Possible discharge to go home tomorrow. We will get troponin level done t his morning. BELLE/MODL Voice ID: [id number] Report ID: [id number]
[2022-02-13] MEDS ORDERED: ATORVASTATIN 40 MG TAB PO SCH ×2 (21:00)
[2022-02-14] MEDS: METHYLPREDNISOLONE 125 MG INJ IV SCH ×2 (00:03→06:21)
[2022-02-14] MEDS: ALBUTEROL 2.5 MG/3 ML NEB SOL NEB SCH (03:40)
[2022-02-14] MEDS: IPRATROPIUM BROM 0.5MG/2.5ML NEB SCH (03:40)
[2022-02-14] MEDS: PANTOPRAZOLE 40MG TABLET PO SCH (06:22)
[2022-02-14] MEDS: INSULIN -REGULAR HUMAN 50 UNIT/0.5 ML ML SQ SCH (07:30)
[2022-02-14 08:49] VITALS: O2SAT 95
[2022-02-14] MEDS: CEFTRIAXONE 1,000 MG in NA CHLORIDE 0.9% 50 ML IVPB SCH (08:49)
[2022-02-14] MEDS: ENOXAPARIN 40 MG/0.4 ML SQ SCH (08:49)
[2022-02-14] MEDS: POTASSIUM CL SA 10 MEQ TAB PO SCH (08:50)
[2022-02-14] MEDS: METOPROLOL TAR 50 MG TAB PO SCH (08:50)
[2022-02-14] MEDS: DULOXETINE 30 MG CAP PO SCH (08:50)
[2022-02-14 08:51] VITALS: BP 170/70
[2022-02-14] MEDS: FUROSEMIDE 40 MG TABLET PO SCH (08:51)
[2022-02-14] MEDS: ASPIRIN EC 81 MG TAB PO SCH (08:51)
[2022-02-14] MEDS: AMIODARONE HCL 200 MG TAB PO SCH (08:51)
[2022-02-14 09:15] VITALS: TEMP 97.7
--- NOTE | 2022-02-14 09:24 | DS ---
Date of Discharge: 02/14/2022 Subjective: Patient was seen this morning for followup. He was lying in bed, not in distress. Alirio es any new complaints. Overall, feels better. Objective: Vital Signs: Reviewed. HEENT: Unremarkable. Lungs: Clear to auscultation. Heart: Sounds normal. Abdomen: Soft. Bowel sounds normal. No guarding, rigidity, tenderness, distention. Extremities: No leg edema. Laboratory Data: Upon admission, white count was 8.1, hemoglobin 12.8, platelets 512. Yesterday: W arlene count 6.4, hemoglobin 12.1, platelets 455. Chemistry from yesterday: Sodium 135, potassium 3.6 , chloride 103, bicarb 23, BUN 13, creatinine 1.10, glucose 190. Troponin was 9.5 yesterday. Hospital Course: This is a 71-year-old very pleasant male patient came into emergency room with comp laints of chest pain and shortness of breath. Please see dictated H and P for more information. Aft er patient was evaluated in emergency room, he was admitted to the hospital with acute exacerbation o f COPD and chest pain problem. [place] was ruled out by getting serial cardiac enzymes. He was treated w ith IV antibiotic, which was ceftriaxone; IV steroid nebulizer treatment. Home medications were cont inued. Overall, his condition has improved over period of this hospitalization and today he was disc harged to go home in stable condition. CAT scan of the chest done yesterday without contrast was unr emarkable for any acute changes. Pulmonary nodule, small about 4 mm in size, has remained stable and he follows up with Dr. Dumont on outpatient basis for this and, in fact, he had appointment to see him while he was in the hospital. So he will reschedule his appointment for followup with Dr. Lore camacho. Final Diagnoses: 1.Acute exacerbation of chronic obstructive pulmonary disease. 2.Chest pain, atypical. 3.Pulmonary nodules. 4.Coronary artery disease. 5.Hypertension. 6.Hyperlipidemia. 7.Carotid artery stenosis, bilateral. 8.Impaired fasting glucose. 9.Depression. Discharge Medications And Instructions: Continue all prior home medication except following changes: 1.Prednisone 10 mg. Patient to take 3 tablets daily for 3 days, then 2 tablets daily for 3 days, th en 1 tablet daily to continue, take it with food. 2.Cefuroxime 250 mg, take 1 tablet by mouth 2 times a day for 1 week, take it with food and prescrip tion will be sent to his [facility]. 3.Follow up at my office next week. BELLE/CHARLENE Voice ID: [id number] Report ID: [id number]
--- NOTE | 2022-02-14 17:40 | EKG ---
Test Date: 2022-02-13 Test Time: 09:23:38 Publication Director: LEIDY MEASUREMENT RESULTS: Intervals: Rate: 114 NE: 132 QRSD: 136 QT: 372 QTc: 512 [place]: P: 69 NE: 132 QRS: 76 T: 61 INTERPRETIVE STATEMENTS: Sinus tachycardia with premature atrial complexes with aberrant conduction Right bundle branch block Abnormal ECG Compared to ECG 02/12/2022 11:10:34 Atrial premature complex(es) now present Aberrant conduction of supraventricular beat(s) now present Sinus rhythm no longer present Electronically Signed On 02-14-22 17:39:37 [employer]URN[employer]ER by Stef Meza
--- NOTE | 2022-02-14 17:43 | EKG ---
Test Date: 2022-02-12 Test Time: 11:10:34 Med Aide: ANI MEASUREMENT RESULTS: Intervals: Rate: 72 [place]: 202 QRSD: 138 QT: 460 QTc: 503 [place]: P: 70 [place]: 202 QRS: 66 T: 62 INTERPRETIVE STATEMENTS: Normal sinus rhythm Right bundle branch block Abnormal ECG Compared to ECG 01/26/2022 12:01:12 Right bundle-branch block now present Sinus tachycardia no longer present Ventricular premature complex(es) no longer present Electronically Signed On 02-14-22 17:40:47 CERAMIC CHEMIST by Stef Meza
== END 2022-02-14 09:50 | disposition home or self-care (01) | DRG 192 ==
LOC: ER 11:05 → ERHOLD 13:24 → 4TH 19:38
PROVIDERS: ADMIT Internal Medicine; ATTEND Internal Medicine
DX: J44.1 Chronic obstructive pulmonary disease with (acute) exacerbation (principal); I25.10 Atherosclerotic heart disease of native coronary artery without angina pectoris; E78.5 Hyperlipidemia, unspecified; I65.23 Occlusion and stenosis of bilateral carotid arteries; I11.0 Hypertensive heart disease with heart failure; I50.9 Heart failure, unspecified; R73.01 Impaired fasting glucose; F32.A Depression, unspecified; D50.0 Iron deficiency anemia secondary to blood loss (chronic); Z95.1 Presence of aortocoronary bypass graft; Z87.891 Personal history of nicotine dependence; Z79.82 Long term (current) use of aspirin; Z79.52 Long term (current) use of systemic steroids; Z79.899 Other long term (current) drug therapy; Z91.040 Latex allergy status; Z91.09 Other allergy status, other than to drugs and biological substances; Z20.822 Contact with and (suspected) exposure to COVID-19; Z90.49 Acquired absence of other specified parts of digestive tract; Z83.6 Family history of other diseases of the respiratory system; Z82.3 Family history of stroke; Z83.3 Family history of diabetes mellitus; Z80.3 Family history of malignant neoplasm of breast
CPT/HCPCS: 36415; 71045; 71250; 80048; 82947; 83880; 84484; 85025; 87811; 93005; 94640; 96374; 96375; 99285; J1650; J1940; J2270; J2930; J7613; J7644

== ENCOUNTER 2022-04-27 12:11 | Inpatient (IN) | payer OTHER ==
--- OUTSIDE RECORDS SUMMARY | 2022-04-27 12:16 | XMS REPORT | Continuity of Care Document ---
:1950 Author Organization [facility] t Address [address] [facility] [address] [place] [address] Care Team Providers Name Role Phone Sharpless Primary Care Physician Fady Pascual MD Attending Clinician RADIOLOGY Attending Clinician Unavailable Radiology Attending Clinician Unavailable Shereen Ferguson MD Attending Clinician OMARI DUMONT Attending Clinician Unavailable Omari Dumont Attending Clinician Doctor Unassigned, [place] Attending Clinician Unavailable Aroldo Sanchez DO Attending [...] Effective Date Expiration Date Alan JASON MANAGED [id number] 2021 MEDICARE PPO-SAMRA 00:00:00 Problems Condition Condition [...] Added automatic ally from request for surgery [id number] Post-op Post-op Disease Active [facility] atrial atrial 03-16kes fibrillati fibrillati 00:00: Me dical on Center S/P ACB S/P ACB Disease Active [facility] (DC-LAD, (DC-LAD, 03-11 Lisseth kes SVG-OM) SVG-OM) 00:00: Medical 00 [place] Hypertensi Hypertensi Disease Active [facility] on on 03-10 00:00: Medical [place] COPD COPD Disease Recurre [facility] (chronic (chronic nce 03-10 obstructiv obstructiv 00:00: Me dical e e Center pulmonary pulmonary disease) disease) Coronary Coronary Disease Active [facility] S t artery artery 03-10kes disease disease 00:00: [place] Pain in Pain in Diagnosis Active Commo n joint of joint of Spirit right right - [facility] shoulder shoulder [facility] Impingemen Impingemen Diagnosis Active Common t syndrome t syndrome Sp [facility] of right of right - [facility] shoulder shoulder [facility] Allergies, Adverse Reactions, Alerts Allergy Allergy Status Severity Reaction(s) Onset Inactive Treating Comm ents Source Name Type Date Date Clinician Adhesive Drug Active Rash [facility] 03-10 nce 00:00: Medical 00 Center ADHESIVE Drug Active Low Rash Univers Class 03-10 ity of 00:00: [address] Branch Adhesive Propensi Active Rash Univer s ty to 03-10 ity of adverse 00:00: [place] reaction Medical [facility] Adhesive Propensi Active Rash Univer s ty to 03-10 ity of adverse 00:00: [place] reaction Medical [facility] Adhesive Drug Active Rash [facility] Family History Family Member Diagnosis Comments Start Date Stop Date Source Natural father Heart disease [facility] Natural mother Cancer [facility] Social History Social Habit Start Date Stop Date Quantity Comments Source History of tobacco Cigarette Smoker [facility] Medical [place] Exposure to 2021-08-31 2021-09-10 Not sure University of SARS-CoV-2 (event) 00:00:00 14:41:00 [facility] [place] [facility] Alcohol intake 2021-08-05 2021-08-05 Current drinker [facility] 00:00:00 00:00:00 of [facility] (finding) Tobacco use and 2020-04-09 2020-04-09 Smokeless [facility] exposure 00:00:00 00:00:00 tobacco non-user Hospital Cigarettes smoked 2020-04-09 2020-04-[address] current (pack per 00:00:00 00:00:00 Hospita l day) - Reported Cigarette 2020-04-09 2020-04-09 [facility] pack-years 00:00:00 00:00:00 Hospital Alcohol Comment 2019-10-18 2019-10-18 social [facility] 00:00:00 00:00:00 Hospital Sex Ass[birth year] At [birth year] SANCHEZ Oliver kes 00:00:00 00:00:00 [facility] Center Smoking Status Start Date Stop Date Source Former smoker [facility] Never smoked tobacco [facility] Medications Ordered Filled Start Stop [...] 2-29 by mouth. ity of tablet 00:00: [address] furosemide 2020-0 Yes 40mg Take 40 mg U nivers 40 mg 2-29 by mouth. ity of tablet 00:00: [address] furosemide 2020-0 Yes 40mg Take 40 mg U nivers 40 mg 2-29 by mouth. ity of tablet 00:00: [address] furosemide 2020-0 Yes 40mg Take 40 mg U nivers 40 mg 2-29 by mouth. ity of tablet 00:00: [address] furosemide 2020-0 Yes 40mg Take 40 mg U nivers 40 mg 2-29 by mouth. ity of tablet 00:00: [address] furosemide 2020-0 Yes 40mg Take 40 mg U nivers 40 mg 2-29 by mouth. ity of tablet 00:00: [address] furosemide 2020-0 Yes 40mg Take 40 mg U nivers 40 mg 2-29 by mouth. ity of tablet 00:00: [address] furosemide 2020-0 Yes 40mg Take 40 mg U nivers 40 mg 2-29 by mouth. ity of tablet 00:00: [address] furosemide 2020-0 Yes 40mg Take 40 mg U nivers 40 mg 2-29 by mouth. ity of tablet 00:00: [address] furosemide 2020-0 Yes 40mg Take 40 mg U nivers 40 mg 2-29 by mouth. ity of tablet 00:00: [address] furosemide 2020-0 Yes 40mg QD Take 40 mg M ethodi (LASIX) 40 2-[address] mg tablet 00:00: daily. Hospit a 00 l escitalopra 2018- Yes 5mg QD Take 5 mg M ethodi m (LEXAPRO) 2-[address] 10 MG 00:00: [facility]. [facility] Yes 5mg QD Take 5 mg [...] st 10 MG 00:00: daily. [facility]osp[facility] Yes 5mg QD Take 5 mg M ethodi m (LEXAPRO) 2-[address] 10 MG 00:00: daily. [facility]osp[facility] Yes Univer s m oxalate 2-14 ity of 10 mg 00:00: [place] tablet [facility] escitalopra 2018-02 Yes Univer s m oxalate 2-14 ity of 10 mg 00:00: [place] tablet Medical Branch escitalopra 2018-02 Yes Univer s m oxalate 2-14 ity of 10 mg 00:00: [place] tablet Medical [place] escitalopra 2018-02 Yes Univer s m oxalate 2-14 ity of 10 mg 00:00: [place] tablet Medical [place] escitalopra 2018-02 Yes Univer s m oxalate 2-14 ity of 10 mg 00:00: [place] tablet Medical [place] escitalopra 2018-02 Yes Univer s m oxalate 2-14 ity of 10 mg 00:00: [place] tablet Medical [place] escitalopra 2018-02 Yes Univer s m oxalate [...] 0.25 mg 0-31 ity of tablet 00:00: [facility] triazolam 2018-02 Yes Univers 0.25 mg 0-31 ity of tablet 00:00: [facility] triazolam 2018-02 Yes Univers 0.25 mg 0-31 ity of tablet 00:00: [facility] triazolam 2018-02 Yes Univers 0.25 mg 0-31 ity of tablet 00:00: [facility] triazolam 2018-02 Yes Univers 0.25 mg 0-31 ity of tablet 00:00: [facility] triazolam 2018-02 Yes Univers 0.25 mg 0-31 ity of tablet 00:00: [facility] triazolam 2018-02 Yes Univers 0.25 mg 0-31 ity of tablet 00:00: [facility] triazolam 2018-02 Yes Univers 0.25 mg 0-31 ity of tablet 00:00: [facility] triazolam 2018-02 Yes Univers 0.25 mg 0-31 ity of tablet 00:00: [facility] triazolam 2018-02 Yes Univers 0.25 mg 0-31 ity of tablet 00:00: [place] [facility] triazolam 2018-02 Yes Univers 0.25 mg 0-31 ity of tablet 00:00: [place] [facility] triazolam 2018-02 Yes Univers 0.25 mg 0-31 ity of tablet 00:00: [place] [facility] triazolam 2018-02 Yes Univers 0.25 mg 0-31 ity of tablet 00:00: [place] [facility] triazolam 2018-02 Yes Univers 0.25 mg 0-31 ity of tablet 00:00: [place] [facility] amLODIPine 2018-02 Yes 5mg QD Take 5 [...] 5 mg tablet 0-11 ity of 00:00: [place] [facility] amLODIPine 2018-02 Yes Univers 5 mg tablet 0-11 ity of 00:00: [place] [facility] amLODIPine 2019- Yes Univers 5 mg tablet 0-11 ity of 00:00: [place] [facility] amLODIPine 2019- Yes Univers 5 mg tablet 0-11 ity of 00:00: [place] [facility] amLODIPine 2019- Yes Univers 5 mg tablet 0-11 ity of 00:00: [place] [facility] amLODIPine 2019- Yes Univers 5 mg tablet 0-11 ity of 00:00: [place] [facility] amLODIPine 2019- Yes Univers 5 mg tablet 0-11 ity of 00:00: [place] [facility] amLODIPine 2019- Yes Univers 5 mg tablet 0-11 ity of 00:00: [place] [facility] amLODIPine 2019- Yes Univers 5 mg tablet 0-11 ity of 00:00: [place] [facility] amLODIPine 2019- Yes Univers 5 mg tablet 0-11 ity of 00:00: [place] [facility] amLODIPine 2018- Yes Univers 5 mg tablet 0-11 ity of 00:00: [place] [facility] amLODIPine 2019- Yes Univers 5 mg tablet 0-11 ity of 00:00: [place] [facility] amLODIPine 2018- Yes Univers 5 mg tablet 0-11 ity of 00:00: [place] [facility] amLODIPine 2019- Yes Univers 5 mg tablet 0-11 ity of 00:00: [place] [facility] amLODIPine 2019- Yes 5mg QD Take 5 mg Me thodi (NORVASC) 5 0-[address] mg tablet 00:00: daily. Hospit a 00 l atorvastati 20190 Yes Univer s n 40 mg 9-17 ity of tablet 00:00: [place] [facility] Branch atorvastati 2019-0 Yes Univer s n 40 mg 9-17 ity of tablet 00:00: [place] [facility] atorvastati 2019-0 Yes Univer s n 40 mg 9-17 ity of tablet 00:00: [place] [facility] atorvastati 2019-0 Yes Univer s n 40 mg 9-17 ity of tablet 00:00: [address] atorvastati 2019-0 Yes Univer s n 40 mg 9-17 ity of tablet 00:00: [place] [facility] atorvastati 2019-0 Yes Univer s n 40 mg 9-17 ity of tablet 00:00: [place] 00 Medical Branch atorvastati 2019-0 Yes Univer s n 40 mg 9-17 ity of tablet 00:00: [place] 00 [facility] atorvastati 2019-0 Yes Univer s n 40 mg 9-17 ity of tablet 00:00: [place] [facility] atorvastati 2019-0 Yes Univer s n 40 mg 9-17 ity of tablet 00:00: [place] 00 [facility] atorvastati 2019-0 Yes Univer s n 40 mg 9-17 ity of tablet 00:00: [place] [facility] atorvastati 2019-0 Yes Univer s n 40 mg 9-17 ity of tablet 00:00: [place] [facility] atorvastati 2019-0 Yes Univer s n 40 mg 9-17 ity of tablet 00:00: [place] [facility] atorvastati 2019-0 Yes Univer s n 40 mg 9-17 ity of tablet 00:00: [place] [facility] atorvastati 2019-0 Yes Univer s n 40 mg 9-17 ity of tablet 00:00: [place] [facility] tadalafil 2019-0 Yes TAKE 1 Univer s 20 mg 9-04 TABLET BY ity of tablet 00:00: MOUTH [place] 00 EVERY DAY Medical NEEDED Branch tadalafil 2019-0 Yes TAKE 1 Univer s 20 mg 9-04 TABLET BY ity of tablet 00:00: [facility] 00 EVERY DAY Medical NEEDED Branch tadalafil 2019-0 Yes TAKE 1 Univer s 20 mg 9-04 TABLET BY ity of tablet 00:00: [facility] EVERY DAY Medical NEEDED Branch tadalafil 2019-0 Yes TAKE 1 Univer s 20 mg 9-04 TABLET BY ity of tablet 00:00: MOUTH [place] 00 EVERY DAY Medical NEEDED Branch tadalafil 2019-0 Yes TAKE 1 Univer s 20 mg 9-04 TABLET BY ity of tablet 00:00: MOUTH [place] 00 EVERY DAY Medical NEEDED Branch tadalafil 2019-0 Yes TAKE 1 Univer s 20 mg 9-04 TABLET BY ity of tablet 00:00: MOUTH [place] 00 EVERY DAY Medical NEEDED Branch tadalafil 2019-0 Yes TAKE 1 Univer s 20 mg 9-04 TABLET BY ity of tablet 00:00: MOUTH [place] 00 EVERY DAY Medical NEEDED Branch tadalafil 2019-0 Yes TAKE 1 Univer s 20 mg 9-04 TABLET BY ity of tablet 00:00: MOUTH [place] 00 EVERY DAY Medical NEEDED Branch tadalafil 2019-0 Yes TAKE 1 Univer s 20 mg 9-04 TABLET BY ity of tablet 00:00: MOUTH [place] 00 EVERY DAY Medical NEEDED Branch tadalafil 20190 Yes TAKE 1 Univer s 20 mg 9-04 TABLET BY ity of tablet 00:00: MOUTH [place] 00 EVERY DAY Medical NEEDED Branch tadalafil 0 Yes TAKE 1 Univer s 20 mg 9-04 TABLET BY ity of tablet 00:00: MOUTH [place] 00 EVERY DAY Medical NEEDED Branch tadalafil 0 Yes TAKE 1 Univer s 20 mg 9-04 TABLET BY ity of tablet 00:00: MOUTH [place] 00 EVERY DAY Medical NEEDED Branch tadalafil 0 Yes TAKE 1 Univer s 20 mg 9-04 TABLET BY ity of tablet 00:00: MOUTH [place] 00 EVERY DAY Medical NEEDED Branch tadalafil 0 Yes TAKE 1 Univer s 20 mg 9-04 TABLET BY ity of tablet 00:00: MOUTH [place] 00 EVERY DAY Medical NEEDED Branch predniSONE 2019-0 [...] 10 mg 8-13 ity of tablet 00:00: [place] [facility] metoprolol 2019-0 Yes Univers succinate [...] 27 every Center night as needed. apixaban 2017-0 Yes 5mg Q.5D Take 1 [...] on DsDv powder for inhalation apixaban 5 Yes 5mg Take 5 mg Un sally mg tablet 2-09 by mouth. ity o f 00:00: [place] [facility] umeclidiniu 2017-0 Yes 1{puff} Inhale 1 Univers m 62.5 2-09 Puff. ity of mcg/actuati 00:00: [place] on DsDv Medical Branch apixaban 5 Yes 5mg Take 5 mg Un sally mg tablet 2-09 by mouth. ity o f 00:00: [place] [facility] umeclidiniu 0 Yes 1{puff} Inhale 1 Univers [...] 2-09 by mouth. ity o f 00:00: [place] [facility] apixaban 5 2017-0 Yes 5mg Take 5 mg Un sally mg tablet 2-09 by mouth. ity o f 00:00: [place] [facility] umeclidiniu 2017-0 Yes 1{puff} Inhale 1 Univers m 62.5 2-09 Puff. ity of mcg/actuati 00:00: [place] on DsDv Medical Branch umeclidiniu 2016-0 Yes 1{puff} Inhale 1 Univers [...] 2-09 by mouth. ity o f 00:00: [place] [facility] umeclidiniu 2017-0 Yes 1{puff} Inhale 1 Univers m 62.5 2-09 Puff. ity of mcg/actuati 00:00: [place] on DsDv Medical Branch apixaban 5 2017-0 Yes 5mg Take 5 mg Un sally mg tablet 2-09 by mouth. ity o f 00:00: [place] 00 Medical Branch umeclidiniu 2017-0 Yes 1{puff} [...] 2-09 by mouth. ity o f 00:00: [place] [facility] umeclidiniu 2017-0 Yes 1{puff} Inhale 1 Univers m 62.5 2-09 Puff. ity of mcg/actuati 00:00: [place] on DsDv Medical Branch apixaban 5 2017-0 Yes 5mg Take 5 mg Un sally mg tablet 2-09 by mouth. ity o f 00:00: [place] [facility] umeclidiniu 2017-0 Yes 1{puff} Inhale [...] 00:00: [place] on DsDv Medical Branch apixaban 2017-0 Yes 5mg Q.5D Take [address] [facility] (ELIQUIS) 5 2-09 tablet (5 Bk es mg Tab 00:00: mg total) Medica l tablet 00 by mouth 2 Center (two) times daily. umeclidiniu Yes 1{puff} QD Inhale [address] [facility] m (INCRUSE 2-09 puff by [facility] ELLIPTA) 00:00: mouth via [facility] meredith 62.5 00 inhaler Center mcg/actuati daily. on DsDv powder for inhalation atorvastati Yes 40mg QD Take 40 mg Methodi n (LIPITOR) 2-[address] 40 MG 00:00: daily. Hospita tablet 00 l metoprolol Yes Methodi succinate 2- st 50 mg 00:00: Hospita capsule,spr 00 l inkle,ER 24hr atorvastati Yes 40mg QD Take 40 mg Methodi n (LIPITOR) 2-[address] 40 MG 00:00: daily. Hospita tablet 00 l metoprolol Yes Methodi succinate 2- st 50 mg 00:00: Hospita capsule,spr 00 l inkle,ER 24hr atorvastati Yes 40mg QD Take 40 mg Methodi n (LIPITOR) 2-[address] 40 MG 00:00: daily. Hospita tablet 00 l metoprolol Yes [facility]i succinate 2- st 50 mg 00:00: Hospita capsule,spr 00 l inkle,ER 24hr atorvastati Yes 40mg QD Take 40 mg Methodi n (LIPITOR) 2-[address] 40 MG 00:00: daily. Hospita tablet 00 l metoprolol Yes Methodi succinate 2-01 st 50 mg 00:00: Hospita capsule,spr 00 l inkle,ER 24hr atorvastati 2016-0 Yes 40mg QD Take 40 mg Methodi n (LIPITOR) 2-[address] 40 MG 00:00: daily. Hospita tablet 00 l metoprolol 0 Yes Methodi succinate 2-01 st 50 mg 00:00: Hospita capsule,spr 00 l inkle,ER 24hr atorvastati Yes 40mg QD Take 40 mg Methodi n (LIPITOR) 2-[address] 40 MG 00:00: daily. Hospita tablet 00 l metoprolol Yes Methodi succinate 2- st 50 mg 00:00: Hospita capsule,spr 00 l inkle,ER 24hr atorvastati Yes 40mg QD Take 40 mg Methodi n (LIPITOR) 2-[address] 40 MG 00:00: daily. Hospita tablet 00 l metoprolol Yes Methodi succinate 2- st 50 mg 00:00: Hospita capsule,spr 00 l inkle,ER 24hr atorvastati Yes 40mg QD Take 40 mg Methodi n (LIPITOR) 2-[address] 40 MG 00:00: daily. Hospita tablet 00 l metoprolol Yes Methodi succinate 2- st 50 mg 00:00: Hospita capsule,spr 00 l inkle,ER 24hr atorvastati Yes 40mg QD Take 40 mg Methodi n (LIPITOR) [address] 40 MG 00:00: daily. Hospita tablet l metoprolol Yes Methodi succinate 2- st 50 mg 00:00: Hospita capsule,spr 00 l inkle,ER 24hr nisoldipine Yes Univer s (SULAR) 7-18 ity of 25.5 mg 24 00:00: [place] hr tablet 00 Medical Branch BENICAR HCT 0 Yes Univer s 40-12.5 mg 7-18 ity of per tablet 00:00: [place] [facility] nisoldipine Yes Univer s (SULAR) 7-18 ity of 25.5 mg 24 00:00: [place] hr tablet 00 Medical Branch BENICAR HCT 0 Yes Univer s 40-12.5 mg 7-18 ity of per tablet 00:00: [place] [facility] nisoldipine Yes Univer s (SULAR) 7-18 ity of 25.5 mg 24 00:00: [place] hr tablet Medical Branch BENICAR HCT 0 Yes Univer s 40-12.5 mg 7-18 ity of per tablet 00:00: [place] [facility] nisoldipine Yes Univer s (SULAR) 7-18 ity [...] Yes Carlo not Com mon Omid defined [facility] Atorvastati Atorvastati Yes Carlo not Common n Calcium n Calcium Omid defined [facility] PredniSONE PredniSONE Yes Carlo not C ommon Omid defined [facility] Atrovent Atrovent Yes Carlo not Commo n HFA HFA Omid defined [facility] Furosemide Furosemide Yes Carlo not C ommon Omid defined [facility] Amlodipine Amlodipine Yes Carlo not C ommon Besylate Besylate Omid defined Sp cecille [facility] Anoro Anoro Yes Carlo not Common Ellipta Ellipta Omid defined Spir it [facility] Combivent Combivent Yes Carlo not Com mon Omid defined [facility] Acetaminoph Acetaminoph Yes Carlo not Common en en Omid defined [facility] Tadalafil Tadalafil Yes Carlo not Com mon Omid defined [facility] Metoprolol Metoprolol Yes Carlo not C ommon Succinate Succinate Omid defined [facility] Yoselin Yoselin Yes Carlo not Common Aspirin Aspirin Omid defined Spir it [facility] Vital Signs Vital Name Observation Time Observation Value Comments Source Systolic blood 2019-08-29 14:55:00 160 mm[Hg] Univer sity of pressure [place] [facility] Diastolic blood 2019-08-29 14:55:00 83 mm[Hg] Unive rsity of pressure [facility] Heart rate 2019-08-29 14:55:00 86 /min Universi ty of [facility] Body height 2019-08-29 14:55:00 167.6 cm Universi ty of [place] [facility] Body weight 2019-08-29 14:55:00 77.111 kg Universi ty of [place] [facility] BMI 2019-08-29 14:55:00 27.44 kg/m2 Universi ty of [facility] Systolic blood 2019-08-29 14:55:00 160 mm[Hg] Univer sity of pressure [facility] Diastolic blood 2019-08-29 14:55:00 83 mm[Hg] Unive rsity of pressure [facility] Heart rate 2019-08-29 14:55:00 86 /min Universi ty of [facility] Body height 2019-08-29 14:55:00 167.6 cm Universi ty of [place] [facility] Body weight 2019-08-29 14:55:00 77.111 kg Universi ty of [place] [facility] BMI 2019-08-29 14:55:00 27.44 kg/m2 Universi ty of [facility] Systolic blood 2019-08-24 15:36:00 176 mm[Hg] Univer sity of pressure [place] [facility] Diastolic blood 2019-08-24 15:36:00 81 mm[Hg] Unive rsity of pressure [facility] Heart rate 2019-08-24 15:36:00 81 /min Universi ty of [place] [facility] Respiratory rate 2019-08-24 15:30:00 18 /min Univ ersity of [facility] Body height 2019-08-24 15:30:00 167.6 cm Universi ty of [place] [facility] Body weight 2019-08-24 15:30:00 77.111 kg Universi ty of [place] [facility] BMI 2019-08-24 15:30:00 27.44 kg/m2 Universi ty of [facility] Systolic blood 2019-03-31 14:40:00 156 mm[Hg] Univer sity of pressure [place] [facility] Diastolic blood 2019-03-31 14:40:00 87 mm[Hg] Unive rsity of pressure [facility] Heart rate 2019-03-31 14:40:00 79 /min [facility] Respiratory rate 2019-03-31 14:40:00 20 /min [facility] Body height 2019-03-31 14:40:00 167.6 cm [facility] Body weight 2019-03-31 14:40:00 77.111 kg [facility] BMI 2019-03-31 14:40:00 27.44 kg/m2 [facility] Body height 2021-08-05 18:15:00 167.6 cm [facility] Body weight 2021-08-05 18:15:00 74.844 kg [facility] BMI 2021-08-05 18:15:00 26.63 kg/m2 [facility] Procedures Procedure Date / Time Performing Clinician Source Performed ALPHA-1 ANTITRYPSIN 2021-10-03 17:42:00 [facility] PHENOTYPE Ramana ALPHA-1 ANTITRYPSIN LEVEL 2021-10-03 17:42:00 [facility] IGG SUBCLASSES 2021-10-03 17:42:00 [facility] Ramana IMMUNOGLOBULIN G 2021-10-03 17:42:00 [facility] Ramana ALLERGEN, REGION 10 2021-10-03 17:42:00 [facility] RESPIRATORY VEGA IGE Ramana IMMUNCAP SCORE 2021-10-03 17:42:00 [facility] Ramana MR LUMBAR SPINE WO 2021-09-19 15:51:00 Requisition, Paper [facility] XR KNEE 3 VW LEFT 2021-08-05 18:27:49 [facility] XR LEG LENGTH EVALUATION 2021-08-05 18:27:25 [facility] NOTICE OF PRIVACY 2021-08-04 15:36:26 Doctor Unassigned, [facility] PRACTICES [facility] CONSENT/REFUSAL FOR 2021-08-04 15:36:06 Doctor Unassigned, [facility] DIAGNOSIS AND TREATMENT [facility] ASSIGNMENT OF BENEFITS 2021-08-04 15:35:52 Doctor Unassigned, [facility] PHYSICIAN ORDERS 2021-07-23 05:01:00 Doctor Unassigned, [facility] Name Medical Branch XR FOOT <3 VW RIGHT 2019-08-24 15:48:01 Stephanie Henriquez [facility] DSU PRE-OP 2019-03-31 06:01:00 Doctor Unassigned, [facility] Name Medical Branch Plan of Care Planned Activity Planned Date Details Comments Source Future Scheduled 2022-01-26 [facility] Test 11:59:03 malignant neoplasm of lung (procedure) [code = 620568572] Future Scheduled 2022-01-26 SHINGLES VACCINES (1 [facility] Test 11:59:03 of 2) [code = SHINGLES VACCINES (1 of 2)] Future Scheduled 2022-01-26 COVID-19 VACCINE (4 - [facility] Test 11:59:03 Booster for Moderna series) [code = COVID-19 VACCINE (4 - Booster for Moderna series)] Future Scheduled 2022-01-26 INFLUENZA VACCINE [facility] Test 11:59:03 [code = INFLUENZA VACCINE] Future Scheduled 2022-01-26 65+ PNEUMOCOCCAL [facility] Test 11:59:03 VACCINE (1 - PCV) [code = 65+ PNEUMOCOCCAL VACCINE (1 - PCV)] Future Scheduled 2022-01-26 COLONOSCOPY SCREENING [facility] Test 11:59:03 [code = COLONOSCOPY SCREENING] Future Scheduled 2022-01-26 [facility] Test 11:59:03 malignant neoplasm of lung (procedure) [code = 988803410] Future Scheduled 2022-01-26 SHINGLES VACCINES (1 [facility] Test 11:59:03 of 2) [code = SHINGLES VACCINES (1 of 2)] Future Scheduled 2022-01-26 COVID-19 VACCINE (4 - [facility] Test 11:59:03 Booster for Moderna series) [code = COVID-19 VACCINE (4 - Booster for Moderna series)] Future Scheduled 2022-01-26 INFLUENZA VACCINE [facility] Test 11:59:03 [code = INFLUENZA VACCINE] Future Scheduled 2022-01-26 65+ PNEUMOCOCCAL [facility] Test 11:59:03 VACCINE (1 - PCV) [code = 65+ PNEUMOCOCCAL VACCINE (1 - PCV)] Future Scheduled 2022-01-26 COLONOSCOPY SCREENING [facility] Test 11:59:03 [code = COLONOSCOPY SCREENING] Future Scheduled 2022-01-[address] [facility] Test 11:59:03 malignant neoplasm of lung (procedure) [code = 759629734] Future Scheduled 2022-01-26 SHINGLES VACCINES (1 [facility] Test 11:59:03 of 2) [code = SHINGLES VACCINES (1 of 2)] Future Scheduled 2022-01-26 COVID-19 VACCINE (4 - [facility] Test 11:59:03 Booster for Moderna series) [code = COVID-19 VACCINE (4 - Booster for Moderna series)] Future Scheduled 2022-01-26 INFLUENZA VACCINE [facility] Test 11:59:03 [code = INFLUENZA VACCINE] Future Scheduled 2022-01-26 65+ PNEUMOCOCCAL [facility] Test 11:59:03 VACCINE (1 - PCV) [code = 65+ PNEUMOCOCCAL VACCINE (1 - PCV)] Future Scheduled 2022-01-26 COLONOSCOPY SCREENING [facility] Test 11:59:03 [code = COLONOSCOPY SCREENING] Future Scheduled 2022-01-[address] [facility] Test 11:59:03 malignant neoplasm of lung (procedure) [code = [id number]] Future Scheduled 2022-01-26 SHINGLES VACCINES (1 [facility] Test 11:59:03 of 2) [code = SHINGLES VACCINES (1 of 2)] Future Scheduled 2022-01-26 COVID-19 VACCINE (4 - [facility] Test 11:59:03 Booster for Moderna series) [code = COVID-19 VACCINE (4 - Booster for Moderna series)] Future Scheduled 2022-01-26 [facility]:59:03 [code = INFLUENZA VACCINE] Future Scheduled 2022-01-26 65+ [facility]UMOCOCCAL [facility] 11:59:03 VACCINE (1 - PCV) [code = 65+ PNEUMOCOCCAL VACCINE (1 - PCV)] Future Scheduled 2022-01-26 COLONOSCOPY SCREENING [facility] Test 11:59:03 [code = COLONOSCOPY SCREENING] Future Scheduled 2022-01-[address] [facility] Test 11:59:03 malignant neoplasm of lung (procedure) [code = 519056618] Future Scheduled 2022-01-26 SHINGLES VACCINES (1 [facility] Test 11:59:03 of 2) [code = SHINGLES VACCINES (1 of 2)] Future Scheduled 2022-01-26 COVID-19 VACCINE (4 - Me [facility] Test 11:59:03 Booster for Moderna series) [code = COVID-19 VACCINE (4 - Booster for Moderna series)] Future Scheduled 2022-01-26 INFLUENZA VACCINE [facility] Test 11:59:03 [code = INFLUENZA VACCINE] Future Scheduled 2022-01-26 65+ PNEUMOCOCCAL [facility] Test 11:59:03 VACCINE (1 - PCV) [code = 65+ PNEUMOCOCCAL VACCINE (1 - PCV)] Future Scheduled 2022-01-26 COLONOSCOPY SCREENING [facility] Test 11:59:03 [code = COLONOSCOPY SCREENING] Future Scheduled 2022-01-[address] [facility] Test 11:59:03 malignant neoplasm of lung (procedure) [code = [id number]] Future Scheduled 2022-01-26 SHINGLES VACCINES (1 [facility] Test 11:59:03 of 2) [code = SHINGLES VACCINES (1 of 2)] Future Scheduled 2022-01-26 COVID-19 VACCINE (4 - [facility] Test 11:59:03 Booster for Moderna series) [code = COVID-19 VACCINE (4 - Booster for Moderna series)] Future Scheduled 2022-01-26 INFLUENZA VACCINE [facility] Test 11:59:03 [code = INFLUENZA VACCINE] Future Scheduled 2022-01-26 65+ [facility]OCOCCAL [facility] Test 11:59:03 VACCINE (1 - PCV) [code = 65+ PNEUMOCOCCAL VACCINE (1 - PCV)] Future Scheduled 2022-01-26 COLONOSCOPY SCREENING [facility] Test 11:59:03 [code = COLONOSCOPY SCREENING] Future Scheduled 2022-01-26 65+ PNEUMOCOCCAL [facility] Test 11:59:03 VACCINE (1 - PCV) [code = 65+ PNEUMOCOCCAL VACCINE (1 - PCV)] Future Scheduled 2022-01-26 COLONOSCOPY SCREENING [facility] Test 11:59:03 [code = COLONOSCOPY SCREENING] Future Scheduled 2022-01-[address] [facility] Test 11:59:03 malignant neoplasm of lung (procedure) [code = [id number]] Future Scheduled 2022-01-26 SHINGLES VACCINES (1 [facility] Test 11:59:03 of 2) [code = SHINGLES VACCINES (1 of 2)] Future Scheduled 2022-01-26 COVID-19 VACCINE (4 - [facility] Test 11:59:03 Booster for Moderna series) [code = COVID-19 VACCINE (4 - Booster for Moderna series)] Future Scheduled 2022-01-26 INFLUENZA VACCINE [facility] Test 11:59:03 [code = INFLUENZA VACCINE] Future Scheduled 2021-10-24 HEPATITIS B VACCINES [facility] Test 14:20:57 (1 of 3 - 3-dose series) [code = HEPATITIS B VACCINES (1 of 3 - 3-dose series)] Future Scheduled 2021-10-24 65+ [facility]OCOCCAL [facility] Test 14:20:57 VACCINE (1 - PCV) [code = 65+ PNEUMOCOCCAL VACCINE (1 - PCV)] Future Scheduled 2021-10-24 COLONOSCOPY SCREENING [facility] Test 14:20:57 [code = COLONOSCOPY SCREENING] Future Scheduled 2021-10-[address] [facility] Test 14:20:57 malignant neoplasm of lung (procedure) [code = [id number]] Future Scheduled 2021-10-24 SHINGLES VACCINES (1 [facility] Test 14:20:57 of 2) [code = SHINGLES VACCINES (1 of 2)] Future Scheduled 2021-10-24 COVID-19 VACCINE (4 - [facility] Test 14:20:57 Booster for Moderna series) [code = COVID-19 VACCINE (4 - Booster for Moderna series)] Future Scheduled 2021-10-24 INFLUENZA VACCINE [facility] Test 14:20:57 [code = INFLUENZA VACCINE] Future Scheduled 2021-10-24 HEPATITIS B VACCINES [facility] Test 14:20:57 (1 of 3 - 3-dose series) [code = HEPATITIS B VACCINES (1 of 3 - 3-dose series)] Future Scheduled 2021-10-24 65+ [facility]OCOCCAL [facility] Test 14:20:57 VACCINE (1 - PCV) [code = 65+ PNEUMOCOCCAL VACCINE (1 - PCV)] Future Scheduled 2021-10-24 COLONOSCOPY SCREENING [facility] Test 14:20:57 [code = COLONOSCOPY SCREENING] Future Scheduled 2021-10-[address] [facility] Test 14:20:57 malignant neoplasm of lung (procedure) [code = [id number]] Future Scheduled 2021-10-24 SHINGLES VACCINES (1 [facility] Test 14:20:57 of 2) [code = SHINGLES VACCINES (1 of 2)] Future Scheduled 2021-10-24 COVID-19 VACCINE (4 - [facility] Test 14:20:57 Booster for Moderna series) [code = COVID-19 VACCINE (4 - Booster for Moderna series)] Future Scheduled 2021-10-24 INFLUENZA VACCINE [facility] Test 14:20:57 [code = INFLUENZA VACCINE] Encounters Start End Encounter Admission Attending Care Care Encounter Source Date/Time Date/Time Type Type Clinicians Facility Department ID 2021-10-31 2021-10-31 Outpatient Mariola [facility] [id number] [place] 15:38:00 15:38:00 Vidya [facility] ica 3 [place] 2021-10-03 2021-10-03 Lab Colomer, 1.2.840.1 [id number] [facility] 12:30:00 12:35:[address] [facility] 3.430.2.7 Hospit a .3.434124 l .8 2021-10-03 2021-10-03 Lab Colomer, 1.2.840.1 [id number] [facility] 12:30:00 12:35:[address] Ramana 3.430.2.7 Hospit a .3.176597 l .8 2021-10-03 2021-10-03 Travel 1.2.840.1 1.2.194.825 [id number] [facility] 00:00:00 00:00:[address] 3.430.2.7 0.2.7.3.698 Ho spita .3.244677 084.8 l .8 2021-10-03 2021-10-03 Travel 1.2.840.1 1.2.311.965 [id number] [facility] 00:00:00 00:00:[address] 3.430.2.7 0.2.7.3.698 Ho spita .3.522302 084.8 l .8 2021-09-19 2021-09-19 Outpatient R RADIOLOGY [facility] [id number] Univers 09:09:31 23:59:00 ity of [facility] 2021-09-19 2021-09-19 Hospital Radiology [facility] 1.2.840.114 [id number] Univers 09:09:31 23:59:00 Encounter [place] 350.1.13.10 ity [facility] 4.2.7.2.686 [facility] [id number] [address] 2021-08-05 2021-08-05 Office Phyllis, 1.2.840.1 [id number] Method[facility] 14:00:00 15:57:20 Visit [place] 98907.1.1 824 s t 3.430.2.7 Hospit a .3.327046 l .8 2021-08-05 2021-08-05 Office Phyllis, 1.2.840.1 [id number] [facility] 14:00:00 15:57:20 Visit [place]reen [place] 69447.1.1 824 s t 3.430.2.7 Hospit a .3.399462 l .8 2021-08-05 2021-08-05 Travel 1.2.840.1 1.2.410.125 [id number] [facility] 00:00:00 00:00:[address] 3.430.2.7 0.2.7.3.698 Ho spita .3.850665 084.8 l .8 2021-08-05 2021-08-05 Outpatient PHYLLIS, [facility] [id number] [place] 00:00:00 00:00:00 SHEREEN [address] 2021-08-05 2021-08-05 Outpatient PHYLLIS, [facility] [id number] [place] 00:00:00 00:00:00 SHEREEN Dominguez [facility] 2021-08-05 2021-08-05 Travel 1.2.840.1 1.2.626.143 [id number] [facility] 00:00:00 00:00:00 85024.1.1 350.1.13.43 536 3.430.2.7 0.2.7.3.698 Ho spita .3.962372 084.8 l .8 2021-08-04 2021-08-04 [facility] [id number] Univers 10:39:04 23:59:00 OMARI ity of [facility] 2021-08-04 2021-08-04 [facility] 1.2.840.114 [id number] Univers 10:39:04 23:59:00 Encounter Omari CAMPOS 350.1.13.10 ity [place] [id number] [facility] [address] 2021-07-23 2021-07-23 Orders Doctor BRAD 1.2.840.114 [id number] Univers 00:00:00 00:00:00 Only Unassigned, JARON 350.1.13.10 ity of [place] [facility] 4.2.7.2.686 Zander as [id number] [facility] [address] 2020-04-15 2020-04-15 Patient [facility] 1.2.840.114 [id number] Univers 00:00:00 00:00:00 Outreach Aroldo PRIMARY 350.1.13.10 i ty of [facility] [place] [id number] Nh dical [address] 2020-04-09 2020-04-09 Outpatient CHAS [facility] [id number] [place] 00:00:00 00:00:00 АНДРЕЙ 981 Method i 2020-04-09 2020-04-09 Outpatient CHAS [facility] [id number] [place] 00:00:00 00:00:00 АНДРЕЙ 096 Method i 2020-02-20 2020-02-20 Outpatient PHYLLIS, [facility] [id number] [place] 00:00:00 00:00:00 SHEREEN 222 Method i 2020-02-20 2020-02-20 Outpatient PHYLLIS, [facility] [id number] [place] 00:00:00 00:00:00 SHEREEN 422 Method i 2020-02-20 2020-02-20 Outpatient PHYLLIS, [facility] [id number] [place] 00:00:00 00:00:00 SHEREEN 430 Method i 2020-01-29 2020-01-29 Laboratory Lab, Adc Fam Pob I [facility] 1.2. 840.114 [id number] [facility] 10:40:21 11:00:21 [facility] 350.1.13.10 [facility] 4.2.7.2.686 Zander as Professio [phone] Nh dical [address] Office [facility] 2020-01-29 2020-01-29 Outpatient R [facility] [id number] [facility] 11:00:00 11:00:00 ity [facility] 2019-11-15 2019-11-15 Outpatient [facility] [id number] 410 [place] 00:00:00 00:00:00 333 Method i 2019-11-15 2019-11-15 Outpatient [facility] [id number] 252 [place] 00:00:00 00:00:00 543 Method i 2019-10-30 2019-10-31 Outpatient PHYLLIS, [facility] 021 [id number] [place] 00:00:00 00:00:00 SHEREEN 272 Method i 2019-10-25 2019-10-25 Outpatient PHYLLIS, [facility] [id number] [place] 00:00:00 00:00:00 SHEREEN 403 Method i 2019-10-18 2019-10-18 Outpatient PHYLLIS, [facility] [id number] [place] 00:00:00 00:00:00 SHEREEN 841 Method i 2019-08-29 2019-08-29 Office [facility] 1.2.840.114 [id number] Univers 09:52:24 10:07:24 Visit [facility] 350.1.13.10 it y of Surgical 4.2.7.2.686 Zander as Specialti [phone] Me dical es [address] [facility] 2019-08-29 2019-08-29 [facility] 1.2.840.114 [id number] 09:52:24 10:07:24 Visit [facility] 350.1.13.10 Surgical 4.2.7.2.686 Specialti [phone] es [address] [place] 2019-08-29 2019-08-29 Outpatient [facility] [id number] Univers 09:45:00 09:45:00 [facility] 2019-08-24 2019-08-24 [facility] 1.2.840.114 [id number] Univers 10:48:00 23:59:00 Encounter [facility] 350.1.13.10 ity of Surgical 4.2.7.2.686 Zander as Specialti [phone] Nh dical es [address] [facility] 2019-08-24 2019-08-24 [facility] 1.2.840.114 [id number] Univers 10:29:34 10:58:01 Visit [facility] 350.1.13.10 it y of Surgical 4.2.7.2.686 Zander as Specialti [phone] Nh dical es [address] [facility] 2019-08-24 2019-08-24 Outpatient [facility] [id number] Univers 10:30:00 10:30:00 [facility] 2019-07-18 2019-07-18 Outpatient PHYLLIS, [facility] [id number] [place] 00:00:00 00:00:00 SHEREEN 315 Method i 2019-06-15 2019-06-15 Outpatient PHYLLIS, [facility] [id number] [place] 00:00:00 00:00:00 SHEREEN 159 Method i 2019-06-15 2019-06-15 Outpatient PHYLLIS, [facility] [id number] [place] 00:00:00 00:00:00 SHEREEN 022 Method i 2019-06-15 2019-06-15 Outpatient PHYLLIS, [facility] [id number] [place] 00:00:00 00:00:00 SHEREEN Hankins Method i 2019-05-29 2019-05-29 Telephone [facility] 1.2.840.114 [id number] Univers 00:00:00 00:00:00 Mello Gomes 350.1.13.10 it y of Surgical 4.2.7.2.686 Zander as Specialti [phone] Nh dical es [address] [facility] 2019-03-31 2019-03-31 Office JAGUAR [facility] 1.2.085.402 [id number] [facility] 08:35:06 09:11:29 Visit Mello Gomes 350.1.13.10 it y of Surgical 4.2.7.2.686 Zander as Specialti [phone] Nh dical es [address] [facility] 2019-03-31 2019-03-31 Orders Doctor BRAD 1.2.840.114 [id number] [facility] 00:00:00 00:00:00 Only Unassigned, JARON 350.1.13.10 ity of [place] [facility] 4.2.7.2.686 Zander as [id number] [address] 2018-09-05 2018-09-05 Outpatient [facility] [id number] Common 14:30:00 14:30:00 [facility] 2018-08-03 2018-08-03 Outpatient [facility] [id number] Common 08:00:00 08:00:00 t [facility] Results Test Description Test Time Test Comments Results Result Comments Source SARS-CoV-2 (COVID-19) RNA [Presence] in Respiratory sp ecimen by 2019-10-25 19:09:03 EDUARDO with probe detection Test Item Value Reference Range Interpretation Comme nts SARS-CoV-2 (COVID-19) RNA [Presence] in Respiratory Not detected No t-Detected specimen by EDUARDO with probe detection (test code = 26208-4) NITHIN ORIENTAL ORTHODOX WESTXR FOOT <3 VW [id number] 15:54:17No acute fracture or dislocation 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
[2022-04-27 13:18] LABS: SARS-COV-2 RT PCR NEGATIVE (NEGATIVE)
[2022-04-27] MEDS ORDERED: METHYLPREDNISOLONE 125 MG INJ ONE ×2 (13:21→18:17)
[2022-04-27] MEDS ORDERED: Levofloxacin500mg IV 500 MG/100 ML BAG IV ONE (13:22)
[2022-04-27] MEDS ORDERED: NA CHLORIDE 0.9% 1,000 ML ONE (13:22)
[2022-04-27] MEDS ORDERED: LEVALBUTEROL 1.25 MG/3 ML NEB ONE (13:22)
[2022-04-27] MEDS ORDERED: IPRATROPIUM BROM 0.5MG/2.5ML ONE (13:22)
[2022-04-27 13:53] LABS: Absolute Lymphocytes (CBC) 0.5 K/uL (0.7-4.9); Hematocrit 40.8 % (39.6-49.0); Lymphocytes % 5.3 % (15.3-44.8); MCV 93.1 fL (80-100); MPV 6.6 fL (7.6-11.3); RBC Red Blood Cell Count 4.38 M/uL (4.33-5.43)
--- NOTE | 2022-04-27 13:55 | RAD REPORT ---
EXAM DESCRIPTION: Lorie Single View04/27/2022 1:45 pm CLINICAL HISTORY: Shortness of breath COMPARISON: February 2022 FINDINGS: Chronic elevation left hemidiaphragm Lungs appear clear of acute infiltrate Postsurgical changes involve the chest Heart is borderline enlarged
[2022-04-27] MEDS ORDERED: NA CHLORIDE 0.9% 100 ML ONE (13:59)
[2022-04-27] MEDS ORDERED: CEFEPIME 1 GM/VIAL ONE (13:59)
[2022-04-27 14:06] LABS: Protime INR 0.92
--- NOTE | 2022-04-27 14:07 | ER ---
Nurse's Notes [facility] Name: Jesus Morales Age: 71 yrs Sex: Male : 1950 Arrival Date: 04/27/2022 Time: 12:18 Bed 18 Private MD: Diagnosis: COPD/ Chronic obstructive pulmonary disease with (acute) exacerbation;Dyspnea;Essential (primary) hypertension Presentation: 04/27 12:32 Chief complaint: EMS states: they were called to the patients house for shortness of ap3 breath and tremors. patient states he hasn't been feeling well for a few days with a cough, and tremors that he has reportedly never had before. Coronavirus screen: Client presents with at least one sign or symptom that may indicate coronavirus-19. Ebola Screen: No symptoms or risks identified at this time. Initial Sepsis Screen: Does the patient meet any 2 criteria? HR > 90 bpm. No. Patient's initial sepsis screen is negative. Does the patient have a suspected source of infection? No. Patient's initial sepsis screen is negative. Risk Assessment: Do you want to hurt yourself or someone else? Patient reports no desire to harm self or others. Onset of symptoms was April 24, 2022. Care prior to arrival: Medication(s) given: Albuterol Neb Atrovent Neb. 12:32 Method Of Arrival: EMS: [facility] ap3 12:32 Acuity: LEAH 3 ap3 Triage Assessment: 12:39 General: Appears comfortable, Behavior is calm, cooperative. Pain: Denies pain. Neuro: ap3 Level of Consciousness is awake, alert, obeys commands, Oriented to person, place, time, situation, Speech is normal. Cardiovascular: Patient's skin is warm and dry. Respiratory: Reports shortness of breath cough that is Airway is patent Respiratory effort is even, unlabored. Musculoskeletal: Reports tremors. Historical: - Allergies: 12:35 Adhesives; ap3 12:35 Latex, Natural Rubber; ap3 - Home Meds: 12:35 amiodarone 200 mg Oral tablet 1 tab 2 times per day [Active]; aspirin 81 mg Oral ap3 capsule 1 cap daily [Active]; atorvastatin 40 mg oral tablet 1 tab every day at bedtime [Active]; duloxetine 60 mg oral capsule,delayed release (e.c.) 1 cap daily [Active]; Trelegy Ellipta inhalation 1 inhalation [Active]; furosemide 40 mg Oral tablet 1 tab 2 times per day [Active]; Atrovent Inhl [Active]; metoprolol tartrate 50 mg Oral tablet 1 tab 2 times per day [Active]; omeprazole 40 mg Oral capsule,delayed release (e.c.) 1 cap once [Active]; potassium chloride 20 mEq Oral tablet, extended release 1 tab 2 times per day [Active]; prednisone 10 mg Oral tablet 1 tabs daily [Active]; - PMHx: 12:35 Atrial fibrillation; Chronic obstructive lung disease; Congestive heart failure; ap3 - PSHx: 12:35 Coronary artery bypass graft; ap3 - Immunization history:: Client reports receiving the 2nd dose of the Covid vaccine, Flu vaccine is up to date. - Social history:: Smoking status: Patient denies any tobacco usage or history of. Patient uses alcohol, weekly. - Family history:: not pertinent. Screenin:40 Abuse screen: Denies threats or abuse. Nutritional screening: No deficits noted. ap3 Tuberculosis screening: No symptoms or risk factors identified. 18:10 [facility] ED Fall Risk Assessment (Adult) Confusion or Disorientation No (0 pts) ap3 Intoxicated or Sedated No (0 pts) Impaired Gait Yes (1 pt) Mobility Assist Device Used Yes (1 pt) Altered Elimination No (0 pt) Score/Fall Risk Level 3 or more points = High Risk. Assessment: 16:14 General: provider notified of patients vital signs. new orders received . ap3 Vital Signs: 12:32 Pulse 91; Resp 18; Temp 98.2(O); Pulse Ox 92% on R/A; Weight 79.38 kg; Height 5 ft. 6 ap3 in. ; 12:43 BP 179 / 79; ap3 13:11 BP 171 / 78; Pulse 85; Pulse Ox 95% on 2 lpm NC; ap3 14:47 BP 168 / 64; Pulse 101; Pulse Ox 94% on R/A; ap3 16:10 BP 191 / 92; Pulse 102; ap3 17:44 BP 146 / 75; Pulse 76; Pulse Ox 95% on 2 lpm NC; ap3 12:32 Body Mass Index 28.25 (79.38 kg, 167.64 cm) ap3 16:10 provider notified. ap3 ED Course: 12:18 Patient arrived in ED. eb 12:19 Nando Henley MD is Attending Physician. hafsa 12:32 Rosa Santana, KENNEDY is Primary Nurse. ap3 12:35 Triage completed. ap3 12:40 Arm band placed on right wrist. ap3 12:40 Patient has correct armband on for positive identification. Bed in low position. Call ap3 light in reach. Side rails up X2. residential monitor on. Pulse ox on. NIBP on. Door closed. Noise minimized. 13:38 Inserted saline lock: 20 gauge in left antecubital area, using aseptic technique. Blood ap3 collected. 13:38 Initial lab(s) drawn, by me, First set of blood cultures drawn by me. ap3 13:47 XRAY Chest (1 view) In Process Unspecified. EDMS 14:05 Memo López MD is Hospitalizing Provider. hafsa 18:10 No provider procedures requiring assistance completed. Patient admitted, IV remains in ap3 place. Administered Medications: 13:38 Drug: NS 0.9% IV 1000 ml Route: IV; Rate: 125 ml/hr; Site: left antecubital; ap3 13:38 Not Given (Physician Discretion; med ): levofloxacin IVPB 500 mg 100 ml IVPB once over ap3 60 mins 13:39 Drug: MethylPrednisoLONE IVP 125 mg Route: IVP; Site: left antecubital; ap3 14:43 Follow up: Response: No adverse reaction ap3 13:59 Drug: Cefepime IVPB 1 grams Route: IVPB; Rate: 200 ml/hr; Infused Over: 30 mins; Site: ap3 left antecubital; 14:43 Follow up: IV Status: Completed infusion ap3 14:10 Drug: Levalbuterol Inhalation 2.5 mg Route: Inhalation; ap3 14:10 Drug: Ipratropium Inhalation Aerosol 0.5 mg Route: Inhalation; ap3 14:10 Drug: Levalbuterol Inhalation 1.25 mg Route: Inhalation; ap3 14:43 Drug: Magnesium Sulfate IVPB 2 grams Route: IVPB; Infused Over: 2 hrs; Site: left ap3 antecubital; 17:45 Follow up: IV Status: Completed infusion ap3 16:27 Drug: Lisinopril PO 20 mg Route: PO; ap3 17:45 Follow up: Response: No adverse reaction; Blood pressure is lowered ap3 16:27 Drug: cloNIDine PO 0.1 mg Route: PO; ap3 17:45 Follow up: Response: No adverse reaction; Blood pressure is lowered ap3 16:27 Drug: Metoprolol PO 50 mg Route: PO; ap3 17:44 Follow up: Response: No adverse reaction; Blood pressure is lowered ap3 Medication: 18:10 VIS not applicable for this client. ap3 Outcome: 14:06 Decision to Hospitalize by Provider. hafsa 18:10 Admitted to ER Hold. Please see [facility] for further documentation. ap3 18:10 Condition: good 18:10 Instructed on the need for admit. 19:55 Patient left the ED. lg3 Signatures: Dispatcher [employer] EDMS Nando Henley MD MD cha Prokisch, Amanda RN RN ap3 Lavonne Nation Lacie, RN RN lg3 Corrections: (The following items were deleted from the chart) 16:27 16:26 BP 191 / 92; Pulse 102bpm; provider notified. ; ap3 ap3
--- NOTE | 2022-04-27 14:07 | EDPHYS ---
Physician Documentation [facility] Name: Jesus Morales Age: 71 yrs Sex: Male : 1950 Arrival Date: 04/27/2022 Time: 12:18 Bed 18 Private MD: ED Physician Nando Henley HPI: 04/27 14:01 This 71 yrs old Male presents to ER via EMS with complaints of Shortness Of hafsa Breath. 14:01 The patient has shortness of breath at rest, with light activity. Onset: The hafsa symptoms/episode began/occurred today, yesterday. Duration: The symptoms are continuous, and are steadily getting worse. The patient's shortness of breath is aggravated by coughing, talking, walking. Associated signs and symptoms: Pertinent positives: non-productive cough, dizziness. Severity of symptoms: At their worst the symptoms were mild moderate in the emergency department the symptoms are unchanged. The patient has not experienced similar symptoms in the past. Historical: - Allergies: 12:35 Adhesives; ap3 12:35 Latex, Natural Rubber; ap3 - Home Meds: 12:35 amiodarone 200 mg Oral tablet 1 tab 2 times per day [Active]; aspirin 81 mg Oral ap3 capsule 1 cap daily [Active]; atorvastatin 40 mg oral tablet 1 tab every day at bedtime [Active]; duloxetine 60 mg oral capsule,delayed release (e.c.) 1 cap daily [Active]; Trelegy Ellipta inhalation 1 inhalation [Active]; furosemide 40 mg Oral tablet 1 tab 2 times per day [Active]; Atrovent Inhl [Active]; metoprolol tartrate 50 mg Oral tablet 1 tab 2 times per day [Active]; omeprazole 40 mg Oral capsule,delayed release (e.c.) 1 cap once [Active]; potassium chloride 20 mEq Oral tablet, extended release 1 tab 2 times per day [Active]; prednisone 10 mg Oral tablet 1 tabs daily [Active]; - PMHx: 12:35 Atrial fibrillation; Chronic obstructive lung disease; Congestive heart failure; ap3 - PSHx: 12:35 Coronary artery bypass graft; ap3 - Immunization history:: Client reports receiving the 2nd dose of the Covid vaccine, Flu vaccine is up to date. - Social history:: Smoking status: Patient denies any tobacco usage or history of. Patient uses alcohol, weekly. - Family history:: not pertinent. ROS: 14:01 Constitutional: Negative for fever, chills, and weight loss, Eyes: Negative for injury, hafsa pain, redness, and discharge, ENT: Negative for injury, pain, and discharge, Neck: Negative for injury, pain, and swelling, Cardiovascular: Negative for chest pain, palpitations, and edema, Abdomen/GI: Negative for abdominal pain, nausea, vomiting, diarrhea, and constipation, Back: Negative for injury and pain, : Negative for injury, bleeding, discharge, and swelling, MS/Extremity: Negative for injury and deformity, Skin: Negative for injury, rash, and discoloration, Neuro: Negative for headache, weakness, numbness, tingling, and seizure, Psych: Negative for depression, anxiety, suicide ideation, homicidal ideation, and hallucinations, Allergy/Immunology: Negative for hives, rash, and allergies, Endocrine: Negative for neck swelling, polydipsia, polyuria, polyphagia, and marked weight changes, Hematologic/Lymphatic: Negative for swollen nodes, abnormal bleeding, and unusual bruising. 14:01 Respiratory: Positive for cough, with no reported sputum, shortness of breath, wheezing, expiratory. Exam: 14:01 Constitutional: This is a well developed, well nourished patient who is awake, alert, hafsa and in no acute distress. Head/Face: Normocephalic, atraumatic. Eyes: Pupils equal round and reactive to light, extra-ocular motions intact. Lids and lashes normal. Conjunctiva and sclera are non-icteric and not injected. Cornea within normal limits. Periorbital areas with no swelling, redness, or edema. ENT: Nares patent. No nasal discharge, no septal abnormalities noted. Tympanic membranes are normal and external auditory canals are clear. Oropharynx with no redness, swelling, or masses, exudates, or evidence of obstruction, uvula midline. Mucous membranes moist. Neck: Trachea midline, no thyromegaly or masses palpated, and no cervical lymphadenopathy. Supple, full range of motion without nuchal rigidity, or vertebral point tenderness. No Meningismus. Chest/axilla: Normal chest wall appearance and motion. Nontender with no deformity. No lesions are appreciated. Cardiovascular: Regular rate and rhythm with a normal S1 and S2. No gallops, murmurs, or rubs. Normal PMI, no JVD. No pulse deficits. Abdomen/GI: Soft, non-tender, with normal bowel sounds. No distension or tympany. No guarding or rebound. No evidence of tenderness throughout. Back: No spinal tenderness. No costovertebral tenderness. Full range of motion. Male : Normal genitalia with no discharge or lesions. Skin: Warm, dry with normal turgor. Normal color with no rashes, no lesions, and no evidence of cellulitis. MS/ Extremity: Pulses equal, no cyanosis. Neurovascular intact. Full, normal range of motion. Neuro: Awake and alert, GCS 15, oriented to person, place, time, and situation. Cranial nerves II-XII grossly intact. Motor strength 5/5 in all extremities. Sensory grossly intact. Cerebellar exam normal. Normal gait. Psych: Awake, alert, with orientation to person, place and time. Behavior, mood, and affect are within normal limits. 14:01 Respiratory: mild respiratory distress is noted, Respirations: labored breathing, that is mild, Breath sounds: bronchial sounds, that are mild, are scattered, decreased breath sounds, that are mild, are scattered, rhonchi, that are mild, are scattered, wheezing: inspiratory expiratory is heard diffusely. 16:07 ECG was reviewed by the Attending Physician. [facility] Vital Signs: 12:32 Pulse 91; Resp 18; Temp 98.2(O); Pulse Ox 92% on R/A; Weight 79.38 kg; Height 5 ft. 6 ap3 in. ; 12:43 BP 179 / 79; ap3 13:11 BP 171 / 78; Pulse 85; Pulse Ox 95% on 2 lpm NC; ap3 14:47 BP 168 / 64; Pulse 101; Pulse Ox 94% on R/A; ap3 16:10 BP 191 / 92; Pulse 102; ap3 17:44 BP 146 / 75; Pulse 76; Pulse Ox 95% on 2 lpm NC; ap3 12:32 Body Mass Index 28.25 (79.38 kg, 167.64 cm) ap3 16:10 provider notified. ap3 MDM: 12:19 Patient medically screened. hafsa 16:05 Differential diagnosis: Anxiety Reaction asthma, Bronchitis CHF exacerbation, Chronic hafsa Obstructive Pulmonary Disease pulmonary edema, Pulmonary Embolism reactive airway disease, Sepsis Unstable Angina. Antibiotic administration: cefepime. Immunization status: Pneumococcal vaccine: within last 5 years. Influenza vaccine: within last 5 years. Data reviewed: vital signs, nurses notes, lab test result(s), EKG, radiologic studies. Consideration of Admission/Observation Patient was admitted/placed on observation. Independent interpretation of the following test(s) in the Emergency Department EKG: See my EKG interpretation above. Test considered but Not performed: CT: ct chest ro pe. Care significantly affected by the following chronic conditions: Hypertension, Congestive Heart Failure, Obesity, a fib. Counseling: I had a detailed discussion with the patient and/or guardian regarding: the historical points, exam findings, and any diagnostic results supporting the discharge/admit diagnosis, lab results, radiology results, the need for further work-up and treatment in the hospital. 04/27 12:22 Order name: Basic Metabolic Panel; Complete Time: 15:53 [facility] 04/27 12:22 Order name: CBC with Diff; Complete Time: 14:00 [facility] 04/27 12:22 Order name: LFT's; Complete Time: 15:53 [facility] 04/27 12:22 Order name: Magnesium; Complete Time: 15:53 [facility] 04/27 12:22 Order name: NT PRO-BNP; Complete Time: 15:53 [facility] 04/27 12:22 Order name: PT-INR; Complete Time: 14:18 [facility] 04/27 12:22 Order name: Troponin HS; Complete Time: 15:53 [facility] 04/27 12:22 Order name: COVID-19/FLU A+B; Complete Time: 13:32 [facility] 04/27 12:22 Order name: Blood Culture Adult (2) [facility] 04/27 12:22 Order name: Lactate w/ 2H reflex if indic.; Complete Time: 14:23 [facility] 04/27 14:09 Order name: Urinalysis W/Microscopic; Complete Time: 15:53 ap3 04/27 19:17 Order name: Troponin High Sensitivity [facility] 04/27 12:22 Order name: XRAY Chest (1 view); Complete Time: 14:00 [facility] 04/27 12:22 Order name: EKG; Complete Time: 12:22 [facility] 04/27 14:15 Order name: CONS Physician Consult [facility] 04/27 12:22 Order name: Cardiac monitoring; Complete Time: 12:43 [facility] 04/27 12:22 Order name: EKG - Nurse/Tech; Complete Time: 15:23 [facility] 04/27 12:22 Order name: IV Saline Lock; Complete Time: 13:39 [facility] 04/27 12:22 Order name: Labs collected and sent; Complete Time: 13:39 [facility] 04/27 12:22 Order name: O2 Per Protocol; Complete Time: 12:43 [facility] 04/27 12:22 Order name: O2 Sat Monitoring; Complete Time: 12:43 [facility] 04/27 12:22 Order name: Urine Dipstick-Ancillary (obtain specimen); Complete Time: 14:14 [facility] EC:07 Rate is 97 beats/min. Rhythm is regular. QRS [place] is Normal. FL interval is normal. QT hafas interval is normal. No Q waves. T waves are Normal. No ST changes noted. Clinical impression: No evidence of ischemia. Interpreted by me. Reviewed by me. Administered Medications: 13:38 Drug: NS 0.9% IV 1000 ml Route: IV; Rate: 125 ml/hr; Site: left antecubital; ap3 13:38 Not Given (Physician Discretion; med ): levofloxacin IVPB 500 mg 100 ml IVPB once over ap3 60 mins 13:39 Drug: MethylPrednisoLONE IVP 125 mg Route: IVP; Site: left antecubital; ap3 14:43 Follow up: Response: No adverse reaction ap3 13:59 Drug: Cefepime IVPB 1 grams Route: IVPB; Rate: 200 ml/hr; Infused Over: 30 mins; Site: ap3 left antecubital; 14:43 Follow up: IV Status: Completed infusion ap3 14:10 Drug: Levalbuterol Inhalation 2.5 mg Route: Inhalation; ap3 14:10 Drug: Ipratropium Inhalation Aerosol 0.5 mg Route: Inhalation; ap3 14:10 Drug: Levalbuterol Inhalation 1.25 mg Route: Inhalation; ap3 14:43 Drug: Magnesium Sulfate IVPB 2 grams Route: IVPB; Infused Over: 2 hrs; Site: left ap3 antecubital; 17:45 Follow up: IV Status: Completed infusion ap3 16:27 Drug: Lisinopril PO 20 mg Route: PO; ap3 17:45 Follow up: Response: No adverse reaction; Blood pressure is lowered ap3 16:27 Drug: cloNIDine PO 0.1 mg Route: PO; ap3 17:45 Follow up: Response: No adverse reaction; Blood pressure is lowered ap3 16:27 Drug: Metoprolol PO 50 mg Route: PO; ap3 17:44 Follow up: Response: No adverse reaction; Blood pressure is lowered ap3 Disposition Summary: 04/27/22 14:06 Hospitalization Ordered Hospitalization Status: Inpatient Admission hafsa Provider: Memo López cha Location: Telemetry/MedSurg (Inpatient) hafsa Condition: Stable hafsa Problem: new hafsa Symptoms: have improved hafsa Bed/Room Type: Standard hafsa Room Assignment: 427(04/27/22 18:32) eb Diagnosis - COPD/ Chronic obstructive pulmonary disease with (acute) exacerbation hafsa - Dyspnea hafsa - Essential (primary) hypertension hafsa Forms: - Medication Reconciliation Form hafsa - SBAR form hafas Signatures: Dispatcher [employer] EDNando Capone MD MD cha Prokisch, Amanda, RN RN ap3 Lavonne Nation Corrections: (The following items were deleted from the chart) 18:32 14:06 hafsa villarreal
[2022-04-27] MEDS ORDERED: Magnesium Sulfate 2gm IVPB 2 G/50 ML BAG IV ONE (14:23)
[2022-04-27 14:24] LABS: Bilirubin Direct 0.4 mg/dL (0-0.2); Bilirubin Total 0.9 mg/dL (0.2-1.0); Magnesium 2.1 mg/dL (1.6-2.4); Potassium 3.7 mEq/L (3.5-5.1); Troponin High Sensitivity 8.9 pg/mL (<58.9)
[2022-04-27 14:43] LABS: Specific Gravity 1.005 (1.005-1.030); Urine Bacteria None Seen /HPF (<20); Urine Bilirubin NEGATIVE (Negative); Urine Blood Negative (Negative); Urine Clarity Clear (Clear); Urine Color Colorless (Yellow); Urine Glucose NEGATIVE (Negative); Urine Protein NEGATIVE (Negative); Urine RBC <5 /HPF (None Seen); Urine Urobilinogen Normal (Normal)
[2022-04-27] MEDS ORDERED: lisinopriL 20 MG TAB ONE (16:21)
[2022-04-27] MEDS ORDERED: METOPROLOL TAR 50 MG TAB ONE (16:21)
[2022-04-27] MEDS ORDERED: cloNIDine HCL 0.1 MG TAB ONE (16:22)
[2022-04-27] MEDS ORDERED: MORPHINE 4 MG/ML SYR IV PRN (17:54)
[2022-04-27] MEDS ORDERED: ALBUTEROL 2.5 MG/3 ML NEB SOL NEB PRN (17:54)
[2022-04-27] MEDS ORDERED: ONDANSETRON 4 MG/2 ML VIAL IV PRN (17:54)
[2022-04-27] MEDS ORDERED: IPRATROPIUM BROM 0.5MG/2.5ML NEB PRN (17:54)
[2022-04-27] MEDS ORDERED: ACETAMINOPHEN 500 MG TAB PO PRN (17:54)
[2022-04-27] MEDS: METHYLPREDNISOLONE 125 MG INJ IV SCH (18:00)
[2022-04-27 18:04] VITALS: BMI 28.2
[2022-04-27] MEDS: FAMOTIDINE 20 MG/2 ML VIAL IV SCH (22:13)
[2022-04-27] MEDS: CEFEPIME 1 GM in NA CHLORIDE 0.9% 100 ML IV SCH (22:14)
[2022-04-28] MEDS: METHYLPREDNISOLONE 125 MG INJ IV SCH ×4 (00:17→16:31)
[2022-04-28 07:13] LABS: Absolute Lymphocytes (CBC) 0.3 K/uL (0.7-4.9); Hematocrit 34.8 % (39.6-49.0); Lymphocytes % 4.7 % (15.3-44.8); MCV 93.2 fL (80-100); MPV 6.6 fL (7.6-11.3); RBC Red Blood Cell Count 3.73 M/uL (4.33-5.43)
[2022-04-28 07:31] LABS: Potassium 3.5 mEq/L (3.5-5.1)
--- NOTE | 2022-04-28 08:02 | RAD REPORT ---
EXAM DESCRIPTION: RADChest Single View04/28/2022 5:50 am CLINICAL HISTORY: Chest Pain COMPARISON: Chest Single View dated 04/27/2022; Chest Single View dated 02/12/2022; Chest Single View d ated 01/26/2022; Chest Single View dated 11/29/2021 TECHNIQUE: Portable AP view of the chest. FINDINGS: The lungs are clear.Stable left hemidiaphragm elevation with left basilar atelectasis. Seq uelae of prior median sternotomy and CABG. No pneumothorax or effusion. The cardiomediastinal contour s are unremarkable. IMPRESSION: No acute cardiopulmonary process. Stable findings as above.
--- NOTE | 2022-04-28 08:32 | HP ---
Date of Admission: 04/27/2022 Chief Complaint: Cough, congestion, and shortness of breath. History Of Present Illness: This is a 71-year-old pleasant male patient, who came into emergency ara with 3-4 days' history of worsening problem with cough, chest congestion, coughing up some thick wh ite mucus associated with shortness of breath and wheezing. The patient is on chronic oral steroid t herapy with prednisone 10 mg daily for a long time and he has been taking his prednisone along with h is other usual medications on a regular basis and considering worsening of symptoms, he came into [facility] room today. After he was evaluated in the emergency room, he was admitted to the hospital wit h acute exacerbation of COPD problem. The patient was started on IV steroid, oxygen nebulizer treatm ent, and I saw him in emergency room. Review of Systems: Respiratory: As mentioned above. All other systems reviewed and negative. Allergies: NO KNOWN ALLERGIES. Medications: List reviewed. Past Medical History: Significant for COPD for which he is on chronic oral steroid therapy with pred nisone 10 mg daily, impaired fasting glucose, hypertension, hyperlipidemia, coronary artery disease, carotid artery stenosis which is bilateral, anemia due to GI bleeding, and depression. Past Surgical History: Coronary artery bypass surgery on March 11, 2016; cholecystectomy; appendec price; right knee arthroscopy surgery; left knee arthroplasty October 30, 2019. Social History: Prior history of smoking; not at present time. Heavy use of alcohol in the past, bu t lately he has reported that in last few months he quit using alcohol. Family History: Father had COPD. Mother had breast cancer. Brother had stroke. Sister had diabete s. Physical Examination: Vital Signs: Temperature 98.4, pulse 80, respiratory rate 18, blood pressure 164/69, oxygen saturati on 96%. Height 5 feet 6 inches, weight 175 pounds. General: Awake, alert, oriented, not in distress. HEENT: Head atraumatic, normocephalic. Conjunctivae nonerythematous. Sclerae white. Mouth, no thr ush or edema noted. Ears/Nose, no mass, lesion, discharge noted. Neck: Supple. No JVD, lymph nodes, bruit, thyromegaly noted. Lungs: Bilateral good equal air entry with presence of wheezing noted, scattered in both lung shaffer . Not using any accessory muscles of respiration. Heart: Normal heart sounds, no murmur or gallop. Abdomen: Soft, bowel sounds normal. No guarding, rigidity, tenderness, mass, hepatosplenomegaly, dis tention, or bruit noted. Extremities: No leg edema. No calf tenderness. Skin: No rash, ulcer, cellulitis. Lymphatics: No lymph node enlargement in neck, supraclavicular, infraclavicular region. Neuro: No focal neurological deficit. Chest: Unremarkable. External Genitalia: Deferred. Rectal: Deferred. Laboratory Data: Chest x-ray showing changes of COPD. No pneumonia. WBC , hemoglobin ___ , hematocrit , platelets , sodium , potassium , chlori de , bicarb , BUN , creatinine , glucose . Impression: 1.Acute exacerbation of chronic obstructive pulmonary disease. 2.Hypertension. 3.Hyperlipidemia. 4.Coronary artery disease. 5.Bilateral carotid artery stenosis. 6.Impaired fasting glucose. 7.Depression. Plan: We will go ahead and admit the patient to hospital for further evaluation and management of th is problem. The patient is appropriate for inpatient and is expected to spend 2 midnights in [facility]. We will go ahead and give oxygen replacement therapy, nebulizer treatment per order, IV steroid a nd IV antibiotics per order. DVT prophylaxis will be given per order. For hypertension, we will con tinue his antihypertensive medication per order, monitor blood pressure, if necessary make adjustment on medications. For hyperlipidemia, we will continue his statin therapy per order. Coronary artery disease problem is stable, no need for any further intervention at this point. For depression, we w ill continue his antidepressant medication as he takes at home. Ambulation was advised as tolerated and I will see him tomorrow for followup, possible discharge to go home day after tomorrow. Plan of treatment discussed with the patient. BELLE/MODL Voice ID: [id number]
[2022-04-28] MEDS ORDERED: ENOXAPARIN 40 MG/0.4 ML SQ SCH (09:00)
[2022-04-28] MEDS ORDERED: ASPIRIN EC 81 MG TAB PO SCH (09:00)
[2022-04-28] MEDS: FAMOTIDINE 20 MG/2 ML VIAL IV SCH ×2 (09:03→20:22)
[2022-04-28] MEDS: CEFEPIME 1 GM in NA CHLORIDE 0.9% 100 ML IV SCH ×2 (09:03→20:22)
[2022-04-28 09:37] LABS: Anisocytosis 1+; Blood Morphology Comment NOT SEEN (NOT SEEN); Platelet Estimate ADEQ; Poikilocytosis SLIGHT; White Blood Cell Scan OK (OK)
--- NOTE | 2022-04-28 19:14 | PN ---
Date of Progress Note: 04/28/2022 Subjective: The patient was seen this morning for followup. No new complaints or problems reported by the patient. He was overall feeling better compared to yesterday. Objective: Vital Signs: Reviewed. HEENT: Unremarkable. Lungs: Bilateral good equal air entry. Not in any respiratory distress. No rales. Very minimal wh eezing in the lower lung field, overall significantly better today than yesterday. Heart: Heart sounds normal. Abdomen: Soft. Bowel sounds normal. No guarding, rigidity, tenderness, distention. Extremities: No leg edema. Laboratory Data: CBC and chemistry from this morning were pending when I saw him. Impression: 1.Acute exacerbation of chronic obstructive pulmonary disease. 2.Hypertension. 3.Hyperlipidemia. Plan: We will go ahead and continue current medications. Continue oxygen, steroid, nebulizer treatm ent, and empiric antibiotic. The patient received Lovenox dose last night for DVT prophylaxis and we will continue daily Lovenox as of tomorrow. Ambulation was encouraged. I will see him tomorrow for followup. Possible discharge to go home tomorrow. BELLE/MODL Voice ID: [id number] Report ID: [id number]
[2022-04-28 21:30] VITALS: O2SAT 95
[2022-04-29] MEDS: METHYLPREDNISOLONE 125 MG INJ IV SCH (00:09)
[2022-04-29] MEDS ORDERED: AMLODIPINE 5 MG TAB PO ONE (07:47)
[2022-04-29 07:52] VITALS: BP 124/74; TEMP 96.8
--- NOTE | 2022-04-29 17:27 | EKG ---
Test Date: 2022-04-27 Test Time: 15:13:09 Livestock Caretaker: ALP MEASUREMENT RESULTS: Intervals: Rate: 115 DC: 206 QRSD: 140 QT: 424 QTc: 586 [place]: P: 115 DC: 206 QRS: 51 T: 48 INTERPRETIVE STATEMENTS: Sinus tachycardia with artifact Right bundle branch block Abnormal ECG Electronically Signed On 04-29-22 17:23:00 CDT by Stef Meza
--- NOTE | 2022-04-30 07:02 | DS ---
Date of Discharge: 04/29/2022 Disposition: Discharged to go home. Physical Examination: HEENT: Unremarkable. Lungs: Clear to auscultation. Heart: Sounds normal. Abdomen: Soft. Bowel sounds normal. No guarding, rigidity, tenderness, or distention. Extremities: No leg edema. Laboratory Data: Upon admission, white count 8.9, hemoglobin 13.5, platelets 257. Yesterday, white count 6, hemoglobin 11.8, platelets 270. Upon admission, sodium 135, potassium 3.7, chloride 95, bic arb 33, BUN 15, creatinine 1.24, glucose 148. Liver function tests unremarkable except AST 93, ALT 1 30, and yesterday sodium 136, potassium 3.5, chloride 99, bicarb 31, BUN 19, creatinine 1.15, glucose 160. Discharge Medications/instructions: 1.Continue all prior home medication. 2.Take following medications: a.Ceftin 250 mg 2 times a day for 5 days, take it with food. b.Prednisone 10 mg, patient to take 3 tablets by mouth daily for 3 days, then 2 tablets by mouth ruddy ly for 3 days, then 1 tablet by mouth daily to continue, take it with food. c.Amlodipine 5 mg, take 1 tablet by mouth daily in morning. 3.Follow up at my office next week and the patient was advised to bring all his medication bottles t o the office at time of appointment. Hospital Course: This is a 71-year-old pleasant male patient admitted to the hospital with cough, co ngestion, shortness of breath. Please see dictated H and P for more information. After patient was evaluated in the emergency room, he was admitted to the hospital with acute exacerbation of COPD prob rosamaria. The patient takes prednisone 10 mg daily on outpatient basis and during this hospital admission , we gave him empiric antibiotic IV steroid using Solu-Medrol. Chest x-ray did not show any evidence of pneumonia. Overall, his condition improved with this treatment and we were able to discharge him to go home in stable condition today with above-mentioned medications and instructions. The patient 's blood pressure was elevated this morning. We started him on amlodipine 5 mg p.o. daily. One dose was given this morning prior to discharge and we will continue that on outpatient basis as well. Th e patient's liver enzymes were abnormal. He has a longstanding history of heavy alcohol use and this is likely due to that. He was advised to quit using alcohol completely. Final Diagnoses: 1.Acute exacerbation of chronic obstructive pulmonary disease. 2.Hypertension. 3.Hyperlipidemia. 4.Coronary artery disease. 5.Bilateral carotid artery stenosis. 6.Impaired fasting glucose. 7.Depression. 8.Abnormal liver function tests. 9.Anemia. BELLE/MODL Voice ID: [id number] Report ID: [id number]
== END 2022-04-29 09:15 | disposition home or self-care (01) | DRG 192 ==
LOC: ER 12:11 → ERHOLD 14:09 → 4TH 19:18
PROVIDERS: ADMIT Internal Medicine; ATTEND Internal Medicine
DX: J44.1 Chronic obstructive pulmonary disease with (acute) exacerbation (principal); I10 Essential (primary) hypertension; E78.5 Hyperlipidemia, unspecified; I48.91 Unspecified atrial fibrillation; F32.A Depression, unspecified; D64.9 Anemia, unspecified; I65.23 Occlusion and stenosis of bilateral carotid arteries; F10.20 Alcohol dependence, uncomplicated; I25.10 Atherosclerotic heart disease of native coronary artery without angina pectoris; R94.5 Abnormal results of liver function studies; R73.01 Impaired fasting glucose; Z95.1 Presence of aortocoronary bypass graft; Z79.52 Long term (current) use of systemic steroids; Z71.41 Alcohol abuse counseling and surveillance of alcoholic; Z90.49 Acquired absence of other specified parts of digestive tract; Z79.82 Long term (current) use of aspirin; Z91.040 Latex allergy status; Z91.048 Other nonmedicinal substance allergy status; Z79.899 Other long term (current) drug therapy; Z96.652 Presence of left artificial knee joint; Z20.822 Contact with and (suspected) exposure to COVID-19
CPT/HCPCS: 0240U; 36415; 71045; 80048; 80076; 81001; 83605; 83735; 83880; 84484; 85025; 85610; 87040; 93005; 94760; 96365; 96366; 96367; 96375; 99285; J0692; J1650; J2930; J3475; J7030; J7614; J7644

== ENCOUNTER 2022-04-29 13:51 | Emergency (ER) | payer OTHER ==
--- OUTSIDE RECORDS SUMMARY | 2022-04-29 13:57 | XMS REPORT | Continuity of Care Document ---
:1950 Author Organization [facility] t Address [address] [place] [address] Care Team Providers Name Role Phone Sharpless Primary Care Physician Fady Pascual MD Attending Clinician RADIOLOGY Attending Clinician Unavailable Radiology Attending Clinician Unavailable Shereen Ferguson MD Attending Clinician OMARI DUMONT Attending Clinician Unavailable Omari Dumont Attending Clinician Doctor Unassigned, [place] Attending Clinician Unavailable Aroldo Sanchez DO Attending Clinician АНДРЕЙ DOHERTY Attending Clinician Unavailable Lab, Adc Fam Pob I Attending Clinician Unavailable Patricia Tiwari Attending Clinician MD SHEREEN FERGUSON Attending Clinician Unavailable Stephanie Kapoor Attending Clinician STEPHANIE HENRIQUEZ Attending Clinician Unavailable Mello Hall MD Attending Clinician JAVIER HAYDEN Admitting Clinician Unavailable OMARI DUMONT Admitting Clinician Unavailable HSEREEN FERGUSON Admitting Clinician Unavailable MD SHEREEN FERGUSON Admitting Clinician Unavailable Payers Payer Name Policy Type Policy Number Effective Date Expiration Date Pierre JASON MANAGED [id number] 2021 MEDICARE PPO-SAMRA 00:00:00 Problems Condition Condition [...] Added automatic ally from request for surgery [id number] Post-op Post-op Disease Active [facility] atrial [facility] 03-16kes fibrillati fibrillati 00:00: Me dical on Center S/P ACB S/P ACB Disease Active [facility] (DC-LAD, (DC-LAD, 03-11 Lisseth kes SVG-OM) SVG-OM) 00:00: Medical 00 [place] Hypertensi Hypertensi Disease Active [facility] on on 03-10 Lu 00:[facility]: [facility] Center COPD COPD Disease Recurre [facility] (chronic (chronic nce 03-10 obstructiv obstructiv 00:00: Me dical e e Center pulmonary pulmonary disease) disease) Coronary Coronary Disease Active [facility] S t artery artery 03-10kes disease disease 00:00: Medical 00 Center Pain in Pain in Diagnosis Active Commo n joint of joint of Spirit right right - [facility] shoulder shoulder [facility] Impingemen Impingemen Diagnosis Active Common t syndrome t syndrome Sp [place] of right of right - [facility] shoulder shoulder [facility] Allergies, Adverse Reactions, Alerts Allergy Allergy Status Severity Reaction(s) Onset Inactive Treating Comm ents Source Name Type Date Date Clinician Adhesive Drug Active Rash [facility] Intolera 03-10kes nce 00:00: Medical 00 Center ADHESIVE Drug Active Low Rash Univers Class 03-10 ity of 00:00: [place] [address] Medical Branch Adhesive Propensi Active Rash Univer s ty to 03-10 ity of adverse 00:00: [place] reaction Medical [facility] Adhesive Propensi Active Rash Univer s ty to 03-10 ity of adverse 00:00: [place] reaction [facility] Adhesive Drug Active Rash SANCHEZ Molina [facility]olera 03[facility]10 [facility] Family History Family Member Diagnosis Comments Start Date Stop Date Source Natural father Heart disease [facility] Natural mother Cancer [facility] Social History Social Habit Start Date Stop Date Quantity Comments Source History of tobacco Cigarette Smoker [facility] Exposure to 2021-08-31 2021-09-10 Not sure University SARS-CoV-2 (event) 00:00:00 14:41:00 [facility] Alcohol intake 2021-08-05 2021-08-05 Current drinker [facility] 00:00:00 00:00:00 of [facility] (finding) Tobacco use and 2020-04-09 2020-04-09 Smokeless [facility] exposure 00:00:00 00:00:00 tobacco non-user Hospital Cigarettes smoked 2020-04-09 2020-04-[facility]:00 00:00:00 Hospita l day) - Reported Cigarette 2020-04-09 2020-04-09 [facility] pack-years 00:00:00 00:00:00 Hospital Alcohol Comment 2019-10-18 2019-10-18 social [facility] 00:00:00 00:00:00 Hospital Sex Ass[birth year] At [birth year] SANCHEZ Oliver kes 00:00:00 00:00:00 [facility] Center Smoking Status Start Date Stop Date Source Never smoked tobacco [facility] Ex-smoker 2016-03-10 00:00:00 2016-03-10 00:00:00 [facility] Medications Ordered Filled Start Stop Current [...] 2-29 by mouth. ity of tablet 00:00: [address] furosemide 2020-0 Yes 40mg Take 40 mg U nivers 40 mg 2-29 by mouth. ity of tablet 00:00: [address] furosemide 2020-0 Yes 40mg Take 40 mg U nivers 40 mg 2-29 by mouth. ity of tablet 00:00: [address] furosemide 2020-0 Yes 40mg Take 40 mg U nivers 40 mg 2-29 by mouth. ity of tablet 00:00: [address] furosemide 2020-0 Yes 40mg Take 40 mg U nivers 40 mg 2-29 by mouth. ity of tablet 00:00: [address] furosemide 2020-0 Yes 40mg Take 40 mg U nivers 40 mg 2-29 by mouth. ity of tablet 00:00: [address] furosemide 2020-0 Yes 40mg Take 40 mg U nivers 40 mg 2-29 by mouth. ity of tablet 00:00: [address] furosemide 2020-0 Yes 40mg Take 40 mg U nivers 40 mg 2-29 by mouth. ity of tablet 00:00: [address] furosemide 2020-0 Yes 40mg Take 40 mg U nivers 40 mg 2-29 by mouth. ity of tablet 00:00: [address] furosemide 2020-0 Yes 40mg Take 40 mg U nivers 40 mg 2-29 by mouth. ity of tablet 00:00: [address] furosemide 2020-0 Yes 40mg QD Take 40 mg M ethodi (LASIX) 40 2-[address] mg [facility] 00:00[facility] Yes 5mg QD Take 5 mg [...] ity of 10 mg 00:00: [place] tablet [facility] escitalopra 2018-02 Yes Univer s m oxalate 2-14 ity of 10 mg 00:00: [place] tablet 00 Medical Branch escitalopra 2019- Yes Univer s m oxalate [...] 0.25 mg 0-31 ity of tablet 00:00: [facility] triazolam 2018- Yes Univers 0.25 mg 0-31 ity of tablet 00:00: [facility] triazolam 2018- Yes Univers 0.25 mg 0-31 ity of tablet 00:00: [facility] triazolam 2018- Yes Univers 0.25 mg 0-31 ity of tablet 00:00: [place] [facility] triazolam 2018-02 Yes Univers 0.25 mg 0-31 ity of tablet 00:00: [place] [facility] triazolam 2018-02 Yes Univers 0.25 mg 0-31 ity of tablet 00:00: [place] [facility] triazolam 2018-02 Yes Univers 0.25 mg 0-31 ity of tablet 00:00: [place] [facility] triazolam 2018-02 Yes Univers 0.25 mg 0-31 ity of tablet 00:00: [place] [facility] triazolam 2018-02 Yes Univers 0.25 mg 0-31 ity of tablet 00:00: [place] [facility] triazolam 2018-02 Yes Univers 0.25 mg 0-31 ity of tablet 00:00: [place] [facility] triazolam 2018-02 Yes Univers 0.25 mg 0-31 ity of tablet 00:00: [place] [facility] triazolam 2018-02 Yes Univers 0.25 mg 0-31 ity of tablet 00:00: [place] [facility] triazolam 2018-02 Yes Univers 0.25 mg 0-31 ity of tablet 00:00: [place] [facility] triazolam 2018-02 Yes Univers 0.25 mg 0-31 ity of tablet 00:00: [place] [facility] amLODIPine 2018-02 Yes 5mg QD Take 5 [...] mg tablet 00:00: daily. Hospit a l amLODIPine 2018-02 Yes 5mg QD Take 5 mg Me thodi (NORVASC) 5 0-[address] mg tablet 00:00: daily. Hospit a l amLODIPine 2018-02 Yes 5mg QD Take 5 mg Me [facility]odi (NORVASC) 5 0-[address] mg tablet 00:00: daily. Hospit a l amLODIPine 2018-02 Yes 5mg QD Take 5 mg Me thodi (NORVASC) 5 0-[address] mg tablet 00:00: daily. Hospit a l amLODIPine 2018-02 Yes Univers 5 mg tablet 0-11 ity of 00:00: [place] [facility] amLODIPine 2018- Yes Univers 5 mg tablet 0-11 ity of 00:00: [place] [facility] amLODIPine 2018- Yes Univers 5 mg tablet 0-11 ity of 00:00: [place] [facility] amLODIPine 2019- Yes Univers 5 mg tablet 0-11 ity of 00:00: [place] [facility] amLODIPine 2019- Yes Univers 5 mg tablet 0-11 ity of 00:00: [place] [facility] amLODIPine 2018- Yes Univers 5 mg tablet 0-11 ity of 00:00: [place] [facility] amLODIPine 2019- Yes Univers 5 mg tablet 0-11 ity of 00:00: [place] [facility] amLODIPine 2019- Yes Univers 5 mg tablet 0-11 ity of 00:00: [place] [facility] amLODIPine 2019- Yes Univers 5 mg tablet 0-11 ity of 00:00: [place] [facility] amLODIPine 2019- Yes Univers 5 mg tablet 0-11 ity of 00:00: [place] [facility] amLODIPine 2019- Yes Univers 5 mg tablet 0-11 ity of 00:00: [place] [facility] amLODIPine 2019- Yes Univers 5 mg tablet 0-11 ity of 00:00: [place] [facility] amLODIPine 2019-1 Yes Univers 5 mg tablet 0-11 ity of 00:00: [place] [facility] amLODIPine 2019-1 Yes Univers 5 mg tablet 0-11 ity of 00:00: [place] [facility] amLODIPine 2019-1 Yes 5mg QD Take 5 mg Me [...] 40 mg 9-17 ity of tablet 00:00: [place] [address] Medical Branch atorvastati 2019-0 Yes Univer s n 40 mg 9-17 ity of tablet 00:00: [place] [facility] atorvastati 2019-0 Yes Univer s n 40 mg 9-17 ity of tablet 00:00: [place] [address] Medical Branch atorvastati 2019-0 Yes Univer s n 40 mg 9-17 ity of tablet 00:00: [place] [facility] atorvastati 2019-0 Yes Univer s n 40 mg 9-17 ity of tablet 00:00: [place] [address] Medical Branch atorvastati 2019-0 Yes Univer s n 40 mg 9-17 ity of tablet 00:00: [place] [facility] atorvastati 2019-0 Yes Univer s n 40 mg 9-17 ity of tablet 00:00: [place] [address] Medical Branch atorvastati 2019-0 Yes Univer s n 40 mg 9-17 ity of tablet 00:00: [place] [address] Medical Branch tadalafil 2019-0 Yes TAKE 1 Univer s 20 mg 9-04 TABLET BY ity of tablet 00:00: MOUTH [place] [address] EVERY DAY Medical NEEDED Branch tadalafil 2019-0 Yes TAKE 1 Univer s 20 mg 9-04 TABLET BY ity of tablet 00:00: MOUTH [place] [address] EVERY DAY Medical NEEDED Branch tadalafil 2019-0 Yes TAKE 1 Univer s 20 mg 9-04 TABLET BY ity of tablet 00:00: MOUTH 00 EVERY DAY Medical NEEDED Branch tadalafil 2018- Yes TAKE 1 Univer s 20 mg [...] MOUTH EVERY DAY Medical NEEDED Branch tadalafil Yes TAKE 1 Univer s 20 mg 9-04 TABLET BY ity of tablet 00:00: MOUTH 00 EVERY DAY Medical NEEDED Branch tadalafil Yes TAKE 1 Univer s 20 mg 9-04 TABLET BY ity of tablet 00:00: MOUTH 00 EVERY DAY Medical NEEDED Branch tadalafil 2018-0 Yes TAKE 1 Univer s 20 mg 9-04 TABLET BY ity of tablet 00:00: MOUTH 00 EVERY DAY Medical NEEDED Branch tadalafil 2018-0 Yes TAKE 1 Univer s 20 mg 9-04 TABLET BY ity of tablet 00:00: MOUTH 00 EVERY DAY Medical NEEDED Branch tadalafil 2018- Yes TAKE 1 Univer s 20 mg [...] [place] hr tablet 00 Medical Branch metoprolol 2018-0 Yes Univers [...] mg 8-13 ity of tablet 00:00: [place] [facility] Branch metoprolol 2019-0 Yes Univers succinate 8-13 ity of XL 50 mg 24 00:00: [place] hr tablet 00 Medical Branch predniSONE 2019-0 Yes Univers 10 mg 8-13 ity of tablet 00:00: [place] [facility] metoprolol 2019-0 Yes Univers succinate 8-13 ity of XL 50 mg 24 00:00: [place] hr tablet 00 [facility] triazolam 2017-0 Yes .25mg Take 0.25 [...] mouth 2 Center (two) times daily. umeclidiniu 2017 Yes 1{puff} QD Inhale [address] [facility] m (INCRUSE 2-09 puff by [facility] ELLIPTA) 00:00: mouth via Medi meredith 62.5 00 inhaler Center mcg/actuati daily. on DsDv powder for inhalation apixaban 20170 Yes 5mg Q.5D Take [address] [facility] (ELIQUIS) 5 2-09 tablet (5 Bk es mg Tab 00:00: mg total) Medica l tablet 00 by mouth 2 Center (two) times daily. umeclidiniu 0 Yes 1{puff} QD Inhale 1 [...] 62.5 2-09 Puff. ity of mcg/actuati 00:00: [place] on DsDv Medical Branch apixaban 5 2017-0 Yes 5mg Take 5 mg Un sally mg tablet 2-09 by mouth. ity o f 00:00: [place] [facility] umeclidiniu 2017-0 Yes 1{puff} Inhale 1 Univers m 62.5 2-09 Puff. ity of mcg/actuati 00:00: [place] on DsDv Medical Branch apixaban 5 2017-0 [...] 62.5 2-09 Puff. ity of mcg/actuati 00:00: [place] on DsDv Medical Branch apixaban 5 2017-0 [...] 62.5 2-09 Puff. ity of mcg/actuati 00:00: [place] on DsDv Medical Branch apixaban 5 2017-0 Yes 5mg Take 5 mg Un sally mg tablet 2-09 by mouth. ity o f 00:00: [place] [facility] umeclidiniu 2017-0 Yes 1{puff} Inhale 1 Univers m 62.5 2-09 Puff. ity of mcg/actuati 00:00: [place] on DsDv Medical Branch apixaban 5 2016-0 Yes 5mg Take 5 mg Un sally mg tablet 2-09 by mouth. ity o f 00:00: [place] [facility] umeclidiniu 2017-0 Yes 1{puff} Inhale 1 Univers m 62.5 2-09 Puff. ity of mcg/actuati 00:00: [place] on DsDv Medical Branch apixaban 5 0 Yes 5mg Take 5 mg Un sally mg tablet 2-09 by mouth. ity o f 00:00: [place] [facility] umeclidiniu 2017-0 Yes 1{puff} Inhale 1 Univers m 62.5 2-09 Puff. ity of mcg/actuati 00:00: [place] on DsDv Medical Branch apixaban 5 0 Yes 5mg Take 5 mg Un sally mg tablet 2-09 by mouth. ity o f 00:00: [place] [facility] umeclidiniu 0 Yes 1{puff} Inhale 1 Univers m 62.5 2-09 Puff. ity of mcg/actuati 00:00: [place] on DsDv Medical Branch apixaban 2017-0 Yes 5mg Q.5D Take [address] [facility] (ELIQUIS) 5 2-09 tablet (5 Bk es mg Tab 00:00: mg total) Medica l tablet 00 by mouth 2 Center (two) times daily. umeclidiniu 2017 Yes 1{puff} QD Inhale [address] [facility] m (INCRUSE 2-09 puff by [facility] ELLIPTA) 00:00: mouth via [facility] meredith 62.5 00 inhaler Center mcg/actuati daily. on DsDv powder for inhalation atorvastati 2017-0 Yes 40mg QD Take 40 mg Method[facility] n (LIPITOR) 2-[address] 40 MG 00:00: daily. Hospita tablet 00 l metoprolol 0 Yes [facility] succinate 2- st 50 mg 00:00: Hospita capsule,spr 00 l inkle,ER 24hr atorvastati 2017-0 Yes 40mg QD Take 40 mg Methodi n (LIPITOR) 2-[address] 40 MG 00:00: daily. Hospita tablet 00 l metoprolol Yes [facility] succinate 2 st 50 mg 00:00: Hospita capsule,spr 00 l inkle,ER 24hr atorvastati 2017-0 Yes 40mg QD Take 40 mg Method[facility] n (LIPITOR) 2-[address] 40 MG 00:00: daily. Hospita tablet 00 l metoprolol Yes [facility] succinate 2 st 50 mg 00:00: Hospita capsule,spr 00 l inkle,ER 24hr atorvastati 2016-0 Yes 40mg QD Take 40 mg Methodi n (LIPITOR) 2-[address] 40 MG 00:00: daily. Hospita tablet 00 l metoprolol Yes [facility] succinate 2 [facility] 50 mg 00:00: Hospita capsule,spr 00 l inkle,ER 24hr atorvastati 2016-0 Yes 40mg QD Take 40 mg Method[facility] n (LIPITOR) 2-[address] 40 MG 00:00: daily. Hospita tablet 00 l metoprolol 0 Yes [facility] succinate 2 [facility] 50 mg 00:00: Hospita capsule,spr 00 l inkle,ER 24hr atorvastati 2017-0 Yes 40mg QD Take 40 mg [facility] n (LIPITOR) 2-[address] 40 MG 00:00: daily. Hospita tablet 00 l metoprolol 0 Yes [facility] succinate 2- st 50 mg 00:00: Hospita capsule,spr 00 l inkle,ER 24hr atorvastati 2017-0 Yes 40mg QD Take 40 mg [facility] n (LIPITOR) 2-[address] 40 MG 00:00: daily. Hospita tablet 00 l metoprolol 0 Yes [facility] succinate 2-01 st 50 mg 00:00: Hospita capsule,spr 00 l inkle,ER 24hr atorvastati 2017-0 Yes 40mg QD Take 40 mg Methodi n (LIPITOR) 2-[address] 40 MG 00:00: daily. Hospita tablet 00 l metoprolol Yes [facility] succinate 2-01 st 50 mg 00:00: Hospita capsule,spr 00 l inkle,ER 24hr atorvastati 0 Yes 40mg QD Take 40 mg Method[facility] [...] Hospita capsule,spr 00 l inkle,ER 24hr nisoldipine 0 Yes Univer s (SULAR) 7-18 [...] [place] hr tablet 00 Medical Branch nisoldipine 2015-0 Yes Univer [...] Yes Carlo not Com mon Omid defined [facility] Atorvastati Atorvastati Yes Carlo not Common n Calcium n Calcium Omid defined [facility] PredniSONE PredniSONE Yes Carlo not C ommon Omid defined [facility] Atrovent Atrovent Yes Carlo not Commo n HFA HFA Omid defined [facility] Furosemide Furosemide Yes Carlo not C ommon Omid defined [facility] Amlodipine Amlodipine Yes Carlo not C ommon Besylate Besylate Omid defined [facility] [place] [facility] Anoro Anoro Yes Carlo not Common Ellipta Ellipta Omid defined Spir it [facility] Combivent Combivent Yes Carlo not Com mon Omid defined [facility] Acetaminoph Acetaminoph Yes Carlo not Common en en Omid defined [facility] Tadalafil Tadalafil Yes Carlo not Com mon Omid defined [facility] Metoprolol Metoprolol Yes Carlo not C ommon Succinate Succinate Omid defined [facility] Yoselin Yoselin Yes Carlo not Common Aspirin Aspirin Omid defined Spir it [facility] Vital Signs Vital Name Observation Time Observation Value Comments Source Systolic blood 2019-08-29 14:55:00 160 mm[Hg[facility] pressure [place] [facility] Diastolic blood 2019-08-29 14:55:00 83 mm[Hg] Unive rsity of pressure [place] [facility] Heart rate 2019-08-29 14:55:00 86 /min [facility] [place] [facility] Body height 2019-08-29 14:55:00 167.6 cm [facility] [place] [facility] Body weight 2019-08-29 14:55:00 77.111 kg [facility] [place] [facility] BMI 2019-08-29 14:55:00 27.44 kg/m2 [facility] [place] [facility] Systolic blood 2019-08-29 14:55:00 160 mm[Hg] Univer sity of pressure [place] [facility] Diastolic blood 2019-08-29 14:55:00 83 mm[Hg] Unive rsity of pressure [place] [facility] Heart rate 2019-08-29 14:55:00 86 /min [facility] [place] [facility] Body height 2019-08-29 14:55:00 167.6 cm [facility] [place] [facility] Body weight 2019-08-29 14:55:00 77.111 kg [facility] [place] [facility] BMI 2019-08-29 14:55:00 27.44 kg/m2 [facility] [place] [facility] Systolic blood 2019-08-24 15:36:00 176 mm[Hg] Univer sity of pressure [place] [facility] Diastolic blood 2019-08-24 15:36:00 81 mm[Hg] Unive rsity of pressure [place] [facility] Heart rate 2019-08-24 15:36:00 81 /min [facility] [place] [facility] Respiratory rate 2019-08-24 15:30:00 18 /min Univ ersity of [place] [facility] Body height 2019-08-24 15:30:00 167.6 cm [facility] [place] [facility] Body weight 2019-08-24 15:30:00 77.111 kg [facility] [place] [facility] BMI 2019-08-24 15:30:00 27.44 kg/m2 [facility] [place] [facility] Systolic blood 2019-03-31 14:40:00 156 mm[Hg] Univer sity of pressure [place] [facility] Diastolic blood 2019-03-31 14:40:00 87 mm[Hg] Unive rsity of pressure [place] [facility] Heart rate 2019-03-31 14:40:00 79 /min [facility] [place] [facility] Respiratory rate 2019-03-31 14:40:00 20 /min [facility] Body height 2019-03-31 14:40:00 167.6 cm [facility] Body weight 2019-03-31 14:40:00 77.111 kg [facility] BMI 2019-03-31 14:40:00 27.44 kg/m2 [facility] Body height 2021-08-05 18:15:00 167.6 cm [facility] Body weight 2021-08-05 18:15:00 74.844 kg [facility] BMI 2021-08-05 18:15:00 26.63 kg/m2 [facility] Procedures Procedure Date / Time Performing Clinician Source Performed ALPHA-1 ANTITRYPSIN 2021-10-03 17:42:[address] [facility] PHENOTYPE Ramana ALPHA-1 ANTITRYPSIN LEVEL 2021-10-03 17:42:00 [facility] Ramana IGG SUBCLASSES 2021-10-03 17:42:00 [facility] Ramana IMMUNOGLOBULIN G 2021-10-03 17:42:00 [facility] Ramana ALLERGEN, REGION 10 2021-10-03 17:42:00 [facility] RESPIRATORY PANEL IGE, Ramana [facility] ([place], [place]) IMMUNCAP SCORE 2021-10-03 17:42:00 [facility] Ramana MR LUMBAR SPINE WO 2021-09-19 15:51:00 Requisition, Paper [facility] XR KNEE 3 VW LEFT 2021-08-05 18:27[facility]EN[facility]AL[facility] 2021-08-05 18:27[facility] NOTICE OF PRIVACY 2021-08-04 15:36:26 Doctor Unassigned, [facility] PRACTICES [place] [facility] CONSENT/REFUSAL FOR 2021-08-04 15:36:06 Doctor Unassigned, [facility] DIAGNOSIS AND TREATMENT [place] [facility] ASSIGNMENT OF BENEFITS 2021-08-04 15:35:52 [facility] [place] [facility] PHYSICIAN ORDERS 2021-07-23 05:01:00 Doctor Unassigned, [facility] Name Medical [facility] XR FOOT <3 VW RIGHT 2019-08-24 15:48:01 Stephanie Henriquez [facility] Medical Branch DSU PRE-OP 2019-03-31 06:01:00 Doctor Unassigned, [facility] Name Medical Branch Plan of Care Planned Activity Planned Date Details Comments Source Future Scheduled 2022-04-29 65+ [facility]OCOCCAL [facility] Test 13:54:22 VACCINE (1 - PCV) [code = 65+ PNEUMOCOCCAL VACCINE (1 - PCV)] Future Scheduled 2022-04-29 COLONOSCOPY SCREENING [facility] Test 13:54:22 [code = COLONOSCOPY SCREENING] Future Scheduled 2022-04-29 Screening for [facility] Test 13:54:22 malignant neoplasm of lung (procedure) [code = 904984658] Future Scheduled 2022-04-29 SHINGLES VACCINES (1 [facility] Test 13:54:22 of 2) [code = SHINGLES VACCINES (1 of 2)] Future Scheduled 2022-04-29 COVID-19 VACCINE (4 - [facility] Test 13:54:22 Booster for Moderna series) [code = COVID-19 VACCINE (4 - Booster for Moderna series)] Future Scheduled 2022-04-29 INFLUENZA VACCINE [facility] Test 13:54:22 [code = INFLUENZA VACCINE] Future Scheduled 2022-01-26 [facility] Test 11:59:03 malignant neoplasm of lung (procedure) [code = 943627525] Future Scheduled 2022-01-26 SHINGLES VACCINES (1 [facility] Test 11:59:03 of 2) [code = SHINGLES VACCINES (1 of 2)] Future Scheduled 2022-01-26 COVID-19 VACCINE (4 - [facility] Test 11:59:03 Booster for Moderna series) [code = COVID-19 VACCINE (4 - Booster for Moderna series)] Future Scheduled 2022-01-26 INFLUENZA VACCINE [facility] Test 11:59:03 [code = INFLUENZA VACCINE] Future Scheduled 2022-01-26 65+ P[facility]UMOCOCCAL [facility] Test 11:59:03 VACCINE (1 - PCV) [code = 65+ PNEUMOCOCCAL VACCINE (1 - PCV)] Future Scheduled 2022-01-26 COLONOSCOPY SCREENING [facility] Test 11:59:03 [code = COLONOSCOPY SCREENING] Future Scheduled 2022-01-26 [facility] Test 11:59:03 malignant neoplasm of lung (procedure) [code = [id number]] Future Scheduled 2022-01-26 SHINGLES VACCINES (1 [facility] Test 11:59:03 of 2) [code = [...] - PCV)] Future Scheduled 2022-01-26 COLONOSCOPY SCREENING [facility] Test 11:59:03 [code = COLONOSCOPY SCREENING] Future Scheduled 2022-01-26 [facility] Test 11:59:03 malignant neoplasm of lung (procedure) [code = [id number]] Future Scheduled 2022-01-26 SHINGLES VACCINES (1 [facility] Test 11:59:03 of 2) [code = SHINGLES VACCINES (1 of 2)] Future Scheduled 2022-01-26 COVID-19 VACCINE (4 - [facility] Test 11:59:03 Booster for Moderna series) [code = COVID-19 VACCINE (4 - Booster for Moderna series)] Future Scheduled 2022-01-26 INFLUENZA VACCINE [facility] Test 11:59:03 [code = INFLUENZA VACCINE] Future Scheduled 2022-01-26 65+ [facility]OCOCCAL [facility] Test 11:59:03 VACCINE (1 - PCV) [code = 65+ PNEUMOCOCCAL VACCINE (1 - PCV)] Future Scheduled 2022-01-26 COLONOSCOPY SCREENING [facility] Test 11:59:03 [code = COLONOSCOPY SCREENING] Future Scheduled 2022-01-26 [facility] Test 11:59:03 malignant neoplasm of lung (procedure) [code = [id number]] Future Scheduled 2022-01-26 SHINGLES VACCINES (1 [facility] Test 11:59:03 of 2) [code = SHINGLES VACCINES (1 of 2)] Future Scheduled 2022-01-26 COVID-19 VACCINE (4 - [facility] Test 11:59:03 Booster for Moderna series) [code = COVID-19 VACCINE (4 - Booster for Moderna series)] Future Scheduled 2022-01-26 INFLUENZA VACCINE [facility] Test 11:59:03 [code = INFLUENZA VACCINE] Future Scheduled 2022-01-26 65+ P[facility]OCOCCAL [facility] Test 11:59:03 VACCINE (1 - PCV) [code = 65+ PNEUMOCOCCAL VACCINE (1 - PCV)] Future Scheduled 2022-01-26 COLONOSCOPY SCREENING [facility] Test 11:59:03 [code = COLONOSCOPY SCREENING] Future Scheduled 2022-01-26 Screening for [facility] Test 11:59:03 malignant neoplasm of lung (procedure) [code = 340654563] Future Scheduled 2022-01-26 SHINGLES VACCINES (1 Met [facility] Test 11:59:03 of 2) [code = SHINGLES VACCINES (1 of 2)] Future Scheduled 2022-01-26 COVID-19 VACCINE (4 - Me [facility] Test 11:59:03 Booster for Moderna series) [code = COVID-19 VACCINE (4 - Booster for Moderna series)] Future Scheduled 2022-01-26 INFLUENZA VACCINE Method [facility] Test 11:59:03 [code = INFLUENZA VACCINE] Future Scheduled 2022-01-26 65+ PNEUMOCOCCAL [facility] Hospital Test 11:59:03 VACCINE (1 - PCV) [code = 65+ PNEUMOCOCCAL VACCINE (1 - PCV)] Future Scheduled 2022-01-26 COLONOSCOPY SCREENING [facility] Test 11:59:03 [code = COLONOSCOPY SCREENING] Future Scheduled 2022-01-26 Screening for [facility] Test 11:59:03 malignant neoplasm of lung (procedure) [code = [id number]] Future Scheduled 2022-01-26 SHINGLES VACCINES (1 Met [facility] Test 11:59:03 of 2) [code = SHINGLES VACCINES (1 of 2)] Future Scheduled 2022-01-26 COVID-19 VACCINE (4 - Me [facility] Test 11:59:03 Booster for Moderna series) [code = COVID-19 VACCINE (4 - Booster for Moderna series)] Future Scheduled 2022-01-26 INFLUENZA VACCINE Method is Hospital Test 11:59:03 [code = INFLUENZA VACCINE] Future Scheduled 2022-01-26 65+ PNEUMOCOCCAL Method[facility] Test 11:59:03 VACCINE (1 - PCV) [code = 65+ PNEUMOCOCCAL VACCINE (1 - PCV)] Future Scheduled 2022-01-26 COLONOSCOPY SCREENING [facility] Test 11:59:03 [code = COLONOSCOPY SCREENING] Future Scheduled 2022-01-26 Screening for [facility] Test 11:59:03 malignant neoplasm of lung (procedure) [code = [id number]] Future Scheduled 2022-01-26 SHINGLES VACCINES (1 Met [facility] Test 11:59:03 of 2) [code = SHINGLES VACCINES (1 of 2)] Future Scheduled 2022-01-26 COVID-19 VACCINE (4 - Me [facility] Test 11:59:03 Booster for Moderna series) [code = COVID-19 VACCINE (4 - Booster for Moderna series)] Future Scheduled 2022-01-26 INFLUENZA VACCINE Method [facility] Test 11:59:03 [code = INFLUENZA VACCINE] Future Scheduled 2022-01-26 65+ PNEUMOCOCCAL [facility] Test 11:59:03 VACCINE (1 - PCV) [code = 65+ PNEUMOCOCCAL VACCINE (1 - PCV)] Future Scheduled 2022-01-26 COLONOSCOPY SCREENING [facility] Test 11:59:03 [code = COLONOSCOPY SCREENING] Future Scheduled 2021-10-24 HEPATITIS B VACCINES Met [facility] Test 14:20:57 (1 of 3 - 3-dose series) [code = HEPATITIS B VACCINES (1 of 3 - 3-dose series)] Future Scheduled 2021-10-24 65+ PNEUMOCOCCAL [facility] Test 14:20:57 VACCINE (1 - PCV) [code = 65+ PNEUMOCOCCAL VACCINE (1 - PCV)] Future Scheduled 2021-10-24 COLONOSCOPY SCREENING [facility] Test 14:20:57 [code = COLONOSCOPY SCREENING] Future Scheduled 2021-10-24 Screening for [facility] Test 14:20:57 malignant neoplasm of lung (procedure) [code = [id number]] Future Scheduled 2021-10-24 SHINGLES VACCINES (1 Met [facility] Test 14:20:57 of 2) [code = SHINGLES VACCINES (1 of 2)] Future Scheduled 2021-10-24 COVID-19 VACCINE (4 - Me [facility] Test 14:20:57 Booster for Moderna series) [code = COVID-19 VACCINE (4 - Booster for Moderna series)] Future Scheduled 2021-10-24 INFLUENZA VACCINE Method [facility] Test 14:20:57 [code = INFLUENZA VACCINE] Future Scheduled 2021-10-24 HEPATITIS B VACCINES Met [facility] Test 14:20:57 (1 of 3 - 3-dose series) [code = HEPATITIS B VACCINES (1 of 3 - 3-dose series)] Future Scheduled 2021-10-24 65+ [facility]57 VACCINE (1 - PCV) [code = 65+ PNEUMOCOCCAL VACCINE (1 - PCV)] Future Scheduled 2021-10-24 COLONOSCOPY SCREENING [facility] Test 14:20:57 [code = COLONOSCOPY SCREENING] Future Scheduled 2021-10-24 Screening for [facility] Test 14:20:57 malignant neoplasm of lung (procedure) [code = [id number]] Future Scheduled 2021-10-24 SHINGLES VACCINES (1 Met [facility] Test 14:20:57 of 2) [code = SHINGLES VACCINES (1 of 2)] Future Scheduled 2021-10-24 COVID-19 VACCINE (4 - Me [facility] Test 14:20:57 Booster for Moderna series) [code = COVID-19 VACCINE (4 - Booster for Moderna series)] Future Scheduled 2021-10-24 INFLUENZA VACCINE Method [facility] Test 14:20:57 [code = INFLUENZA VACCINE] Encounters Start End Encounter Admission Attending Care Care Encounter Source Date/Time Date/Time Type Type Clinicians Facility Department ID 2021-10-31 2021-10-31 Outpatient LOGAN Garnett [facility] [id number] 15:38:00 15:38:00 [facility] [facility] [address] 2021-10-03 2021-10-03 Lab Colomer, 1.2.840.1 [id number] Methodi 12:30:00 12:35:[address] Ramaan 3.430.2.7 Hospit a .3.557395 l .8 2021-10-03 2021-10-03 Lab Colomer, 1.2.840.1 [id number] Methodi 12:30:00 12:35:[address] Ramana 3.430.2.7 Hospit a .3.388430 l .8 2021-10-03 2021-10-03 Travel 1.2.840.1 1.2.753.646 [id number] Methodi 00:00:00 00:00:[address] 3.430.2.7 0.2.7.3.698 Ho spita .3.360451 084.8 l .8 2021-10-03 2021-10-03 Travel 1.2.840.1 1.2.997.578 [id number] Methodi 00:00:00 00:00:[address] 3.430.2.7 0.2.7.3.698 Ho spita .3.376559 084.8 l .8 2021-09-19 2021-09-19 Outpatient R RADIOLOGY [facility] [id number] Univers 09:09:31 23:59:00 ity of [facility] 2021-09-19 2021-09-19 Hospital Radiology [facility] 1.2.840.114 [id number] [facility] 09:09:31 23:59:00 Encounter ANDRES 350.1.13.10 ity [facility] 4.2.7.2.686 [facility] [id number] [address] 2021-08-05 2021-08-05 Office Phyllis, 1.2.840.1 [id number] Methodi 14:00:00 15:57:20 Visit Shereen [place] 43765.1.1 824 s t 3.430.2.7 Hospit a .3.393924 l .8 2021-08-05 2021-08-05 Office Phyllis, 1.2.840.1 [id number] Methodi 14:00:00 15:57:20 Visit Shereen [place] 96922.1.1 824 s t 3.430.2.7 Hospit a .3.165642 l .8 2021-08-05 2021-08-05 Outpatient PHYLLIS, [facility] [id number] [place] 00:00:00 00:00:00 SHEREEN [address] 2021-08-05 2021-08-05 Outpatient PHYLLIS, [facility] [id number] [place] 00:00:00 00:00:00 SHEREEN [address] 2021-08-05 2021-08-05 Travel 1.2.840.1 1.2.100.403 [id number] Methodi 00:00:00 00:00:[address] 3.430.2.7 0.2.7.3.698 Ho spita .3.408332 084.8 l .8 2021-08-05 2021-08-05 Travel 1.2.840.1 1.2.452.515 8915 [id number] Methodi 00:00:00 00:00:[address] 3.430.2.7 0.2.7.3.698 Ho spita .3.033455 084.8 l .8 2021-08-04 2021-08-04 [facility] [id number] Univers 10:39:04 23:59:00 OMARI og of [facility] 2021-08-04 2021-08-04 [facility] 1.2.840.114 [id number] Univers 10:39:04 23:59:00 Encounter Omari CAMPOS 350.1.13.10 earle [facility] 4.2.7.2.686 [facility] [id number] [place] [address] [address] 2021-07-23 2021-07-23 Orders Doctor SALINAS 1.2.840.114 [id number] Univers 00:00:00 00:00:00 Only Unassigned, JARON 350.1.13.10 ity of [place] [facility] 4.2.7.2.686 Zander as [phone] [facility] [address] 2020-04-15 2020-04-15 Patient Daniel [facility] 1.2.840.114 [id number] Univers 00:00:00 00:00:00 Outreach Aroldo PRIMARY 350.1.13.10 i ty of [facility] 4.2.7.2.[address] [place] [phone] Wa dical [address] 2020-04-09 2020-04-09 Outpatient CHAS, [facility] [id number] [place] 00:00:00 00:00:00 АНДРЕЙ 981 Method i 2020-04-09 2020-04-09 Outpatient CHAS, [facility] [id number] [place] 00:00:00 00:00:00 АНДРЕЙ 096 Method i 2020-02-20 2020-02-20 Outpatient PHYLLIS, [facility] [id number] [place] 00:00:00 00:00:00 SHEREEN 222 Method i 2020-02-20 2020-02-20 Outpatient PHYLLIS, [facility] [id number] [place] 00:00:00 00:00:00 SHEREEN 422 Method i 2020-02-20 2020-02-20 Outpatient PHYLLIS, [facility] [id number] [place] 00:00:00 00:00:00 SHEREEN 430 Method i 2020-01-29 2020-01-29 Laboratory Lab, Adc Fam Pob I [facility] 1.2. 840.114 [id number] Univers 10:40:21 11:00:21 Only Anethom, [facility] 350.1.13.10 ity of [place] 4.2.7.2.686 Zander as Mandaio [phone] Wa dical nal [address] Office [address] [facility] 2020-01-29 2020-01-29 Outpatient R [facility] [id number] Univers 11:00:00 11:00:00 ity of [facility] 2019-11-15 2019-11-15 Outpatient [facility] [id number] [place] 00:00:00 00:00:00 333 Method i 2019-11-15 2019-11-15 Outpatient [facility] [id number] [place] 00:00:00 00:00:00 543 Method i 2019-10-30 2019-10-31 Outpatient PHYLLIS, [facility] [id number] [place] 00:00:00 00:00:00 SHEREEN 272 Method i 2019-10-25 2019-10-25 Outpatient PHYLLIS, [facility] [id number] [place] 00:00:00 00:00:00 SHEREEN 403 Method i 2019-10-18 2019-10-18 Outpatient PHYLLIS, [facility] [id number] [place] 00:00:00 00:00:00 SHEREEN 841 Method i 2019-08-29 2019-08-29 [facility] 1.2.840.114 [id number] Univers 09:52:24 10:07:24 Visit [facility] 350.1.13.10 it y of Surgical 4.2.7.2.686 Zander as Specialti [phone] Wa dical es [address] [facility] 2019-08-29 2019-08-29 [facility] 1.2.840.114 [id number] 15 09:52:24 10:07:24 Visit [facility] 350.1.13.10 Surgical 4.2.7.2.686 Specialti [phone] es 198 [place] 2019-08-29 2019-08-29 [facility] [id number] Univers 09:45:00 09:45:00 STEPHANIE ity of [facility] 2019-08-24 2019-08-24 [facility] 1.2.840.114 [id number] Univers 10:48:00 23:59:00 Encounter [facility] 350.1.13.10 ity of Surgical 4.2.7.2.686 Zander as Specialti [phone] Me dical es 8[address] [facility] 2019-08-24 2019-08-24 Office [facility] 1.2.840.114 [id number] Univers 10:29:34 10:58:01 Visit [facility] 350.1.13.10 it y of Surgical 4.2.7.2.686 Zander as Specialti [id number] Wa dical es 198 [facility] 2019-08-24 2019-08-24 Outpatient Dominique HENRIQUEZ [facility] [id number] Univers 10:30:00 10:30:00 STEPHANIE og of [facility] 2019-07-18 2019-07-18 Outpatient PHYLLIS, [facility] [id number] [place] 00:00:00 00:00:00 SHEREEN 315 Method i 2019-06-15 2019-06-15 Outpatient PHYLLIS, [facility] [id number] [place] 00:00:00 00:00:00 SHEREEN 159 Method i 2019-06-15 2019-06-15 Outpatient PHYLLIS, [facility] [id number] [place] 00:00:00 00:00:00 SHEREEN 022 Method i 2019-06-15 2019-06-15 Outpatient PHYLLIS, [facility] [id number] [place] 00:00:00 00:00:00 SHEREEN 028 Method i 2019-05-29 2019-05-29 Telephone [facility] 1.2.840.114 [id number] [facility] 00:00:00 00:00:00 [facility] 350.1.13.10 it y of Surgical 4.2.7.2.686 Zander as Specialti [phone] Wa dical es 198 [facility] 2019-03-31 2019-03-31 Office [facility] 1.2.520.367 [id number] [facility] 08:35:06 09:11:29 Visit [facility] 350.1.13.10 it y of Surgical 4.2.7.2.686 Zander as Specialti [phone] Wa dical es 198 [facility] 2019-03-31 2019-03-31 Orders Doctor BRAD 1.2.840.114 [id number] Univers 00:00:00 00:00:00 Only Unassigned, JARON 350.1.13.10 ity of [place] [facility] 4.2.7.2.686 Zander as [id number] [address] 2018-09-05 2018-09-05 Out[facility] [id number] Common 14:30:00 14:30:00 [facility] 2018-08-03 2018-08-03 Outpatient [facility] [id number] Common 08:00:00 08:00:00 t [facility] - [facility] Results Test Description Test Time Test Comments Results Result Comments Source SARS-CoV-2 (COVID-19) RNA [Presence] in Respiratory sp ecimen by 2019-10-25 19:09:03 EDUARDO with probe detection Test Item Value Reference Range Interpretation Comme nts SARS-CoV-2 (COVID-19) RNA [Presence] in Respiratory Not detected No t-Detected specimen by EDUARDO with probe detection (test code = 92015-5) NITHIN SERRANO WESTXR FOOT <3 VW [id number] 15:54:17No acute fracture or dislocation he does have a degenerative first metatarsal phalangeal joint [facility]
[2022-04-29] MEDS ORDERED: LIDOCAINE 1% MPF 5 ML VIAL ONE (14:18)
[2022-04-29] MEDS ORDERED: HYDROCODONE/APAP 10/325 TAB ONE (14:36)
--- NOTE | 2022-04-29 14:56 | RAD REPORT ---
EXAM DESCRIPTION: CT - CTHCSPWOC - 04/29/2022 2:11 pm CLINICAL HISTORY: fall COMPARISON: No comparisons TECHNIQUE: Axial thin cut noncontrast CT images of the head were obtained. Axial thin cut noncontrast CT images of the cervical spine were obtained. Multiplanar reformatted images were generated and reviewed. All CT scans are performed using dose optimization technique as appropriate and may include automated exposure control or mA/KV adjustment according to patient size. FINDINGS: CT HEAD WITHOUT CONTRAST: No acute hemorrhage, hydrocephalus or extra-axial collection is identified.Moderate diffuse parenchym al volume loss with proportionate prominence of the ventricular system and sulci.No areas of brain ed jonas or midline shift. Soft tissue swelling, small hematoma, and small laceration along the right fro ntal scalp. The paranasal sinuses and mastoids are clear.The calvarium is intact. CT CERVICAL SPINE WITHOUT CONTRAST: No fracture or subluxation.No prevertebral soft tissues swelling is identified. Multilevel cervical s pine degenerative changes, without high-grade bony canal stenosis. Mild moderate bony neural foramina l narrowing bilaterally at C3-4, and on the right at C5-6 and C6-7. IMPRESSION: No acute traumatic intracranial or cervical spine findings. Soft tissue swelling, small hematoma, and laceration of the right frontal scalp. Chronic findings as above.
--- NOTE | 2022-04-29 16:04 | RAD REPORT ---
EXAM DESCRIPTION: RAD - Knee Right 3 View - 04/29/2022 2:25 pm CLINICAL HISTORY: PAIN COMPARISON: No comparisons TECHNIQUE: Right knee, 3 views. FINDINGS: No evidence of acute fracture or periosteal reaction. Superior dislocation of the patella, with an sulcal body ratio calculated at 1.5.No joint effusion seen. No joint space narrowing. Pronou nced soft tissue swelling anteriorly and along the medial knee and lower thigh. IMPRESSION: Patella lionel, concerning for ruptured patellar tendon. Pronounced soft tissue swelling a nteriorly and along medial aspect of the knee and lower thigh.
[2022-04-29] MEDS ORDERED: MORPHINE 4 MG/ML SYR ONE (16:22)
--- NOTE | 2022-04-29 16:53 | ER ---
Nurse's Notes [facility] Name: Jesus Morales Age: 71 yrs Sex: Male : 1950 Arrival Date: 04/29/2022 Time: 13:54 Bed 11 Private MD: Diagnosis: Facial laceration;Right patellar tendon rupture Presentation: 04/29 13:52 Chief complaint: EMS states: Tripped while exiting building, landed on right side. hb Negative LOC. Laceration noted above right eyebrow, skin tear to right forearm extending to right hand, skin tear to left hand, bruising and swelling to right knee. Bleeding controlled. Care prior to arrival: Bleeding of injury controlled. Injury dressed. Mechanism of Injury: Fall from standing position. Trauma event details: Injury occurred in the [facility], Injury occurred: in a public building. Injury occurred: April 29, 2022 Injury occurred at: 13:15. 13:52 Acuity: LEAH 2 hb 13:52 Method Of Arrival: EMS: [facility] hb 14:06 Coronavirus screen: At this time, the client does not indicate any symptoms associated hb with coronavirus-19. Ebola Screen: No symptoms or risks identified at this time. Initial Sepsis Screen: Does the patient meet any 2 criteria? No. Patient's initial sepsis screen is negative. Does the patient have a suspected source of infection? No. Patient's initial sepsis screen is negative. Risk Assessment: Do you want to hurt yourself or someone else? Patient reports no desire to harm self or others. Onset of symptoms was April 29, 2022. Trauma Activation: Alert Physician: ED Physician; Name: Dr. Owens; Notified At: 13:51; Arrived At: 13:52 Physician: General Surgeon; Name: ; Notified At: 13:51; Arrived At: Physician: Radiology; Name: Pat; Notified At: 13:51; Arrived At: 13:54 Physician: Respiratory; Name: ; Notified At: 13:51; Arrived At: Physician: Lab; Name: ; Notified At: 13:51; Arrived At: Historical: - Allergies: 14:07 Adhesives; hb 14:07 Latex, Natural Rubber; hb - Home Meds: 14:07 amiodarone 200 mg Oral tablet 1 tab 2 times per day [Active]; aspirin 81 mg Oral hb capsule 1 cap daily [Active]; metoprolol tartrate 50 mg Oral tablet 1 tab 2 times per day [Active]; omeprazole 40 mg Oral capsule,delayed release (e.c.) 1 cap once [Active]; potassium chloride 20 mEq Oral tablet, extended release 1 tab 2 times per day [Active]; Trelegy Ellipta inhalation 1 inhalation [Active]; duloxetine 60 mg Oral capsule,delayed release (e.c.) 1 cap daily [Active]; furosemide 40 mg Oral tablet 1 tab 2 times per day [Active]; - PMHx: 14:07 Atrial fibrillation; Congestive heart failure; Chronic obstructive lung disease; hb - PSHx: 14:07 Coronary artery bypass graft; hb - Immunization history:: Adult Immunizations up to date. - Social history:: Smoking status: . - Immunization history: Last tetanus immunization: - up to date. - Family history:: not pertinent. Screenin:55 Abuse screen: Denies threats or abuse. Denies injuries from another. Tuberculosis hb screening: No symptoms or risk factors identified. 14:11 [facility] ED Fall Risk Assessment (Adult) Score/Fall Risk Level 0 - 2 = Low Risk hb Oriented to surroundings, Maintained a safe environment, Educated pt \T\ family on fall prevention, incl call for assistance when getting out of bed. Nutritional screening: No deficits noted. Primary Survey: 13:52 NO uncontrolled hemorrhage observed. A: The client is awake and alert. The airway is hb patent. Breathing/Chest: Spontaneous respiratory effort, equal unlabored respirations, breath sounds clear bilaterally, regular pattern, symmetrical chest rise and fall. Circulation: No external hemorrhage present. Regular and strong central pulse, skin warm/dry/normal color. Disability Client is alert. Exposure/Environment: There is no evidence of uncontrolled external bleeding. Secondary Survey: 14:08 HEENT: Face Other laceration to right forehead. Gastrointestinal: No deficits noted. hb : No deficits noted. No signs and/or symptoms were reported regarding the genitourinary system. Musculoskeletal: bruising and swelling noted to right knee. Assessment: 14:08 General: Appears in no apparent distress. Behavior is calm, cooperative. Pain: Pain hb currently is 5 out of 10 on a pain scale. Neuro: Level of Consciousness is awake, alert, obeys commands, Oriented to person, place, time, situation. EENT: No deficits noted. No signs and/or symptoms were reported regarding the EENT system. Cardiovascular: Patient's skin is warm and dry. Respiratory: Respiratory effort is even, unlabored, Respiratory pattern is regular, symmetrical. GI: No deficits noted. No signs and/or symptoms were reported involving the gastrointestinal system. : No deficits noted. No signs and/or symptoms were reported regarding the genitourinary system. Derm: Skin is pink, warm \T\ dry. Musculoskeletal: swelling and bruising noted to right knee. Injury Description: laceration noted to right forehead, skin tear on right forearm that extends to right hand, skin tear to left hand, swelling and bruising noted to right knee. 15:05 General: Appears in no apparent distress. comfortable. Cardiovascular: Pulses are ss palpable in right posterior tibial artery and left posterior tibial artery. Respiratory: Respiratory effort is even, unlabored. 16:06 Reassessment: GCS 15. ss 17:18 Reassessment: Patient appears in no apparent distress at this time. wound care ss completed. Awaiting for sonBilly to call back to see if he can take patient back home. Knee immobilizer applied. Vital Signs: 14:06 BP 139 / 94; Pulse 89; Resp 16; Temp 97.9; Pulse Ox 97% on R/A; Weight 79.38 kg; Height hb 5 ft. 6 in. ; Pain 5/10; 17:18 BP 158 / 86; Pulse 82; Resp 17; Pulse Ox 99% on R/A; Pain 8/10; ss 14:06 Body Mass Index 28.25 (79.38 kg, 167.64 cm) hb 14:06 Pain Scale: Adult hb 17:18 Pain Scale: Adult ss Elmer Coma Score: 13:55 Eye Response: spontaneous(4). Motor Response: obeys commands(6). Verbal Response: hb oriented(5). Total: 15. 17:18 Eye Response: spontaneous(4). Motor Response: obeys commands(6). Verbal Response: ss oriented(5). Total: 15. Trauma Score (Adult): 13:55 Eye Response: spontaneous(1); Verbal Response: oriented(1); Motor Response: obeys hb commands(2); Systolic BP: > 89 mm Hg(4); Respiratory Rate: 10 to 29 per min(4); Elmer Score: 15; Trauma Score: 12 17:18 Eye Response: spontaneous(1); Verbal Response: oriented(1); Motor Response: obeys ss commands(2); Systolic BP: > 89 mm Hg(4); Respiratory Rate: 10 to 29 per min(4); Elmer Score: 15; Trauma Score: 12 ED Course: 13:54 Patient arrived in ED. hb 13:55 Patient has correct armband on for positive identification. hb 13:56 Portillo Owens MD is Attending Physician. rt 14:06 Triage completed. hb 14:08 Arm band placed on left wrist. hb 14:11 Patient maintains SpO2 saturation greater than 95% on room air. Thermoregulation: warm hb blanket given to patient. 14:13 CT Head C Spine In Process Unspecified. EDMS 14:26 Knee Right 3 View XRAY In Process Unspecified. EDMS 16:06 Assist provider with laceration repair on right side of forehead. ss 16:16 Kia Edwards, KENNEDY is Primary Nurse. ss 16:51 Elmer Toure MD is Referral Physician. rt 17:20 Patient did not have IV access during this emergency room visit. Alex wrap to L hand R ss wrist/ forearm Knee immobilizer applied on right knee. Wound care: to 3 skin tears to R forearm/ wrist. 1 skin tear to L hand was cleaned with Hibiclens, dressed with 4X4s, steri strips x 4, ice pack applied. Patient tolerated well. Administered Medications: 14:33 Drug: [place] PO 10 mg-325 mg 1 tabs Route: PO; hb 16:33 Follow up: Response: No adverse reaction; RASS: Alert and Calm (0) ss 16:25 Drug: morphine IM 4 mg Route: IM; Site: left deltoid; ss 17:18 Follow up: Response: No adverse reaction; Pain is decreased ss 16:33 Drug: Lidocaine Infiltration (1 %) 5 ml {Note: administered by Dr. Owens.} Volume: ss 5 ml; Route: Infiltration; 17:53 Drug: Boostrix Tdap 0.5 mL intramuscularly once; as a single dose 0.5 ml, Boostrix Tdap ss 0.5 ml {Note: 12/26/22 7MH39 VIS form given.} Route: IM; Site: right deltoid; 18:13 Follow up: Response: No adverse reaction ss Medication: 14:11 VIS not applicable for this client. hb Intake: 13:55 PO: 0ml; Total: 0ml. hb Outcome: 16:53 Discharge ordered by . rt 17:53 Condition: good ss 17:53 Discharge instructions given to patient, family, Instructed on discharge instructions, follow up and referral plans. medication usage, Demonstrated understanding of instructions, follow-up care, medications, Prescriptions given X 1. 17:54 Patient's length of stay in the Emergency Department was greater than 2 hours. ss 18:12 Discharged to home via wheelchair, with crutches, with family. ss 18:13 Patient left the ED. ss Signatures: Dispatcher [employer] Kia Melo RN RN ss Baxter, Heather, RN RN hb [place], Ryan, MD MD rt
--- NOTE | 2022-04-29 16:54 | EDPHYS ---
Physician Documentation [facility] Name: Jesus Morales Age: 71 yrs Sex: Male : 1950 Arrival Date: 04/29/2022 Time: 13:54 Bed 11 Private MD: ED Physician Portillo Owens HPI: 04/29 15:38 This 71 yrs old Male presents to ER via EMS with complaints of Fall Injury. rt 15:38 Patient presents to the ED with a trip and fall injury. Patient did hit his head, rt sustaining a laceration above the eyebrow. He has skin tears to the bilateral hands and reports of right knee pain, from him hitting the ground with the knee. He denies loss of consciousness, syncope. Pain is aching nature, nonradiating. He states that he is up-to-date on his tetanus immunization. No other acute complaints.. Historical: - Allergies: 14:07 Adhesives; hb 14:07 Latex, Natural Rubber; hb - Home Meds: 14:07 amiodarone 200 mg Oral tablet 1 tab 2 times per day [Active]; aspirin 81 mg Oral hb capsule 1 cap daily [Active]; metoprolol tartrate 50 mg Oral tablet 1 tab 2 times per day [Active]; omeprazole 40 mg Oral capsule,delayed release (e.c.) 1 cap once [Active]; potassium chloride 20 mEq Oral tablet, extended release 1 tab 2 times per day [Active]; Trelegy Ellipta inhalation 1 inhalation [Active]; duloxetine 60 mg Oral capsule,delayed release (e.c.) 1 cap daily [Active]; furosemide 40 mg Oral tablet 1 tab 2 times per day [Active]; - PMHx: 14:07 Atrial fibrillation; Congestive heart failure; Chronic obstructive lung disease; hb - PSHx: 14:07 Coronary artery bypass graft; hb - Immunization history:: Adult Immunizations up to date. - Social history:: Smoking status: . - Immunization history: Last tetanus immunization: - up to date. - Family history:: not pertinent. ROS: 15:38 MS/extremity: Positive for contusion, pain. rt 16:27 Constitutional: Negative for fever, chills, and weight loss, Cardiovascular: Negative rt for chest pain, palpitations, and edema, Respiratory: Negative for shortness of breath, cough, wheezing, and pleuritic chest pain, Abdomen/GI: Negative for abdominal pain, nausea, vomiting, diarrhea, and constipation, Skin: Negative for injury, rash, and discoloration, Neuro: Negative for headache, weakness, numbness, tingling, and seizure, Psych: Negative for depression, anxiety, suicide ideation, homicidal ideation, and hallucinations. Exam: 16:27 Constitutional: This is a well developed, well nourished patient who is awake, alert, rt and in no acute distress. Chest/axilla: Normal chest wall appearance and motion. Nontender with no deformity. No lesions are appreciated. Cardiovascular: Regular rate and rhythm with a normal S1 and S2. No gallops, murmurs, or rubs. Normal PMI, no JVD. No pulse deficits. Respiratory: Lungs have equal breath sounds bilaterally, clear to auscultation and percussion. No rales, rhonchi or wheezes noted. No increased work of breathing, no retractions or nasal flaring. Abdomen/GI: Soft, non-tender, with normal bowel sounds. No distension or tympany. No guarding or rebound. No evidence of tenderness throughout. Neuro: Awake and alert, GCS 15, oriented to person, place, time, and situation. Cranial nerves II-XII grossly intact. Motor strength 5/5 in all extremities. Sensory grossly intact. Cerebellar exam normal. Normal gait. Psych: Awake, alert, with orientation to person, place and time. Behavior, mood, and affect are within normal limits. 16:27 Head/face: 3 cm linear laceration above the right eyebrow, no active bleeding, no foreign bodies identified. 16:27 Eyes: Extraocular muscles intact. 16:27 Musculoskeletal/extremity: Swelling, bruising, tenderness with decreased range of motion to the right knee, skin tears noted to the bilateral hands without appreciable swelling, deformities. No neurovascular compromise.. Vital Signs: 14:06 BP 139 / 94; Pulse 89; Resp 16; Temp 97.9; Pulse Ox 97% on R/A; Weight 79.38 kg; Height hb 5 ft. 6 in. ; Pain 5/10; 17:18 BP 158 / 86; Pulse 82; Resp 17; Pulse Ox 99% on R/A; Pain 8/10; ss 14:06 Body Mass Index 28.25 (79.38 kg, 167.64 cm) hb 14:06 Pain Scale: Adult hb 17:18 Pain Scale: Adult ss Elmer Coma Score: 13:55 Eye Response: spontaneous(4). Motor Response: obeys commands(6). Verbal Response: hb oriented(5). Total: 15. 17:18 Eye Response: spontaneous(4). Motor Response: obeys commands(6). Verbal Response: ss oriented(5). Total: 15. Trauma Score (Adult): 13:55 Eye Response: spontaneous(1); Verbal Response: oriented(1); Motor Response: obeys hb commands(2); Systolic BP: > 89 mm Hg(4); Respiratory Rate: 10 to 29 per min(4); Elmer Score: 15; Trauma Score: 12 17:18 Eye Response: spontaneous(1); Verbal Response: oriented(1); Motor Response: obeys ss commands(2); Systolic BP: > 89 mm Hg(4); Respiratory Rate: 10 to 29 per min(4); [place] Score: 15; Trauma Score: 12 Laceration: 16:56 Wound Repair of 3cm ( 1.2in ) subcutaneous laceration to forehead. Linear shaped.. rt Distal neuro/vascular/tendon intact. Anesthesia: Wound infiltrated with 2 mls of 1% lidocaine. Wound prep: Extensive cleansing by nurse. Skin closed with 4 5-0 Prolene using interrupted sutures. Dressed with 4x4's. Patient tolerated well. MDM: 13:56 Patient medically screened. rt 16:56 Differential diagnosis: Fracture, head injury, tibial plateau fracture, intracranial rt hemorrhage. Data reviewed: vital signs, nurses notes, radiologic studies. Management of patient was discussed with the following: Insulation Cutter: Discussed with orthopedist, recommends outpatient follow-up with knee immobilizer.. I considered the following discharge prescriptions or medication management in the emergency department Medications were administered in the Emergency Department. See MAR. Test considered but Not performed: CT: No obvious tibial plateau fracture seen, suspect that the swelling is due to patellar tendon fracture, CT scan not indicated.. Counseling: I had a detailed discussion with the patient and/or guardian regarding: the historical points, exam findings, and any diagnostic results supporting the discharge/admit diagnosis, the presence of at least one elevated blood pressure reading (>120/80) during this emergency department visit, the need for outpatient follow up. 04/29 14:04 Order name: CT Head C Spine; Complete Time: 15:26 rt 04/29 14:04 Order name: Knee Right 3 View XRAY; Complete Time: 16:05 rt 04/29 14:04 Order name: Wound Care; Complete Time: 16:02 rt 04/29 14:04 Order name: Wound dressing; Complete Time: 17:18 rt 04/29 14:05 Order name: Gloves, Sterile; Complete Time: 16:33 rt 04/29 14:05 Order name: Prolene, Sutures; Complete Time: 16:33 rt 04/29 14:05 Order name: Setup Suture Tray; Complete Time: 14:33 rt 04/29 16:14 Order name: Knee Immobilizer; Complete Time: 17:18 rt 04/29 16:14 Order name: Crutches; Complete Time: 17:17 rt Administered Medications: 14:33 Drug: [place] PO 10 mg-325 mg 1 tabs Route: PO; hb 16:33 Follow up: Response: No adverse reaction; RASS: Alert and Calm (0) ss 16:25 Drug: morphine IM 4 mg Route: IM; Site: left deltoid; ss 17:18 Follow up: Response: No adverse reaction; Pain is decreased ss 16:33 Drug: Lidocaine Infiltration (1 %) 5 ml {Note: administered by Dr. Owens.} Volume: ss 5 ml; Route: Infiltration; 17:53 Drug: Boostrix Tdap 0.5 mL intramuscularly once; as a single dose 0.5 ml, Boostrix Tdap ss 0.5 ml {Note: 12/26/22 7MH39 VIS form given.} Route: IM; Site: right deltoid; 18:13 Follow up: Response: No adverse reaction ss Disposition Summary: 04/29/22 16:53 Discharge Ordered Location: Home rt Problem: new rt Symptoms: have improved rt Condition: Stable rt Diagnosis - Facial laceration rt - Right patellar tendon rupture rt Followup: rt - With: Private Physician - When: 7 - 10 days - Reason: Followup: rt - With: Elmer Toure MD - When: 7 - 10 days - Reason: Discharge Instructions: - Discharge Summary Sheet rt - Facial Laceration rt - Patellar Tendon Tear rt Forms: - Medication Reconciliation Form rt - Thank You Letter rt - Antibiotic Education rt - Prescription Opioid Use rt Prescriptions: - acetaminophen-codeine 300-30 mg Oral tablet - take 1 tablet by ORAL route every 4 hours as needed for pain; 18 tablet; rt Refills: 0, Product Selection Permitted Signatures: Dispatcher [employer] Kia Melo RN RN Faviola Dumont RN RN Portillo Knox MD MD rt
[2022-04-29] MEDS ORDERED: TDAP (DIPHTH,PERTUSS(ACELL),TET VAC) 0.5 ML VIAL IMVAC ONE (17:51)
[2022-04-29 18:18] VITALS: TEMP 97.9
[2022-04-29 18:19] VITALS: BP 158/86; O2SAT 99
== END 2022-04-29 18:13 | disposition home or self-care (01) ==
LOC: ER 13:51
PROC: 0HQ1XZZ Repair Face Skin, External Approach (ICD-10-PCS; principal; 2022-04-29)
DX: S01.81XA Laceration without foreign body of other part of head, initial encounter (principal); S76.111A Strain of right quadriceps muscle, fascia and tendon, initial encounter; I50.9 Heart failure, unspecified; J44.9 Chronic obstructive pulmonary disease, unspecified; I48.91 Unspecified atrial fibrillation; Z79.82 Long term (current) use of aspirin; Z88.8 Allergy status to other drugs, medicaments and biological substances; Z91.040 Latex allergy status; Z91.048 Other nonmedicinal substance allergy status; Z95.1 Presence of aortocoronary bypass graft
CPT/HCPCS: 12013; 70450; 72125; 73562; J2001